=== PATIENT | female | born 1945 | race Caucasian/White ===

== ENCOUNTER 2019-02-27 11:21 | Outpatient (RCR) | payer MEDICARE, SELFPAY | END 2019-05-28 23:59 | disposition home or self-care (01) | LOC: ANHLAB 11:21 | PROVIDERS: Visit Provider Internal Medicine Critical Care Medicine | DX: J45.909 Unspecified asthma, uncomplicated (principal); B99.9 Unspecified infectious disease | CPT/HCPCS: 87015; 87070; 87102; 87106; 87116; 87205; 87206 ==

== ENCOUNTER → 2019-06-30 10:26 | Outpatient (CLI) | payer MEDICARE, SELFPAY ==
--- NOTE | ~2019-06-30 | XR_ITS ---
XR chest 2V 06/30/2019 10:53 Indication: Shortness of breath Procedure: 2 view chest Comparison: 08/25/2018 Findings: Cardiomegaly. No focal air space disease, pulmonary edema, pleural effusion or suspected pn eumothorax. There is an implanted device overlying the left anterior chest wall. Impression: 1: No acute cardiopulmonary disease. Reviewed, dictated and finalized at location B. HEALTH PROMOTER Impression: 1: No acute cardiopulmonary disease.
== END ==
PROVIDERS: PCP Family Medicine; Visit Provider Family Medicine
DX: J45.909 Unspecified asthma, uncomplicated (principal); R06.89 Other abnormalities of breathing
CPT/HCPCS: 71046

== ENCOUNTER 2019-10-22 10:38 | Outpatient (CLI) | payer MEDICARE, SELFPAY ==
--- NOTE | ~2019-10-22 | XR_ITS ---
XR chest 2V DATE: 10/22/2019 11:05 INDICATION: Atrial fibrillation. COPD, asthma. Cerebral infarction. TECHNIQUE: PA and lateral views COMPARISON: 07/26/2021 view chest FINDINGS: Left human resources temp device overlies the medial left chest. Cardiomegaly. Aortic calcification. No hilar or mediastinal enlargement is evident. The lungs are kathya ar of infiltrate or consolidation. No pulmonary vascular congestion or pneumothorax. No significant p leural fluid. Diffuse osteopenia. Degenerative spurring of the thoracic spine. 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 IMPRESSION: Mild cardiomegaly Aortic atherosclerosis commercial account officer device No active pulmonary disease or significant change since 06/30/2019 Reviewed, dictated and finalized at location A.
== END 2019-10-22 10:39 | disposition home or self-care (01) ==
PROVIDERS: PCP Family Medicine; Visit Provider Family Medicine
DX: I63.9 Cerebral infarction, unspecified (principal); J45.909 Unspecified asthma, uncomplicated; I51.7 Cardiomegaly; I70.0 Atherosclerosis of aorta
CPT/HCPCS: 71046

== ENCOUNTER 2019-10-29 11:27 | Emergency (ER) | payer MEDICARE, SELFPAY ==
[2019-10-29] VITALS (8 sets, daily range): BP systolic 124–217; BP diastolic 59–90; PULSE 63–78; RESP 14–18; TEMP 36.8; O2SAT 98–99
--- NOTE | ~2019-10-29 | XR_ITS ---
XR chest 2V 10/29/2019 12:12 Indication: Chest pain Procedure: 2 view chest Comparison: 10/22/2019 Findings: Bibasilar atelectasis. Borderline heart size. No focal pneumonia, edema, pleural effusion o r pneumothorax. Impression: 1: Bibasilar atelectasis. Reviewed, dictated and finalized at location A. Impression: 1: Bibasilar atelectasis.
--- NOTE | 2019-10-29 11:40 | ECG_ITS ---
Measurements Intervals [place] Rate: 74 P: 113 TN: 163 QRS: 6 QRSD: 85 T: 74 QT: 379 QTc: 422 Interpretive Statements SINUS RHYTHM LOW QRS VOLTAGE IN PRECORDIAL LEADS NONSPECIFIC ST & T-WAVE ABNORMALITY- HIGH LATERAL LEADS BASELINE ARTIFACT- I, AVR, V1, V6 BORDERLINE ECG Electronically Signed On 10-29-2019 13:57:15 CDT by Darien Marte D.O.
[2019-10-29 11:54] LABS: Basophils Absolute Auto 0.1 K/mm3 (0.0-0.1); Basophils Percent Auto 0.5 % (0.2-1.2); Eosinophils Absolute Auto 0.2 K/mm3 (0-0.3); Eosinophils Percent Auto 1.9 % (0-4.4); Hematocrit 39.9 % (37.0-47.0); Hemoglobin 12.7 g/dL (12.0-15.0); Immature Granulocyte Absolute 0.06 K/mm3 (0.00-0.031); Immature Granulocyte Percent A 0.6 % (0-0.5); Lymphocytes Absolute Auto 2.15 K/mm3 (0.9-3.2); Lymphocytes Percent Auto 20.7 % (18.3-44.2); Mean Corpuscular HGB Conc 31.8 g/dl (32-36); Mean Corpuscular Hemoglobin 27.3 pg (26-34); Mean Corpuscular Volume 85.8 fl (80-100); Mean Platelet Volume 9.3 fl (7.4-10.4); Monocytes Absolute Auto 0.9 K/mm3 (0.1-0.6); Monocytes Percent Auto 8.7 % (2.6-8.5); Neutrophils Percent Auto 67.6 % (45.5-73.1); Platelet Count Result 349 k/mm3 (150-375); Red Blood Count 4.65 M/mm3 (4.2-5.4); Red Cell Distribution Width 15.1 % (11.5-14.5); White Blood Count 10.4 K/mm3 (4.5-10.0)
[2019-10-29 12:06] LABS: INR 2.3; Prothrombin Time 24.8 Seconds (11.1-14.7)
[2019-10-29 12:07] LABS: Partial Thromboplastin Time 52.8 SECONDS (22.3-36.8)
[2019-10-29 12:34] LABS: Blood Urea Nitrogen 12 mg/dL (7-17); Calcium 9.4 mg/dL (8.4-10.2); Carbon Dioxide 27 mmol/L (22-30); Chloride 103 mmol/L (98-107); Estimated CRCL calculation 50 ml/min; Estimated Glomerular Filt Rate > 60; Glucose 86 mg/dL (65-105); Potassium 4.8 mmol/L (3.4-5.0); Sodium 136 mmol/L (137-145)
[2019-10-29 12:35] LABS: Alanine Aminotransferase 18 U/L (4-35); Alkaline Phosphatase 163 U/L (38-126); Aspartate Amino Transferase 42 U/L (14-36); Bilirubin,Total 0.3 mg/dL (0.2-1.3); Lipase 132 U/L (23-300)
[2019-10-29 12:46] LABS: Troponin I 0.013 ng/mL (0.000-0.034)
[2019-10-29] MEDS: FAMOTIDINE 20 MG/2 ML VIAL IV PUSH (14:25)
[2019-10-29] MEDS: BELLADONNA ALK/PHENOB ELIX 10 ML, MAG HYDROX/ALUMINUM HYD/SIMETH 30 ML, LIDOCAINE HCL 2... PO (14:25)
[2019-10-29 15:08] LABS: Troponin I < 0.012 ng/mL (0.000-0.034)
[2019-10-29] MEDS: FUROSEMIDE INJ 40 MG/4 ML VIAL 20 MG IV PUSH (15:22)
--- NOTE | 2019-10-29 15:28 | ED.GENADULT ---
HPI - General Adult General Chief complaint: Chest Pain <MABEL Pablo Last Filed: 10/29/19 15:34> Stated complaint: heart problems <MABEL Pablo Last Filed: 10/29/19 15:34> Time Seen by Provider: 10/29/19 11:57 <MABEL Pablo Last Filed: 10/29/19 15:34> Source: patient <MABEL Pablo Last Filed: 10/29/19 15:34> Mode of arrival: ambulatory <MABEL Pablo Last Filed: 10/29/19 15:34> Limitations: no limitations <MABEL Pablo Last Filed: 10/29/19 15:34> History of Present Illness HPI narrative: Patient is a 74-year-old female who presents with weeks duration of epigastric abdominal discomfort radiating up into the chest and neck patient notes history of reflux and has been taking [id number] and prescribed medications with minimal improvement patient on arrival notes mild discomfort has seen her primary care for this with no improvement patient on arrival is noted in no distress resting comfortably. <MABEL Pablo Last Filed: 10/29/19 15:34> Related Data Home medications: Home Medications Medication Instructions Recorded Confirmed brimonidine 0.2 %-timolol 0.5 % 2 drop EACH EYE Q12H 03/12/19 10/20/19 eye drops bupropion HCl 150 mg 24 hr tablet, 150 mg PO QAM 03/12/19 10/20/19 extended release cetirizine 10 mg tablet 10 mg PO DAILY 03/12/19 10/20/19 clonazepam 0.5 mg tablet 0.5 mg PO DAILY 03/12/19 10/20/19 clopidogrel 75 mg tablet 75 mg PO DAILY 03/12/19 10/20/19 dicyclomine 20 mg tablet 20 mg PO QID 03/12/19 10/20/19 levomilnacipran 80 mg capsule,24 80 mg PO DAILY 03/12/19 10/20/19 hr,extended release metoprolol succinate 25 mg 25 mg PO DAILY 03/12/19 10/20/19 tablet,extended release 24 hr nitroglycerin 0.4 mg sublingual 0.4 mg SUBLINGUAL Q5M PRN 03/12/19 10/20/19 tablet potassium chloride 20 mEq 20 meq PO DAILY 03/12/19 10/20/19 tablet,extended release vitamin E succinate 400 unit tablet 400 unit PO DAILY 03/12/19 10/20/19 trazodone 50 mg tablet 100 mg PO .HS tablet 03/13/19 10/20/19 buspirone 15 mg tablet 15 mg PO TID tablet 08/26/19 10/20/19 sitagliptin 100 mg tablet 100 mg PO QAM tablet 08/26/19 10/20/19 Vitamin D3 1 tab-cap PO DAILY 10/29/19 acetaminophen [Tylenol Arthritis 1,300 mg PO Q12H 10/29/19 Pain] atorvastatin 40 mg PO DAILY 10/29/19 budesonide-formoterol 2 puff INHALATION Q12H 10/29/19 geriatric yscfbzbe-jkmk-tfkt 1 tablet PO DAILY 10/29/19 insulin asp prt-insulin aspart 55 unit SUB-Q BID 10/29/19 [Novolog Mix 70-30FlexPen U-100] potassium chloride 20 meq PO DAILY 10/29/19 vilazodone 10 mg PO DAILY 10/29/19 vitamin B complex 1 tablet PO DAILY 10/29/19 <Eric Lawton PA-C - Last Filed: 10/29/19 15:34> Allergies/adverse reactions: Allergies Allergy/AdvReac Type Severity Reaction Status Date / Time amoxicillin Allergy Unknown Unknown Verified 10/29/19 11:38 ticagrelor Allergy Unknown Unknown Verified 10/29/19 11:38 clavulanic acid AdvReac Nausea and Verified 10/29/19 11:44 [From Augmentin] Vomiting <Eric Lawton PA-C - Last Filed: 10/29/19 15:34> Review of Systems Review of Systems: All systems reviewed & are unremarkable except as noted in HPI and below <Eric Lawton PA-C - Last Filed: 10/29/19 15:34> [facility] Past Medical History Medical History: Medical History Anxiety Asthma Back pain Cholecystectomy planned Depression Heart attack History of cardiac monitoring Hypertension Obesity Psychiatric problem <Eric Lawton PA-C - Last Filed: 10/29/19 15:34> Surgical History Surgical History: Surgical History H/O heart artery stent Hx of tonsillectomy <Eric Lawton PA-C - Last Filed: 10/29/19 15:34> Social History Social History: Social History (Reviewed 10/29/19 @ 15
[2019-10-29 16:00] LABS: Add Urine Microscopic? YES; Appearance Urine Clear (Clear); Bacteria Urine Trace /hpf; Bilirubin Urine Negative (Negative); Blood Urine Negative (Negative); Color Urine Yellow (Yellow); Glucose Urine UA Negative (Negative); Ketones Urine Negative (Negative); Leukocyte Esterase Ur Trace LEU/UL (Negative); Mucus Urine Rare /lpf; Nitrate Urine Positive (Negative); Protein Urine Negative (Negative); RBC Urine 0-2 /hpf (0-2); Specific Grav Ur 1.015 (1.001-1.035); Squamous Epithelial Cell Urine Rare /hpf (Few); Urobilinogen Urine Negative mg/dL (<2.0); WBC Urine 16-20 /hpf
== END 2019-10-29 15:45 | disposition home or self-care (01) ==
PROVIDERS: Emergency Medicine Emergency Medical Services; Emergency Provider General Practice; PCP Family Medicine
DX: R10.13 Epigastric pain (principal); J45.909 Unspecified asthma, uncomplicated; F41.9 Anxiety disorder, unspecified; F32.9 Major depressive disorder, single episode, unspecified; I25.2 Old myocardial infarction; I10 Essential (primary) hypertension; E66.9 Obesity, unspecified; Z68.41 Body mass index [BMI] 40.0-44.9, adult; Z95.5 Presence of coronary angioplasty implant and graft; Z87.891 Personal history of nicotine dependence; R94.31 Abnormal electrocardiogram [ECG] [EKG]
CPT/HCPCS: 36415; 71046; 80048; 80076; 81001; 83690; 84484; 85025; 85610; 85730; 87077; 87086; 87088; 87186; 93005; 96374; 96375; 99284; A9270; J1940

== ENCOUNTER 2019-11-18 10:25 | Outpatient (CLI) | payer MEDICARE, SELFPAY ==
--- NOTE | ~2019-11-18 | US_ITS ---
EXAMINATION: US carotid duplex BI DATE: 11/18/2019 11:27 INDICATION: Cerebral infarction, unspecified. TECHNIQUE: Grayscale, color Doppler, and pulsed Doppler images of the cervical carotid arteries were obtained. The degree of vessel stenosis is placed in one of the following categories: normal, <50%, 5 0-69%, >=70% but less than near-occlusion, near-occlusion, or total occlusion. Note that percent sten osis relative to normal distal artery lumen diameter is indirectly measured from velocity measurement s as described by Ck, et al. Radiology 2003; 229:340-346. COMPARISON: None. FINDINGS: RIGHT: The right common carotid artery (CCA) peak systolic velocity (PSV) is 73 cm/s. The right internal car otid artery (ICA) PSV is 67 cm/s. The right ICA end-diastolic velocity (EDV) is 11 cm/s. The right IC A/CCA PSV ratio is 0.9. Grayscale and color Doppler images yield an estimate of <50% diameter reducti on from plaque in the ICA. There is antegrade flow in the right vertebral artery. LEFT: The left CCA PSV is 61 cm/s. The left ICA PSV is 58 cm/s. The left ICA EDV is 10 cm/s. The left ICA/C CA PSV ratio is 1.0. Grayscale and color Doppler images yield an estimate of <50% diameter reduction from plaque in the ICA. There is antegrade flow in the left vertebral artery. IMPRESSION: 1. <50% stenosis in the right internal carotid artery. 2. <50% stenosis in the left internal carotid artery. Reviewed, dictated and finalized at location A.
== END 2019-11-18 10:26 | disposition home or self-care (01) ==
PROVIDERS: PCP Family Medicine; Visit Provider Nurse Practitioner Adult Health
DX: I65.23 Occlusion and stenosis of bilateral carotid arteries (principal)
CPT/HCPCS: 93880

== ENCOUNTER → 2020-10-28 10:22 | Outpatient (CLI) | payer MEDICARE, SELFPAY ==
--- NOTE | ~2020-10-28 | DEXA_ITS ---
Bone Density Report Name: Mihaela Finch Age: 75 Sex: Female Ethnicity: White Date of : 1945 Indication: postmenopausal; screening for osteoporosis; height loss; prior fracture; asthma or emphysema; Referring Provider: Shefali Vann Study: Bone densitometry was performed. Exam Date: October 28, 2020 Accession number: [id number] Bone Density: Region BMD T-score Z-score Classification AP Spine (L1-L4) 1.070 0.2 2.7 Normal Femoral Neck (Left) 0.672 -1.6 0.6 Osteopenia Total Hip (Left) 0.818 -1.0 0.9 Normal Femoral Neck (Right) 0.725 -1.1 1.0 Osteopenia Total Hip (Right) 0.862 -0.7 1.2 Normal Total Hip Mean 0.840 -0.9 1.1 Normal World Health Organization criteria for BMD impression classify patients as: Normal (T-score at or above -1.0), Osteopenia (T-score between -1.0 and -2.5), or Osteoporosis (T-score at or below -2.5). 10-year Fracture Risk(1): Major Osteoporotic Fracture 16% Hip Fracture 3.1% Reported Risk Factors: [place] (), Neck BMD=0.672, BMI=37.2, previous fracture (1) FRAX(R) Version 3.08. Fracture probability calculated for an untreated patient. Fracture probability may be lower if the patient has received treatment. Previous Exams: Region Exam Age BMD T-score BMD Change BMD Change Date g/cm2 vs Baseline vs Previous AP Spine(L1-L4) 10/28/2020 75 1.070 0.2 0.041 0.041 02/28/2017 72 1.029 -0.2 Total Hip(Left) 10/28/2020 75 0.818 -1.0 -0.078 -0.078 02/28/2017 72 0.896 -0.4 Total Hip(Right) 10/28/2020 75 0.862 -0.7 -0.032 -0.032 02/28/2017 72 0.893 -0.4 *Denotes significance at 95% confidence level, LSC for AP Spine = 0.022 g/cm2, LSC for Total Hip = 0.027 g/cm2 Clinical Information Provided by Patient: Has had a low trauma fracture Has used the following medications: Calcium Has the following medical conditions: Asthma or Emphysema Patient maximum height was 62 Menopause Age: 42 No regular weight bearing exercise Drinks caffeinated beverages Onset of menses at age 10 Number of children 2 Impression: The patient has low bone mass, based on the Left Femoral Neck T-score. The patient has an estimated ten-year risk of hip fracture of 3.1% and an estimated ten-year risk of major fracture of 16%, based on the WHO FRAX algorithm. The patient has risk factors, including: previous fracture. No significant bone loss was observed.
== END ==
PROVIDERS: PCP Family Medicine; Visit Provider Physician Assistant
DX: Z78.0 Asymptomatic menopausal state (principal); M85.851 Other specified disorders of bone density and structure, right thigh; M85.852 Other specified disorders of bone density and structure, left thigh
CPT/HCPCS: 77080

== ENCOUNTER → 2021-07-26 07:54 | Outpatient (CLI) | payer MEDICARE, SELFPAY ==
--- NOTE | ~2021-07-26 | US_ITS ---
US abdomen limited DATE: 07/26/2021 08:30 INDICATION: Abnormal serum enzyme elevation TECHNIQUE: Real-time imaging and Doppler analysis of liver, pancreas, gallbladder fossa COMPARISON: None FINDINGS: No hepatic or pancreatic space-occupying mass lesion. Normal hepatopedal portal venous flow direction. Surgical absence of gallbladder. Common bile duct measures 5 mm, within normal range. IMPRESSION: Status post cholecystectomy Reviewed, dictated and finalized at Location A. Reviewed, dictated and finalized at location A. IMPRESSION: Status post cholecystectomy
== END ==
PROVIDERS: Visit Provider Physician Assistant
DX: R74.8 Abnormal levels of other serum enzymes (principal); Z90.49 Acquired absence of other specified parts of digestive tract
CPT/HCPCS: 76705

== ENCOUNTER 2021-10-24 19:52 | Emergency (ER) | payer MEDICARE, SELFPAY ==
[2021-10-24 20:37] VITALS: BP 171/66; PULSE 77; RESP 18; TEMP 36.4; O2SAT 100
[2021-10-24 20:49] LABS: Glucose Point of Care 76 mg/dl (65-105)
[2021-10-24 23:44] LABS: Appearance Urine Slightly Cloudy (Clear); Bilirubin Urine Negative (Negative); Blood Urine 2+ (Negative); Color Urine Yellow (Yellow); Glucose Urine UA Negative (Negative); Ketones Urine Negative (Negative); Leukocyte Esterase Ur 3+ LEU/UL (Negative); Nitrate Urine Negative (Negative); Protein Urine 1+ mg/dL (Negative); Specific Grav Ur 1.015 (1.001-1.035); Urobilinogen Urine 0.2 mg/dL (<2.0)
[2021-10-24 23:51] LABS: Bacteria Urine Trace /hpf; Mucus Urine Rare /lpf; RBC Urine 21-50 /hpf (0-2); Squamous Epithelial Cell Urine Rare /hpf (Few); WBC Clumps Urine Present /HPF; WBC Urine >75 /hpf
[2021-10-24 23:52] LABS: Add Urine Microscopic? YES
[2021-10-24 23:58] LABS: Basophils Absolute Auto 0.1 K/mm3 (0.0-0.1); Basophils Percent Auto 0.5 % (0.2-1.2); Eosinophils Absolute Auto 0.2 K/mm3 (0-0.3); Eosinophils Percent Auto 1.7 % (0-4.4); Hemoglobin 12.1 g/dL (12.0-15.0); Immature Granulocyte Absolute 0.06 K/mm3 (0.00-0.031); Immature Granulocyte Percent A 0.5 % (0-0.5); Lymphocytes Absolute Auto 2.22 K/mm3 (0.9-3.2); Lymphocytes Percent Auto 18.3 % (18.3-44.2); Mean Corpuscular HGB Conc 30.3 g/dl (32-36); Mean Corpuscular Hemoglobin 25.7 pg (26-34); Mean Corpuscular Volume 85.1 fl (80-100); Mean Platelet Volume 9.5 fl (7.4-10.4); Monocytes Percent Auto 8.2 % (2.6-8.5); Neutrophils Absolute Auto 8.6 K/mm3 (1.3-6.7); Neutrophils Percent Auto 70.8 % (45.5-73.1); Platelet Count Result 321 k/mm3 (150-375); Red Cell Distribution Width 15.7 % (11.5-14.5); White Blood Count 12.1 K/mm3 (4.5-10.0)
--- NOTE | 2021-10-25 00:18 | ED.GENADULT ---
HPI - General Adult General Chief complaint: Recheck/Abnormal Lab/Rx Stated complaint: low blood sugar Time Seen by Provider: 10/24/21 22:58 History of Present Illness HPI narrative: 76-year-old female with history of diabetes presenting to the emergency department for evaluation of issues with hypoglycemia. Patient has had more frequent issues with hypoglycemia due to her having 71 pounds of intentional weight loss over the last year. Patient states they have been decreasing both her p.o. and her injectable insulin. Patient states over the course of the day today that she was having blood sugars running in the 50s for which she was symptomatic. Upon arrival to the ED patient's blood sugar is between the 70s and she does feel improved. Patient has also been having more frequent urinary tract infections and does have follow-up with urology scheduled for . Patient reports she has been on multiple antibiotics but is unsure what they are. Related Data Home Medications Medication Instructions Recorded Confirmed brimonidine 0.2 %-timolol 0.5 % 2 drop ophthalmic (eye) Q12H 03/12/19 10/13/21 eye drops (Combigan) bupropion HCl 150 mg 24 hr tablet, 150 mg PO QAM 03/12/19 10/13/21 extended release cetirizine 10 mg tablet (Zyrtec) 10 mg PO DAILY 03/12/19 10/13/21 clopidogrel 75 mg tablet 75 mg PO DAILY 03/12/19 10/13/21 levomilnacipran 80 mg capsule,24 80 mg PO DAILY 03/12/19 10/13/21 hr,extended release (Fetzima) metoprolol succinate 25 mg 25 mg PO DAILY 03/12/19 10/13/21 tablet,extended release 24 hr nitroglycerin 0.4 mg sublingual 0.4 mg sublingual Q5M PRN Chest 03/12/19 10/13/21 tablet Pain vitamin E succinate 268 mg (400 400 unit PO DAILY 03/12/19 10/13/21 unit) tablet trazodone 50 mg tablet 100 mg PO .HS 03/13/19 10/13/21 buspirone 15 mg tablet 15 mg PO TID 08/26/19 10/13/21 acetaminophen 650 mg 1,300 mg PO Q12H 10/29/19 10/13/21 tablet,extended release (Tylenol Arthritis Pain) budesonide-formoterol HFA 160 2 puff inhalation Q12H 10/29/19 10/13/21 mcg-4.5 mcg/actuation aerosol inhaler geriatric dhamamel-ssbq-owmr 1 tablet PO DAILY 10/29/19 10/13/21 vilazodone 10 mg tablet 10 mg PO DAILY 10/29/19 10/13/21 vitamin B complex 1 tablet PO DAILY 10/29/19 10/13/21 rivaroxaban 20 mg tablet (Xarelto) 20 mg PO DAILY 12/01/19 10/13/21 atorvastatin 40 mg tablet 40 mg PO QPM 12/06/19 10/13/21 cholecalciferol (vitamin D3) 25 25 mcg PO DAILY 05/26/20 10/13/21 mcg (1,000 unit) tablet clonazepam 0.5 mg tablet 0.5 mg PO DAILY PRN 05/26/20 10/13/21 furosemide 20 mg tablet 20 mg PO QAM 05/26/20 10/13/21 multivitamin 1 tablet PO DAILY 05/26/20 10/13/21 POTASSIUM GUMMIES BYMOUTH 10/12/21 10/13/21 insulin regular hum U-500 conc 500 See Rx Instructions .Route .COMPLEX 10/12/21 10/13/21 unit/mL(3 mL) subcut pen (Humulin R U-500 (Conc) Insulin Kwikpen) Allergies Allergy/AdvReac Type Severity Reaction Status Date / Time amoxicillin Allergy Unknown Unknown Verified 10/13/21 10:40 ticagrelor Allergy Unknown Unknown Verified 10/13/21 10:40 clavulanic acid AdvReac Nausea and Verified 10/13/21 10:40 [From Augmentin] Vomiting Review of Systems Review of Systems: CONSTITUTIONAL: Denies fever, chills, or sweats. EYES: Denies visual changes, redness, or discharge. ENT: Denies rhinorrhea, congestion, sore throat, or otalgia. CARDIOVASCULAR: Denies chest pain, palpitations, or edema. RESPIRATORY: Denies cough or dyspnea. GASTROINTESTINAL: See HPI GENITOURINARY: See HPI SKIN: Denies rash or itching. MUSCULOSKELETAL: Denies back pain, joint pain, or myalgia. NEUROLOGIC: Denies headache, numbness, or weakness. FOR[facility]LY [facility] Past Medical History Medical History Anxiety Asthma Back pain Cholecystectomy planned Depression Heart attack History of cardiac monitoring Hypertension Obesity Psychiatric problem Surgical History Surgical History (Reviewed 10/12/21 @ 11:2
[2021-10-25 00:28] LABS: Glucose Point of Care 62 mg/dl (65-105)
[2021-10-25] MEDS: NITROFURANTOIN MONOHYD MACROCR 100 MG CAP PO (00:56)
[2021-10-25 01:08] LABS: Alanine Aminotransferase 28 U/L (6-35); Albumin Level 4.3 g/dL (3.5-5.1); Alkaline Phosphatase 147 U/L (38-126); Anion Gap 7 mmol/L (8-16); Aspartate Amino Transferase 40 U/L (14-36); Bilirubin,Total 0.2 mg/dL (0.2-1.3); Blood Urea Nitrogen 13 mg/dL (7-17); Calcium 9.5 mg/dL (8.4-10.2); Carbon Dioxide 29 mmol/L (22-30); Chloride 103 mmol/L (98-107); Estimated CRCL calculation 47 ml/min; Estimated Glomerular Filt Rate > 60; Glucose 81 mg/dL (65-110); Potassium 3.8 mmol/L (3.4-5.0); Sodium 139 mmol/L (137-145)
[2021-10-25 02:19] LABS: Glucose Point of Care 93 mg/dl (65-105)
[2021-10-25 02:29] VITALS: BP 172/92; PULSE 83; RESP 18; O2SAT 94
== END 2021-10-25 02:29 | disposition home or self-care (01) ==
PROVIDERS: Emergency Provider Emergency Medicine; PCP Family Medicine
DX: E11.649 Type 2 diabetes mellitus with hypoglycemia without coma (principal); N39.0 Urinary tract infection, site not specified; J45.909 Unspecified asthma, uncomplicated; I25.2 Old myocardial infarction; I10 Essential (primary) hypertension; E66.9 Obesity, unspecified; Z68.34 Body mass index [BMI] 34.0-34.9, adult; F41.9 Anxiety disorder, unspecified; Z79.01 Long term (current) use of anticoagulants; Z79.4 Long term (current) use of insulin; Z95.5 Presence of coronary angioplasty implant and graft; Z87.891 Personal history of nicotine dependence
CPT/HCPCS: 36415; 80053; 81001; 82948; 85025; 87077; 87086; 87186; 99283; A9270

== ENCOUNTER → 2022-05-01 11:41 | Outpatient (CLI) | payer MEDICARE, SELFPAY ==
--- NOTE | ~2022-05-01 | XR_ITS ---
Clinical Indication: Cough PA and lateral views of the chest: Comparison: 10/29/2019 Findings: Small bilateral pleural effusions are present with probable mild bibasilar pulmonary edema. . Cardiomediastinal silhouette is stable, with wireless monitoring device. Bones and soft tissues ar e unremarkable. Impression: Small bilateral pleural effusions with mild bibasilar pulmonary edema. Stable cardiac monitoring device. Reviewed, dictated and finalized at location . CULTURE EXTENSION SPECIALIST Impression: Small bilateral pleural effusions with mild bibasilar pulmonary edema. Stable cardiac monitoring device.
== END ==
PROVIDERS: PCP Nurse Practitioner; Visit Provider Nurse Practitioner
DX: R05.9 Cough, unspecified (principal); R06.02 Shortness of breath; R60.9 Edema, unspecified; J90 Pleural effusion, not elsewhere classified; Z95.818 Presence of other cardiac implants and grafts
CPT/HCPCS: 71046

== ENCOUNTER → 2022-05-10 11:21 | Outpatient (CLI) | payer MEDICARE, SELFPAY ==
--- NOTE | ~2022-05-10 | XR_ITS ---
EXAMINATION: XR chest 2V DATE: 05/10/2022 11:35 INDICATION: Shortness of breath TECHNIQUE: PA and lateral views of the chest are obtained. COMPARISON: 05/01/2022 FINDINGS: There are small pleural effusions, right greater than left, without significant change. Car diomegaly is noted. There is no pleural effusion. There are stable airspace opacities of the lung bas es. A mild diffuse interstitial pattern persists but has improved. A cardiac monitoring device projec ts over the left heart. There is moderate thoracic spondylosis. IMPRESSION: 1. Small pleural effusions, stable. 2. Bibasilar airspace opacities, consistent with atelectasis versus pneumonia. 3. Cardiomegaly and mild pulmonary edema with interval improvement. Reviewed, dictated and finalized at location L. INSERTER
== END ==
PROVIDERS: PCP Family Medicine; Visit Provider Nurse Practitioner
DX: J90 Pleural effusion, not elsewhere classified (principal); I51.7 Cardiomegaly; J81.1 Chronic pulmonary edema
CPT/HCPCS: 71046

== ENCOUNTER 2022-05-21 08:16 | Inpatient (IN) | payer MEDICARE, SELFPAY ==
[2022-05-21] VITALS (16 sets, daily range): BP systolic 151–196; BP diastolic 50–99; PULSE 81–98; RESP 16–26; TEMP 36.1–36.6; O2SAT 91–98
--- NOTE | ~2022-05-21 | XR_ITS ---
EXAMINATION: XR chest 2V DATE: 05/21/2022 09:04 INDICATION: Shortness of breath. TECHNIQUE: Frontal and lateral views of the chest were obtained. COMPARISON: Chest 2 views 05/10/2022 FINDINGS: There are small pleural effusions. There are airspace opacities at the lung bases. No pneum othorax. Cardiomegaly is noted. There is an electronic implant in left anterior chest wall. There are surgical clips in the abdomen. IMPRESSION: 1. Stable small pleural effusions. 2. Worsened airspace opacities at the lung bases, consistent with atelectasis versus pneumonia. 3. Cardiomegaly. Reviewed, dictated and finalized at location A. D ACCOUNT MANAGER IMPRESSION: 1. Stable small pleural effusions. 2. Worsened airspace opacities at the lung bases, consistent with atelectasis v ersus pneumonia. 3. Cardiomegaly.
--- NOTE | ~2022-05-21 | XR_ITS ---
XR chest 1V portable 05/26/2022 05:57 Indication: Shortness of breath Procedure: AP portable chest Comparison: Comparison to multiple prior studies sequentially, with oldest reviewed study dated 05/2019. Findings: Cardiomegaly with mild interstitial edema. Small pleural effusions. No pneumothorax. There is atherosclerosis. No acute osseous abnormality. Impression: 1: Cardiomegaly with mild interstitial edema. 2: Small pleural effusions. Reviewed, dictated and finalized at location A. RITY OF ILLNESS COORDINATOR Impression: 1: Cardiomegaly with mild interstitial edema. 2: Small pleural effusions.
--- NOTE | 2022-05-21 08:28 | ECG_ITS ---
Measurements Intervals [place] Rate: 87 P: 83 CT: 167 QRS: 26 QRSD: 83 T: 11 QT: 352 QTc: 426 Interpretive Statements SINUS RHYTHM LOW QRS VOLTAGE IN PRECORDIAL LEADS BORDERLINE ST-T WAVE ABNORMALITY- INF/HIGH LAT LEADS BASELINE ARTIFACT- I, II, III, AVR, AVL, AVF, V3, V6 BORDERLINE ECG COMPARED TO ECG 10/29/2019 11:37:30 NO SIGNIFICANT CHANGES Electronically Signed On 05-21-2022 10:50:50 YARD SPECIALIST by Darien Marte D.O.
[2022-05-21 08:46] LABS: Basophils Percent Auto 0.3 % (0.2-1.2); Eosinophils Absolute Auto 0.2 K/mm3 (0-0.3); Eosinophils Percent Auto 1.8 % (0-4.4); Hemoglobin 9.9 g/dL (12.0-15.0); Immature Granulocyte Absolute 0.06 K/mm3 (0.00-0.031); Immature Granulocyte Percent A 0.5 % (0-0.5); Immature Platelet Fraction Pct 1.7 % (0.9-11.2); Lymphocytes Absolute Auto 1.17 K/mm3 (0.9-3.2); Lymphocytes Percent Auto 10.6 % (18.3-44.2); Mean Corpuscular HGB Conc 29.1 g/dl (32-36); Mean Corpuscular Hemoglobin 22.5 pg (26-34); Mean Corpuscular Volume 77.3 fl (80-100); Monocytes Absolute Auto 0.9 K/mm3 (0.1-0.6); Monocytes Percent Auto 8.5 % (2.6-8.5); Neutrophils Absolute Auto 8.7 K/mm3 (1.3-6.7); Neutrophils Percent Auto 78.3 % (45.5-73.1); Platelet Count Result 352 k/mm3 (150-375); White Blood Count 11.1 K/mm3 (4.5-10.0)
[2022-05-21 08:56] LABS: INR 2.4
[2022-05-21 08:57] LABS: Alanine Aminotransferase 21 U/L (6-35); Albumin Level 3.7 g/dL (3.5-5.1); Alkaline Phosphatase 208 U/L (38-126); Anion Gap 8 mmol/L (8-16); Aspartate Amino Transferase 25 U/L (14-36); Bilirubin,Total 0.5 mg/dL (0.2-1.3); Blood Urea Nitrogen 18 mg/dL (7-17); Carbon Dioxide 27 mmol/L (22-30); Chloride 108 mmol/L (98-107); Estimated CRCL calculation 44 ml/min; Estimated Glomerular Filt Rate 48; Glucose 114 mg/dL (65-110); Potassium 3.9 mmol/L (3.4-5.0); Sodium 143 mmol/L (137-145)
[2022-05-21 08:58] LABS: Partial Thromboplastin Time 50.2 SECONDS (22.3-36.8)
[2022-05-21 09:09] LABS: NT Pro B Type Natriuretic Pept 2640 pg/mL (19.9-100); Troponin I < 0.012 ng/mL (0.000-0.034)
[2022-05-21 09:21] LABS: Platelet Estimate Adequate (Adequate)
[2022-05-21 09:22] LABS: Anisocytosis 1+ (NORMAL); Hypochromasia 1+ (NORMAL); Ovalocytes 1+ (NORMAL); Poikilocytosis 1+ (NORMAL); Schistocytes None Seen (NORMAL)
[2022-05-21] MEDS: FUROSEMIDE INJ 40 MG/4 ML VIAL IV PUSH ×2 (09:35→20:55)
--- NOTE | 2022-05-21 10:01 | ED.SOB ---
HPI - SOB/Dyspnea General Chief Complaint: Shortness of Breath/Dyspnea Stated Complaint: swelling/diff breathing Time Seen by Provider: 05/21/22 08:26 History of Present Illness HPI Narrative: Patient is a 77-year-old female who presents the ER with lower extremity edema and shortness of breath. Edema worsening over the last month. She reports a 40 pound weight gain. Denies history of CHF. Reports she has been seen at an urgent care and has been placed on Lasix and has had her Lasix dose increased. She is currently taking 40 mg daily without improvement of edema. She has been wearing pressure stockings without improvement as well. She was recently started on clindamycin because her skin has turned pink over her shins of the lower legs. No fevers or chills or sweats. She has developed some blisters with weeping. No recent surgery or immobility. Patient is on Xarelto due to history of heart flutters. Related Data Home Medications Medication Instructions Recorded Confirmed brimonidine 0.2 %-timolol 0.5 % 2 drop ophthalmic (eye) Q12H 03/12/19 05/21/22 eye drops (Combigan) bupropion HCl 150 mg 24 hr tablet, 150 mg PO QAM 03/12/19 05/21/22 extended release cetirizine 10 mg tablet (Zyrtec) 10 mg PO DAILY 03/12/19 05/21/22 clopidogrel 75 mg tablet 75 mg PO DAILY 03/12/19 05/21/22 levomilnacipran 80 mg capsule,24 80 mg PO DAILY 03/12/19 05/21/22 hr,extended release (Fetzima) metoprolol succinate 25 mg 25 mg PO DAILY 03/12/19 05/21/22 tablet,extended release 24 hr nitroglycerin 0.4 mg sublingual 0.4 mg sublingual Q5M PRN Chest 03/12/19 05/21/22 tablet Pain buspirone 15 mg tablet 15 mg PO TID 08/26/19 05/21/22 acetaminophen 650 mg 1,300 mg PO Q12H 10/29/19 05/21/22 tablet,extended release (Tylenol Arthritis Pain) budesonide-formoterol HFA 160 2 puff inhalation Q12H 10/29/19 05/21/22 mcg-4.5 mcg/actuation aerosol inhaler geriatric pjrupfal-zkuk-edrh 1 tablet PO DAILY 10/29/19 05/21/22 vilazodone 10 mg tablet 10 mg PO DAILY 10/29/19 05/21/22 rivaroxaban 20 mg tablet (Xarelto) 20 mg PO DAILY 12/01/19 05/21/22 atorvastatin 40 mg tablet 40 mg PO QPM 12/06/19 05/21/22 cholecalciferol (vitamin D3) 25 25 mcg PO DAILY 05/26/20 05/21/22 mcg (1,000 unit) tablet clonazepam 0.5 mg tablet 0.5 mg PO DAILY PRN 05/26/20 05/21/22 multivitamin 1 tablet PO DAILY 05/26/20 05/21/22 POTASSIUM GUMMIES BYMOUTH 10/12/21 05/21/22 trazodone 50 mg tablet 100 mg PO .HS 05/01/22 05/21/22 dicyclomine 20 mg tablet 20 mg PO QID 05/21/22 05/21/22 metformin 500 mg tablet 1,000 mg PO DAILY 05/21/22 05/21/22 montelukast 10 mg tablet 10 mg PO DAILY 05/21/22 05/21/22 Allergies Allergy/AdvReac Type Severity Reaction Status Date / Time amoxicillin Allergy Unknown Unknown Verified 05/21/22 08:45 ticagrelor Allergy Unknown Unknown Verified 05/21/22 08:45 clavulanic acid AdvReac Nausea and Verified 05/21/22 08:45 [From Augmentin] Vomiting PMFSH Past Medical History Medical History Anxiety Asthma Back pain Benign hypertension Body mass index (BMI) 35 or more (06/10/17) Degenerative disc disease, lumbar Depression Elevated alkaline phosphatase level Enlarged thyroid Essential hypertension Heart attack History of cardiac monitoring Hypersomnia Hypertension Hypertensive chronic kidney disease with stage 1 through stage 4 chronic kidney disease, or unspecified chronic kidney disease Irritable bowel syndrome with diarrhea Metabolic syndrome Mixed hyperlipidemia Obesity Osteoarthritis of knees, bilateral Psychiatric problem Ptosis, left TMJ (temporomandibular joint syndrome) Type 2 diabetes mellitus with hyperglycemia Uncontrolled type 2 diabetes mellitus with hyperglycemia, with long-term current use of insulin Vertigo Surgical History Surgical History H/O heart artery stent Hx of tonsillectomy Family History Family Histor
[2022-05-21 12:11] LABS: Influenza A QL RT-PCR Negative (Negative); Influenza B QL RT-PCR Negative (Negative); SARS-CoV-2 RNA PCR Negative
--- NOTE | 2022-05-21 13:30 | PM.IMHP ---
H&P: HPI History of Present Illness Date/Time: 05/21/22 13:30 Chief Complaint: Swelling and shortness of breath. Narrative: This is a very pleasant 77-year-old female with coronary artery disease status post stent to in December 2016, hypertension, dyslipidemia, diabetes, and COPD who presented to the emergency department from home for evaluation of swelling and shortness of breath. Patient provides the following history. It is not unusual for her to have occasional lower extremity edema however over the past 3 weeks it has gotten increasingly worse and the swelling is now up to her upper thighs. In the same timeframe she has become increasingly short of breath on lesser and lesser exertion and she has been sleeping in a recliner due to orthopnea. She spoke with her primary physician regarding these findings and her furosemide dose was doubled though she continues to gain weight and in fact she believe she has gained almost 40 lb in 3 weeks. She is currently taking clindamycin due to redness and open wounds that have developed on her legs. She also reports chills and a cough which is occasionally productive of yellow/green/velásquez phlegm. She denies syncope, near syncope, sinus congestion, sore throat, chest and pleuritic pain, nausea, vomiting, and sweats. She has no known history of congestive heart failure, cirrhosis, or significant kidney disease. No history of DVT. No history of anemia and she has not noticed any blood in her stools. She snores heavily and has daytime somnolence though she has not wanted to do a sleep study as she does not think she would ever wear CPAP. Review of Systems Review of Systems: Twelve systems were reviewed and are negative except for as per HPI. FORMERLY [facility] Past Medical History Medical History (Updated 05/21/22 @ 22:40 by Yelena Alcazar PA-C) Anxiety Asthma Back pain Benign hypertension Chronic kidney disease Coronary artery disease History of stent to in December 2016. Depression Hypertension Irritable bowel syndrome with diarrhea Metabolic syndrome Mixed hyperlipidemia Obesity Type 2 diabetes mellitus Vertigo Surgical History Surgical History (Updated 05/21/22 @ 22:26 by Yelena Alcazar PA-C) History of cardiac catheterization History of coronary artery stent placement History of tonsillectomy Family History Family History Father Family history of mental disorder Depression Family history of arthritis Family history of diabetes mellitus in first degree relative Family history of congestive heart failure Family history of heart disease in male family member before age 55 Family history of hearing loss Diabetes mellitus Family history of cardiovascular disease Acute myocardial infarction Mother Family history of anemia Family history of arthritis Family history of malignant neoplasm of breast in first degree relative Sibling Family history of cardiovascular disease Other Family history of elevated blood lipids Social History Social History (Updated 05/21/22 @ 22:27 by Yelena Alcazar PA-C) Social History: Surrogate medical decision maker: Ben Finch, son. Code status: Full code. Smoking packs per day: 2 Smoking cigarettes per day: 40.0 Years smoked: 35 Smoking pack-years: 70.00 Smoking status: Former smoker Tobacco type: cigarettes Smoking end date: 04/29/89 Alcohol intake: never Substance use: never Other substance usage details: CBD/THC oil and gummies. Lack of Transportation: YES Lack of Food: Never True Current Housing: I Have Housing Concerned About Future Housing: No Difficulty Paying Gas/Electric Bills: No Difficulty Paying for Meds: No Currently Unemployed: No Education: High School Diploma/GED Difficulty w/ Childcare or Family Care: No Additional living arrangements comments: . Lives in [place]. Occupation/Education: retire
[2022-05-21 14:01] LABS: Glucose Point of Care 60 mg/dl (65-105)
--- NOTE | 2022-05-21 17:55 | ADMGEN ---
This patient, Mihaela Finch, was admitted to [facility] Surg Room 307-01. Patient/family oriented to hospital policies and general routines including ID bracelet, bed and alarms, visiting hours, pain management, procedures, bathroom and other care routines, personal items, smoking policy, room service/diet, and visiting hours. Information on how to activate the Rapid Response Team has been discussed. Patient/Family are encouraged to report perceived risks to care and to ask questions if they do not understand what they are told or what they should do.
[2022-05-21 23:15] LABS: Hemoglobin A1C 7.1 % (<5.7)
[2022-05-21 23:35] LABS: Glucose Point of Care 201 mg/dl (65-105)
[2022-05-21 23:55] LABS: Anion Gap 7 mmol/L (8-16); Blood Urea Nitrogen 18 mg/dL (7-17); CRP 2.1 mg/dL (<1.0); Calcium 9.2 mg/dL (8.4-10.2); Carbon Dioxide 28 mmol/L (22-30); Chloride 104 mmol/L (98-107); Estimated CRCL calculation 41 ml/min; Estimated Glomerular Filt Rate 43; Glucose 198 mg/dL (65-110); Magnesium 1.9 mg/dL (1.6-2.3); Sodium 139 mmol/L (137-145)
[2022-05-22 00:23] LABS: Procalcitonin 0.1 ng/mL
[2022-05-22 00:59] LABS: Folic Acid 11.9 ng/mL (2.76->20)
[2022-05-22 03:03] LABS: Iron 35 ug/dL (37-170)
[2022-05-22 03:14] LABS: Percent Iron Saturation 7 % (20-50)
[2022-05-22 06:00] VITALS: BP 129/67; PULSE 92; RESP 16; TEMP 36.7; O2SAT 91
[2022-05-22 06:37] LABS: Hematocrit 31.8 % (37.0-47.0); Hemoglobin 9.2 g/dL (12.0-15.0); Mean Corpuscular HGB Conc 28.9 g/dl (32-36); Mean Corpuscular Hemoglobin 22.2 pg (26-34); Mean Corpuscular Volume 76.8 fl (80-100); Mean Platelet Volume 10.8 fl (7.4-10.4); Platelet Count Result 326 k/mm3 (150-375); Red Blood Count 4.14 M/mm3 (4.2-5.4); Red Cell Distribution Width 17.9 % (11.5-14.5); White Blood Count 9.9 K/mm3 (4.5-10.0)
[2022-05-22 06:43] LABS: Alanine Aminotransferase 17 U/L (6-35); Albumin Level 3.5 g/dL (3.5-5.1); Alkaline Phosphatase 185 U/L (38-126); Anion Gap 7 mmol/L (8-16); Aspartate Amino Transferase 21 U/L (14-36); Bilirubin,Total 0.7 mg/dL (0.2-1.3); Blood Urea Nitrogen 16 mg/dL (7-17); Calcium 8.8 mg/dL (8.4-10.2); Carbon Dioxide 26 mmol/L (22-30); Chloride 103 mmol/L (98-107); Estimated CRCL calculation 44 ml/min; Estimated Glomerular Filt Rate 48; Glucose 217 mg/dL (65-110); Potassium 4.3 mmol/L (3.4-5.0); Sodium 136 mmol/L (137-145)
[2022-05-22 07:21] LABS: INR 1.7; Prothrombin Time 19.1 Seconds (11.1-14.7)
[2022-05-22 07:22] LABS: Partial Thromboplastin Time 39.7 SECONDS (22.3-36.8)
[2022-05-22 08:10] LABS: Glucose Point of Care 236 mg/dl (65-105)
[2022-05-22] MEDS: FUROSEMIDE INJ 40 MG/4 ML VIAL IV PUSH ×2 (09:04→20:03)
[2022-05-22] MEDS: POTASSIUM CHLORIDE 20 MEQ TABLET.ER 40 MEQ PO (09:04)
[2022-05-22] MEDS: MULTIVITAMINS THERAPEUTIC TAB (*BKC) 1 TABLET PO (09:04)
[2022-05-22] MEDS: CLINDAMYCIN HCL 150 MG CAP 300 MG PO ×3 (09:04→17:22)
[2022-05-22 09:05] VITALS: PULSE 92
[2022-05-22] MEDS: PERFLUTREN LIPID MICROSPHERES 1.5 ML VIAL DILUTED TO 10 ML TOTAL VOLUME IV PUSH (09:05)
[2022-05-22] MEDS: CHOLECALCIFEROL 1,000 UNITS TABLET 1000 UNITS PO (09:05)
[2022-05-22] MEDS: LORATADINE 10 MG TABLET PO (09:05)
[2022-05-22] MEDS: METOPROLOL SUCCINATE EXT REL 25 MG TABCR PO (09:05)
[2022-05-22] MEDS: MONTELUKAST SODIUM 10 MG TABLET PO (09:05)
[2022-05-22] MEDS: lisinopriL 20 MG TABLET 40 MG PO (09:05)
[2022-05-22] MEDS: CLOPIDOGREL BISULFATE 75 MG TABLET PO (09:06)
--- NOTE | 2022-05-22 09:06 | IVDEFINITY ---
Prior to administration of IV Definity the patient was educated on the risks and benefits of the imaging enhancing agent including potential adverse side effects. The patient verbalized understanding. Allergies were verified. No exclusion criteria were identified and at least one of the following inclusion criteria were met: 1) physician request, 2) patient technically difficult to image (per the [place] [employer]chocardi[employer] guidelines of two or more segments not discernable within the apical view), or 3) questionable left ventricular function. ?
[2022-05-22] MEDS: TIMOLOL MALEATE 0.5% OP SOLN 5 ML BOTTLE 1 DROP EACH EYE ×2 (09:08→20:03)
[2022-05-22] MEDS: SILVERGEL (ELTA) 45 ML 1 APPLIC TOPICAL (09:08)
[2022-05-22] MEDS: BRIMONIDINE TARTRATE 0.2% OP SOLN 5 ML BTL 1 DROP EACH EYE ×2 (09:08→20:03)
[2022-05-22] MEDS: INSULIN ASPART (*BKC) 100 UNITS/ML SUB-Q ×3 (09:09→17:22)
[2022-05-22] MEDS: busPIRone HCL 5 MG TABLET 15 MG PO ×3 (09:48→17:22)
[2022-05-22] MEDS: buPROPion HCL XL (24 HR) 150 MG TABCR PO (09:48)
[2022-05-22] MEDS: clonazePAM (*CRX) 0.5 MG TABLET PO (09:52)
[2022-05-22 10:19] VITALS: BP 144/61; PULSE 97; RESP 20; TEMP 37.2; O2SAT 91
--- NOTE | 2022-05-22 12:17 | PHAR ---
Home medication identified in Pharmacy and returned to 3medsurg unit. Vilazodone 10mg tablets and Fetzima 80mg capsules
[2022-05-22 12:33] LABS: Glucose Point of Care 272 mg/dl (65-105)
--- NOTE | 2022-05-22 15:34 | PM.IMPN ---
Progress Note: A&P Assessment and Plan (1) Diastolic CHF: Code(s): I50.30 - Unspecified diastolic (congestive) heart failure Status: Acute (2) Coronary artery disease: Code(s): I25.10 - Atherosclerotic heart disease of [place] coronary artery without angina pectoris Status: Acute (3) Chronic kidney disease: Code(s): N18.9 - Chronic kidney disease, unspecified Status: Acute (4) Type 2 diabetes mellitus: Code(s): E11.9 - Type 2 diabetes mellitus without complications Status: Acute (5) Microcytic anemia: Code(s): D50.9 - Iron deficiency anemia, unspecified Status: Acute (6) Hypertension: Code(s): I10 - Essential (primary) hypertension Status: Chronic (7) Suspected sleep apnea: Code(s): R29.818 - Other symptoms and signs involving the nervous system Status: Acute Plan The patient presented to the ED from home for evaluation of shortness of breath and swelling over the past 3 weeks. Patient has been started on IV Lasix with good urine output. She will need close monitoring of volume status, renal function and electrolytes. Echocardiogram showing diastolic dysfunction. Patient's fluid overload related to acute diastolic CHF. She has already been started on Lasix but we will check a urinalysis and a total protein to assess for nephrotic syndrome. Abdominal ultrasound last year was normal. No evidence of cirrhosis. White count mildly elevated and she was started on IV antibiotics. Will repeat chest x-ray in a few days and if clear, will stop antibiotics. Suspect more likely this is all related to fluid overload. It appears that she has iron deficiency anemia. Stool guaiac ordered. She is on Plavix and Xarelto. Will hold these for now. Will use Lovenox for DVT prophylaxis given her high risk and the fact she is unable to do SCDs. Will use IV iron. She does have bilateral lower extremity sores and she is finishing clindamycin which will cover for MRSA. Will continue this medication to complete a course. Her bili showing has 4 more doses. No diarrhea to suggest C diff. blood pressure was elevated but improved now that she is back on home medications. Will continue to monitor and adjust medications appropriately. A1c 7.1. Glucose poorly controlled. Continue to monitor and and adjust her medications accordingly. home medications probably not accurate. RN to verify. Apnea link ordered to screen for sleep apnea given daytime somnolence and heavy snoring. Subjective Date/time seen: 05/22/22 15:34 Interval history: 77yo female with CHF here for symptoms of fluid overload Patient slept poorly last night. She has been sleeping in a recliner at home due to her shortness of breath. No chest pain. She has leg pain related to the extensive edema. She has noticed that her legs feel less tight today. She is voiding well with diuretics. Exam Narrative: Gen - NARD Chest -A few scattered inspiratory and expiratory rhonchi. CV - RRR S1/S2 Abd - Soft. Obese. Positive bowel sounds. Ext - Extensive bilateral lower extremity edema. Bilateral lower extremities with Ifeanyi wraps in place. Psych - Nml mood and affect Skin - Warm and dry Objective Data Vital Signs Vital Signs: Vital Signs - 24 hr 05/21/22 16:10 05/21/22 16:34 05/21/22 17:20 Temperature Pulse Rate 93 94 95 Respiratory Rate 21 H 20 20 Blood Pressure 166/99 H 188/72 H 180/70 H Pulse Oximetry 93 95 97 Oxygen Delivery 05/21/22 18:49 05/21/22 17:55 05/21/22 22:00 Temperature 97.8 F 96.9 F L Pulse Rate 97 98 Respiratory Rate 20 16 Blood Pressure 164/50 H 151/53 H Pulse Oximetry 98 92 Oxygen Delivery Room Air 05/22/22 06:00 05/22/22 09:05 05/22/22 10:19 Temperature 98.1 F 99.0 F Pulse Rate 92 92 97 Respiratory Rate 16 20 Blood Pressure 129/67 144/61 H Pulse Oximetry 91 91 Oxygen Delivery Intake/Output Intake/Output: Intake & Output
[2022-05-22] MEDS: ENOXAPARIN 40 MG/0.4 ML SYRINGE SUB-Q (17:21)
[2022-05-22 17:22] LABS: Glucose Point of Care 273 mg/dl (65-105)
[2022-05-22 17:45] VITALS: BP 140/83; PULSE 84; RESP 18; TEMP 37; O2SAT 93
[2022-05-22] MEDS: IRON SUCROSE COMPLEX 100 MG in SODIUM CHLORIDE 0.9% IV 50 ML 220 MG IVPB (17:51)
[2022-05-22 20:00] VITALS: BP 137/60; PULSE 83; PULSE 84; RESP 18; RESP 20; TEMP 36.6; O2SAT 90; O2SAT 93
[2022-05-22] MEDS: traZODone HCL 50 MG TABLET 100 MG PO (20:03)
[2022-05-22] MEDS: ATORVASTATIN 40 MG TABLET PO (20:03)
[2022-05-22] MEDS: FLUTICASONE PROPIONATE 0.05% NA SPR 16 GM BTL (*BKC) 2 SPRAY NASAL (20:04)
--- NOTE | 2022-05-22 22:41 | ECHO_ITS ---
Patient Info Name: Mihaela Finch Age: 77 years : 1945 Gender: Female Ht: 62 in Wt: 246 lbs BSA: 2.28 m2 HR: 93 bpm BP: 164 / 50 mmHg Heart Rhythm: Sinus Rhythm Exam Date: 05/22/2022 8:37 AM Exam Location: [facility] Pulmonary Patient Status: Outpatient Admit Date: 05/21/2022 Staff Ordering Physician: Yelena Alcazar PA-C [employer] Burner: Geovani Bhardwaj, EVON, RT Attending Provider: Jesus Moore MD Referring Physician: Inge MCKEON; Exam Type: CA echo dop color flow w con Study Info Indications - CAD R60.0 - Localized edema I51.7 - Cardiomegaly Complete two-dimensional, color flow and Doppler transthoracic echocardiogram is performed with contrast to opacify the left ventricle and to improve the deliniation of the left ventricle endocardial borders. Summary 1. Left ventricular chamber dimension is normal. 2. The left ventricular diastolic function is grade I diastolic dysfunction. 3. Right ventricular systolic function is normal. 4. There is mild tricuspid valve regurgitation. Left Ventricle Left ventricular chamber dimension is normal. Left ventricular systolic function is normal, estimated at 65-70%. There is no increased left ventricular wall thickness. The left ventricular diastolic function is grade I diastolic dysfunction. Right Ventricle Right ventricular chamber dimension is normal. Right ventricular systolic function is normal. Left Atria Left atrial chamber dimension is normal. Right Atria Right atrial chamber dimension is normal. Atrial Septum Intact interatrial septum visualized by color flow imaging. Aortic Valve The aortic valve is probable trileaflet. There is no aortic valve stenosis. There is no aortic valve regurgitation. There is mild aortic valve calcification. Pulmonic Valve The pulmonic valve is not well visualized. Mitral Valve There is trace mitral valve regurgitation. The mitral valve annulus is mildly calcified. Tricuspid Valve There is mild tricuspid valve regurgitation. Pericardium/Pleural There is trivial pericardial effusion. Inferior Vena Cava Normal inferior vena cava with <50% collapse upon inspiration consistent with elevated right atrial pressure. Aorta The aortic root size at the sinus of Valsalva is normal. Left Ventricular Outflow Tract Name Value Normal LVOT 2D LVOT Diameter 2.01 cm LVOT Doppler LVOT Peak Gradient 4 mmHg LVOT Mean Gradient 2 mmHg LVOT VTI 21.13 cm LVOT VTI/AV VTI Ratio 0.58 LVOT Stroke Volume 67.07 ml LVOT CO 6.33 l/min LVOT CI 2.78 L/min/m2 Mitral Valve Name Value Normal MV Doppler MV Peak Gradient 10 mmHg
[2022-05-23] VITALS (10 sets, daily range): BP systolic 105–139; BP diastolic 49–84; PULSE 70–82; RESP 16–24; TEMP 35.9–36.4; O2SAT 89–94
--- NOTE | 2022-05-23 00:23 | PCRCNOTE ---
PT U/A TO LIE DOWN IN BED OR SLEEP DUE TO DISCOMFORT & SOB @ THIS TIME
[2022-05-23] MEDS: CLINDAMYCIN HCL 150 MG CAP 300 MG PO (00:42)
[2022-05-23 01:06] LABS: Appearance Urine Clear (Clear); Bilirubin Urine Negative (Negative); Blood Urine Trace-intact (Negative); Color Urine Yellow (Yellow); Glucose Urine UA Negative (Negative); Ketones Urine Negative (Negative); Leukocyte Esterase Ur Negative LEU/UL (Negative); Nitrate Urine Negative (Negative); Protein Urine Negative (Negative); Urobilinogen Urine 0.2 mg/dL (<2.0)
[2022-05-23 01:10] LABS: Mucus Urine Rare /lpf; Squamous Epithelial Cell Urine Rare /hpf (Few); WBC Urine 0-3 /hpf
[2022-05-23 01:11] LABS: Add Urine Microscopic? YES
[2022-05-23 01:56] LABS: Creatinine Urine 38.2 mg/dL; Total Protein Urine Random 10 mg/dL; Ur Ttl Prot Creatinine Ratio 0.26 mg/mg (0-0.20)
[2022-05-23 06:10] LABS: Glucose Point of Care 266 mg/dl (65-105)
[2022-05-23 06:26] LABS: Basophils Percent Auto 0.3 % (0.2-1.2); Eosinophils Absolute Auto 0.2 K/mm3 (0-0.3); Eosinophils Percent Auto 2.1 % (0-4.4); Hematocrit 30.3 % (37.0-47.0); Hemoglobin 8.6 g/dL (12.0-15.0); Immature Granulocyte Absolute 0.05 K/mm3 (0.00-0.031); Immature Granulocyte Percent A 0.5 % (0-0.5); Lymphocytes Absolute Auto 1.36 K/mm3 (0.9-3.2); Lymphocytes Percent Auto 14.9 % (18.3-44.2); Mean Corpuscular HGB Conc 28.4 g/dl (32-36); Mean Corpuscular Hemoglobin 21.4 pg (26-34); Mean Corpuscular Volume 75.6 fl (80-100); Mean Platelet Volume 12.1 fl (7.4-10.4); Monocytes Absolute Auto 1.1 K/mm3 (0.1-0.6); Monocytes Percent Auto 12.4 % (2.6-8.5); Neutrophils Absolute Auto 6.4 K/mm3 (1.3-6.7); Neutrophils Percent Auto 69.8 % (45.5-73.1); Platelet Count Result 287 k/mm3 (150-375); Red Blood Count 4.01 M/mm3 (4.2-5.4); Red Cell Distribution Width 17.7 % (11.5-14.5); White Blood Count 9.1 K/mm3 (4.5-10.0)
[2022-05-23 06:38] LABS: Alanine Aminotransferase 16 U/L (6-35); Albumin Level 3.6 g/dL (3.5-5.1); Alkaline Phosphatase 165 U/L (38-126); Anion Gap 5 mmol/L (8-16); Aspartate Amino Transferase 21 U/L (14-36); Bilirubin,Total 0.5 mg/dL (0.2-1.3); Blood Urea Nitrogen 18 mg/dL (7-17); Calcium 8.8 mg/dL (8.4-10.2); Carbon Dioxide 28 mmol/L (22-30); Chloride 99 mmol/L (98-107); Estimated CRCL calculation 41 ml/min; Estimated Glomerular Filt Rate 43; Glucose 300 mg/dL (65-110); Potassium 4.2 mmol/L (3.4-5.0); Sodium 132 mmol/L (137-145)
[2022-05-23 07:33] LABS: Anisocytosis 1+ (NORMAL); Hypochromasia 2+ (NORMAL); Microcytosis 1+ (NORMAL); Platelet Estimate Adequate (Adequate); Schistocytes None Seen (NORMAL)
[2022-05-23 07:34] LABS: Ovalocytes 1+ (NORMAL)
[2022-05-23 07:41] LABS: Glucose Point of Care 291 mg/dl (65-105)
--- NOTE | 2022-05-23 08:38 | PM.IMPN ---
Progress Note: A&P Assessment and Plan (1) Diastolic CHF: Code(s): I50.30 - Unspecified diastolic (congestive) heart failure Status: Acute Assessment and Plan: Continue IV diuresis, monitor response (2) Coronary artery disease: Code(s): I25.10 - Atherosclerotic heart disease of [place] coronary artery without angina pectoris Status: Acute Assessment and Plan: Continue home meds (3) Chronic kidney disease: Code(s): N18.9 - Chronic kidney disease, unspecified Status: Acute Assessment and Plan: Monitor creatinine (4) Type 2 diabetes mellitus: Code(s): E11.9 - Type 2 diabetes mellitus without complications Status: Acute Assessment and Plan: Accu-Cheks, sliding scale insulin, A1c 7.1 (5) Microcytic anemia: Code(s): D50.9 - Iron deficiency anemia, unspecified Status: Acute Assessment and Plan: Monitor hemoglobin (6) Hypertension: Code(s): I10 - Essential (primary) hypertension Status: Chronic Assessment and Plan: Stable (7) Suspected sleep apnea: Code(s): R29.818 - Other symptoms and signs involving the nervous system Status: Acute Assessment and Plan: ApneaLink ordered and pending Plan DVT prophylaxis with Lovenox, Xarelto being held GI prophylaxis not indicated Code status full code Subjective Date/time seen: 05/23/22 08:38 Interval history: 77yo female with CHF here for symptoms of fluid overload Patient still has difficulty sleeping. No overnight events noted. No chest pain or shortness of breath. No nausea, vomiting or diarrhea. No fevers or chills. Review of Systems Review of Systems: 12 point review of systems was assessed and was negative except as noted in the HPI Exam Narrative: General: No acute distress, alert and oriented per baseline HEENT: Atraumatic, normocephalic, mucous membranes moist CV: Regular rate and rhythm, S1, S2 Lungs: Scattered crackles at bases, diminished throughout Abdomen: Soft, nontender, nondistended, somewhat edematous Extremities: 2+ pitting edema bilaterally Skin: No rashes noted, no lesions or wounds seen Psych: Euthymic, normal affect Objective Data Vital Signs Vital Signs: Vital Signs - 24 hr 05/22/22 09:05 05/22/22 10:19 05/22/22 17:45 Temperature 99.0 F 98.6 F Pulse Rate 92 97 84 Respiratory Rate 20 18 Blood Pressure 144/61 H 140/83 Pulse Oximetry 91 93 Oxygen Delivery 05/22/22 20:00 05/22/22 20:00 05/23/22 08:00 Temperature 97.8 F 97.3 F L Pulse Rate 84 83 76 Respiratory Rate 18 20 16 Blood Pressure 137/60 129/51 L Pulse Oximetry 93 90 90 Oxygen Delivery Room Air Intake/Output Intake/Output: Intake & Output 05/20/22 05/21/22 05/22/22 05/23/22 23:59 23:59 23:59 23:59 Intake Total 50 1910 Output Total 1550 Balance 50 360 Meds/Results Medications: Active Medications Generic Name Dose Route Start Last Admin Trade Name Freq PRN Reason Stop Dose Admin Acetaminophen 650 mg 05/21/22 22:41 Acetaminophen 325 Mg Tablet PO Q6H PRN Mild Pain (1-3) or Fever Hydrocodone Bitart/Acetaminophen 1 tab 05/21/22 10:49 Hydrocodone/Acetaminophen (*Crx) 5-325 Mg Tablet PO Q4H PRN Pain Rated 4-6 Albuterol 1.25 mg 05/22/22 07:15 Albuterol Sulfate Neb 2.5 Mg/3 Ml Inh INHALATION Q4-6H PRN shortness of breath or wheezing Albuterol 2 puff 05/22/22 07:15 Albuterol Sulfate (*Sp) Aerosol 1 Puff INHALATION Q4H PRN shortness of breath or wheezing Atorvastatin Calcium 40 mg 05/22/22 21:00 05/22/22 20:03 Atorvastatin 40 Mg Tablet PO 40 mg HS SINDY Administration Brimonidine Tartrate 1 drop 05/22/22 09:00 05/22/22 20:03 Brimonidine Tartrate 0.2% Op Soln 5 Ml Btl EACH EYE 1 drop Q12HR SINDY Administration Bupropion HCl 150 mg 05/22/22 09:00 05/22/22 09:48 Bupropion Hcl Xl (24 Hr) 150 Mg Tabcr PO 15
[2022-05-23] MEDS: INSULIN ASPART (*BKC) 100 UNITS/ML 20 UNITS SUB-Q ×2 (09:25→12:47)
[2022-05-23] MEDS: INSULIN ASPART (*BKC) 100 UNITS/ML SUB-Q ×2 (09:26→12:47)
[2022-05-23] MEDS: TIMOLOL MALEATE 0.5% OP SOLN 5 ML BOTTLE 1 DROP EACH EYE ×2 (09:26→20:33)
[2022-05-23] MEDS: BRIMONIDINE TARTRATE 0.2% OP SOLN 5 ML BTL 1 DROP EACH EYE ×2 (09:28→20:33)
[2022-05-23] MEDS: busPIRone HCL 5 MG TABLET 15 MG PO ×3 (09:28→17:28)
[2022-05-23] MEDS: FUROSEMIDE INJ 40 MG/4 ML VIAL IV PUSH ×2 (09:28→20:34)
[2022-05-23] MEDS: DICYCLOMINE HCL 10 MG CAPSULE 20 MG PO (09:28)
[2022-05-23] MEDS: CHOLECALCIFEROL 1,000 UNITS TABLET 1000 UNITS PO (09:29)
[2022-05-23] MEDS: MULTIVITAMINS THERAPEUTIC TAB (*BKC) 1 TABLET PO (09:29)
[2022-05-23] MEDS: POTASSIUM CHLORIDE 20 MEQ TABLET.ER 40 MEQ PO (09:29)
[2022-05-23] MEDS: lisinopriL 20 MG TABLET 40 MG PO (09:29)
[2022-05-23] MEDS: METOPROLOL SUCCINATE EXT REL 25 MG TABCR PO (09:29)
[2022-05-23] MEDS: ENOXAPARIN 40 MG/0.4 ML SYRINGE SUB-Q (09:30)
[2022-05-23] MEDS: SILVERGEL (ELTA) 45 ML 1 APPLIC TOPICAL (09:30)
[2022-05-23] MEDS: MONTELUKAST SODIUM 10 MG TABLET PO (09:30)
[2022-05-23] MEDS: LORATADINE 10 MG TABLET PO (09:30)
[2022-05-23] MEDS: buPROPion HCL XL (24 HR) 150 MG TABCR PO (09:30)
--- NOTE | 2022-05-23 09:33 | PCPTNOTE ---
attempted PT eval at 9:30- pt eating breakfast and RN present to give meds;
[2022-05-23] MEDS: IRON SUCROSE COMPLEX 100 MG in SODIUM CHLORIDE 0.9% IV 50 ML 220 MG IVPB (09:40)
[2022-05-23] MEDS: FLUTICASONE/UMECLIDIN/VILANTER 100-62.5-25 MCG ELLIPTA 1 PUFF INHALATION (11:04)
[2022-05-23 11:22] LABS: Glucose Point of Care 244 mg/dl (65-105)
[2022-05-23] MEDS: HYDROcodone/acetaminophen (*CRX) 5-325 MG TABLET 1 TAB PO (12:06)
[2022-05-23 16:15] LABS: Glucose Point of Care 104 mg/dl (65-105)
[2022-05-23 20:32] LABS: Glucose Point of Care 211 mg/dl (65-105)
[2022-05-23] MEDS: ATORVASTATIN 40 MG TABLET PO (20:34)
[2022-05-23] MEDS: traZODone HCL 50 MG TABLET 100 MG PO (20:34)
[2022-05-23] MEDS: FLUTICASONE PROPIONATE 0.05% NA SPR 16 GM BTL (*BKC) 2 SPRAY NASAL (20:34)
--- NOTE | 2022-05-23 22:58 | PCRCNOTE ---
Pt placed on apnea monitor on room air @ 2250.
[2022-05-24] VITALS (10 sets, daily range): BP systolic 120–145; BP diastolic 49–87; PULSE 64–93; RESP 16–28; TEMP 35.9–36.2; O2SAT 73–96
[2022-05-24 02:25] LABS: Glucose Point of Care 211 mg/dl (65-105)
[2022-05-24 07:19] LABS: Glucose Point of Care 213 mg/dl (65-105)
[2022-05-24] MEDS: IRON SUCROSE COMPLEX 100 MG in SODIUM CHLORIDE 0.9% IV 50 ML 220 MG IVPB (08:43)
[2022-05-24] MEDS: TIMOLOL MALEATE 0.5% OP SOLN 5 ML BOTTLE 1 DROP EACH EYE ×2 (08:44→20:48)
[2022-05-24] MEDS: POTASSIUM CHLORIDE 20 MEQ TABLET.ER 40 MEQ PO (08:45)
[2022-05-24] MEDS: SILVERGEL (ELTA) 45 ML 1 APPLIC TOPICAL (08:45)
[2022-05-24] MEDS: BRIMONIDINE TARTRATE 0.2% OP SOLN 5 ML BTL 1 DROP EACH EYE ×2 (08:45→20:49)
[2022-05-24] MEDS: ENOXAPARIN 40 MG/0.4 ML SYRINGE SUB-Q (08:45)
[2022-05-24] MEDS: lisinopriL 20 MG TABLET 40 MG PO (08:46)
[2022-05-24] MEDS: MULTIVITAMINS THERAPEUTIC TAB (*BKC) 1 TABLET PO (08:46)
[2022-05-24] MEDS: DICYCLOMINE HCL 10 MG CAPSULE 20 MG PO (08:46)
[2022-05-24] MEDS: METOPROLOL SUCCINATE EXT REL 25 MG TABCR PO (08:46)
[2022-05-24] MEDS: buPROPion HCL XL (24 HR) 150 MG TABCR PO (08:46)
[2022-05-24] MEDS: MONTELUKAST SODIUM 10 MG TABLET PO (08:46)
[2022-05-24] MEDS: LORATADINE 10 MG TABLET PO (08:46)
[2022-05-24] MEDS: busPIRone HCL 5 MG TABLET 15 MG PO ×3 (08:46→17:53)
[2022-05-24] MEDS: FUROSEMIDE INJ 40 MG/4 ML VIAL IV PUSH (08:47)
[2022-05-24] MEDS: CHOLECALCIFEROL 1,000 UNITS TABLET 1000 UNITS PO (08:47)
[2022-05-24] MEDS: INSULIN ASPART (*BKC) 100 UNITS/ML 20 UNITS SUB-Q ×3 (08:48→17:54)
[2022-05-24] MEDS: INSULIN ASPART (*BKC) 100 UNITS/ML SUB-Q ×2 (08:49→12:28)
[2022-05-24] MEDS: FLUTICASONE/UMECLIDIN/VILANTER 100-62.5-25 MCG ELLIPTA 1 PUFF INHALATION (10:03)
--- NOTE | 2022-05-24 10:16 | PM.IMPN ---
Progress Note: A&P Assessment and Plan (1) Diastolic CHF: Code(s): I50.30 - Unspecified diastolic (congestive) heart failure Status: Acute Assessment and Plan: Improving with IV diuresis, transition to oral diuretics today Consult cardiology, still quite volume overloaded despite kidney function worsening (2) Coronary artery disease: Code(s): I25.10 - Atherosclerotic heart disease of [place] coronary artery without angina pectoris Status: Acute Assessment and Plan: Continue home meds (3) Chronic kidney disease: Code(s): N18.9 - Chronic kidney disease, unspecified Status: Acute Assessment and Plan: Monitor creatinine, worsening with diuresis (4) Type 2 diabetes mellitus: Code(s): E11.9 - Type 2 diabetes mellitus without complications Status: Acute Assessment and Plan: Accu-Cheks, sliding scale insulin, A1c 7.1 (5) Microcytic anemia: Code(s): D50.9 - Iron deficiency anemia, unspecified Status: Acute Assessment and Plan: Monitor hemoglobin (6) Hypertension: Code(s): I10 - Essential (primary) hypertension Status: Chronic Assessment and Plan: Stable (7) Suspected sleep apnea: Code(s): R29.818 - Other symptoms and signs involving the nervous system Status: Acute Assessment and Plan: ApneaLink showed patient significantly hypoxic while sleeping, will place on continuous pulse ox and add oxygen tonight as needed (8) CAP (community acquired pneumonia): Code(s): J18.9 - Pneumonia, unspecified organism Status: Acute Assessment and Plan: Started on rocephin and azithromycin for a community-acquired pneumonia on May 21, last day of azithromycin tomorrow, and last day of rocephin will be May 27 Plan DVT prophylaxis with Lovenox, Xarelto being held GI prophylaxis not indicated Code status full code Subjective Date/time seen: 05/24/22 10:16 Interval history: 77yo female with CHF here for symptoms of fluid overload No overnight events noted. No chest pain, improved SOB. No nausea, vomiting or diarrhea. No fevers or chills. Still with LE edema, significant UOP. Review of Systems Review of Systems: 12 point review of systems was assessed and was negative except as noted in the HPI Exam Narrative: General: No acute distress, alert and oriented per baseline HEENT: Atraumatic, normocephalic, mucous membranes moist CV: Regular rate and rhythm, S1, S2 Lungs: Good air entry, somewhat diminished at bases Abdomen: Soft, nontender, nondistended, somewhat edematous Extremities: 1+ pitting edema bilaterally Skin: No rashes noted, no lesions or wounds seen Psych: Euthymic, normal affect Objective Data Vital Signs Vital Signs: Vital Signs - 24 hr 05/23/22 11:06 05/23/22 11:42 05/23/22 12:00 Temperature 97.3 F L Pulse Rate 71 Respiratory Rate 24 H Blood Pressure 105/49 L Pulse Oximetry 92 90 Oxygen Delivery Room Air Room Air 05/23/22 14:00 05/23/22 16:00 05/23/22 20:00 Temperature 97.3 F L 96.6 F L 97.4 F L Pulse Rate 71 75 76 Respiratory Rate 24 H 20 16 Blood Pressure 105/49 L 115/64 137/61 Pulse Oximetry 90 89 L 94 Oxygen Delivery 05/24/22 00:00 05/23/22 23:00 05/24/22 04:00 Temperature 97.1 F L 96.6 F L Pulse Rate 93 70 Respiratory Rate 16 16 Blood Pressure 145/77 H 137/87 Pulse Oximetry 73 L 92 94 Oxygen Delivery Room Air 05/24/22 08:00 05/24/22 08:46 05/24/22 10:05 Temperature 97.0 F L Pulse Rate 66 66 68 Respiratory Rate 24 H 18 Blood Pressure 145/56 H Pulse Oximetry 96 Oxygen Delivery Intake/Output Intake/Output: Intake & Output 05/21/22 05/22/22 05/23/22 05/24/22 23:59 23:59 23:59 23:59 Intake Total 50 1960 2449 540 Output Total 0003 139 9354 Balance 50 410 3489 460 Meds/Results Medications: Active Medications Generic Name Dose Route Start Last Admin Trade Name F
[2022-05-24 11:05] LABS: Glucose Point of Care 327 mg/dl (65-105)
[2022-05-24 15:38] LABS: Anion Gap 6 mmol/L (8-16); Blood Urea Nitrogen 22 mg/dL (7-17); Calcium 8.9 mg/dL (8.4-10.2); Carbon Dioxide 28 mmol/L (22-30); Chloride 104 mmol/L (98-107); Estimated CRCL calculation 35 ml/min; Estimated Glomerular Filt Rate 36; Glucose 129 mg/dL (65-110); Potassium 4.5 mmol/L (3.4-5.0); Sodium 138 mmol/L (137-145)
[2022-05-24 16:26] LABS: Glucose Point of Care 165 mg/dl (65-105)
[2022-05-24] MEDS: ATORVASTATIN 40 MG TABLET PO (20:48)
[2022-05-24] MEDS: traZODone HCL 50 MG TABLET 100 MG PO (20:48)
[2022-05-24] MEDS: FLUTICASONE PROPIONATE 0.05% NA SPR 16 GM BTL (*BKC) 2 SPRAY NASAL (20:49)
[2022-05-24 20:58] LABS: Glucose Point of Care 87 mg/dl (65-105)
[2022-05-24] MEDS: ACETAMINOPHEN 325 MG TABLET 650 MG PO (22:45)
[2022-05-25] VITALS (10 sets, daily range): BP systolic 103–160; BP diastolic 35–92; PULSE 65–70; RESP 16–20; TEMP 36.1–36.6; O2SAT 94–100
[2022-05-25 06:43] LABS: Basophils Absolute Auto 0.1 K/mm3 (0.0-0.1); Basophils Percent Auto 0.5 % (0.2-1.2); Eosinophils Absolute Auto 0.3 K/mm3 (0-0.3); Eosinophils Percent Auto 2.8 % (0-4.4); Hematocrit 30.7 % (37.0-47.0); Hemoglobin 8.7 g/dL (12.0-15.0); Immature Platelet Fraction Pct 2.6 % (0.9-11.2); Lymphocytes Absolute Auto 1.51 K/mm3 (0.9-3.2); Lymphocytes Percent Auto 14.8 % (18.3-44.2); Mean Corpuscular HGB Conc 28.3 g/dl (32-36); Mean Corpuscular Hemoglobin 21.8 pg (26-34); Mean Corpuscular Volume 76.8 fl (80-100); Monocytes Percent Auto 9.9 % (2.6-8.5); Neutrophils Absolute Auto 7.2 K/mm3 (1.3-6.7); Platelet Count Result 288 k/mm3 (150-375); Red Cell Distribution Width 18.1 % (11.5-14.5); White Blood Count 10.2 K/mm3 (4.5-10.0)
[2022-05-25 06:57] LABS: Alanine Aminotransferase 16 U/L (6-35); Albumin Level 3.4 g/dL (3.5-5.1); Alkaline Phosphatase 165 U/L (38-126); Anion Gap 4 mmol/L (8-16); Aspartate Amino Transferase 23 U/L (14-36); Bilirubin,Total 0.4 mg/dL (0.2-1.3); Blood Urea Nitrogen 24 mg/dL (7-17); Calcium 8.8 mg/dL (8.4-10.2); Carbon Dioxide 27 mmol/L (22-30); Chloride 102 mmol/L (98-107); Estimated CRCL calculation 38 ml/min; Estimated Glomerular Filt Rate 40; Glucose 193 mg/dL (65-110); Potassium 4.7 mmol/L (3.4-5.0); Sodium 133 mmol/L (137-145)
[2022-05-25 07:12] LABS: Anisocytosis 1+ (NORMAL); Hypochromasia 2+ (NORMAL); Platelet Estimate Adequate (Adequate); Schistocytes None Seen (NORMAL)
[2022-05-25] MEDS: FLUTICASONE/UMECLIDIN/VILANTER 100-62.5-25 MCG ELLIPTA 1 PUFF INHALATION (07:35)
[2022-05-25 08:01] LABS: Glucose Point of Care 187 mg/dl (65-105)
[2022-05-25] MEDS: busPIRone HCL 5 MG TABLET 15 MG PO ×3 (09:02→17:17)
[2022-05-25] MEDS: INSULIN ASPART (*BKC) 100 UNITS/ML 20 UNITS SUB-Q ×3 (09:02→17:17)
[2022-05-25] MEDS: LORATADINE 10 MG TABLET PO (09:03)
[2022-05-25] MEDS: METOPROLOL SUCCINATE EXT REL 25 MG TABCR PO (09:03)
[2022-05-25] MEDS: MONTELUKAST SODIUM 10 MG TABLET PO (09:03)
[2022-05-25] MEDS: POTASSIUM CHLORIDE 20 MEQ TABLET.ER 40 MEQ PO (09:03)
[2022-05-25] MEDS: lisinopriL 20 MG TABLET 40 MG PO (09:03)
[2022-05-25] MEDS: ENOXAPARIN 40 MG/0.4 ML SYRINGE SUB-Q (09:05)
[2022-05-25] MEDS: TIMOLOL MALEATE 0.5% OP SOLN 5 ML BOTTLE 1 DROP EACH EYE ×2 (09:05→21:15)
[2022-05-25] MEDS: BRIMONIDINE TARTRATE 0.2% OP SOLN 5 ML BTL 1 DROP EACH EYE ×2 (09:05→21:15)
[2022-05-25] MEDS: buPROPion HCL XL (24 HR) 150 MG TABCR PO (09:05)
[2022-05-25] MEDS: MULTIVITAMINS THERAPEUTIC TAB (*BKC) 1 TABLET PO (09:05)
[2022-05-25] MEDS: FUROSEMIDE 20 MG TABLET 60 MG PO (09:05)
[2022-05-25] MEDS: CHOLECALCIFEROL 1,000 UNITS TABLET 1000 UNITS PO (09:05)
[2022-05-25] MEDS: SILVERGEL (ELTA) 45 ML 1 APPLIC TOPICAL (09:06)
[2022-05-25 11:53] LABS: Glucose Point of Care 240 mg/dl (65-105)
[2022-05-25] MEDS: INSULIN ASPART (*BKC) 100 UNITS/ML SUB-Q (12:25)
--- NOTE | 2022-05-25 14:27 | PM.CNCAR ---
Assessment and Plan Assessment and plan (1) Diastolic CHF: Code(s): I50.30 - Unspecified diastolic (congestive) heart failure Status: Acute Plan this is a 77-year-old lady with stable chronic coronary artery disease following revascularization several years ago she also has asymptomatic paroxysmal atrial fib is currently in sinus rhythm. She was admitted to the hospital Saturday of this week with symptomatic volume overload and shortness of breath and edema. She has improved with IV furosemide. Echocardiogram does not show any other cardiac reasons for this and we would treat this as heart failure with preserved ejection fraction which you are already doing. It looks on my physical exam that she still has some pulmonary rales and I would probably keep her in the hospital and continue loop diuretics until these are no longer audible. I doubt we will be able to diurese away all of her edema as this is chronic and in part related to her morbid obesity as well. I do not think there are any other cardiac suggestions I will follow her with you while she remains in the hospital. Zeke Garcia MD [facility] History of Present Illness History of Present Illness Consult date/time: 05/25/22 14:27 Reason For Visit: Volume Overload Narrative: This is a 77-year-old woman who I know with a history of coronary artery disease, paroxysmal atrial fibrillation and diastolic dysfunction. I am seeing her at the request of the hospitalist because of decompensated CHF. Her chart has been reviewed and she has been seen room 307 bed 1. She says that she is feeling significantly better than when I she was admitted in terms of her swelling shortness of breath. She was seen by her primary care physician early this week on the was complaining of an increasing fluid with lower extremity edema to the point where her legs were blistering and she was also reporting some increasing dyspnea. She was sent to the emergency room and admitted and since admission has been treated with loop diuretics has been having a fairly good diuresis and has been feeling improved. The patient had an echocardiogram done earlier this week during the hospitalization which demonstrates vigorous left ventricular systolic function and grade 1 diastolic noncompliance with no significant valvular dysfunction. I follow this lady in my office as she has a history of coronary artery disease as well. 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 She has not had any symptomatic ischemia since then. She was felt to have evidence of atrial fibrillation which we had a hard time documenting so we previously placed a [employer] LINQ device in this patient which did demonstrate self-limited paroxysmal atrial fib is so for that reason she has also been chronically anticoagulated. She has been having problems with exertional shortness of breath which I have attributed to diastolic noncompliance as well as morbid obesity she has a BMI of 45. I last saw the patient in my office in July of last year which time she was doing well with these problems. At this time she is seated in the chair in her room and again says she feels significantly better than Saturday of this week when she was admitted to the hospital. Review of Systems Constitutional: Constitutional: Reports lethargy Eyes: Eyes: Reports no additional eye complaints ENT: Reports system reviewed and no additional complaints, except as documented Cardiovascular: Cardiovascular: Reports as per HPI Respiratory: Respiratory: Reports dyspnea on exertion Gastrointestinal: Gastrointestinal: Reports no additional gastrointestinal complaints Musculoskeletal: Musculoskeletal: Reports no additional musculoskeletal complaints Integumentary/Breasts:
[2022-05-25 16:46] LABS: Glucose Point of Care 137 mg/dl (65-105)
[2022-05-25 17:26] LABS: Pneumococcal Antigen Urine Not Detected (Not Detected)
[2022-05-25 17:55] LABS: Mycoplasma IgM Antibody Titer 101 U/mL (<770)
--- NOTE | 2022-05-25 18:38 | PM.IMPN ---
Progress Note: A&P Assessment and Plan (1) Diastolic CHF: Code(s): I50.30 - Unspecified diastolic (congestive) heart failure Status: Acute Assessment and Plan: Improving with IV diuresis, transition to oral diuretics today Consult cardiology, still quite volume overloaded despite kidney function worsening Add fluid restriction and incentive spirometer to bedside (2) Coronary artery disease: Code(s): I25.10 - Atherosclerotic heart disease of [place] coronary artery without angina pectoris Status: Acute Assessment and Plan: Continue home meds (3) Chronic kidney disease: Code(s): N18.9 - Chronic kidney disease, unspecified Status: Acute Assessment and Plan: Monitor creatinine, worsening with diuresis (4) Type 2 diabetes mellitus: Code(s): E11.9 - Type 2 diabetes mellitus without complications Status: Acute Assessment and Plan: Accu-Cheks, sliding scale insulin, A1c 7.1 (5) Microcytic anemia: Code(s): D50.9 - Iron deficiency anemia, unspecified Status: Acute Assessment and Plan: Monitor hemoglobin (6) Hypertension: Code(s): I10 - Essential (primary) hypertension Status: Chronic Assessment and Plan: Stable (7) Suspected sleep apnea: Code(s): R29.818 - Other symptoms and signs involving the nervous system Status: Acute Assessment and Plan: ApneaLink showed patient significantly hypoxic while sleeping, will place on continuous pulse ox and add oxygen tonight as needed (8) CAP (community acquired pneumonia): Code(s): J18.9 - Pneumonia, unspecified organism Status: Acute Assessment and Plan: Started on rocephin and azithromycin for a community-acquired pneumonia on May 21, last day of azithromycin tomorrow, and last day of rocephin will be May 27 Switch to oral antibiotics with azithromycin and cefdinir on May 25 (9) Dry mouth: Code(s): R68.2 - Dry mouth, unspecified Status: Acute Assessment and Plan: Start Biotene mouth rinses Plan DVT prophylaxis with Lovenox, Xarelto being held GI prophylaxis not indicated Code status full code Subjective Date/time seen: 05/25/22 18:38 Interval history: 77yo female with CHF here for symptoms of fluid overload Patient feels much better than yesterday, she is eager to go home. She states every day she sits here she feels a little weaker. Urine output is still good. She is feeling a little short of breath and having difficulty taking deep breaths while she sitting and is eager to walk around more. No overnight events noted. No chest pain. No nausea, vomiting or diarrhea. No fevers or chills. Review of Systems Review of Systems: 12 point review of systems was assessed and was negative except as noted in the HPI Exam Narrative: General: No acute distress, alert and oriented per baseline HEENT: Atraumatic, normocephalic, mucous membranes moist CV: Regular rate and rhythm, S1, S2 Lungs: Scattered crackles at bases Abdomen: Soft, nontender, nondistended, somewhat edematous Extremities: 1+ pitting edema bilaterally Skin: No rashes noted, no lesions or wounds seen Psych: Euthymic, normal affect Objective Data Vital Signs Vital Signs: Vital Signs - 24 hr 05/24/22 20:00 05/25/22 07:38 05/25/22 04:00 Temperature 97.2 F L 97 F L Pulse Rate 68 67 Respiratory Rate 16 18 Blood Pressure 120/64 140/61 Pulse Oximetry 94 98 100 Oxygen Delivery Nasal Cannula Oxygen Flow Rate 2 05/25/22 06:00 05/25/22 08:00 05/25/22 09:03 Temperature 97 F L 97.5 F L Pulse Rate 67 69 70 Respiratory Rate 18 18 Blood Pressure 140/61 160/92 H Pulse Oximetry 100 98 Oxygen Delivery Oxygen Flow Rate 05/25/22 09:00 05/25/22 12:00 05/25/22 16:00 Temperature 97.5 F L Pulse Rate 65 65 Respiratory Rate 20 20 Blood Pressure 140/35 L 144/53 H Pulse Oximetry 98 98 100 Oxyg
[2022-05-25 21:07] LABS: Legionella pneumophila Ag Ur Not Detected (Not Detected)
[2022-05-25] MEDS: traZODone HCL 50 MG TABLET 100 MG PO (21:14)
[2022-05-25] MEDS: AZITHROMYCIN 250 MG TABLET 500 MG PO (21:14)
[2022-05-25 21:15] LABS: Glucose Point of Care 214 mg/dl (65-105)
[2022-05-25] MEDS: CEFDINIR 300 MG CAPSULE PO (21:15)
[2022-05-25] MEDS: ATORVASTATIN 40 MG TABLET PO (21:15)
[2022-05-25] MEDS: FLUTICASONE PROPIONATE 0.05% NA SPR 16 GM BTL (*BKC) 2 SPRAY NASAL (21:15)
--- NOTE | 2022-05-26 00:37 | PC.NURSE ---
Pt resting in chair. Pt is on 2L O2 and is doing an overnight sleep study. Pt has no complaints of pain and is able to participate and contribute in plan of care for the shift. Pt expresses no needs at this time. Will continue to monitor pt.
[2022-05-26 06:00] VITALS: BP 108/39; PULSE 81; RESP 18; TEMP 36.5; O2SAT 92
[2022-05-26 06:50] LABS: Basophils Absolute Auto 0.1 K/mm3 (0.0-0.1); Basophils Percent Auto 0.5 % (0.2-1.2); Eosinophils Absolute Auto 0.3 K/mm3 (0-0.3); Eosinophils Percent Auto 2.5 % (0-4.4); Hematocrit 30.6 % (37.0-47.0); Hemoglobin 8.5 g/dL (12.0-15.0); Immature Granulocyte Absolute 0.09 K/mm3 (0.00-0.031); Immature Granulocyte Percent A 0.9 % (0-0.5); Lymphocytes Absolute Auto 1.42 K/mm3 (0.9-3.2); Lymphocytes Percent Auto 13.4 % (18.3-44.2); Mean Corpuscular HGB Conc 27.8 g/dl (32-36); Mean Corpuscular Hemoglobin 22.1 pg (26-34); Mean Corpuscular Volume 79.7 fl (80-100); Mean Platelet Volume 11.7 fl (7.4-10.4); Monocytes Absolute Auto 1.3 K/mm3 (0.1-0.6); Monocytes Percent Auto 12.4 % (2.6-8.5); Neutrophils Absolute Auto 7.4 K/mm3 (1.3-6.7); Neutrophils Percent Auto 70.3 % (45.5-73.1); Platelet Count Result 211 k/mm3 (150-375); Red Blood Count 3.84 M/mm3 (4.2-5.4); Red Cell Distribution Width 19.2 % (11.5-14.5); White Blood Count 10.6 K/mm3 (4.5-10.0)
[2022-05-26 06:57] LABS: Alanine Aminotransferase 17 U/L (6-35); Albumin Level 3.3 g/dL (3.5-5.1); Alkaline Phosphatase 162 U/L (38-126); Anion Gap 6 mmol/L (8-16); Aspartate Amino Transferase 23 U/L (14-36); Bilirubin,Total 0.4 mg/dL (0.2-1.3); Blood Urea Nitrogen 24 mg/dL (7-17); Calcium 8.9 mg/dL (8.4-10.2); Carbon Dioxide 26 mmol/L (22-30); Chloride 105 mmol/L (98-107); Estimated CRCL calculation 35 ml/min; Estimated Glomerular Filt Rate 36; Glucose 213 mg/dL (65-110); Sodium 137 mmol/L (137-145)
[2022-05-26 07:33] LABS: Glucose Point of Care 247 mg/dl (65-105)
[2022-05-26 08:25] LABS: Platelet Estimate Adequate (Adequate)
[2022-05-26 08:27] LABS: Acanthocytes 1+ (NORMAL); Ovalocytes 1+ (NORMAL); Poikilocytosis 1+ (NORMAL)
[2022-05-26 08:29] LABS: Schistocytes 1+ (NORMAL)
[2022-05-26] MEDS: INSULIN ASPART (*BKC) 100 UNITS/ML SUB-Q ×2 (08:40→12:59)
[2022-05-26] MEDS: INSULIN ASPART (*BKC) 100 UNITS/ML 20 UNITS SUB-Q ×2 (08:40→12:59)
[2022-05-26 08:41] VITALS: PULSE 76
[2022-05-26] MEDS: busPIRone HCL 5 MG TABLET 15 MG PO ×2 (08:41→13:00)
[2022-05-26] MEDS: POTASSIUM CHLORIDE 20 MEQ TABLET.ER 40 MEQ PO (08:41)
[2022-05-26] MEDS: CEFDINIR 300 MG CAPSULE PO (08:41)
[2022-05-26] MEDS: FUROSEMIDE 20 MG TABLET 60 MG PO (08:41)
[2022-05-26] MEDS: METOPROLOL SUCCINATE EXT REL 25 MG TABCR PO (08:41)
[2022-05-26] MEDS: buPROPion HCL XL (24 HR) 150 MG TABCR PO (08:41)
[2022-05-26] MEDS: MULTIVITAMINS THERAPEUTIC TAB (*BKC) 1 TABLET PO (08:41)
[2022-05-26] MEDS: ENOXAPARIN 40 MG/0.4 ML SYRINGE SUB-Q (08:42)
[2022-05-26] MEDS: CHOLECALCIFEROL 1,000 UNITS TABLET 1000 UNITS PO (08:42)
[2022-05-26] MEDS: lisinopriL 20 MG TABLET 40 MG PO (08:42)
[2022-05-26] MEDS: MONTELUKAST SODIUM 10 MG TABLET PO (08:42)
[2022-05-26] MEDS: BRIMONIDINE TARTRATE 0.2% OP SOLN 5 ML BTL 1 DROP EACH EYE (08:43)
[2022-05-26] MEDS: TIMOLOL MALEATE 0.5% OP SOLN 5 ML BOTTLE 1 DROP EACH EYE (08:43)
[2022-05-26] MEDS: SILVERGEL (ELTA) 45 ML 1 APPLIC TOPICAL (08:43)
[2022-05-26] MEDS: LORATADINE 10 MG TABLET PO (08:49)
[2022-05-26] MEDS: HYDROcodone/acetaminophen (*CRX) 5-325 MG TABLET 1 TAB PO (08:50)
[2022-05-26] MEDS: FLUTICASONE/UMECLIDIN/VILANTER 100-62.5-25 MCG ELLIPTA 1 PUFF INHALATION (09:02)
[2022-05-26 09:15] VITALS: O2SAT 91
[2022-05-26 09:16] VITALS: PULSE 77; O2SAT 91
[2022-05-26 09:19] VITALS: PULSE 79; O2SAT 89
--- NOTE | 2022-05-26 09:32 | PCRCNOTE ---
Home oxygen evaluation compete. Patient does not require oxygen at home.
--- NOTE | 2022-05-26 09:54 | PM.PNCARD ---
Progress Note: A&P Assessment and Plan (1) Diastolic CHF: Code(s): I50.30 - Unspecified diastolic (congestive) heart failure Status: Acute Plan volume overload/ diastolic dysfunction appears to be essentially euvolemic in terms of left-sided findings. This lady's chronic edema will not be able to be completely resolved with diuresis. Lower extremity compression and elevation will be very important she understands this as well. I believe she is doing well enough to be discharged today I will see that my office reaches out to her on Saturday for timely follow-up. Zeke Garcia MD [facility] Subjective Date/time seen: date of service:05/26/22 09:54 Interval history: Follow-up visit in this 77-year-old woman with: Diastolic dysfunction and volume overload. Patient also contributing to this has morbid obesity. She says that she is feeling better day by day is no longer having any difficulty with shortness of breath. She continues to have significant persistent lower extremity edema which I explained to her will likely be a chronic finding. Patient is hopeful to be discharged today. Exam Const: Other: Very pleasant morbidly obese lady seated in the bedside chair her lower extremities are wrapped with Ifeanyi wraps and compression hose HENMT: Mouth: Yes moist mucous membranes Eyes: Sclera: sclerae normal Neck: Neck: supple Other: very hard to assess for JVD given her obesity. Resp: Effort & Inspection: normal respiratory effort Other: Scant pulmonary crackles which mostly clear with coughing today. Very good aeration Cardio: Rate: regular rate Rhythm: regular rhythm Other: PMI is not palpable because of her size no audible murmur or gallop GI: Auscultation: normal bowel sounds Skin: General skin exam: normal color Neuro: Other: alert and oriented x3 Extrem: Other: patient has chronic appearing marked lower extremity edema which is by report better than admission on Saturday. I did not unwrap her legs for more detailed examination Objective Data Vital Signs Vital Signs: Vital Signs - 24 hr 05/25/22 12:00 05/25/22 16:00 05/25/22 21:15 Temperature 36.4 C L Pulse Rate 65 65 Respiratory Rate 20 20 Blood Pressure 140/35 L 144/53 H Pulse Oximetry 98 100 100 Oxygen Delivery Nasal Cannula Oxygen Flow Rate 2 05/25/22 22:00 05/26/22 06:00 05/26/22 08:41 Temperature 36.6 C 36.5 C Pulse Rate 66 81 76 Respiratory Rate 16 18 Blood Pressure 103/44 L 108/39 L Pulse Oximetry 94 92 Oxygen Delivery Oxygen Flow Rate 05/26/22 09:16 05/26/22 09:15 05/26/22 09:19 Temperature Pulse Rate 77 79 Respiratory Rate Blood Pressure Pulse Oximetry 91 91 89 L Oxygen Delivery Room Air Room Air Room Air Oxygen Flow Rate Intake/Output Intake/Output: Intake & Output 05/23/22 05/24/22 05/25/22 05/26/22 23:59 23:59 23:59 23:59 Intake Total 2499 1252 1400 250 Output Total 500 1000 800 500 Balance 1998 252 600 -250 Meds/Results Medications: Active Medications Generic Name Dose Route Start Last Admin Trade Name Freq PRN Reason Stop Dose Admin Acetaminophen 650 mg 05/21/22 22:41 05/24/22 22:45 Acetaminophen 325 Mg Tablet PO 650 mg Q6H PRN Administration Mild Pain (1-3) or Fever Hydrocodone Bitart/Acetaminophen 1 tab 05/21/22 10:49 05/26/22 08:50 Hydrocodone/Acetaminophen (*Crx) 5-325 Mg Tablet PO 1 tab Q4H PRN Administration Pain Rated 4-6 Albuterol 1.25 mg 05/22/22 07:15 Albuterol Sulfate Neb 2.5 Mg/3 Ml Inh INHALATION Q4-6H PRN shortness of breath or wheezing Albuterol 2 puff 05/22/22 07:15 Albuterol Sulfate (*Sp) Aerosol 1 Puff INHALATION Q4H PRN shortness of breath or wheezing Atorvastatin Calcium 40 mg 05/22/22 21:00 05/25/22 21:15 Atorvastatin 40 Mg Tablet PO 40 mg HS SINDY Administration Brimonidine Tartrate 1 drop 05/22/22 09:00 05/26/22 08:43 Brimo
[2022-05-26 11:58] LABS: Glucose Point of Care 342 mg/dl (65-105)
--- NOTE | 2022-05-26 12:04 | PM.DS ---
DS: Admitting Diagnosis Discharge Date 05/24/22 Admitting Diagnosis sob DS: Discharge Diagnosis Discharge Diagnosis (1) Diastolic CHF: Code(s): I50.30 - Unspecified diastolic (congestive) heart failure Status: Acute Assessment and Plan: Continue IV diuresis, monitor response (2) Coronary artery disease: Code(s): I25.10 - Atherosclerotic heart disease of [place] coronary artery without angina pectoris Status: Acute Assessment and Plan: Continue home meds (3) Chronic kidney disease: Code(s): N18.9 - Chronic kidney disease, unspecified Status: Acute Assessment and Plan: Monitor creatinine (4) Type 2 diabetes mellitus: Code(s): E11.9 - Type 2 diabetes mellitus without complications Status: Acute Assessment and Plan: Accu-Cheks, sliding scale insulin, A1c 7.1 (5) Microcytic anemia: Code(s): D50.9 - Iron deficiency anemia, unspecified Status: Acute Assessment and Plan: Monitor hemoglobin (6) Hypertension: Code(s): I10 - Essential (primary) hypertension Status: Chronic Assessment and Plan: Stable (7) Suspected sleep apnea: Code(s): R29.818 - Other symptoms and signs involving the nervous system Status: Acute Assessment and Plan: ApneaLink ordered and pending Plan DVT prophylaxis with Lovenox, Xarelto being held GI prophylaxis not indicated Code status full code DS: Summary Hospital Course Hospital Course: 77-year-old female with coronary artery disease status post stent to in December 2016, hypertension, dyslipidemia, diabetes, and COPD who presented to the emergency department from home for evaluation of swelling and shortness of breath. Patient provides the following history. It is not unusual for her to have occasional lower extremity edema however over the past 3 weeks it has gotten increasingly worse and the swelling is now up to her upper thighs. In the same timeframe she has become increasingly short of breath on lesser and lesser exertion and she has been sleeping in a recliner due to orthopnea. She spoke with her primary physician regarding these findings and her furosemide dose was doubled though she continues to gain weight and in fact she believe she has gained almost 40 lb in 3 weeks. She is currently taking clindamycin due to redness and open wounds that have developed on her legs. She also reports chills and a cough which is occasionally productive of yellow/green/velásquez phlegm. She denies syncope, near syncope, sinus congestion, sore throat, chest and pleuritic pain, nausea, vomiting, and sweats. She has no known history of congestive heart failure, cirrhosis, or significant kidney disease. No history of DVT. No history of anemia and she has not noticed any blood in her stools. She snores heavily and has daytime somnolence though she has not wanted to do a sleep study as she does not think she would ever wear CPAP. She has improved with IV furosemide.? Echocardiogram does not show any other cardiac reasons for this and we would treat this as heart failure with preserved ejection fraction which you are already doing.? It looks on my physical exam that she still has some pulmonary rales and I would probably keep her in the hospital and continue loop diuretics until these are no longer audible.? I doubt we will be able to diurese away all of her edema as this is chronic and in part related to her morbid obesity as well. ? This lady's chronic edema will not be able to be completely resolved with diuresis.? Lower extremity compression and elevation will be very important she understands this as well.? Cardiology was ok with d/c and will f/u outpatient. Time Spent with Patient Time attestation: Total time spent providing and/or coordinating discharge services: Exam Narrative: General: No acute distress, alert and oriented per baseline HEENT: Atraumatic, normocephalic, mucous membranes mois
== END 2022-05-26 14:00 | disposition home health service (06) | DRG 291 ==
LOC: ANHED 09:23 → ANH3MEDSUR 13:33
PROVIDERS: Physician Assistant; Admitting Provider Internal Medicine; Emergency Provider Emergency Medicine; PCP Family Medicine; Visit Provider Student in an Organized Health Care Education/Training Program
DX: I13.0 Hypertensive heart and chronic kidney disease with heart failure and stage 1 through stage 4 chronic kidney disease, or unspecified chronic kidney disease (principal); I50.31 Acute diastolic (congestive) heart failure; J18.9 Pneumonia, unspecified organism; E11.22 Type 2 diabetes mellitus with diabetic chronic kidney disease; N18.9 Chronic kidney disease, unspecified; I48.0 Paroxysmal atrial fibrillation; Z20.822 Contact with and (suspected) exposure to COVID-19; I25.10 Atherosclerotic heart disease of native coronary artery without angina pectoris; D50.9 Iron deficiency anemia, unspecified; G47.30 Sleep apnea, unspecified; J44.9 Chronic obstructive pulmonary disease, unspecified; K58.0 Irritable bowel syndrome with diarrhea; E88.81 Metabolic syndrome and other insulin resistance; R68.2 Dry mouth, unspecified; E78.2 Mixed hyperlipidemia; E66.01 Morbid (severe) obesity due to excess calories; Z68.39 Body mass index [BMI] 39.0-39.9, adult; Z95.5 Presence of coronary angioplasty implant and graft; Z87.891 Personal history of nicotine dependence
CPT/HCPCS: 36415; 71045; 71046; 80048; 80053; 81001; 82570; 82607; 82728; 82746; 82948; 83036; 83540; 83550; 83735; 83880; 84145; 84156; 84443; 84484; 85025; 85027; 85055; 85610; 85730; 86140; 86738; 87449; 87636; 87899; 93005; 94618; 94640; 94762; 96374; 96375; 96376; 97110; 97161; 97165; 97530; 97535; 99285; A9270; C8929; G0378; J0456; J0696; J1650; J1756; J1815; J1940; Q9957

== ENCOUNTER 2022-06-27 08:27 | Outpatient (RCR) | payer MEDICARE, SELFPAY ==
[2022-06-27 11:55] VITALS: BMI 38.7
== END 2022-08-13 13:31 | disposition home or self-care (01) ==
LOC: ANHWOC 08:27
PROVIDERS: PCP Family Medicine; Visit Provider Family Medicine
DX: S81.809A Unspecified open wound, unspecified lower leg, initial encounter (principal)
CPT/HCPCS: 99214; A9270; G0463

== ENCOUNTER → 2022-07-30 13:36 | Outpatient (CLI) | payer MEDICARE, SELFPAY ==
--- NOTE | ~2022-07-30 | XR_ITS ---
EXAMINATION: XR chest 2V Exam Date/Time: 07/30/2022 13:42 CDT HISTORY: cough, sob x 1 month Comparison: 05/18/2022. RESULT: Lines, tubes, and devices: Loop recorder. Lungs and pleura: Mid and lower lung peripheral reticular opacities. Chronic mild right pleural blun ting. Minimal left posterior costophrenic angle blunting. Cardiomediastinal silhouette: Stable. Other: No acute osseous or upper abdominal finding. IMPRESSION: Interstitial edema. Small bilateral pleural effusions versus chronic pleural scarring. Reviewed, dictated and finalized at location K. IMPRESSION: Interstitial edema. Small bilateral pleural effusions versus chronic pleural sc arring.
== END ==
PROVIDERS: PCP Family Medicine; Visit Provider Family Medicine
DX: R05.9 Cough, unspecified (principal); J81.1 Chronic pulmonary edema
CPT/HCPCS: 71046

== ENCOUNTER 2022-09-11 12:52 | Observation (INO) | payer MEDICARE, SELFPAY ==
[2022-09-11] VITALS (10 sets, daily range): BP systolic 103–183; BP diastolic 43–77; PULSE 61–74; RESP 16–24; TEMP 36.4–36.9; O2SAT 91–99; BMI 36.7
--- NOTE | ~2022-09-11 | XR_ITS ---
XR chest 1V portable 09/11/2022 13:24 Indication: Cough Procedure: AP portable chest Comparison: Comparison to multiple prior studies sequentially, with oldest reviewed study dated 05/10. Findings: Cardiomegaly with interstitial edema. No pleural effusion or pneumothorax. No acute osseous abnormality. Impression: 1: Cardiomegaly with interstitial edema. Reviewed, dictated and finalized at location L. Impression: 1: Cardiomegaly with interstitial edema.
--- NOTE | ~2022-09-11 | US_ITS ---
EXAMINATION: US carotid duplex BI DATE: 09/11/2022 19:46 INDICATION: Stroke. Carotid atherosclerosis and stenosis. TECHNIQUE: Grayscale, color Doppler, and pulsed Doppler images of the cervical carotid arteries were obtained. The degree of vessel stenosis is placed in one of the following categories: normal, <50%, 5 0-69%, >=70% but less than near-occlusion, near-occlusion, or total occlusion. Note that percent sten osis relative to normal distal artery lumen diameter is indirectly measured from velocity measurement s as described by Ck, et al. Radiology 2003; 229:340-346. COMPARISON: None. FINDINGS: RIGHT: The right common carotid artery (CCA) peak systolic velocity (PSV) is 119 cm/s. The right internal ca rotid artery (ICA) PSV is 140 cm/s. The right ICA end-diastolic velocity (EDV) is 31 cm/s. The right ICA/CCA PSV ratio is 1.2. Grayscale and color Doppler images yield an estimate of 50-69% diameter red uction from plaque in the ICA. The external carotid artery (ECA) PSV is 88 cm/s. There is antegrade f low in the right vertebral artery. LEFT: The left CCA PSV is 91 cm/s. The left ICA PSV is 76 cm/s. The left ICA EDV is 17 cm/s. The left ICA/C CA PSV ratio is 0.8. Grayscale and color Doppler images yield an estimate of <50% diameter reduction from plaque in the ICA. The ECA PSV is 134 cm/s. There is antegrade flow in the left vertebral artery . IMPRESSION: 1. 50-69% stenosis in the right internal carotid artery. 2. <50% stenosis in the left internal carotid artery. Reviewed, dictated and finalized at location A.
--- NOTE | ~2022-09-11 | CT_ITS ---
EXAMINATION: CTA brain carotid DATE: 09/13/2022 14:18 INDICATION: Cerebrovascular accident. TECHNIQUE: Computed tomographic angiography (CTA) of the head was performed without and with 100 mL O mnipaque-350 intravenous contrast. CTA of the neck was performed with intravenous contrast. Automated exposure control and iterative reconstruction technique were employed. The dose-length product was 1 733.21 mGy-cm. Maximum intensity projection and volume rendered 3D-reconstructions were created by tarun merida technologist on a separate workstation. COMPARISON: Head CT 09/11/2022, brain MRI 09/12/2022 FINDINGS: HEAD CTA: There are scattered areas of low attenuation in the cerebral white matter. There is no intr acranial hemorrhage, acute infarction, or abnormal intracranial mass lesion. The ventricles are srinivasa l in size. There is mild mucosal thickening in the maxillary sinuses. The mastoid air cells are srinivasa l. There are likely changes of ocular lens replacement surgeries. Left vertebral artery is dominant. There is no significant stenosis of basilar artery or the posterior cerebral arteries. The posterior communicating arteries are normal. There is no significant stenosis of the intracranial internal zaidi tid arteries or anterior or middle cerebral arteries. Anterior communicating artery is normal. There is no aneurysm. NECK CTA: There are no pathologically enlarged lymph nodes. There is no significant stenosis of the v ertebral arteries. There is plaque in the proximal internal carotid arteries. There is 0% stenosis of the proximal right internal carotid artery relative to normal distal artery lumen diameter (NASCET c riteria). There is 0% stenosis of the proximal left internal carotid artery relative to normal distal artery lumen diameter. There is severe cervical spondylosis. IMPRESSION: 1. Stable moderate nonspecific cerebral white matter disease, which likely represents chronic small v essel ischemic disease. 2. No aneurysm or significant intracranial arterial stenosis. 3. 0% stenosis of the proximal internal carotid arteries relative to normal distal artery lumen diame ters (NASCET criteria). Reviewed, dictated and finalized at location A. IMPRESSION: 1. Stable moderate nonspecific cerebral white matter disease, which likely repr esents chronic small vessel ischemic disease. 2. No aneurysm or significant intracranial arterial stenosis. 3. 0% stenosis of the proximal internal carotid arteries relative to normal dis atilio artery lumen diameters (NASCET criteria).
--- NOTE | ~2022-09-11 | CT_ITS ---
EXAMINATION: CT BRAIN W/O DATE: 09/11/2022 13:33 INDICATION: Right facial droop TECHNIQUE: Computed tomography (CT) of the head was performed without intravenous contrast. The dose- length product was 681.00 mGy-cm. Automated exposure control and iterative reconstruction technique w ere employed. COMPARISON: No prior studies for comparison. FINDINGS: Mild generalized atrophy. Normal velásquez-white differentiation. No acute intracranial hemorrha ge, infarction, mass or mass effect. There are scattered mild periventricular and subcortical white m atter changes, most likely related to small vessel ischemic disease (microangiopathy). There is intra cranial atherosclerosis. Stable frontal school hyperostosis. No ventriculomegaly or midline shift. Midline sagittal images demonstrate a normal corpus callosum, c raniovertebral junction and sella turcica. Basilar cisterns are patent. There is mucosal thickening of the maxillary sinuses. Mastoids are pneumatized. No depressed skull fr actures. IMPRESSION: 1. No acute intracranial abnormality. 2: Sinusitis, likely chronic. 3: Chronic age-related findings. Reviewed, dictated and finalized at location L.
--- NOTE | ~2022-09-11 | MR_ITS ---
EXAMINATION: MR brain/brain stem wo con DATE: 09/12/2022 13:50 INDICATION: Cerebral vascular accident. TECHNIQUE: Magnetic resonance imaging (MRI) of the brain and brainstem was performed without intraven ous contrast. COMPARISON: Head CT 09/11/2022 FINDINGS: There are scattered areas of nonspecific increased T2-weighted signal intensity in the cere bral white matter and abraham. There is no intracranial hemorrhage, acute infarction, or abnormal intrac ranial mass lesion. The ventricles are normal in size. There is mucosal thickening in the paranasal s inuses. There are likely changes of ocular lens replacement surgeries. The mastoid air cells are norm al. IMPRESSION: 1. Moderate nonspecific cerebral white matter disease and pontine disease, which likely represents ch ronic small vessel ischemic disease. Reviewed, dictated and finalized at location A. IMPRESSION: 1. Moderate nonspecific cerebral white matter disease and pontine disease, whic h likely represents chronic small vessel ischemic disease.
--- NOTE | 2022-09-11 13:03 | ECG_ITS ---
Measurements Intervals [place] Rate: 62 P: 75 NM: 199 QRS: 8 QRSD: 87 T: 66 QT: 403 QTc: 411 Interpretive Statements SINUS RHYTHM LOW QRS VOLTAGE IN PRECORDIAL LEADS DELAYED PRECORDIAL R/S TRANSITION BORDERLINE ST-T WAVE ABNORMALITY- HIGH LATERAL LEADS BASELINE ARTIFACT- I, II, AVR BORDERLINE ECG COMPARED TO ECG 05/21/2022 08:31:55 NO SIGNIFICANT CHANGES Electronically Signed On 09-11-2022 13:17:00 CDT by Darien Marte D.O.
--- NOTE | 2022-09-11 13:04 | ED.NEUROSD ---
HPI - Neuro Symptoms/Deficit General Chief Complaint: Neuro Symptoms/Deficit Stated Complaint: neuro symptoms Time Seen by Provider: 09/11/22 12:56 History of Present Illness HPI Narrative: Pt developed CORNELL in right occipital area last night and then this morning around 0830 noticed that when she drank water she drooled out the right side of her mouth. Pt denies weakness in her extremities or loss of balance or vision or slurred speech. Pt has no prior history of strokes. Pt has hx of CHF in May. Related Data Home Medications Medication Instructions Recorded Confirmed acetaminophen 650 mg 1,300 mg PO Q12H PRN Pain 10/29/19 09/11/22 tablet,extended release (Tylenol Arthritis Pain) budesonide-formoterol HFA 160 2 puff inhalation Q12H 10/29/19 09/11/22 mcg-4.5 mcg/actuation aerosol inhaler clonazepam 0.5 mg tablet 0.5 mg PO DAILY PRN Anxiety 05/26/20 09/11/22 dicyclomine 20 mg tablet 20 mg PO QID PRN Cramps 05/21/22 09/11/22 insulin regular hum U-500 conc 500 See Rx Instructions .Route .COMPLEX 05/22/22 09/11/22 unit/mL subcutaneous soln furosemide 20 mg tablet 20 mg PO TID 09/11/22 09/11/22 montelukast 10 mg tablet 10 mg PO HS 09/11/22 09/11/22 Allergies Allergy/AdvReac Type Severity Reaction Status Date / Time amoxicillin AdvReac Mild Nausea and Verified 09/11/22 16:28 Vomiting clavulanic acid AdvReac Mild Nausea and Verified 09/11/22 16:28 [From Augmentin] Vomiting Review of Systems Review of Systems: All systems reviewed & are unremarkable except as noted in HPI and below PMFSH Past Medical History Medical History Anxiety Asthma Back pain Benign hypertension Chronic kidney disease Coronary artery disease History of stent to in December 2016. Depression Hypertension Hypokalemia Irritable bowel syndrome with diarrhea Metabolic syndrome Mixed hyperlipidemia Obesity Type 2 diabetes mellitus Vertigo Surgical History Surgical History History of cardiac catheterization History of coronary artery stent placement History of tonsillectomy Family History Family History Father Family history of mental disorder Depression Family history of arthritis Family history of diabetes mellitus in first degree relative Family history of congestive heart failure Family history of heart disease in male family member before age 55 Family history of hearing loss Diabetes mellitus Family history of cardiovascular disease Acute myocardial infarction Mother Family history of anemia Family history of arthritis Family history of malignant neoplasm of breast in first degree relative Sibling Family history of cardiovascular disease Other Family history of elevated blood lipids Social History Social History Social History: Surrogate medical decision maker: Ben Finch, son. Code status: Full code. Smoking packs per day: 2 Smoking cigarettes per day: 40.0 Years smoked: 35 Smoking pack-years: 70.00 Smoking status: Former smoker Alcohol intake: never Substance use: never Other substance usage details: CBD/THC oil and gummies. Lack of Transportation: YES Lack of Food: Never True Current Housing: I Have Housing Concerned About Future Housing: No Difficulty Paying Gas/Electric Bills: No Difficulty Paying for Meds: No Currently Unemployed: No Education: High School Diploma/GED Difficulty w/ Childcare or Family Care: No Additional living arrangements comments: . Lives in [place]. Occupation/Education: retired Spiritual care concerns: No Exam Const: General: healthy appearing Nutritional Appearance: well nourished Orientation/consciousness: patient oriented x3 Limitations: no limitations HENMT: H
[2022-09-11 13:11] LABS: Basophils Absolute Auto 0.1 K/mm3 (0.0-0.1); Basophils Percent Auto 0.5 % (0.2-1.2); Eosinophils Absolute Auto 0.2 K/mm3 (0-0.3); Eosinophils Percent Auto 1.6 % (0-4.4); Hematocrit 39.1 % (37.0-47.0); Immature Granulocyte Absolute 0.07 K/mm3 (0.00-0.031); Immature Granulocyte Percent A 0.6 % (0-0.5); Lymphocytes Absolute Auto 2.01 K/mm3 (0.9-3.2); Lymphocytes Percent Auto 17.4 % (18.3-44.2); Mean Corpuscular HGB Conc 30.7 g/dl (32-36); Mean Corpuscular Volume 88.1 fl (80-100); Mean Platelet Volume 9.3 fl (7.4-10.4); Monocytes Absolute Auto 1.1 K/mm3 (0.1-0.6); Monocytes Percent Auto 9.5 % (2.6-8.5); Neutrophils Absolute Auto 8.2 K/mm3 (1.3-6.7); Neutrophils Percent Auto 70.4 % (45.5-73.1); Platelet Count Result 254 k/mm3 (150-375); Red Blood Count 4.44 M/mm3 (4.2-5.4); Red Cell Distribution Width 21.4 % (11.5-14.5); White Blood Count 11.6 K/mm3 (4.5-10.0)
[2022-09-11 13:21] LABS: Alanine Aminotransferase 22 U/L (6-35); Albumin Level 4.5 g/dL (3.5-5.1); Alkaline Phosphatase 142 U/L (38-126); Anion Gap 11 mmol/L (8-16); Aspartate Amino Transferase 31 U/L (14-36); Bilirubin,Total 0.6 mg/dL (0.2-1.3); Blood Urea Nitrogen 22 mg/dL (7-17); Calcium 9.6 mg/dL (8.4-10.2); Carbon Dioxide 27 mmol/L (22-30); Chloride 100 mmol/L (98-107); Estimated CRCL calculation 39 ml/min; Estimated Glomerular Filt Rate 48; Glucose 87 mg/dL (65-110); INR 2.1; Potassium 3.9 mmol/L (3.4-5.0); Prothrombin Time 25.6 Seconds (11.1-14.7); Sodium 138 mmol/L (137-145)
[2022-09-11 13:29] LABS: Partial Thromboplastin Time 50.8 SECONDS (22.3-36.8)
[2022-09-11 13:32] LABS: Troponin I < 0.012 ng/mL (0.000-0.034)
[2022-09-11] MEDS: ONDANSETRON INJ 4 MG/2 ML VIAL IV PUSH (14:50)
[2022-09-11] MEDS: MORPHINE SULFATE (*CRX) 2 MG/ML INJ IV PUSH (15:18)
--- NOTE | 2022-09-11 16:07 | ADMGEN ---
This patient, Mihaela Finch, was admitted to Medical Room 348-01. Patient/family oriented to hospital policies and general routines including ID bracelet, bed and alarms, visiting hours, pain management, procedures, bathroom and other care routines, personal items, smoking policy, room service/diet, and visiting hours. Information on how to activate the Rapid Response Team has been discussed. Patient/Family are encouraged to report perceived risks to care and to ask questions if they do not understand what they are told or what they should do.
[2022-09-11 16:53] LABS: Glucose Point of Care 63 mg/dl (65-105)
[2022-09-11 17:41] LABS: Hemoglobin A1C 8.8 % (<5.7)
[2022-09-11] MEDS: DEXTROSE 50% 25 GM/50 ML SYRINGE IV PUSH (17:43)
--- NOTE | 2022-09-11 17:54 | PM.IMHP ---
H&P: HPI History of Present Illness Date/Time: 09/11/22 17:54 Chief Complaint: possible CVA Narrative: Pt developed a severe headache on the right side of her head and pain all down her right side. Pt L eyelid went weak and L side of her face was weak. Pt admitted for CVA rule out. CT head was negative. Pt awaiting MRI head echo and us carotids. Pt has a history of [place] palsy in the past Pt is on alot of medications almost 4 pages unsure if there is some polypharmacy going on, pt states she goes to different doctors. Today pt is able to eat, able to talk and walk. main concerns is her L side of her face and her eyelid which could be stroke or her [place] palsy flaring up again. Pt also has history of HTN, dm, CAD and CKD Review of Systems Review of Systems: L face weakness and eyelid droop PMFSH Past Medical History Medical History Anxiety Asthma Back pain Benign hypertension Chronic kidney disease Coronary artery disease History of stent to in December 2016. Depression Hypertension Hypokalemia Irritable bowel syndrome with diarrhea Metabolic syndrome Mixed hyperlipidemia Obesity Type 2 diabetes mellitus Vertigo Surgical History Surgical History History of cardiac catheterization History of coronary artery stent placement History of tonsillectomy Family History Family History Father Family history of mental disorder Depression Family history of arthritis Family history of diabetes mellitus in first degree relative Family history of congestive heart failure Family history of heart disease in male family member before age 55 Family history of hearing loss Diabetes mellitus Family history of cardiovascular disease Acute myocardial infarction Mother Family history of anemia Family history of arthritis Family history of malignant neoplasm of breast in first degree relative Sibling Family history of cardiovascular disease Other Family history of elevated blood lipids Social History Social History Social History: Surrogate medical decision maker: Ben Finch, son. Code status: Full code. Smoking packs per day: 2 Smoking cigarettes per day: 40.0 Years smoked: 35 Smoking pack-years: 70.00 Smoking status: Former smoker Alcohol intake: never Substance use: never Other substance usage details: CBD/THC oil and gummies. Lack of Transportation: YES Lack of Food: Never True Current Housing: I Have Housing Concerned About Future Housing: No Difficulty Paying Gas/Electric Bills: No Difficulty Paying for Meds: No Currently Unemployed: No Education: High School Diploma/GED Difficulty w/ Childcare or Family Care: No Additional living arrangements comments: . Lives in [place]. Occupation/Education: retired Spiritual care concerns: No Meds Home Medications and Allergies Home Medications Medication Instructions Recorded Confirmed Type fluticasone propionate 50 See Rx Instructions .Route 09/07/19 09/11/22 Rx mcg/actuation nasal .COMPLEX #48 grams spray,suspension acetaminophen 650 mg 1,300 mg PO Q12H PRN Pain 10/29/19 09/11/22 History tablet,extended release (Tylenol Arthritis Pain) budesonide-formoterol HFA 160 2 puff inhalation Q12H 10/29/19 09/11/22 History mcg-4.5 mcg/actuation aerosol inhaler clonazepam 0.5 mg tablet 0.5 mg PO DAILY PRN Anxiety 05/26/20 09/11/22 History glucagon 1 mg/0.2 mL subcutaneous 1 mg (0.2 mL) subcut ONCE #0.4 mL 07/20/21 09/11/22 Rx auto-injector (Gvoke HypoPen 2-Pack) blood-glucose meter,continuous #1 ea 12/11/21 09/11/22 Rx (Dexcom G6 Paramedic Supervisor) blood-glucose sensor (Dexcom G6 #9 ea 12/11/21 09/11/22 Rx Sensor device) blood-gluco
[2022-09-11 18:16] LABS: Glucose Point of Care 113 mg/dl (65-105)
[2022-09-11 20:09] LABS: Glucose Point of Care 78 mg/dl (65-105)
[2022-09-11] MEDS: ATORVASTATIN 40 MG TABLET PO (20:29)
[2022-09-11] MEDS: traZODone HCL 50 MG TABLET 100 MG PO (20:29)
[2022-09-12] VITALS (11 sets, daily range): BP systolic 121–144; BP diastolic 52–67; PULSE 73–95; RESP 18; TEMP 36.5–36.6; O2SAT 90–95
--- NOTE | 2022-09-12 | ECHO_ITS ---
Patient Info Name: Mihaela Finch Age: 77 years : 1945 Gender: Female Ht: 62 in Wt: 200 lbs BSA: 2.04 m2 HR: 79 bpm BP: 121 / 67 mmHg Heart Rhythm: Sinus Rhythm Technical Quality: Fair Exam Date: 09/12/2022 9:36 AM Exam Location: [facility] Pulmonary Exam Room: [facility] Patient Status: Inpatient Admit Date: 09/11/2022 Staff Ordering Physician: Samantha Donwey MD Vmware Architect: Claudia Snyder RDCS Attending Provider: Clementina Santa MD Referring Physician: Shayan DEXTER; Exam Type: CA echo limited w bubble study Study Info Indications - CVA Limited two-dimensional transthoracic echocardiogram is performed with agitated saline. Contrast/Agitated Saline Contrast/Ag. Saline: Agitated Saline Amount: 20.00 ml Administered By: Alana Canales RDCS Existing IV Access: Yes IV Access Condition: patent with no signs of infiltration Summary 1. Left ventricular systolic function is normal, estimated at 65-70%. 2. Left ventricular chamber dimension is normal. 3. There is mildly increased left ventricular wall thickness. 4. The left ventricular diastolic function is grade I diastolic dysfunction. 5. Right ventricular chamber dimension is moderately enlarged. 6. Right ventricular systolic function is reduced. 7. Left atrial chamber dimension is moderately enlarged. 8. Right atrial chamber dimension is mildly enlarged. 9. Intact interatrial septum visualized by color flow and agitated saline imaging. 10. The mitral valve has calcified annulus. 11. Severe pulmonary hypertension, estimated pulmonary arterial systolic pressure is 71 mmHg. 12. There is mild tricuspid valve regurgitation. Left Ventricle Left ventricular chamber dimension is normal. Left ventricular systolic function is normal, estimated at 65-70%. There is mildly increased left ventricular wall thickness. The left ventricular diastolic function is grade I diastolic dysfunction. Right Ventricle Right ventricular chamber dimension is moderately enlarged. Right ventricular systolic function is reduced. Left Atria Left atrial chamber dimension is moderately enlarged. Right Atria Right atrial chamber dimension is mildly enlarged. Atrial Septum Intact interatrial septum visualized by color flow and agitated saline imaging. Aortic Valve The aortic valve is not well visualized. Pulmonic Valve The pulmonic valve is not well visualized. Mitral Valve The mitral valve has calcified annulus. Tricuspid Valve Severe pulmonary hypertension, estimated pulmonary arterial systolic pressure is 71 mmHg. The tricuspid valve leaflets are normal. There is mild tricuspid valve regurgitation. Pericardium/Pleural The pericardium appears normal. There is no pericardial effusion. Tricuspid Valve Name Value Normal Estimated PAP/RSVP RA Pressure 10 mmHg <=5 PA Systolic Pressure 71 mmHg <36 Report Signatures
[2022-09-12] MEDS: FLUTICASONE/UMECLIDIN/VILANTER 100-62.5-25 MCG ELLIPTA 1 PUFF INHALATION (08:01)
[2022-09-12 08:52] LABS: Glucose Point of Care 229 mg/dl (65-105)
[2022-09-12] MEDS: buPROPion HCL XL (24 HR) 150 MG TABCR PO (09:04)
[2022-09-12] MEDS: busPIRone HCL 5 MG TABLET 15 MG PO ×3 (09:04→17:50)
[2022-09-12] MEDS: CLOPIDOGREL BISULFATE 75 MG TABLET PO (09:05)
[2022-09-12] MEDS: METOPROLOL SUCCINATE EXT REL 25 MG TABCR PO (09:05)
[2022-09-12] MEDS: FUROSEMIDE 20 MG TABLET PO ×3 (09:05→17:51)
[2022-09-12] MEDS: lisinopriL 20 MG TABLET 40 MG PO (09:05)
[2022-09-12] MEDS: ACETAMINOPHEN 325 MG TABLET 650 MG PO (09:14)
--- NOTE | 2022-09-12 09:56 | PCSTNOTE ---
Please refer to the Bedside Swallow Evaluation in the EMR. Please note, silent aspiration cannot be ruled out at bedside.
[2022-09-12 12:44] LABS: Glucose Point of Care 301 mg/dl (65-105)
--- NOTE | 2022-09-12 13:21 | PM.IMPN ---
Progress Note: A&P Assessment and Plan (1) CVA (cerebral vascular accident): Code(s): I63.9 - Cerebral infarction, unspecified Status: Acute Assessment and Plan: Possible cva rule out CVA. 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 will iniiate prednisone and valacyclovir. neurology consult. pt had ct head. pt to have mri head which is pending pt to have echo and us carotids . us carotid without any significant stenosis continue plavix and xarelto also has some dysphagia (2) Weakness: Code(s): R53.1 - Weakness Status: Acute Assessment and Plan: L eye lid and L face weakness pt has history of [place] palsy CVA v bells palsy (3) Type 2 diabetes mellitus: Code(s): E11.9 - Type 2 diabetes mellitus without complications Status: Acute Assessment and Plan: Accuchecks SSI watch blood sugars a1c 8.8. need to watchblood sugar due to initiation of prednisone. (4) Chronic kidney disease: Code(s): N18.9 - Chronic kidney disease, unspecified Status: Acute Assessment and Plan: watch kidney function (5) Coronary artery disease: Code(s): I25.10 - Atherosclerotic heart disease of [place] coronary artery without angina pectoris Status: Acute Assessment and Plan: continue home medications Subjective Date/time seen: 09/12/22 13:21 Interval history: right sided facial drooping about the same. no change. no fever, chills. sob,chest pain. family at bedside Review of Systems Review of Systems: All systems reviewed & are unremarkable except as noted in HPI and below Objective Data Vital Signs Vital Signs: Vital Signs - 24 hr 09/11/22 14:01 09/11/22 14:18 09/11/22 15:02 Temperature Pulse Rate 69 70 72 Respiratory Rate 24 H 19 16 Blood Pressure 180/71 H 153/68 H Pulse Oximetry Oxygen Delivery 09/11/22 15:18 09/11/22 16:22 09/11/22 16:00 Temperature 97.6 F Pulse Rate 73 74 69 Respiratory Rate 21 H 16 Blood Pressure 140/56 L 118/43 L Pulse Oximetry 91 Oxygen Delivery 09/11/22 18:29 09/11/22 20:49 09/11/22 20:00 Temperature 98.4 F Pulse Rate 68 Respiratory Rate 18 Blood Pressure 103/60 Pulse Oximetry 92 Oxygen Delivery Room Air Room Air 09/11/22 20:00 09/12/22 00:00 09/12/22 04:00 Temperature Pulse Rate 72 88 89 Respiratory Rate Blood Pressure Pulse Oximetry Oxygen Delivery 09/12/22 06:00 09/12/22 08:04 09/12/22 09:05 Temperature 97.9 F Pulse Rate 90 84 Respiratory Rate 18 Blood Pressure 121/67 Pulse Oximetry 92 Oxygen Delivery Room Air 09/12/22 08:00 09/12/22 08:00 Temperature Pulse Rate 82 Respiratory Rate Blood Pressure Pulse Oximetry Oxygen Delivery Room Air Intake/Output Intake/Output: Intake & Output 09/09/22 09/10/22 09/11/22 09/12/22 23:59 23:59 23:59 23:59 Intake Total 540 Balance 540 Meds/Results Medications: Active Medications Generic Name Dose Route Start Last Admin Trade Name Freq PRN Reason Stop Dose Admin Acetaminophen 650 mg 09/11/22 18:11 09/12/22 09:14 Acetaminophen 325 Mg Tablet PO 650 mg Q6H PRN Administration Pain Albuterol 2 puff 09/11/22 18:11 Albuterol Sulfate (*Sp) Aerosol 1 Puff INHALATION Q4H PRN shortness of breath or wheezing Atorvastatin Calcium 40 mg 09/11/22 21:00 09/11/22 20:29 Atorvastatin 40 Mg Tablet PO 40 mg HS SINDY Administration Bupropion HCl 150 mg 09/12/22 09:00 09/12/22 09:04 Bupropion Hcl Xl (24 Hr) 150 Mg Tabcr PO 150 mg QAM SINDY Administration Buspirone HCl 15 mg 09/12/22 09:00 09/12/22 12:54 Buspirone Hcl 5 Mg Tablet PO 15 mg TID SINDY Administration Clonazepam 0.5 mg 09/11/22 18:11 Clonazepam (*Crx) 0.5 Mg Tablet PO DAILY PRN Anxiety Clopidogrel Bisulfate 75 mg 09/12/22 09:00 09/12/22 09:05 Clopidogrel Bisulfate 75 Mg Tablet PO 75 mg DAILY SINDY Administra
--- NOTE | 2022-09-12 13:42 | PCOTNOTE ---
Attempted to see pt. for occupational therapy evaluation. Pt. currently away from room for MRI. Nursing aware.
[2022-09-12] MEDS: INSULIN ASPART (*BKC) 100 UNITS/ML SUB-Q ×2 (14:15→17:51)
[2022-09-12 17:09] LABS: Glucose Point of Care 317 mg/dl (65-105)
[2022-09-12] MEDS: predniSONE 20 MG TABLET 60 MG PO (17:50)
[2022-09-12] MEDS: RIVAROXABAN 20 MG TABLET PO (17:51)
[2022-09-12] MEDS: traZODone HCL 50 MG TABLET 100 MG PO (20:22)
[2022-09-12] MEDS: valACYclovir HCL 500 MG TABLET 1000 MG PO (20:23)
[2022-09-12] MEDS: ATORVASTATIN 40 MG TABLET PO (20:23)
[2022-09-12 20:53] LABS: Glucose Point of Care 286 mg/dl (65-105)
[2022-09-13] VITALS (12 sets, daily range): BP systolic 114–146; BP diastolic 50–70; PULSE 89–94; RESP 16–18; TEMP 36.6–37.1; O2SAT 92–95
[2022-09-13 05:43] LABS: Basophils Percent Auto 0.2 % (0.2-1.2); Hematocrit 35.8 % (37.0-47.0); Hemoglobin 11.2 g/dL (12.0-15.0); Immature Granulocyte Absolute 0.08 K/mm3 (0.00-0.031); Immature Granulocyte Percent A 0.9 % (0-0.5); Immature Platelet Fraction Pct 1.7 % (0.9-11.2); Lymphocytes Absolute Auto 0.68 K/mm3 (0.9-3.2); Lymphocytes Percent Auto 7.4 % (18.3-44.2); Mean Corpuscular HGB Conc 31.3 g/dl (32-36); Mean Corpuscular Hemoglobin 27.3 pg (26-34); Mean Corpuscular Volume 87.3 fl (80-100); Mean Platelet Volume 11.7 fl (7.4-10.4); Monocytes Absolute Auto 0.1 K/mm3 (0.1-0.6); Monocytes Percent Auto 1.3 % (2.6-8.5); Neutrophils Absolute Auto 8.2 K/mm3 (1.3-6.7); Neutrophils Percent Auto 90.2 % (45.5-73.1); Platelet Count Result 291 k/mm3 (150-375); Red Cell Distribution Width 20.5 % (11.5-14.5); White Blood Count 9.1 K/mm3 (4.5-10.0)
[2022-09-13 05:54] LABS: Alanine Aminotransferase 42 U/L (6-35); Albumin Level 4.1 g/dL (3.5-5.1); Alkaline Phosphatase 209 U/L (38-126); Anion Gap 9 mmol/L (8-16); Aspartate Amino Transferase 45 U/L (14-36); Bilirubin,Total 0.6 mg/dL (0.2-1.3); Blood Urea Nitrogen 28 mg/dL (7-17); Calcium 8.8 mg/dL (8.4-10.2); Carbon Dioxide 25 mmol/L (22-30); Chloride 98 mmol/L (98-107); Estimated CRCL calculation 34 ml/min; Estimated Glomerular Filt Rate 40; Glucose 448 mg/dL (65-110); Magnesium 1.9 mg/dL (1.6-2.3); Potassium 5.2 mmol/L (3.4-5.0); Sodium 132 mmol/L (137-145)
[2022-09-13] MEDS: valACYclovir HCL 500 MG TABLET 1000 MG PO ×3 (05:56→20:24)
[2022-09-13] MEDS: FLUTICASONE/UMECLIDIN/VILANTER 100-62.5-25 MCG ELLIPTA 1 PUFF INHALATION (08:20)
[2022-09-13 08:30] LABS: Glucose Point of Care 457 mg/dl (65-105)
[2022-09-13 08:30] LABS: Glucose Point of Care 463 mg/dl (65-105)
[2022-09-13] MEDS: busPIRone HCL 5 MG TABLET 15 MG PO ×3 (08:51→17:11)
[2022-09-13] MEDS: FUROSEMIDE 20 MG TABLET PO ×3 (08:52→17:11)
[2022-09-13] MEDS: CLOPIDOGREL BISULFATE 75 MG TABLET PO (08:52)
[2022-09-13] MEDS: lisinopriL 20 MG TABLET 40 MG PO (08:52)
[2022-09-13] MEDS: predniSONE 20 MG TABLET 60 MG PO (08:52)
[2022-09-13] MEDS: METOPROLOL SUCCINATE EXT REL 25 MG TABCR PO (08:52)
[2022-09-13] MEDS: buPROPion HCL XL (24 HR) 150 MG TABCR PO (08:52)
[2022-09-13] MEDS: INSULIN ASPART (*BKC) 100 UNITS/ML SUB-Q ×2 (09:42→13:52)
[2022-09-13] MEDS: INSULIN ASPART (*BKC) 100 UNITS/ML 10 UNITS SUB-Q (09:42)
--- NOTE | 2022-09-13 11:24 | WPDNEURCNPN ---
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 Negative MRI except the small vessel disease 3. 50 to 69% stenosis in the right internal carotid artery with less than 50% stenosis in the left internal carotid artery. Patient is already receiving atorvastatin 40 mg at night with clopidogrel 75 mg daily, lisinopril 40 mg daily, and rivaroxaban 20 mg every evening. Will obtain the CTA of the head and neck to further delineate the carotid stenosis and for the further recommendation in the meantime her treatment will continue as such Consult date: 09/13/22 HPI: Mihaela Finch is a 77 year old female Admitted to the hospital through the emergency room for the complaints of right occipital headaches at night and when she woke up in the morning around 8:30 a.m. she noted that she was drooling out of the right side of her mouth particularly when drinking water. She did not complain of weakness of the upper or lower extremities and also gave no history of stroke in the past. Patient had been taking multiple medications which included clonazepam 0.5 mg daily on p.r.n. basis furosemide 20 mg 3 times a day and insulin as ordered. Reportedly she is allergic to amoxicillin and Augmentin. It was documented that she has ongoing history of hypertension, chronic renal disease, coronary artery disease, with history of stent in December of 2016, history of hypertension who basically an intermittent vertigo. She has history of his smoking packs per day 2 at least 40 cigarettes per day and years smoked 35 with smoking pack years of 70 though at present she is a former smoker and is not alcohol intake. On initial evaluation in the emergency room her vital signs were normal except blood pressure being 183/77 with subsequently came down to 118/43. Her CBC was fairly normal except WBC 11.6 and hand BMP showed that BUN was 22 a complete lab in the emergency room documented GFR of only 48 BUN of 22 creatinine of 1.10 normal hepatic enzymest. and she was admitted to the hospital with a diagnosis of cerebrovascular accident. This morning her MRI was normal with moderate nonspecific white matter disease and pontine disease on the basis of chronic small vessel ischemic disease. And the Doppler study documented 50 to 69% stenosis of right internal carotid artery with less than 50% stenosis in left internal carotid artery. Her surface echocardiogram has already been done which has revealed moderate enlargement of the right ventricle with reduced systolic function and moderately enlarged left atrial chamber and mildly enlarged right atrial chamber but interatrial septum is intact with color-flow and agitated saline imaging. [facility] Past Medical History Medical History Anxiety Asthma Back pain Benign hypertension Chronic kidney disease Coronary artery disease History of stent to in December 2016. Depression Hypertension Hypokalemia Irritable bowel syndrome with diarrhea Metabolic syndrome Mixed hyperlipidemia Obesity Type 2 diabetes mellitus Vertigo Surgical History Surgical History History of cardiac catheterization History of coronary artery stent placement Histor
[2022-09-13 12:17] LABS: Glucose Point of Care 469 mg/dl (65-105)
[2022-09-13] MEDS: INSULIN GLARGINE (*BKC) 100 UNITS/ML 20 UNITS SUB-Q ×2 (13:51→20:29)
[2022-09-13] MEDS: INSULIN ASPART (*BKC) 100 UNITS/ML 9 UNITS SUB-Q (13:51)
--- NOTE | 2022-09-13 17:06 | PM.IMPN ---
Progress Note: A&P Assessment and Plan (1) CVA (cerebral vascular accident): Code(s): I63.9 - Cerebral infarction, unspecified Status: Acute Assessment and Plan: Possible cva rule out CVA. 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 will iniiate prednisone and valacyclovir. neurology consult. pt had ct head. pt to have mri head which is pending pt to have echo and us carotids . us carotid without any significant stenosis . Echo with EF 65-70% grade 1 diastolic dysfunction. Severe pulmonary hypertension. continue plavix and xarelto also has some dysphagia (2) Weakness: Code(s): R53.1 - Weakness Status: Acute Assessment and Plan: L eye lid and L face weakness pt has history of [place] palsy CVA v bells palsy MRI negative for stroke (3) Type 2 diabetes mellitus: Qualifiers: Diabetes mellitus salvage determiner insulin use: with salvage determiner use Diabetes mellitus complication status: with neurologic complications Code(s): E11.9 - Type 2 diabetes mellitus without complications Status: Acute Assessment and Plan: Accuchecks SSI watch blood sugars a1c 8.8. need to watchblood sugar due to initiation of prednisone. Adjust insulin add Lantus (4) Chronic kidney disease: Code(s): N18.9 - Chronic kidney disease, unspecified Status: Acute Assessment and Plan: watch kidney function (5) Coronary artery disease: Code(s): I25.10 - Atherosclerotic heart disease of [place] coronary artery without angina pectoris Status: Acute Assessment and Plan: continue home medications Plan severe pulmonary hypertension noted in the echocardiogram will place apnea. Likely needs sleep apnea testing as outpatient basis Subjective Date/time seen: 09/13/22 17:06 Interval history: right sided facial drooping about the same. feeling overall better. No new complaints. Review of Systems Review of Systems: All systems reviewed & are unremarkable except as noted in HPI and below Objective Data Vital Signs Vital Signs: Vital Signs - 24 hr 09/12/22 20:00 09/12/22 20:34 09/12/22 20:00 Temperature 97.7 F Pulse Rate 77 95 95 Respiratory Rate 18 18 Blood Pressure 144/52 H Pulse Oximetry 95 95 Oxygen Delivery Room Air Fraction of Inspired Oxygen 09/13/22 00:00 09/13/22 04:00 09/13/22 04:47 Temperature 97.8 F Pulse Rate 90 94 94 Respiratory Rate 16 Blood Pressure 146/70 H Pulse Oximetry 94 Oxygen Delivery Fraction of Inspired Oxygen 09/13/22 08:00 09/13/22 08:22 09/13/22 08:22 Temperature Pulse Rate 93 92 92 Respiratory Rate 18 18 Blood Pressure Pulse Oximetry 92 Oxygen Delivery Room Air Fraction of Inspired Oxygen 09/13/22 08:52 09/13/22 09:00 09/13/22 12:00 Temperature Pulse Rate 94 94 93 Respiratory Rate 18 Blood Pressure Pulse Oximetry 92 Oxygen Delivery Room Air Fraction of Inspired Oxygen 09/13/22 14:00 09/13/22 16:00 Temperature 98.5 F Pulse Rate 94 94 Respiratory Rate 18 Blood Pressure 114/50 L Pulse Oximetry 94 Oxygen Delivery Fraction of Inspired Oxygen Intake/Output Intake/Output: Intake & Output 09/10/22 09/11/22 09/12/22 09/13/22 23:59 23:59 23:59 23:59 Intake Total 1600 1310 Output Total 950 2000 Balance 650 -690 Meds/Results Medications: Active Medications Generic Name Dose Route Start Last Admin Trade Name Freq PRN Reason Stop Dose Admin Acetaminophen 650 mg 09/11/22 18:11 09/12/22 09:14 Acetaminophen 325 Mg Tablet PO 650 mg Q6H PRN Administration Pain Albuterol 2 puff 09/11/22 18:11 Albuterol Sulfate (*Sp) Aerosol 1 Puff INHALATION Q4H PRN shortness of breath or wheezing Atorvastatin Calcium 40 mg 09/11/22 21:00 09/12/22 20:23 Atorvastatin 40 Mg Tablet PO 40 mg HS SINDY Administration Bupropion HCl 150 mg 09/12/22 09:00 09/13/22 08:52 Bupropion Hcl Xl
[2022-09-13 17:08] LABS: Glucose Point of Care 473 mg/dl (65-105)
[2022-09-13] MEDS: RIVAROXABAN 20 MG TABLET PO (17:11)
[2022-09-13] MEDS: INSULIN ASPART (*BKC) 100 UNITS/ML 18 UNITS SUB-Q (17:44)
[2022-09-13 18:36] LABS: Glucose Point of Care 495 mg/dl (65-105)
[2022-09-13] MEDS: ATORVASTATIN 40 MG TABLET PO (20:24)
[2022-09-13] MEDS: traZODone HCL 50 MG TABLET 100 MG PO (20:24)
[2022-09-13 21:37] LABS: Glucose Point of Care 453 mg/dl (65-105)
[2022-09-14] VITALS (9 sets, daily range): BP systolic 156–157; BP diastolic 56–67; PULSE 71–94; RESP 18; TEMP 36.3–36.6; O2SAT 96–97
[2022-09-14] MEDS: valACYclovir HCL 500 MG TABLET 1000 MG PO ×2 (05:36→13:31)
[2022-09-14 06:24] LABS: Basophils Percent Auto 0.2 % (0.2-1.2); Eosinophils Percent Auto 0.1 % (0-4.4); Hematocrit 36.8 % (37.0-47.0); Hemoglobin 11.4 g/dL (12.0-15.0); Immature Granulocyte Absolute 0.05 K/mm3 (0.00-0.031); Immature Granulocyte Percent A 0.4 % (0-0.5); Immature Platelet Fraction Pct 1.9 % (0.9-11.2); Lymphocytes Absolute Auto 2.03 K/mm3 (0.9-3.2); Lymphocytes Percent Auto 14.8 % (18.3-44.2); Mean Corpuscular Hemoglobin 26.7 pg (26-34); Mean Corpuscular Volume 86.2 fl (80-100); Monocytes Absolute Auto 1.3 K/mm3 (0.1-0.6); Monocytes Percent Auto 9.6 % (2.6-8.5); Neutrophils Absolute Auto 10.3 K/mm3 (1.3-6.7); Neutrophils Percent Auto 74.9 % (45.5-73.1); Platelet Count Result 301 k/mm3 (150-375); Red Blood Count 4.27 M/mm3 (4.2-5.4); Red Cell Distribution Width 20.9 % (11.5-14.5); White Blood Count 13.7 K/mm3 (4.5-10.0)
[2022-09-14 06:54] LABS: Alanine Aminotransferase 43 U/L (6-35); Albumin Level 4.1 g/dL (3.5-5.1); Alkaline Phosphatase 159 U/L (38-126); Anion Gap 10 mmol/L (8-16); Aspartate Amino Transferase 35 U/L (14-36); Bilirubin,Total 0.5 mg/dL (0.2-1.3); Blood Urea Nitrogen 33 mg/dL (7-17); Calcium 9.4 mg/dL (8.4-10.2); Carbon Dioxide 26 mmol/L (22-30); Chloride 99 mmol/L (98-107); Estimated CRCL calculation 31 ml/min; Estimated Glomerular Filt Rate 36; Glucose 314 mg/dL (65-110); Magnesium 2.1 mg/dL (1.6-2.3); Potassium 4.4 mmol/L (3.4-5.0); Sodium 135 mmol/L (137-145)
[2022-09-14] MEDS: FLUTICASONE/UMECLIDIN/VILANTER 100-62.5-25 MCG ELLIPTA 1 PUFF INHALATION (08:15)
[2022-09-14] MEDS: lisinopriL 20 MG TABLET 40 MG PO (08:45)
[2022-09-14] MEDS: FUROSEMIDE 20 MG TABLET PO ×2 (08:45→13:31)
[2022-09-14] MEDS: buPROPion HCL XL (24 HR) 150 MG TABCR PO (08:46)
[2022-09-14] MEDS: CLOPIDOGREL BISULFATE 75 MG TABLET PO (08:46)
[2022-09-14] MEDS: predniSONE 20 MG TABLET 40 MG PO (08:46)
[2022-09-14] MEDS: busPIRone HCL 5 MG TABLET 15 MG PO ×2 (08:46→12:58)
[2022-09-14] MEDS: METOPROLOL SUCCINATE EXT REL 25 MG TABCR PO (08:47)
[2022-09-14 08:56] LABS: Glucose Point of Care 288 mg/dl (65-105)
[2022-09-14] MEDS: INSULIN ASPART (*BKC) 100 UNITS/ML 8 UNITS SUB-Q ×2 (09:04→12:59)
[2022-09-14] MEDS: INSULIN GLARGINE (*BKC) 100 UNITS/ML 20 UNITS SUB-Q (09:04)
[2022-09-14] MEDS: INSULIN ASPART (*BKC) 100 UNITS/ML SUB-Q ×2 (09:05→12:59)
--- NOTE | 2022-09-14 09:52 | WPDNEUROPN ---
Subjective Date/time seen: 09/14/22 09:52 Interval history: Follow-up note subsequent initial consult yesterday for the right-sided 7th nerve palsy in addition to underlying insulin-dependent diabetes mellitus and peripheral neuropathy. Her echocardiogram was abnormal as documented but in addition she was found to have 50 to 69% stenosis in the right internal carotid artery with less than 50% on the left on Doppler study CTA of the head and neck was obtained to clarify further which revealed stable moderate nonspecific white matter disease representing chronic small vessel ischemic disease but no aneurysm or significant intracranial arterial stenosis also 0% stenosis of proximal internal carotid arteries relatives are normal distal artery lumen. Patient already receiving atorvastatin 40 mg at night in addition to clopidogrel 75 mg daily and antihypertensive medications along with rivaroxaban we will discontinue the Plavix and continue the rest of the treatment as such. 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 Objective Data Vital Signs Vital Signs: Vital Signs - 24 hr 09/13/22 12:00 09/13/22 14:00 09/13/22 16:00 Temperature 36.9 C Pulse Rate 93 94 94 Respiratory Rate 18 Blood Pressure 114/50 L Pulse Oximetry 94 Oxygen Delivery Fraction of Inspired Oxygen 09/13/22 20:07 09/13/22 20:00 09/13/22 20:00 Temperature 37.1 C Pulse Rate 92 89 92 Respiratory Rate 16 16 Blood Pressure 138/53 L Pulse Oximetry 95 95 Oxygen Delivery Room Air Fraction of Inspired Oxygen 21 09/14/22 00:00 09/14/22 04:05 09/14/22 04:00 Temperature 36.3 C L Pulse Rate 86 88 79 Respiratory Rate 18 Blood Pressure 156/56 H Pulse Oximetry 96 Oxygen Delivery Fraction of Inspired Oxygen 09/14/22 05:37 09/14/22 08:47 Temperature Pulse Rate 71 Respiratory Rate Blood Pressure Pulse Oximetry 97 Oxygen Delivery Fraction of Inspired Oxygen Intake/Output Intake/Output: Intake & Output 09/11/22 09/12/22 09/13/22 09/14/22 23:59 23:59 23:59 23:59 Intake Total 1600 3370 250 Output Total 950 2000 Balance 650 1370 250 Meds/Results Medications: Active Medications Generic Name Dose Route Start Last Admin Trade Name Freq PRN Reason Stop Dose Admin Acetaminophen 650 mg 09/11/22 18:11 09/12/22 09:14 Acetaminophen 325 Mg Tablet PO 650 mg Q6H PRN Administration Pain Albuterol 2 puff 09/11/22 18:11 Albuterol Sulfate (*Sp) Aerosol 1 Puff INHALATION Q4H PRN shortness of breath or wheezing Atorvastatin Calcium 40 mg 09/11/22 21:00 09/13/22 20:24 Atorvastatin 40 Mg Tablet PO 40 mg HS SINDY Administration Bupropion HCl 150 mg 09/12/22 09:00 09/14/22 08:46 Bupropion Hcl Xl (24 Hr) 150 Mg Tabcr PO 150 mg QAM SINDY Administration Buspirone HCl 15 mg 09/12/22 09:00 09/14/22 08:46 Buspirone Hcl 5 Mg Tablet PO 15 mg TID SINDY Administration Clonazepam 0.5 mg 09/11/22 18:11 Clonazepam (*Crx) 0.5 Mg Tablet PO DAILY PRN Anxiety Clopidogrel Bisulfate 75 mg 09/12/22 09:00 09/14/22 08:46 Clopidogrel Bisulfate 75 Mg Tablet PO 75 mg DAILY SINDY Administration Dextrose 12.5 gm 09/12/22 13:07 Dextrose 50% 25 Gm/50 Ml Syringe IV PUSH PRN PRN Hypoglycemia Protocol Dextrose 12.5 gm 09/13/22 17:17 Dextrose 50% 25 Gm/50 Ml Syringe IV PUSH PRN PRN Hypoglycemia Protocol Fluticasone/Umeclidinium/Vilanterol 1 puff 09/12/22 09:00 09/14/22 08:15 Fluticasone/Umeclidin/Vilanter 100-62.5-25 Mcg Ellipta INHALATION 1 puff DAILY SINDY Administration Furosemide 20 mg 09/12/22 09:00 09/14/22 08:45 Furosemide 20 Mg Tablet PO 20 mg TID SINDY Administrati
--- NOTE | 2022-09-14 11:46 | PM.DS ---
DS: Admitting Diagnosis Discharge Date September 14, 2022 Admitting Diagnosis Gonzales's palsy DS: Discharge Diagnosis Discharge Diagnosis (1) CVA (cerebral vascular accident): Code(s): I63.9 - Cerebral infarction, unspecified Status: Acute Assessment and Plan: Possible cva rule out CVA. her symptoms likley due to gonzales's palsy. will iniiate prednisone and valacyclovir. neurology consult. pt had ct head. pt to have mri head which is pending pt to have echo and us carotids . us carotid without any significant stenosis . Echo with EF 65-70% grade 1 diastolic dysfunction. Severe pulmonary hypertension. 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 need to watchblood sugar due to initiation of prednisone. Adjust insulin add Lantus (4) Chronic kidney disease: Code(s): N18.9 - Chronic kidney disease, unspecified Status: Acute Assessment and Plan: watch kidney function (5) Coronary artery disease: Code(s): I25.10 - Atherosclerotic heart disease of [place] coronary artery without angina pectoris Status: Acute Assessment and Plan: continue home medications Plan severe pulmonary hypertension noted in the echocardiogram will place apnea. Likely needs sleep apnea testing as outpatient basis DS: Summary Hospital Course Hospital Course: admitted for possible CVA, diagnosed with Gonzales's palsy. Vital stable. She can be discharged follow-up Neurology. Time Spent with Patient Time attestation: Total time spent providing and/or coordinating discharge services: Exam Const: General: cooperative, healthy appearing and overweight; No in distress Nutritional Appearance: overweight Orientation/consciousness: oriented to person HENMT: Head: normal to inspection Resp: Effort & Inspection: no respiratory distress Auscultation: no rhonchi and no wheezes Cardio: Rate: regular rate Rhythm: regular rhythm GI: Inspection: normal to inspection Auscultation: normal bowel sounds Neuro: General: oriented to person Other: L eye lid droop and L facial droop DS: Data Data Completed and Pending Labs on day of discharge: Labs from last 24 hours 09/14/22 09/14/22 09/13/22 08:51 06:08 20:08 WBC 13.7 H RBC 4.27 Hgb 11.4 L Hct 36.8 L MCV 86.2 MCH 26.7 MCHC 31.0 L RDW 20.9 H Plt Count 301 MPV TNP Immature Gran % (Auto) 0.4 Neut % (Auto) 74.9 H Lymph % (Auto) 14.8 L [place] % (Auto) 9.6 H Eos % (Auto) 0.1 Baso % (Auto) 0.2 Lymph # (Auto) 2.03 [place] # (Auto) 1.3 H Eos # (Auto) 0.0 Baso # (Auto) 0.0 Abs Immat Gran (auto) 0.05 H Absolute Neuts (auto) 10.3 H Absolute Nucleated RBC 0.0 Nucleated RBC % 0.0 % Immature Plt Fraction 1.9 Sodium 135 L Potassium 4.4 Chloride 99 Carbon Dioxide 26 Anion Gap 10 BUN 33 H Creatinine 1.40 H Estim Creat Clear Calc 31 Estimated GFR 36 L Glucose 314 H POC Capillary Glucose 288 H 453 H Calcium 9.4 Magnesium 2.1 Total Bilirubin 0.5 AST 35 ALT 43 H Alkaline Phosphatase 159 H Total Protein 8.0 Albumin 4.1 09/13/22 09/13/22 09/13/22 18:32 17:04 12:15 WBC RBC Hgb Hct MCV MCH MCHC RDW Plt Count MPV Immature Gran % (Auto) Neut % (Auto) Lymph % (Auto) [place] % (Auto) Eos % (Auto) Baso % (Auto)
[2022-09-14 12:42] LABS: Glucose Point of Care 294 mg/dl (65-105)
[2022-09-14 17:05] LABS: EDCOVIDSCREEN Negative (Negative)
== END 2022-09-14 17:30 | disposition home or self-care (01) ==
LOC: ANHED 15:03 → ANH3MED 16:41
PROVIDERS: Internal Medicine; Admitting Provider Family Medicine; Emergency Provider Emergency Medicine; PCP Family Medicine; Visit Provider Chiropractor
DX: I63.9 Cerebral infarction, unspecified (principal); R53.1 Weakness; R51.9 Headache, unspecified; F41.9 Anxiety disorder, unspecified; J45.909 Unspecified asthma, uncomplicated; Z20.822 Contact with and (suspected) exposure to COVID-19; I65.21 Occlusion and stenosis of right carotid artery; I13.0 Hypertensive heart and chronic kidney disease with heart failure and stage 1 through stage 4 chronic kidney disease, or unspecified chronic kidney disease; E11.22 Type 2 diabetes mellitus with diabetic chronic kidney disease; N18.9 Chronic kidney disease, unspecified; I25.10 Atherosclerotic heart disease of native coronary artery without angina pectoris; E87.6 Hypokalemia; K58.0 Irritable bowel syndrome with diarrhea; Z95.5 Presence of coronary angioplasty implant and graft; E78.2 Mixed hyperlipidemia; E66.9 Obesity, unspecified; Z68.36 Body mass index [BMI] 36.0-36.9, adult; R05.1 Acute cough; G51.0 Bell's palsy; E11.40 Type 2 diabetes mellitus with diabetic neuropathy, unspecified; I34.81 Nonrheumatic mitral (valve) annulus calcification; I27.20 Pulmonary hypertension, unspecified; I07.1 Rheumatic tricuspid insufficiency; R90.82 White matter disease, unspecified; J84.9 Interstitial pulmonary disease, unspecified; J32.9 Chronic sinusitis, unspecified; F32.A Depression, unspecified; E88.81 Metabolic syndrome and other insulin resistance; Z87.891 Personal history of nicotine dependence; Z79.1 Long term (current) use of non-steroidal anti-inflammatories (NSAID); Z79.4 Long term (current) use of insulin; Z79.899 Other long term (current) drug therapy; Z83.3 Family history of diabetes mellitus; Z82.49 Family history of ischemic heart disease and other diseases of the circulatory system
CPT/HCPCS: 36415; 70450; 70496; 70498; 70551; 71045; 80053; 82948; 83036; 83735; 84484; 85025; 85055; 85610; 85730; 87426; 92507; 92526; 92610; 93005; 93308; 93880; 94640; 94762; 96374; 96375; 97161; 97165; 99285; A9270; C9803; G0378; J1815; J2270; J2405; J7512; Q9967

== ENCOUNTER → 2022-11-08 11:35 | Outpatient (CLI) | payer MEDICARE, SELFPAY ==
--- NOTE | ~2022-11-08 | XR_ITS ---
EXAMINATION: XR hand RT min 3V INDICATION: Right hand pain TECHNIQUE: Three views of the right hand are obtained. COMPARISON: 10/02/2018 FINDINGS: Bone alignment is normal. There is no fracture. 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 There is calcified atherosclerosis. IMPRESSION: 1. No acute osseous abnormality. Reviewed, dictated and finalized at location L.
--- NOTE | ~2022-11-08 | XR_ITS ---
EXAMINATION: XR wrist RT min 3V INDICATION: Right wrist pain TECHNIQUE: Four views of the right hand are obtained. COMPARISON: None available FINDINGS: Bone alignment is normal. There is no fracture. There is mild polyarticular osteoarthritis. Calcified atherosclerosis is noted. IMPRESSION: 1. No acute osseous abnormality. Reviewed, dictated and finalized at location L.
--- NOTE | ~2022-11-08 | XR_ITS ---
Left Hand Technique: PA, oblique, and lateral views were obtained. Clinical History: Pain Findings: No acute fracture or dislocation is seen. There is mild degenerative change of the DIP join ts.. Soft tissues are unremarkable. Impression: Mild degenerative change of the DIP joints. Reviewed, dictated and finalized at location . Impression: Mild degenerative change of the DIP joints.
== END ==
PROVIDERS: PCP Family Medicine; Visit Provider Family Medicine
DX: M25.531 Pain in right wrist (principal); M79.641 Pain in right hand; M79.642 Pain in left hand
CPT/HCPCS: 73110; 73130

== ENCOUNTER → 2023-01-08 09:02 | Outpatient (CLI) | payer MEDICARE, SELFPAY ==
--- NOTE | ~2023-01-08 | XR_ITS ---
XR chest 2V 01/08/2023 09:16 Indication: Cough and shortness of breath. History of asthma. Procedure: 2 view chest Comparison: Comparison to multiple prior studies sequentially, with oldest reviewed study dated 05/21. Findings: Cardiomegaly. Mild pulmonary vascular congestion. No focal pneumonia, pleural effusion or p neumothorax. No acute osseous abnormality. Impression: 1: Cardiomegaly with pulmonary vascular congestion. Reviewed, dictated and finalized at location L. Impression: 1: Cardiomegaly with pulmonary vascular congestion.
== END ==
PROVIDERS: PCP Family Medicine; Visit Provider Nurse Practitioner
DX: J45.909 Unspecified asthma, uncomplicated (principal); I51.7 Cardiomegaly; R09.89 Other specified symptoms and signs involving the circulatory and respiratory systems
CPT/HCPCS: 71046

== ENCOUNTER 2023-02-01 16:59 | Inpatient (IN) | payer MEDICARE, SELFPAY ==
[2023-02-01] VITALS (8 sets, daily range): BP systolic 136–218; BP diastolic 66–129; PULSE 66–82; RESP 16–26; TEMP 36.6–36.7; O2SAT 90–97; BMI 42.5
--- NOTE | ~2023-02-01 | XR_ITS ---
EXAMINATION: XR chest 1V portable DATE: 02/01/2023 18:36 INDICATION: Dyspnea. Congestive heart failure. TECHNIQUE: A single frontal view of the chest was obtained. COMPARISON: Chest 2 views 01/08/2023 FINDINGS: Sensitivity is decreased by obesity. There is mild atelectasis in lingula. No pleural effus ion or pneumothorax. Cardiomegaly is noted. There is an electronic implant in left anterior chest wal l. IMPRESSION: 1. Mild atelectasis in lingula. 2. Cardiomegaly. Reviewed, dictated and finalized at location E.
--- NOTE | 2023-02-01 17:49 | ECG_ITS ---
Measurements Intervals [place] Rate: 68 P: MN: 0 QRS: 12 QRSD: 86 T: 73 QT: 408 QTc: 435 Interpretive Statements SINUS RHYTHM WITH PREMATURE ATRIAL CONTRACTION LOW QRS VOLTAGE IN PRECORDIAL LEADS [QRS DEFLECTION < 1.0 mV IN CHEST LEADS] POSSIBLE ANTERIOR MYOCARDIAL INFARCTION , PROBABLY OLD [30 ms Q WAVE IN V3/V4, OR R < 0.2 mV IN V4] ABNORMAL ECG COMPARED TO ECG 09/11/2022 13:11:59 NO SIGNIFICANT CHANGES Electronically Signed On 02-02-2023 8:29:20 CDT by Festus Caballero M.D.
--- NOTE | 2023-02-01 17:51 | ED.SOB ---
HPI - SOB/Dyspnea General Chief Complaint: Shortness of Breath/Dyspnea Stated Complaint: leg swelling, weeping Time Seen by Provider: 02/01/23 17:13 History of Present Illness HPI Narrative: 77-year-old female with a history of CHF, s/p stent placement 5 to 7 years ago, CAD, chronically anticoagulated with Xarelto for atrial fibrillation, insulin-dependent type 2 diabetes, CKD stage III, COPD reports for evaluation for bilateral lower extremity edema and dyspnea worsening yesterday. Patient states in May 2022, she was hospitalized for CHF exacerbation. She received IV diuresis and was discharged home a few days later. Since then, she has had slow progression of lower extremity edema which is significantly worsened since yesterday. She presents with her son and [id number] at bedside who assists with history. Patient reports her legs have gotten extremely large compared to her baseline since yesterday she has developed worsening shortness of breath with associated orthopnea. She also reports a productive cough yesterday that persists today. Patient is also concerned that she has cellulitis due to increased erythema to her bilateral lower extremities since yesterday. She denies fever, body aches or chills, nausea or vomiting, chest pain, dysuria or hematuria, decreased urine output. Family states that the patient was taking 60 mg of Lasix daily in a couple weeks ago had her Lasix increased to 80. He states her renal function began to decline so they decreased her Lasix back to 60 mg a few days ago. She does not use oxygen. Patient says she has been taking all of her medications as prescribed and has not missed any doses. Patient currently resides at [facility]. Related Data Home Medications Medication Instructions Recorded Confirmed budesonide-formoterol HFA 160 2 puff inhalation Q12H 10/29/19 01/08/23 mcg-4.5 mcg/actuation aerosol inhaler benzonatate 100 mg capsule 100 mg PO TID PRN 10/01/22 01/08/23 Allergies Allergy/AdvReac Type Severity Reaction Status Date / Time amoxicillin AdvReac Mild Nausea and Verified 01/08/23 09:35 Vomiting clavulanic acid AdvReac Mild Nausea and Verified 01/08/23 09:35 [From Augmentin] Vomiting Review of Systems Review of Systems: CONSTITUTIONAL: Denies fever, chills EYES: Denies visual changes, redness, or discharge. ENT: Denies rhinorrhea, congestion, sore throat, or otalgia. CARDIOVASCULAR: See HPI RESPIRATORY: See HPI GASTROINTESTINAL: Denies abdominal pain, nausea, vomiting, or diarrhea. GENITOURINARY: Denies dysuria or hematuria. SKIN: See HPI MUSCULOSKELETAL: Denies back pain, joint pain, or myalgia. NEUROLOGIC: Denies headache, numbness, dizziness, or weakness. PSYCHIATRIC: Denies anxiety or depression. [facility] Past Medical History Medical History Anxiety Asthma Back pain Benign hypertension Chronic kidney disease Coronary artery disease History of stent to OM in December 2016. Depression Hypertension Hypokalemia Irritable bowel syndrome with diarrhea Metabolic syndrome Mixed hyperlipidemia Obesity Sinusitis, acute Type 2 diabetes mellitus Vertigo Surgical History Surgical History History of cardiac catheterization History of coronary artery stent placement History of tonsillectomy Family History Family History Father Family history of mental disorder Depression Family history of arthritis Family history of diabetes mellitus in first degree relative Family history of congestive heart failure Family history of heart disease in male family member before age 55 Family history of hearing loss Diabetes mellitus Family history of cardiovascular disease Acute myocardial infarction Mother Family history of anemia Family history of arthritis Family history of malign
[2023-02-01 18:27] LABS: Basophils Percent Auto 0.4 % (0.2-1.2); Eosinophils Absolute Auto 0.2 K/mm3 (0-0.3); Eosinophils Percent Auto 1.6 % (0-4.4); Hematocrit 39.8 % (37.0-47.0); Hemoglobin 12.4 g/dL (12.0-15.0); Immature Granulocyte Absolute 0.07 K/mm3 (0.00-0.031); Immature Granulocyte Percent A 0.7 % (0-0.5); Immature Platelet Fraction Pct 2.3 % (0.9-11.2); Lymphocytes Absolute Auto 1.67 K/mm3 (0.9-3.2); Lymphocytes Percent Auto 17.7 % (18.3-44.2); Mean Corpuscular HGB Conc 31.2 g/dl (32-36); Mean Corpuscular Hemoglobin 31.2 pg (26-34); Mean Platelet Volume 13.8 fl (7.4-10.4); Monocytes Absolute Auto 0.8 K/mm3 (0.1-0.6); Monocytes Percent Auto 8.9 % (2.6-8.5); Neutrophils Absolute Auto 6.6 K/mm3 (1.3-6.7); Neutrophils Percent Auto 70.7 % (45.5-73.1); Platelet Count Result 238 k/mm3 (150-375); Red Blood Count 3.98 M/mm3 (4.2-5.4); Red Cell Distribution Width 14.6 % (11.5-14.5); White Blood Count 9.4 K/mm3 (4.5-10.0)
[2023-02-01 18:36] LABS: INR 2.4; Prothrombin Time 28.4 Seconds (11.1-14.7)
[2023-02-01 18:37] LABS: Partial Thromboplastin Time 51.8 SECONDS (22.3-36.8)
[2023-02-01 18:39] LABS: Alanine Aminotransferase 46 U/L (6-35); Alkaline Phosphatase 204 U/L (38-126); Anion Gap 9 mmol/L (8-16); Aspartate Amino Transferase 43 U/L (14-36); Bilirubin,Total 0.5 mg/dL (0.2-1.3); Blood Urea Nitrogen 24 mg/dL (7-17); CRP 1.3 mg/dL (<1.0); Calcium 9.3 mg/dL (8.4-10.2); Carbon Dioxide 26 mmol/L (22-30); Chloride 99 mmol/L (98-107); Estimated CRCL calculation 34 ml/min; Estimated Glomerular Filt Rate 36; Glucose 479 mg/dL (65-110); Potassium 4.9 mmol/L (3.4-5.0); Sodium 134 mmol/L (137-145)
[2023-02-01 18:45] LABS: Appearance Urine Clear (Clear); Bacteria Urine None Seen /hpf; Bilirubin Urine Negative (Negative); Blood Urine Negative (Negative); Color Urine Yellow (Yellow); Glucose Urine UA 3+ mg/dL (Negative); Ketones Urine Negative (Negative); Leukocyte Esterase Ur Trace LEU/UL (Negative); Nitrate Urine Negative (Negative); Non Pathogenic Casts 0-2; Protein Urine Negative (Negative); RBC Urine 0-2 /hpf (0-2); Specific Grav Ur 1.017 (1.001-1.035); Squamous Epithelial Cell Urine None seen /hpf (Few); Urobilinogen Urine 0.2 mg/dL (<2.0)
[2023-02-01 18:48] LABS: NT Pro B Type Natriuretic Pept 694 pg/mL (19.9-100); Troponin I < 0.012 ng/mL (0.000-0.034)
[2023-02-01 18:51] LABS: Add Urine Microscopic? YES
[2023-02-01 19:04] LABS: Influenza A QL RT-PCR Negative (Negative); Influenza B QL RT-PCR Negative (Negative); SARS-CoV-2 RNA PCR Negative (Negative)
[2023-02-01 19:24] LABS: Erythrocyte Sedimentation Rate 48 mm/hr (0-20)
[2023-02-01] MEDS: FUROSEMIDE INJ 40 MG/4 ML VIAL IV PUSH (20:06)
[2023-02-01] MEDS: VANCOMYCIN 1,250 MG/NS 250 ML 1,250 MG/250 ML BAG 166.67 MG IVPB ×2 (20:18→22:07)
[2023-02-01 20:20] LABS: Lactic Acid Reflex 2.9 mmol/L (0.7-2.0)
--- NOTE | 2023-02-01 21:11 | PC.NURSE ---
Report to MAHAD Garcia
--- NOTE | 2023-02-01 22:04 | ADMGEN ---
This patient, Mihaela Finch, was admitted to Medical Room 347-01. Patient/family oriented to hospital policies and general routines including ID bracelet, bed and alarms, visiting hours, pain management, procedures, bathroom and other care routines, personal items, smoking policy, room service/diet, and visiting hours. Information on how to activate the Rapid Response Team has been discussed. Patient/Family are encouraged to report perceived risks to care and to ask questions if they do not understand what they are told or what they should do.
[2023-02-01 22:25] LABS: Glucose Point of Care 422 mg/dl (65-105)
[2023-02-01 23:10] LABS: Reflex Lactic Acid Yes or No Add Lactic
--- NOTE | 2023-02-01 23:29 | PM.IMHP ---
H&P: HPI History of Present Illness Date/Time: 02/01/23 23:29 Chief Complaint: Patient brought to the ER for evaluation by family with complaints of shortness of breath and leg swelling Narrative: She is a very pleasant morbidly obese female with chronic medical issues who is complaining of worsening shortness of breath and leg swelling for last couple of weeks. She lives in an assisted living facility. She takes Lasix which was increased from 60-80 mg daily, which was scaled back to 60 mg as it affected her renal functions. She has been complaining of shortness of breath since yesterday which is getting worse. Patient brought to the ER for evaluation by family, workup was done which showed CHF exacerbation and cellulitis of both legs. She was given IV Lasix and IV antibiotic therapy and is being admitted for medical management, close monitoring and follow-up. Review of Systems Review of Systems: she denied any chest pain fever rigor chills, nausea vomiting, loss of consciousness or any abdominal pain All systems reviewed & are unremarkable except as noted in HPI and below PMFSH Past Medical History Medical History Anxiety Asthma Back pain Benign hypertension Chronic kidney disease Coronary artery disease History of stent to OM in December 2016. Depression Hypertension Hypokalemia Irritable bowel syndrome with diarrhea Metabolic syndrome Mixed hyperlipidemia Obesity Sinusitis, acute Type 2 diabetes mellitus Vertigo Surgical History Surgical History History of cardiac catheterization History of coronary artery stent placement History of tonsillectomy Family History Family History Father Family history of mental disorder Depression Family history of arthritis Family history of diabetes mellitus in first degree relative Family history of congestive heart failure Family history of heart disease in male family member before age 55 Family history of hearing loss Diabetes mellitus Family history of cardiovascular disease Acute myocardial infarction Mother Family history of anemia Family history of arthritis Family history of malignant neoplasm of breast in first degree relative Sibling Family history of cardiovascular disease Other Family history of elevated blood lipids Social History Social History Social History: Surrogate medical decision maker: Ben Finch, son. Code status: Full code. Smoking packs per day: 2 Smoking cigarettes per day: 40.0 Years smoked: 35 Smoking pack-years: 70.00 Smoking status: Former smoker Alcohol intake: never Substance use: never Other substance usage details: CBD/THC oil and gummies. Lack of Transportation: No Lack of Food: Never True Current Housing: I Have Housing Concerned About Future Housing: No Difficulty Paying Gas/Electric Bills: No Difficulty Paying for Meds: No Currently Unemployed: No Education: High School Diploma/GED Difficulty w/ Childcare or Family Care: No Additional living arrangements comments: . Lives in [place]. Occupation/Education: retired Spiritual care concerns: No Meds Home Medications and Allergies Home Medications Medication Instructions Recorded Confirmed Type fluticasone propionate 50 See Rx Instructions .Route 09/07/19 01/08/23 Rx mcg/actuation nasal .COMPLEX #48 grams spray,suspension budesonide-formoterol HFA 160 2 puff inhalation Q12H 10/29/19 01/08/23 History mcg-4.5 mcg/actuation aerosol inhaler glucagon 1 mg/0.2 mL subcutaneous 1 mg (0.2 mL) subcut ONCE #0.4 mL 07/20/21 01/08/23 Rx auto-injector (Gvoke HypoPen 2-Pack) albuterol sulfate 90 mcg/actuation 2 inh inhalation Q4H PRN shortness 04/12/22 01/08/23 Rx aerosol inhaler of breath or
[2023-02-01 23:50] LABS: Glucose Point of Care 413 mg/dl (65-105)
[2023-02-01 23:56] LABS: Lactic Acid 2.4 mmol/L (0.7-2.0)
[2023-02-02] VITALS (10 sets, daily range): BP systolic 148–155; BP diastolic 55–82; PULSE 70–94; RESP 12–20; TEMP 36.3–36.7; O2SAT 91–100
[2023-02-02] MEDS: INSULIN ASPART (*BKC) 100 UNITS/ML 6 UNITS SUB-Q (00:09)
--- NOTE | 2023-02-02 03:09 | PC.NURSE ---
Spoke with nurse at [facility] in [place] to get home medication list. Nurse states that she has faxed over med list several times but we have not received it. She states that it is going through on her end. Two different fax numbers given to [facility] to fax med list with no results. Will call again in AM to attempt to get home med list.
[2023-02-02 06:41] LABS: Basophils Absolute Auto 0.1 K/mm3 (0.0-0.1); Basophils Percent Auto 0.5 % (0.2-1.2); Eosinophils Absolute Auto 0.2 K/mm3 (0-0.3); Eosinophils Percent Auto 1.9 % (0-4.4); Hematocrit 38.2 % (37.0-47.0); Hemoglobin 12.5 g/dL (12.0-15.0); Immature Granulocyte Absolute 0.05 K/mm3 (0.00-0.031); Immature Granulocyte Percent A 0.5 % (0-0.5); Lymphocytes Absolute Auto 1.51 K/mm3 (0.9-3.2); Lymphocytes Percent Auto 14.6 % (18.3-44.2); Mean Corpuscular HGB Conc 32.7 g/dl (32-36); Mean Corpuscular Hemoglobin 31.7 pg (26-34); Mean Platelet Volume 11.4 fl (7.4-10.4); Monocytes Absolute Auto 0.8 K/mm3 (0.1-0.6); Monocytes Percent Auto 7.8 % (2.6-8.5); Neutrophils Absolute Auto 7.7 K/mm3 (1.3-6.7); Neutrophils Percent Auto 74.7 % (45.5-73.1); Platelet Count Result 155 k/mm3 (150-375); Red Blood Count 3.94 M/mm3 (4.2-5.4); Red Cell Distribution Width 14.5 % (11.5-14.5); White Blood Count 10.3 K/mm3 (4.5-10.0)
[2023-02-02 06:50] LABS: Anion Gap 8 mmol/L (8-16); Blood Urea Nitrogen 22 mg/dL (7-17); Calcium 9.3 mg/dL (8.4-10.2); Carbon Dioxide 28 mmol/L (22-30); Chloride 98 mmol/L (98-107); Estimated CRCL calculation 36 ml/min; Estimated Glomerular Filt Rate 40; Glucose 343 mg/dL (65-110); Potassium 4.3 mmol/L (3.4-5.0); Sodium 134 mmol/L (137-145)
[2023-02-02 06:51] LABS: Estimated CRCL calculation 39 ml/min; Estimated Glomerular Filt Rate 43
[2023-02-02 08:40] LABS: Glucose Point of Care 382 mg/dl (65-105)
[2023-02-02] MEDS: INSULIN ASPART (*BKC) 100 UNITS/ML SUB-Q ×4 (09:00→20:32)
[2023-02-02] MEDS: FUROSEMIDE INJ 40 MG/4 ML VIAL IV PUSH ×2 (09:10→17:15)
[2023-02-02 12:20] LABS: Glucose Point of Care 401 mg/dl (65-105)
--- NOTE | 2023-02-02 12:21 | PM.IMPN ---
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: Code(s): Z79.899 - Other ad terminal makeup operator (current) drug therapy Status: Acute (4) Right wrist pain: Code(s): M25.531 - Pain in right wrist Status: Acute (5) Bilateral hand pain: Code(s): M79.641 - Pain in right hand; M79.642 - Pain in left hand Status: Acute (6) Anxiety: Code(s): F41.9 - Anxiety disorder, unspecified Status: Acute (7) Sinusitis, acute: Qualifiers: Sinusitis location: other Recurrence: non-recurrent Qualified Code(s): J01.80 - Other acute sinusitis Code(s): J01.90 - Acute sinusitis, unspecified Status: Acute (8) Diabetic neuropathy: Code(s): E11.40 - Type 2 diabetes mellitus with diabetic neuropathy, unspecified Status: Acute (9) Stenosis of right carotid artery: Code(s): I65.21 - Occlusion and stenosis of right carotid artery Status: Acute (10) 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 Status: Acute (11) CVA (cerebral vascular accident): Code(s): I63.9 - Cerebral infarction, unspecified Status: Acute (12) Unsteady gait: Code(s): R26.81 - Unsteadiness on feet Status: Acute (13) Weakness: Code(s): R53.1 - Weakness Status: Acute (14) Open leg wound: Code(s): S81.809A - Unspecified open wound, unspecified lower leg, initial encounter Status: Acute (15) Hypokalemia: Code(s): E87.6 - Hypokalemia Status: Acute (16) Dry mouth: Code(s): R68.2 - Dry mouth, unspecified Status: Acute (17) CAP (community acquired pneumonia): Code(s): J18.9 - Pneumonia, unspecified organism Status: Acute (18) Diastolic CHF: Code(s): I50.30 - Unspecified diastolic (congestive) heart failure Status: Acute (19) Suspected sleep apnea: Code(s): R29.818 - Other symptoms and signs involving the nervous system Status: Acute (20) Opacities of both lungs present on chest x-ray: Code(s): R91.8 - Other nonspecific abnormal finding of lung field Status: Acute (21) Microcytic anemia: Code(s): D50.9 - Iron deficiency anemia, unspecified Status: Acute (22) Heart failure of unknown type: Code(s): I50.9 - Heart failure, unspecified Status: Acute (23) Type 2 diabetes mellitus: Qualifiers: Diabetes mellitus ad terminal makeup operator insulin use: with ad terminal makeup operator use Diabetes mellitus complication status: with neurologic complications Code(s): E11.9 - Type 2 diabetes mellitus without complications Status: Acute (24) Chronic kidney disease: Code(s): N18.9 - Chronic kidney disease, unspecified Status: Acute (25) Coronary artery disease: Code(s): I25.10 - Atherosclerotic heart disease of [place] coronary artery without angina pectoris Status: Acute (26) Volume overload: Code(s): E87.70 - Fluid overload, unspecified Status: Acute (27) Bilateral edema of lower extremity: Code(s): R60.0 - Localized edema Status: Acute (28) Physical deconditioning: Code(s): R53.81 - Other malaise Status: Acute (29) Shortness of breath: Code(s): R06.02 - Shortness of breath Status: Acute (30) Pleural effusion: Code(s): J90 - Pleural effusion, not elsewhere classified Status: Acute (31) Cough: Code(s): R05.9 - Cough, unspec
[2023-02-02] MEDS: busPIRone HCL 5 MG TABLET 15 MG PO ×2 (12:54→17:15)
[2023-02-02] MEDS: traMADol HCL (*CRX) 50 MG TABLET PO (12:54)
[2023-02-02] MEDS: BENZONATATE 100 MG CAPSULE PO ×2 (12:55→17:14)
[2023-02-02 17:13] LABS: Glucose Point of Care 297 mg/dl (65-105)
[2023-02-02] MEDS: RIVAROXABAN 20 MG TABLET PO (17:19)
[2023-02-02] MEDS: INSULIN HUMAN REGULAR (*BKC) 100 UNITS/ML 35 UNITS SUB-Q (17:22)
[2023-02-02] MEDS: FLUTICASONE/SALMETEROL 115-21 MCG INHALER 1 PUFF 2 PUFF INHALATION (19:09)
[2023-02-02] MEDS: BRIMONIDINE TARTRATE 0.2% OP SOLN 5 ML BTL 2 DROP EACH EYE (20:24)
[2023-02-02] MEDS: TIMOLOL MALEATE 0.5% OP SOLN 5 ML BOTTLE 2 DROP EACH EYE (20:25)
[2023-02-02] MEDS: clonazePAM (*CRX) 0.5 MG TABLET PO (20:27)
[2023-02-02] MEDS: traZODone HCL 50 MG TABLET 100 MG PO (20:27)
[2023-02-02] MEDS: ATORVASTATIN 40 MG TABLET PO (20:28)
[2023-02-02] MEDS: CYCLOBENZAPRINE HCL 10 MG TABLET PO (20:28)
[2023-02-02] MEDS: ACETAMINOPHEN 325 MG TABLET 650 MG PO (20:30)
[2023-02-03] VITALS (10 sets, daily range): BP systolic 113–150; BP diastolic 49–66; PULSE 76–95; RESP 16–20; TEMP 35.7–36.5; O2SAT 91–93
[2023-02-03 03:35] LABS: Glucose Point of Care 304 mg/dl (65-105)
[2023-02-03 06:16] LABS: Basophils Absolute Auto 0.1 K/mm3 (0.0-0.1); Basophils Percent Auto 0.5 % (0.2-1.2); Eosinophils Absolute Auto 0.2 K/mm3 (0-0.3); Eosinophils Percent Auto 2.3 % (0-4.4); Hematocrit 38.1 % (37.0-47.0); Hemoglobin 12.5 g/dL (12.0-15.0); Immature Granulocyte Absolute 0.05 K/mm3 (0.00-0.031); Immature Granulocyte Percent A 0.5 % (0-0.5); Lymphocytes Absolute Auto 1.72 K/mm3 (0.9-3.2); Lymphocytes Percent Auto 17.7 % (18.3-44.2); Mean Corpuscular HGB Conc 32.8 g/dl (32-36); Mean Corpuscular Hemoglobin 31.6 pg (26-34); Mean Corpuscular Volume 96.5 fl (80-100); Mean Platelet Volume 12.1 fl (7.4-10.4); Monocytes Absolute Auto 0.8 K/mm3 (0.1-0.6); Monocytes Percent Auto 7.7 % (2.6-8.5); Neutrophils Absolute Auto 6.9 K/mm3 (1.3-6.7); Neutrophils Percent Auto 71.3 % (45.5-73.1); Platelet Count Result 146 k/mm3 (150-375); Red Blood Count 3.95 M/mm3 (4.2-5.4); Red Cell Distribution Width 14.5 % (11.5-14.5); White Blood Count 9.7 K/mm3 (4.5-10.0)
[2023-02-03 06:31] LABS: Lactic Acid Reflex 1.6 mmol/L (0.7-2.0)
[2023-02-03 06:33] LABS: Anion Gap 7 mmol/L (8-16); Blood Urea Nitrogen 25 mg/dL (7-17); Calcium 9.3 mg/dL (8.4-10.2); Carbon Dioxide 26 mmol/L (22-30); Chloride 100 mmol/L (98-107); Estimated CRCL calculation 34 ml/min; Estimated Glomerular Filt Rate 36; Glucose 304 mg/dL (65-110); Magnesium 1.7 mg/dL (1.6-2.3); Phosphorus 4.3 mg/dL (2.5-4.5); Potassium 4.4 mmol/L (3.4-5.0); Sodium 133 mmol/L (137-145)
[2023-02-03] MEDS: MONTELUKAST SODIUM 10 MG TABLET PO (07:54)
[2023-02-03] MEDS: CLOPIDOGREL BISULFATE 75 MG TABLET PO (07:54)
[2023-02-03] MEDS: BENZONATATE 100 MG CAPSULE PO ×2 (07:54→17:41)
[2023-02-03] MEDS: buPROPion HCL XL (24 HR) 150 MG TABCR PO (07:54)
[2023-02-03] MEDS: DICYCLOMINE HCL 10 MG CAPSULE 20 MG PO ×4 (07:54→17:41)
[2023-02-03] MEDS: METOPROLOL SUCCINATE EXT REL 25 MG TABCR PO (07:54)
[2023-02-03] MEDS: busPIRone HCL 5 MG TABLET 15 MG PO ×3 (07:55→17:41)
[2023-02-03] MEDS: LORATADINE 10 MG TABLET PO (07:55)
[2023-02-03] MEDS: CHOLECALCIFEROL 1,000 UNITS TABLET 1000 UNITS PO (07:55)
[2023-02-03] MEDS: traMADol HCL (*CRX) 50 MG TABLET PO ×3 (07:55→20:18)
[2023-02-03] MEDS: CYCLOBENZAPRINE HCL 10 MG TABLET PO ×4 (07:55→20:18)
[2023-02-03] MEDS: lisinopriL 20 MG TABLET 40 MG PO (07:55)
[2023-02-03] MEDS: FUROSEMIDE INJ 40 MG/4 ML VIAL IV PUSH ×2 (07:55→17:41)
[2023-02-03] MEDS: FLUTICASONE/SALMETEROL 115-21 MCG INHALER 1 PUFF 2 PUFF INHALATION ×2 (08:24→20:45)
[2023-02-03 08:40] LABS: Glucose Point of Care 344 mg/dl (65-105)
[2023-02-03] MEDS: INSULIN HUMAN REGULAR (*BKC) 100 UNITS/ML 55 UNITS SUB-Q (08:40)
[2023-02-03] MEDS: INSULIN ASPART (*BKC) 100 UNITS/ML SUB-Q ×2 (08:41→12:38)
[2023-02-03] MEDS: FLUTICASONE/UMECLIDIN/VILANTER 100-62.5-25 MCG ELLIPTA 1 PUFF INHALATION (09:40)
--- NOTE | 2023-02-03 11:07 | PM.IMPN ---
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: Code(s): Z79.899 - Other director long term care (current) drug therapy Status: Acute (4) Right wrist pain: Code(s): M25.531 - Pain in right wrist Status: Acute (5) Bilateral hand pain: Code(s): M79.641 - Pain in right hand; M79.642 - Pain in left hand Status: Acute (6) Anxiety: Code(s): F41.9 - Anxiety disorder, unspecified Status: Acute (7) Sinusitis, acute: Qualifiers: Sinusitis location: other Recurrence: non-recurrent Qualified Code(s): J01.80 - Other acute sinusitis Code(s): J01.90 - Acute sinusitis, unspecified Status: Acute (8) Diabetic neuropathy: Code(s): E11.40 - Type 2 diabetes mellitus with diabetic neuropathy, unspecified Status: Acute (9) Stenosis of right carotid artery: Code(s): I65.21 - Occlusion and stenosis of right carotid artery Status: Acute (10) 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 Status: Acute (11) CVA (cerebral vascular accident): Code(s): I63.9 - Cerebral infarction, unspecified Status: Acute (12) Unsteady gait: Code(s): R26.81 - Unsteadiness on feet Status: Acute (13) Weakness: Code(s): R53.1 - Weakness Status: Acute (14) Open leg wound: Code(s): S81.809A - Unspecified open wound, unspecified lower leg, initial encounter Status: Acute (15) Hypokalemia: Code(s): E87.6 - Hypokalemia Status: Acute (16) Dry mouth: Code(s): R68.2 - Dry mouth, unspecified Status: Acute (17) CAP (community acquired pneumonia): Code(s): J18.9 - Pneumonia, unspecified organism Status: Acute (18) Diastolic CHF: Code(s): I50.30 - Unspecified diastolic (congestive) heart failure Status: Acute (19) Suspected sleep apnea: Code(s): R29.818 - Other symptoms and signs involving the nervous system Status: Acute (20) Opacities of both lungs present on chest x-ray: Code(s): R91.8 - Other nonspecific abnormal finding of lung field Status: Acute (21) Microcytic anemia: Code(s): D50.9 - Iron deficiency anemia, unspecified Status: Acute (22) Heart failure of unknown type: Code(s): I50.9 - Heart failure, unspecified Status: Acute (23) Type 2 diabetes mellitus: Qualifiers: Diabetes mellitus director long term care insulin use: with director long term care use Diabetes mellitus complication status: with neurologic complications Code(s): E11.9 - Type 2 diabetes mellitus without complications Status: Acute (24) Chronic kidney disease: Code(s): N18.9 - Chronic kidney disease, unspecified Status: Acute (25) Coronary artery disease: Code(s): I25.10 - Atherosclerotic heart disease of [place] coronary artery without angina pectoris Status: Acute (26) Volume overload: Code(s): E87.70 - Fluid overload, unspecified Status: Acute (27) Bilateral edema of lower extremity: Code(s): R60.0 - Localized edema Status: Acute (28) Physical deconditioning: Code(s): R53.81 - Other malaise Status: Acute (29) Shortness of breath: Code(s): R06.02 - Shortness of breath Status: Acute (30) Pleural effusion: Code(s): J90 - Pleural effusion, not elsewhere classified Status: Acute (31) Cough: Code(s): R05.9 - Cough, unspec
[2023-02-03 12:32] LABS: Glucose Point of Care 317 mg/dl (65-105)
[2023-02-03] MEDS: BRIMONIDINE TARTRATE 0.2% OP SOLN 5 ML BTL 2 DROP EACH EYE ×2 (12:36→20:18)
[2023-02-03] MEDS: TIMOLOL MALEATE 0.5% OP SOLN 5 ML BOTTLE 2 DROP EACH EYE ×2 (12:36→20:18)
[2023-02-03] MEDS: INSULIN HUMAN REGULAR (*BKC) 100 UNITS/ML 40 UNITS SUB-Q (12:38)
[2023-02-03 17:26] LABS: Glucose Point of Care 172 mg/dl (65-105)
[2023-02-03] MEDS: RIVAROXABAN 20 MG TABLET PO (17:41)
[2023-02-03] MEDS: INSULIN HUMAN REGULAR (*BKC) 100 UNITS/ML 35 UNITS SUB-Q (17:47)
--- NOTE | 2023-02-03 19:25 | PHAR ---
PT'S HOME MED VILAZODONE 10 MG TABLET VERIFIED BY PHARMACY. TABLET DESCRIPTION: PINK OVAL FR1
[2023-02-03] MEDS: traZODone HCL 50 MG TABLET 100 MG PO (20:18)
[2023-02-03] MEDS: ATORVASTATIN 40 MG TABLET PO (20:18)
[2023-02-03] MEDS: clonazePAM (*CRX) 0.5 MG TABLET PO (20:18)
[2023-02-03] MEDS: ALBUTEROL SULFATE (*SP) AEROSOL 1 PUFF 2 PUFF INHALATION (20:45)
[2023-02-03 22:02] LABS: Glucose Point of Care 129 mg/dl (65-105)
[2023-02-04] VITALS (12 sets, daily range): BP systolic 127–152; BP diastolic 52–68; PULSE 65–84; RESP 18–20; TEMP 36.4–36.9; O2SAT 93–99
[2023-02-04 06:24] LABS: Basophils Absolute Auto 0.1 K/mm3 (0.0-0.1); Basophils Percent Auto 0.4 % (0.2-1.2); Eosinophils Absolute Auto 0.2 K/mm3 (0-0.3); Eosinophils Percent Auto 1.3 % (0-4.4); Hematocrit 38.3 % (37.0-47.0); Hemoglobin 12.3 g/dL (12.0-15.0); Immature Granulocyte Percent A 0.9 % (0-0.5); Lymphocytes Percent Auto 18.2 % (18.3-44.2); Mean Corpuscular HGB Conc 32.1 g/dl (32-36); Mean Corpuscular Hemoglobin 31.5 pg (26-34); Mean Corpuscular Volume 98.2 fl (80-100); Monocytes Absolute Auto 1.2 K/mm3 (0.1-0.6); Monocytes Percent Auto 10.3 % (2.6-8.5); Neutrophils Percent Auto 68.9 % (45.5-73.1); Platelet Count Result 143 k/mm3 (150-375); Red Cell Distribution Width 14.9 % (11.5-14.5); White Blood Count 11.6 K/mm3 (4.5-10.0)
[2023-02-04 06:35] LABS: Anion Gap 8 mmol/L (8-16); Blood Urea Nitrogen 27 mg/dL (7-17); Calcium 9.1 mg/dL (8.4-10.2); Carbon Dioxide 25 mmol/L (22-30); Chloride 99 mmol/L (98-107); Estimated CRCL calculation 30 ml/min; Estimated Glomerular Filt Rate 31; Glucose 273 mg/dL (65-110); Potassium 4.4 mmol/L (3.4-5.0); Sodium 132 mmol/L (137-145)
[2023-02-04] MEDS: FLUTICASONE/SALMETEROL 115-21 MCG INHALER 1 PUFF 2 PUFF INHALATION ×2 (07:33→20:16)
[2023-02-04] MEDS: FLUTICASONE/UMECLIDIN/VILANTER 100-62.5-25 MCG ELLIPTA 1 PUFF INHALATION (07:33)
[2023-02-04] MEDS: BENZONATATE 100 MG CAPSULE PO ×3 (08:29→17:35)
[2023-02-04] MEDS: lisinopriL 20 MG TABLET 40 MG PO (08:29)
[2023-02-04] MEDS: METOPROLOL SUCCINATE EXT REL 25 MG TABCR PO (08:29)
[2023-02-04] MEDS: DICYCLOMINE HCL 10 MG CAPSULE 20 MG PO ×3 (08:29→17:35)
[2023-02-04] MEDS: buPROPion HCL XL (24 HR) 150 MG TABCR PO (08:29)
[2023-02-04] MEDS: CYCLOBENZAPRINE HCL 10 MG TABLET PO ×4 (08:29→20:49)
[2023-02-04] MEDS: CHOLECALCIFEROL 1,000 UNITS TABLET 1000 UNITS PO (08:29)
[2023-02-04] MEDS: CLOPIDOGREL BISULFATE 75 MG TABLET PO (08:29)
[2023-02-04] MEDS: busPIRone HCL 5 MG TABLET 15 MG PO ×3 (08:29→17:35)
[2023-02-04] MEDS: FUROSEMIDE INJ 40 MG/4 ML VIAL IV PUSH ×2 (08:29→17:35)
[2023-02-04] MEDS: MONTELUKAST SODIUM 10 MG TABLET PO (08:29)
[2023-02-04] MEDS: INSULIN HUMAN REGULAR (*BKC) 100 UNITS/ML 55 UNITS SUB-Q (08:30)
[2023-02-04] MEDS: TIMOLOL MALEATE 0.5% OP SOLN 5 ML BOTTLE 2 DROP EACH EYE ×2 (08:31→20:51)
[2023-02-04] MEDS: BRIMONIDINE TARTRATE 0.2% OP SOLN 5 ML BTL 2 DROP EACH EYE ×2 (08:31→20:51)
[2023-02-04 08:32] LABS: Glucose Point of Care 261 mg/dl (65-105)
[2023-02-04] MEDS: LORATADINE 10 MG TABLET PO (08:35)
--- NOTE | 2023-02-04 11:00 | PM.IMPN ---
Progress Note: A&P Assessment and Plan (1) CHF exacerbation: Qualifiers: Heart failure type: diastolic Qualified Code(s): I50.33 - Acute on chronic diastolic (congestive) heart failure Code(s): I50.9 - Heart failure, unspecified Status: Acute Assessment and Plan: Continue diuresis. Respiratory status is stable. Edema of the lower extremities is improving. (2) Cellulitis: Qualifiers: Laterality: right Site of cellulitis: extremity Site of cellulitis of extremity: lower extremity Qualified Code(s): L03.115 - Cellulitis of right lower limb Code(s): L03.90 - Cellulitis, unspecified Status: Acute Assessment and Plan: Continue antibiotics. 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 Status: Acute (4) Right wrist pain: Code(s): M25.531 - Pain in right wrist Status: Acute (5) Bilateral hand pain: Code(s): M79.641 - Pain in right hand; M79.642 - Pain in left hand Status: Acute (6) Anxiety: Code(s): F41.9 - Anxiety disorder, unspecified Status: Acute (7) Sinusitis, acute: Qualifiers: Sinusitis location: other Recurrence: non-recurrent Qualified Code(s): J01.80 - Other acute sinusitis Code(s): J01.90 - Acute sinusitis, unspecified Status: Acute (8) Diabetic neuropathy: Code(s): E11.40 - Type 2 diabetes mellitus with diabetic neuropathy, unspecified Status: Acute (9) Stenosis of right carotid artery: Code(s): I65.21 - Occlusion and stenosis of right carotid artery Status: Acute (10) 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 Status: Acute (11) CVA (cerebral vascular accident): Code(s): I63.9 - Cerebral infarction, unspecified Status: Acute (12) Unsteady gait: Code(s): R26.81 - Unsteadiness on feet Status: Acute (13) Weakness: Code(s): R53.1 - Weakness Status: Acute (14) Open leg wound: Code(s): S81.809A - Unspecified open wound, unspecified lower leg, initial encounter Status: Acute (15) Hypokalemia: Code(s): E87.6 - Hypokalemia Status: Acute (16) Dry mouth: Code(s): R68.2 - Dry mouth, unspecified Status: Acute (17) CAP (community acquired pneumonia): Code(s): J18.9 - Pneumonia, unspecified organism Status: Acute (18) Diastolic CHF: Code(s): I50.30 - Unspecified diastolic (congestive) heart failure Status: Acute (19) Suspected sleep apnea: Code(s): R29.818 - Other symptoms and signs involving the nervous system Status: Acute (20) Opacities of both lungs present on chest x-ray: Code(s): R91.8 - Other nonspecific abnormal finding of lung field Status: Acute (21) Microcytic anemia: Code(s): D50.9 - Iron deficiency anemia, unspecified Status: Acute (22) Heart failure of unknown type: Code(s): I50.9 - Heart failure, unspecified Status: Acute (23) Type 2 diabetes mellitus: Qualifiers: Diabetes mellitus long-term insulin use: with long-term use Diabetes mellitus complication status: with neurologic complications Code(s): E11.9 - Type 2 diabetes mellitus without complications Status: Acute (24) Chronic kidney disease: Code(s): N18.9 - Chronic kidney disease, unspecified Status: Acute (25) Coronary artery disease: Code(s): I25.10 - Atherosclerotic heart disease of [place] coronary artery without angina pectoris Status: Acute (26) Volume overload: Code(s): E87.70 - Fluid overload, unspecified Status: Acute (27) Bilateral edema of lower extremity: Code(s): R60.0 - Localized edema Status: Acute (28) Physical deconditioning: Code(s): R53.81 - Other malaise Status: Acute (29) Shortness of breath: Code(s): R06.02 - Shortness of breath
[2023-02-04] MEDS: INSULIN ASPART (*BKC) 100 UNITS/ML SUB-Q ×2 (11:18→12:31)
[2023-02-04 12:17] LABS: Glucose Point of Care 345 mg/dl (65-105)
[2023-02-04] MEDS: INSULIN HUMAN REGULAR (*BKC) 100 UNITS/ML 40 UNITS SUB-Q (12:33)
[2023-02-04] MEDS: traMADol HCL (*CRX) 50 MG TABLET PO ×2 (12:34→20:49)
[2023-02-04 17:34] LABS: Glucose Point of Care 185 mg/dl (65-105)
[2023-02-04] MEDS: RIVAROXABAN 20 MG TABLET PO (17:35)
[2023-02-04] MEDS: INSULIN HUMAN REGULAR (*BKC) 100 UNITS/ML 35 UNITS SUB-Q (17:37)
[2023-02-04] MEDS: SILVERGEL (ELTA) 45 ML 1 APPLIC TOPICAL (18:57)
[2023-02-04] MEDS: ATORVASTATIN 40 MG TABLET PO (20:49)
[2023-02-04] MEDS: clonazePAM (*CRX) 0.5 MG TABLET PO (20:49)
[2023-02-04] MEDS: FLUTICASONE PROPIONATE 0.05% NA SPR 16 GM BTL (*BKC) 2 SPRAY NASAL (20:50)
[2023-02-04] MEDS: traZODone HCL 50 MG TABLET 100 MG PO (20:50)
[2023-02-04 20:56] LABS: Vancomycin Trough 12.3 ug/mL (10.0-20.0)
[2023-02-04] MEDS: ACETAMINOPHEN 325 MG TABLET 650 MG PO (20:57)
[2023-02-04 22:06] LABS: Glucose Point of Care 134 mg/dl (65-105)
[2023-02-05] VITALS (9 sets, daily range): BP systolic 120–144; BP diastolic 53–55; PULSE 69–87; RESP 20; TEMP 36.3–36.9; O2SAT 90–94
[2023-02-05] MEDS: FLUTICASONE/SALMETEROL 115-21 MCG INHALER 1 PUFF 2 PUFF INHALATION (07:29)
[2023-02-05] MEDS: FLUTICASONE/UMECLIDIN/VILANTER 100-62.5-25 MCG ELLIPTA 1 PUFF INHALATION (07:29)
[2023-02-05 07:57] LABS: Glucose Point of Care 289 mg/dl (65-105)
[2023-02-05] MEDS: LORATADINE 10 MG TABLET PO (08:59)
[2023-02-05] MEDS: CHOLECALCIFEROL 1,000 UNITS TABLET 1000 UNITS PO (08:59)
[2023-02-05] MEDS: BRIMONIDINE TARTRATE 0.2% OP SOLN 5 ML BTL 2 DROP EACH EYE (08:59)
[2023-02-05] MEDS: FUROSEMIDE INJ 40 MG/4 ML VIAL IV PUSH (08:59)
[2023-02-05] MEDS: MONTELUKAST SODIUM 10 MG TABLET PO (08:59)
[2023-02-05] MEDS: lisinopriL 20 MG TABLET 40 MG PO (08:59)
[2023-02-05] MEDS: buPROPion HCL XL (24 HR) 150 MG TABCR PO (08:59)
[2023-02-05] MEDS: CLOPIDOGREL BISULFATE 75 MG TABLET PO (08:59)
[2023-02-05] MEDS: busPIRone HCL 5 MG TABLET 15 MG PO ×2 (08:59→12:34)
[2023-02-05] MEDS: TIMOLOL MALEATE 0.5% OP SOLN 5 ML BOTTLE 2 DROP EACH EYE (09:00)
[2023-02-05] MEDS: METOPROLOL SUCCINATE EXT REL 25 MG TABCR PO (09:00)
[2023-02-05] MEDS: INSULIN ASPART (*BKC) 100 UNITS/ML SUB-Q ×2 (09:08→12:14)
[2023-02-05] MEDS: INSULIN HUMAN REGULAR (*BKC) 100 UNITS/ML 55 UNITS SUB-Q (09:09)
[2023-02-05] MEDS: BENZONATATE 100 MG CAPSULE PO (09:20)
--- NOTE | 2023-02-05 11:14 | PM.DS ---
DS: Admitting Diagnosis Discharge Date February 05, 2023 Admitting Diagnosis Cellulitis in lower extremity edema. DS: Discharge Diagnosis Discharge Diagnosis (1) CHF exacerbation: Qualifiers: Heart failure type: diastolic Qualified Code(s): I50.33 - Acute on chronic diastolic (congestive) heart failure Code(s): I50.9 - Heart failure, unspecified Status: Acute Assessment and Plan: Continue diuresis. Respiratory status is stable. Edema of the lower extremities is improving. (2) Cellulitis: Qualifiers: Laterality: right Site of cellulitis: extremity Site of cellulitis of extremity: lower extremity Qualified Code(s): L03.115 - Cellulitis of right lower limb Code(s): L03.90 - Cellulitis, unspecified Status: Acute Assessment and Plan: Continue antibiotics. 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: Code(s): Z79.899 - Other intermediate (current) drug therapy Status: Acute (4) Right wrist pain: Code(s): M25.531 - Pain in right wrist Status: Acute (5) Bilateral hand pain: Code(s): M79.641 - Pain in right hand; M79.642 - Pain in left hand Status: Acute (6) Anxiety: Code(s): F41.9 - Anxiety disorder, unspecified Status: Acute (7) Sinusitis, acute: Qualifiers: Sinusitis location: other Recurrence: non-recurrent Qualified Code(s): J01.80 - Other acute sinusitis Code(s): J01.90 - Acute sinusitis, unspecified Status: Acute (8) Diabetic neuropathy: Code(s): E11.40 - Type 2 diabetes mellitus with diabetic neuropathy, unspecified Status: Acute (9) Stenosis of right carotid artery: Code(s): I65.21 - Occlusion and stenosis of right carotid artery Status: Acute (10) 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 Status: Acute (11) CVA (cerebral vascular accident): Code(s): I63.9 - Cerebral infarction, unspecified Status: Acute (12) Unsteady gait: Code(s): R26.81 - Unsteadiness on feet Status: Acute (13) Weakness: Code(s): R53.1 - Weakness Status: Acute (14) Open leg wound: Code(s): S81.809A - Unspecified open wound, unspecified lower leg, initial encounter Status: Acute (15) Hypokalemia: Code(s): E87.6 - Hypokalemia Status: Acute (16) Dry mouth: Code(s): R68.2 - Dry mouth, unspecified Status: Acute (17) CAP (community acquired pneumonia): Code(s): J18.9 - Pneumonia, unspecified organism Status: Acute (18) Diastolic CHF: Code(s): I50.30 - Unspecified diastolic (congestive) heart failure Status: Acute (19) Suspected sleep apnea: Code(s): R29.818 - Other symptoms and signs involving the nervous system Status: Acute (20) Opacities of both lungs present on chest x-ray: Code(s): R91.8 - Other nonspecific abnormal finding of lung field Status: Acute (21) Microcytic anemia: Code(s): D50.9 - Iron deficiency anemia, unspecified Status: Acute (22) Heart failure of unknown type: Code(s): I50.9 - Heart failure, unspecified Status: Acute (23) Type 2 diabetes mellitus: Qualifiers: Diabetes mellitus county judge insulin use: with county judge use Diabetes mellitus complication status: with neurologic complications Code(s): E11.9 - Type 2 diabetes mellitus without complications Status: Acute (24) Chronic kidney disease: Code(s): N18.9 - Chronic kidney disease, unspecified Status: Acute (25) Coronary artery disease: Code(s): I25.10 - Atherosclerotic heart disease of [place] coronary artery without angina pectoris Status: Acute (26) Volume overload: Code(s): E87.70 - Fluid overload, unspecified Status: Acute (27) Bilateral edema of lower extremity: Code(s): R60.0 - Localized edema Status: Acute (28) Physical deconditioning: Code(s):
[2023-02-05 11:36] LABS: Glucose Point of Care 328 mg/dl (65-105)
[2023-02-05] MEDS: INSULIN HUMAN REGULAR (*BKC) 100 UNITS/ML 40 UNITS SUB-Q (12:15)
[2023-02-05] MEDS: SILVERGEL (ELTA) 45 ML 1 APPLIC TOPICAL (12:35)
[2023-02-05 13:46] LABS: SARS-CoV-2 RNA PCR Negative (Negative)
--- NOTE | 2023-02-05 16:09 | PC.NURSE ---
Multiple attempts made to fax paperwork to [place] [facility]. Continues to say busy. Facility has been notified.
== END 2023-02-05 15:50 | DRG 602 ==
LOC: ANHED 20:00 → ANH3MED 20:35
PROVIDERS: Admitting Provider Family Medicine; Emergency Provider Physician Assistant; PCP Family Medicine; Visit Provider Chiropractor
DX: L03.115 Cellulitis of right lower limb (principal); I50.33 Acute on chronic diastolic (congestive) heart failure; I13.0 Hypertensive heart and chronic kidney disease with heart failure and stage 1 through stage 4 chronic kidney disease, or unspecified chronic kidney disease; Z68.41 Body mass index [BMI] 40.0-44.9, adult; L03.116 Cellulitis of left lower limb; I25.10 Atherosclerotic heart disease of native coronary artery without angina pectoris; E11.22 Type 2 diabetes mellitus with diabetic chronic kidney disease; N18.30 Chronic kidney disease, stage 3 unspecified; J44.9 Chronic obstructive pulmonary disease, unspecified; F41.9 Anxiety disorder, unspecified; K58.0 Irritable bowel syndrome with diarrhea; E78.2 Mixed hyperlipidemia; G47.33 Obstructive sleep apnea (adult) (pediatric); E66.01 Morbid (severe) obesity due to excess calories; J01.90 Acute sinusitis, unspecified; E88.810 Metabolic syndrome; E11.42 Type 2 diabetes mellitus with diabetic polyneuropathy; B37.31 Acute candidiasis of vulva and vagina; I48.91 Unspecified atrial fibrillation; Z79.01 Long term (current) use of anticoagulants; Z95.5 Presence of coronary angioplasty implant and graft; Z87.891 Personal history of nicotine dependence; Z79.4 Long term (current) use of insulin; Z11.52 Encounter for screening for COVID-19; F32.A Depression, unspecified; M51.36 Other intervertebral disc degeneration, lumbar region
CPT/HCPCS: 36415; 71045; 80048; 80053; 80202; 81001; 82565; 82948; 83605; 83735; 83880; 84100; 84484; 85025; 85055; 85610; 85652; 85730; 86140; 87040; 87086; 87088; 87635; 87636; 93005; 94640; 96365; 96366; 96375; 97110; 97161; 97165; 97530; 97535; 99285; A9270; J0696; J1815; J1940; J3370

== ENCOUNTER → 2023-02-13 10:29 | Outpatient (CLI) | payer MEDICARE, SELFPAY ==
--- NOTE | ~2023-02-13 | XR_ITS ---
Clinical Indication: Shortness of breath PA and lateral views of the chest: Comparison: 02/01/2023 Findings: There is minimal right pleural effusion with probable early bibasilar pulmonary edema. Car diomediastinal silhouette is stable, with a loop recorder present. Bones and soft tissues are unremar kable. Impression: Minimal right pleural effusion with probable early bibasilar pulmonary edema. Cardiac loop recorder. Reviewed, dictated and finalized at location . Impression: Minimal right pleural effusion with probable early bibasilar pulmonary edema. Cardiac loop recorder.
== END ==
PROVIDERS: PCP Nurse Practitioner; Visit Provider Nurse Practitioner
DX: R06.02 Shortness of breath (principal); R05.9 Cough, unspecified; J90 Pleural effusion, not elsewhere classified
CPT/HCPCS: 71046

== ENCOUNTER 2023-04-16 16:14 | Inpatient (IN) | payer MEDICARE, SELFPAY ==
[2023-04-16] VITALS (16 sets, daily range): BP systolic 113–156; BP diastolic 37–77; PULSE 74–85; RESP 16–24; TEMP 36.6–37.1; O2SAT 91–100; BMI 42.5
--- NOTE | ~2023-04-16 | XR_ITS ---
XR chest 2V 04/21/2023 09:11 Indication: Shortness of breath and cough Procedure: PA and lateral views the chest Comparison: Comparison to multiple prior studies sequentially, with oldest reviewed study dated 01/08. Findings: Cardiomegaly with pulmonary vascular congestion. No acute focal pneumonia, significant effu jarek or pneumothorax. No acute osseous abnormality. Impression: 1: Cardiomegaly with pulmonary vascular congestion. Reviewed, dictated and finalized at location A. RAL HOME MAKEUP ARTIST Impression: 1: Cardiomegaly with pulmonary vascular congestion.
--- NOTE | ~2023-04-16 | CT_ITS ---
EXAMINATION: CTA chest PE protocol DATE: 04/16/2023 19:05 INDICATION: Dyspnea. TECHNIQUE: Computed tomography angiography (CTA) of the chest was performed with 100 mL Omnipaque-350 intravenous contrast timed to evaluate the pulmonary arteries. Coronal maximum intensity projection 3D-reconstructions were created by the technologist. Automated exposure control and iterative reconst ruction technique were employed. The dose-length product was 1013.51 mGy-cm. COMPARISON: None. FINDINGS: There is mild scarring at the lung apices. There is mild atelectasis bilaterally. No pleura l effusion. Cardiomegaly is noted. There are coronary artery calcifications. No pericardial effusion. The central pulmonary is enlarged, consistent with pulmonary arterial hypertension. There is no pulm onary embolus. There are changes of cholecystectomy. There is calcified atherosclerosis of the aorta and many of the other arteries. There is a subcutaneous electronic implant in left anterior chest wal l. There is severe cervical spondylosis and moderate thoracic spondylosis. IMPRESSION: 1. No pulmonary embolus. 2. Mucous plugging in right lower lobe. Reviewed, dictated and finalized at location E. DENTIAL DOOR UNIT INSTALLER
--- NOTE | ~2023-04-16 | XR_ITS ---
EXAMINATION: XR chest 1V portable DATE: 04/16/2023 17:52 INDICATION: Dyspnea. TECHNIQUE: A single frontal view of the chest was obtained. COMPARISON: Chest 2 views 02/13/2023 FINDINGS: Sensitivity is decreased by obesity. There is no pneumonia, pleural effusion, or pneumothor ax. Cardiomegaly is noted. There are prominent paracardial fat pads. An electronic device overlies le ft chest. IMPRESSION: 1. Cardiomegaly. Reviewed, dictated and finalized at location E. ETING STRATEGY ANALYST IMPRESSION: 1. Cardiomegaly.
--- NOTE | ~2023-04-16 | US_ITS ---
EXAMINATION: US venous doppler [facility] DATE: 04/18/2023 15:30 INDICATION: edema . TECHNIQUE: Grayscale images without and with compression and Doppler images of the bilateral lower ex tremity veins were obtained. COMPARISON: None FINDINGS: The right common femoral vein, profunda (deep) femoral vein, femoral vein, popliteal vein, peroneal v ein, posterior tibial veins, gastrocnemius vein, and greater saphenous vein are patent. The left common femoral vein, profunda (deep) femoral vein, femoral vein, popliteal vein, peroneal v ein, posterior tibial veins, gastrocnemius vein, and greater saphenous vein are patent. IMPRESSION: Patent bilateral lower extremity veins. No evidence of deep venous thrombosis. Reviewed, dictated and finalized at location K. AL TIMER
--- NOTE | 2023-04-16 17:26 | ECG_ITS ---
Measurements Intervals [place] Rate: 73 P: 68 UT: 192 QRS: 41 QRSD: 83 T: 73 QT: 365 QTc: 405 Interpretive Statements SINUS RHYTHM LOW QRS VOLTAGE IN PRECORDIAL LEADS [QRS DEFLECTION < 1.0 mV IN CHEST LEADS] BORDERLINE ECG COMPARED TO ECG 02/01/2023 18:56:42 NO SIGNIFICANT CHANGES Electronically Signed On 04-17-2023 15:33:35 REGISTERED NURSE BONE MARROW TRANSPLANT by Julio Cesar Kendrick M.D.
[2023-04-16 18:00] LABS: Basophils Percent Auto 0.4 % (0.2-1.2); Eosinophils Absolute Auto 0.1 K/mm3 (0-0.3); Eosinophils Percent Auto 1.1 % (0-4.4); Hematocrit 39.6 % (37.0-47.0); Hemoglobin 12.7 g/dL (12.0-15.0); Immature Granulocyte Absolute 0.05 K/mm3 (0.00-0.031); Immature Granulocyte Percent A 0.5 % (0-0.5); Lymphocytes Absolute Auto 1.72 K/mm3 (0.9-3.2); Lymphocytes Percent Auto 17.9 % (18.3-44.2); Mean Corpuscular HGB Conc 32.1 g/dl (32-36); Mean Corpuscular Hemoglobin 31.1 pg (26-34); Mean Corpuscular Volume 96.8 fl (80-100); Monocytes Absolute Auto 1.1 K/mm3 (0.1-0.6); Monocytes Percent Auto 11.8 % (2.6-8.5); Neutrophils Absolute Auto 6.6 K/mm3 (1.3-6.7); Neutrophils Percent Auto 68.3 % (45.5-73.1); Platelet Count Result 199 k/mm3 (150-375); Red Blood Count 4.09 M/mm3 (4.2-5.4); Red Cell Distribution Width 15.2 % (11.5-14.5); White Blood Count 9.6 K/mm3 (4.5-10.0)
--- NOTE | 2023-04-16 18:04 | ED.GENADULT ---
HPI - General Adult General Chief complaint: Recheck/Abnormal Lab/Rx Stated complaint: CHF Time Seen by Provider: 04/16/23 17:06 Source: patient Mode of arrival: ambulatory Limitations: no limitations History of Present Illness HPI narrative: This is a 78-year-old female with PMH of CHF, CVA, T2 dm, CKD, CAD who presents to the ED with chief complaint bilateral lower extremity edema and cough for the past 3-4 days. Reports that she feels like she has an upper respiratory infection with a lot of sinus congestion, sinus drainage, productive cough. Reports green/yellow sputum. Also reports feeling generally short of breath. Reports orthopnea. States she has been admitted to the hospital a couple of times this year for CHF exacerbations. Reports her legs have been weeping fluid and have some erythema. Reports the erythema has not been spreading and is not painful. Denies fevers, chills, chest pain, abdominal pain, nausea, vomiting. Upon entering the room, nursing noted that her oxygen was in the low 90s and placed her on 2 L of O2 nasal cannula. Reports that she is feeling better after being placed on oxygen. Reports history of COPD but she never has been placed on oxygen. Past surgical history of cardiac catheterization, coronary stent Related Data Home Medications Medication Instructions Recorded Confirmed budesonide-formoterol HFA 160 2 puff inhalation Q12H 10/29/19 04/16/23 mcg-4.5 mcg/actuation aerosol inhaler cyclobenzaprine 10 mg tablet 10 mg PO TID PRN Pain 02/02/23 04/16/23 [id number] tablet 1 tablet PO DAILY 02/03/23 04/16/23 Allergies Allergy/AdvReac Type Severity Reaction Status Date / Time amoxicillin AdvReac Mild Nausea and Verified 04/17/23 00:04 Vomiting clavulanic acid AdvReac Mild Nausea and Verified 04/17/23 00:04 [From Augmentin] Vomiting Review of Systems Review of Systems: All systems as dictated in HPI [facility] Past Medical History Medical History Anxiety Asthma Back pain Benign hypertension Chronic kidney disease Coronary artery disease History of stent to in December 2016. Depression Hypertension Hypokalemia Irritable bowel syndrome with diarrhea Metabolic syndrome Mixed hyperlipidemia Obesity Sinusitis, acute Type 2 diabetes mellitus Vertigo Surgical History Surgical History History of cardiac catheterization History of coronary artery stent placement History of tonsillectomy Family History Family History Father Family history of mental disorder Depression Family history of arthritis Family history of diabetes mellitus in first degree relative Family history of congestive heart failure Family history of heart disease in male family member before age 55 Family history of hearing loss Diabetes mellitus Family history of cardiovascular disease Acute myocardial infarction Mother Family history of anemia Family history of arthritis Family history of malignant neoplasm of breast in first degree relative Sibling Family history of cardiovascular disease Other Family history of elevated blood lipids Social History Social History Social History: Surrogate medical decision maker: Ben Finch, son. Code status: Full code. Smoking packs per day: 2 Smoking cigarettes per day: 40.0 Years smoked: 35 Smoking pack-years: 70.00 Smoking status: Former smoker Alcohol intake: never Substance use: never Other substance usage details: CBD/THC oil and gummies. Lack of Transportation: No Lack of Food: Never True Current Housing: I Have Housing Concerned About Future Housing: No Difficulty Paying Gas/Electric Bills: No Difficulty Paying for Meds: No Currently Unemployed: No Education: High
[2023-04-16 18:10] LABS: Alanine Aminotransferase 36 U/L (6-35); Albumin Level 4.1 g/dL (3.5-5.1); Alkaline Phosphatase 170 U/L (38-126); Anion Gap 7 mmol/L (8-16); Aspartate Amino Transferase 39 U/L (14-36); Bilirubin,Total 0.6 mg/dL (0.2-1.3); Blood Urea Nitrogen 29 mg/dL (7-17); Calcium 10.3 mg/dL (8.4-10.2); Carbon Dioxide 28 mmol/L (22-30); Chloride 101 mmol/L (98-107); Estimated CRCL calculation 29 ml/min; Estimated Glomerular Filt Rate 31; Glucose 191 mg/dL (65-110); Potassium 4.9 mmol/L (3.4-5.0); Sodium 136 mmol/L (137-145)
[2023-04-16 18:19] LABS: NT Pro B Type Natriuretic Pept 281 pg/mL (19.9-100)
[2023-04-16 18:21] LABS: INR 2.6; Prothrombin Time 29.3 Seconds (11.1-14.7)
[2023-04-16 18:22] LABS: Partial Thromboplastin Time 64.1 SECONDS (22.3-36.8)
[2023-04-16 18:25] LABS: D Dimer 0.93 ug/mL (<0.48)
[2023-04-16 18:56] LABS: Influenza A QL RT-PCR Negative (Negative); Influenza B QL RT-PCR Negative (Negative); RSV RNA, RT-PCR Negative (Negative); SARS-CoV-2 RNA PCR Negative (Negative)
--- NOTE | 2023-04-16 19:12 | PC.NURSE ---
Report given to Dima TOBIN, all questions answered
[2023-04-16 19:25] LABS: Appearance Urine Cloudy (Clear); Bacteria Urine 4+ /hpf; Bilirubin Urine Negative (Negative); Blood Urine 1+ (Negative); Color Urine Yellow (Yellow); Glucose Urine UA Negative (Negative); Ketones Urine Negative (Negative); Leukocyte Esterase Ur Trace LEU/UL (Negative); Nitrate Urine Positive (Negative); Non Pathogenic Casts 0-2; Protein Urine Negative (Negative); Specific Grav Ur 1.011 (1.001-1.035); Squamous Epithelial Cell Urine None seen /hpf (Few); Urobilinogen Urine 0.2 mg/dL (<2.0)
[2023-04-16 19:27] LABS: Add Urine Microscopic? YES
[2023-04-16] MEDS: IPRATROPIUM BR 0.02% INH SOLN 0.5 MG/2.5 ML VIAL 2 MG INHALATION (19:34)
[2023-04-16] MEDS: ALBUTEROL SULFATE NEB 2.5 MG/3 ML INH 10 MG INHALATION (19:34)
--- NOTE | 2023-04-16 20:07 | PM.IMHP ---
H&P: HPI History of Present Illness Date/Time: 04/16/23 20:07 Chief Complaint: sob Narrative: 78-YEAR-OLD FEMALE WITH PAST MEDICAL HISTORY SIGNIFICANT FOR OBESITY, CHRONIC BILATERAL LOWER EXTREMITY LYMPHEDEMA, TYPE DIABETES MELLITUS, DYSLIPIDEMIA, CHRONIC KIDNEY DISEASE, COPD/EMPHYSEMA, CONGESTIVE HEART FAILURE, CORONARY ARTERY DISEASE. PATIENT PRESENTS TO THE EMERGENCY ROOM DUE TO WORSENING BILATERAL LOWER EXTREMITY EDEMA AND SHORTNESS OF BREATH FOR SEVERAL DAYS EXAMINATION: XR chest 1V portable DATE: 04/16/2023 17:52 INDICATION: Dyspnea. TECHNIQUE: A single frontal view of the chest was obtained. COMPARISON: Chest 2 views 02/13/2023 FINDINGS: Sensitivity is decreased by obesity. There is no pneumonia, pleural effusion, or pneumothorax. Cardiomegaly is noted. There are prominent paracardial fat pads. An electronic device overlies left chest. IMPRESSION: 1. Cardiomegaly. EXAMINATION: CTA chest PE protocol DATE: 04/16/2023 19:05 INDICATION: Dyspnea. TECHNIQUE: Computed tomography angiography (CTA) of the chest was performed with 100 mL Omnipaque-350 intravenous contrast timed to evaluate the pulmonary arteries. Coronal maximum intensity projection 3D-reconstructions were created by the technologist. Automated exposure control and iterative reconstruction technique were employed. The dose-length product was 1013.51 mGy-cm. COMPARISON: None. FINDINGS: There is mild scarring at the lung apices. There is mild atelectasis bilaterally. No pleural effusion. Cardiomegaly is noted. There are coronary artery calcifications. No pericardial effusion. The central pulmonary is enlarged, consistent with pulmonary arterial hypertension. There is no pulmonary embolus. There are changes of cholecystectomy. There is calcified atherosclerosis of the aorta and many of the other arteries. There is a subcutaneous electronic implant in left anterior chest wall. There is severe cervical spondylosis and moderate thoracic spondylosis. IMPRESSION: 1. No pulmonary embolus. 2. Mucous plugging in right lower lobe. Review of Systems Review of Systems: sob [facility] Past Medical History Medical History Anxiety Asthma Back pain Benign hypertension Chronic kidney disease Coronary artery disease History of stent to OM in December 2016. Depression Hypertension Hypokalemia Irritable bowel syndrome with diarrhea Metabolic syndrome Mixed hyperlipidemia Obesity Sinusitis, acute Type 2 diabetes mellitus Vertigo Surgical History Surgical History History of cardiac catheterization History of coronary artery stent placement History of tonsillectomy Family History Family History Father Family history of mental disorder Depression Family history of arthritis Family history of diabetes mellitus in first degree relative Family history of congestive heart failure Family history of heart disease in male family member before age 55 Family history of hearing loss Diabetes mellitus Family history of cardiovascular disease Acute myocardial infarction Mother Family history of anemia Family history of arthritis Family history of malignant neoplasm of breast in first degree relative Sibling Family history of cardiovascular disease Other Family history of elevated blood lipids Social History Social History Social History: Surrogate medical decision maker: Ben Finch, son. Code status: Full code. Smoking packs per day: 2 Smoking cigarettes per day: 40.0 Years smoked: 35 Smoking pack-years: 70.00 Smoking status: Former smoker Alcohol intake: never Substance use: never Other substance usage details: CBD/THC oil and gummies. Do You Feel Safe in your Home?: Yes Lack of Transportation: No
[2023-04-16 21:21] LABS: Glucose Point of Care 198 mg/dl (65-105)
[2023-04-16] MEDS: INSULIN HUMAN REGULAR (*BKC) 100 UNITS/ML 6 UNITS SUB-Q (21:43)
--- NOTE | 2023-04-16 23:43 | ADMGEN ---
This patient, Mihaela Finch, was admitted to Medical Room 250-01. Patient/family oriented to hospital policies and general routines including ID bracelet, bed and alarms, visiting hours, pain management, procedures, bathroom and other care routines, personal items, smoking policy, room service/diet, and visiting hours. Information on how to activate the Rapid Response Team has been discussed. Patient/Family are encouraged to report perceived risks to care and to ask questions if they do not understand what they are told or what they should do.
[2023-04-17] VITALS (21 sets, daily range): BP systolic 145–149; BP diastolic 52–82; PULSE 72–89; RESP 16–24; TEMP 36.5–36.6; O2SAT 94–100
[2023-04-17] MEDS: ALBUTEROL SULFATE NEB 2.5 MG/3 ML INH INHALATION ×4 (02:11→21:06)
[2023-04-17] MEDS: IPRATROPIUM BR 0.02% INH SOLN 0.5 MG/2.5 ML VIAL INHALATION ×4 (02:11→21:07)
[2023-04-17] MEDS: guaiFENesin/DEXTROMETHORPHAN 10 ML UDC PO ×3 (02:13→20:15)
--- NOTE | 2023-04-17 06:00 | ECHO_ITS ---
Patient Info Name: Mihaeal Finch Age: 78 years : 1945 Gender: Female Ht: 62 in Wt: 232 lbs BSA: 2.21 m2 HR: 85 bpm BP: 147 / 52 mmHg Heart Rhythm: Sinus Rhythm Technical Quality: Poor Exam Date: 04/17/2023 1:16 PM Exam Location: Echo Lab Patient Status: Outpatient Admit Date: 04/16/2023 Staff Ordering Physician: Subhash Souza PA-C Cast Associate: Mumtaz Ortiz RDCS Attending Provider: Bong Triplett MD Referring Physician: Harley COLBERT; Exam Type: CA echo doppler color flow Study Info Indications - CHF, NEW OXYGEN REQUIREMENT Complete two-dimensional, color flow and Doppler transthoracic echocardiogram is performed with contrast to opacify the left ventricle and to improve the deliniation of the left ventricle endocardial borders. Contrast/Agitated Saline Contrast/Ag. Saline: Definity Amount: 3.00 ml Reason for Poor Study: poor echocardiographic windows Summary 1. Technically difficult study. 2. Left ventricular chamber dimension is normal. 3. Left ventricular systolic function is normal, estimated at 60-65%. 4. There is moderately increased left ventricular wall thickness. 5. The left ventricular diastolic function is grade II diastolic dysfunction. 6. There is trace mitral valve regurgitation. 7. There is trace tricuspid valve regurgitation. 8. No pulmonary hypertension, estimated pulmonary arterial systolic pressure is 33 mmHg. Left Ventricle Left ventricular chamber dimension is normal. Left ventricular systolic function is normal, estimated at 60-65%. There is moderately increased left ventricular wall thickness. The left ventricular diastolic function is grade II diastolic dysfunction. Technically difficult study. Right Ventricle Right ventricular chamber dimension is normal. Prominent moderator band. Right ventricular systolic function is normal. Left Atria Left atrial chamber dimension is normal. Right Atria Right atrial chamber dimension is normal. Aortic Valve The aortic valve is not well visualized. There is no aortic valve stenosis. There is no aortic valve regurgitation. Pulmonic Valve The pulmonic valve is not well visualized. Mitral Valve The mitral valve has thickened leaflets. There is trace mitral valve regurgitation. The mitral valve annulus is mildly calcified. Tricuspid Valve The tricuspid valve leaflets are normal. There is trace tricuspid valve regurgitation. No pulmonary hypertension, estimated pulmonary arterial systolic pressure is 33 mmHg. Pericardium/Pleural The pericardium appears normal. There is small pericardial effusion. Inferior Vena Cava Normal inferior vena cava with >50% collapse upon inspiration consistent with normal right atrial pressure, 5 mmHg. Aorta The aortic root size at the sinus of Valsalva is normal. There is mild aortic atherosclerosis. Left Ventricular Outflow Tract Name Value Normal LVOT 2D LVOT Diameter 1.9 cm LVOT Doppler LVOT Peak Gradient 3 mmHg LVOT Mean Gradient 2 mmHg LVOT VTI 20 cm LVOT VTI/AV VTI Ratio 0.5 LVO
[2023-04-17 07:56] LABS: Basophils Percent Auto 0.4 % (0.2-1.2); Eosinophils Absolute Auto 0.1 K/mm3 (0-0.3); Eosinophils Percent Auto 0.8 % (0-4.4); Hematocrit 37.4 % (37.0-47.0); Hemoglobin 12.1 g/dL (12.0-15.0); Immature Granulocyte Absolute 0.05 K/mm3 (0.00-0.031); Immature Granulocyte Percent A 0.4 % (0-0.5); Lymphocytes Absolute Auto 1.29 K/mm3 (0.9-3.2); Lymphocytes Percent Auto 11.3 % (18.3-44.2); Mean Corpuscular HGB Conc 32.4 g/dl (32-36); Mean Corpuscular Hemoglobin 31.6 pg (26-34); Mean Corpuscular Volume 97.7 fl (80-100); Mean Platelet Volume 10.3 fl (7.4-10.4); Monocytes Absolute Auto 1.3 K/mm3 (0.1-0.6); Monocytes Percent Auto 11.1 % (2.6-8.5); Neutrophils Absolute Auto 8.7 K/mm3 (1.3-6.7); Platelet Count Result 284 k/mm3 (150-375); Red Blood Count 3.83 M/mm3 (4.2-5.4); Red Cell Distribution Width 15.2 % (11.5-14.5); White Blood Count 11.4 K/mm3 (4.5-10.0)
[2023-04-17 08:18] LABS: Anion Gap 6 mmol/L (8-16); Blood Urea Nitrogen 30 mg/dL (7-17); Calcium 9.9 mg/dL (8.4-10.2); Carbon Dioxide 28 mmol/L (22-30); Chloride 102 mmol/L (98-107); Estimated CRCL calculation 31 ml/min; Estimated Glomerular Filt Rate 33; Glucose 271 mg/dL (65-110); Potassium 5.5 mmol/L (3.4-5.0); Sodium 136 mmol/L (137-145)
[2023-04-17] MEDS: busPIRone HCL 5 MG TABLET 15 MG PO ×3 (08:21→18:00)
[2023-04-17] MEDS: MONTELUKAST SODIUM 10 MG TABLET PO (08:21)
[2023-04-17] MEDS: LORATADINE 10 MG TABLET PO (08:21)
[2023-04-17] MEDS: CHOLECALCIFEROL 1,000 UNITS TABLET 1000 UNITS PO (08:21)
[2023-04-17] MEDS: METOPROLOL SUCCINATE EXT REL 25 MG TABCR PO (08:22)
[2023-04-17] MEDS: lisinopriL 20 MG TABLET 40 MG PO (08:22)
[2023-04-17] MEDS: ACETAMINOPHEN 500 MG TABLET 1000 MG PO ×2 (08:22→20:10)
[2023-04-17] MEDS: CLOPIDOGREL BISULFATE 75 MG TABLET PO (08:23)
[2023-04-17] MEDS: TIMOLOL MALEATE 0.5% OP SOLN 5 ML BOTTLE 2 DROP EACH EYE ×2 (08:23→20:14)
[2023-04-17] MEDS: buPROPion HCL XL (24 HR) 150 MG TABCR PO (08:23)
[2023-04-17] MEDS: RIVAROXABAN 20 MG TABLET PO (08:23)
[2023-04-17] MEDS: BRIMONIDINE TARTRATE 0.2% OP SOLN 5 ML BTL 2 DROP EACH EYE ×2 (08:24→20:14)
[2023-04-17] MEDS: MICONAZOLE NITRATE 2% CREAM 30 GM TUBE 1 APPLIC TOPICAL ×2 (08:25→18:06)
[2023-04-17] MEDS: FLUTICASONE/UMECLIDIN/VILANTER 100-62.5-25 MCG ELLIPTA 1 PUFF INHALATION (10:00)
[2023-04-17] MEDS: FUROSEMIDE 40 MG TABLET PO (10:49)
--- NOTE | 2023-04-17 12:10 | PM.IMPN ---
Progress Note: A&P Assessment and Plan (1) UTI (urinary tract infection): Code(s): N39.0 - Urinary tract infection, site not specified Status: Acute Assessment and Plan: WBC elevated UA positive for nitrates, bacteria on admission Started on Rocephin UA culture pending (2) Mucus plug in respiratory tract: Code(s): T17.998A - Other foreign object in respiratory tract, part unspecified causing other injury, initial encounter Status: Acute Assessment and Plan: CTA showed mucus plug in the right lower lobe pulmonary toileting ordered Pulmozyme continue albuterol respiratory panel negative sputum culture ordered (3) CHF (congestive heart failure): Code(s): I50.9 - Heart failure, unspecified Status: Chronic Assessment and Plan: Last ECHO in August of 2022 Repeat ECHO ordered BNP on admission slightly elevated but likely related to chronic CHF (4) Type 2 diabetes mellitus: Qualifiers: Diabetes mellitus complication status: with neurologic complications Diabetes mellitus terminologist insulin use: with mcfp use Code(s): E11.9 - Type 2 diabetes mellitus without complications Status: Chronic Assessment and Plan: Continue home insulin, accuchecks, hypoglycemia protocol. (5) Chronic kidney disease: Code(s): N18.9 - Chronic kidney disease, unspecified Status: Chronic Assessment and Plan: BUN 30 Creatinine 1.50 eGFR 33 near baseline, will continue to monitor and trend mild hyperkalemia 5.5 today, given 40 of lasix and will recheck in am (6) Coronary artery disease: Code(s): I25.10 - Atherosclerotic heart disease of [place] coronary artery without angina pectoris Status: Chronic Assessment and Plan: Wound consult for weeping of bilateral LE no visible wounds or infection (7) Physical deconditioning: Code(s): R53.81 - Other malaise Status: Acute Assessment and Plan: will order PT/OT for eval Subjective Date/time seen: 04/17/23 12:10 Interval history: Patient is a 78 YO female with PMH of CHF, CVA, T2 dm, CKD, CAD admitted with chief complaint bilateral lower extremity edema and cough for the past 3-4 days. Reports that she feels like she has an upper respiratory infection with a lot of sinus congestion, sinus drainage, productive cough. Reports green/yellow sputum and reports feeling short of breath. She has been admitted to the hospital a few times this year with CHF exacerbations. Reports her legs have been weeping fluid and have some erythema. Reports the erythema has not been spreading and is not painful. Denies fevers, chills, chest pain, abdominal pain, nausea, vomiting. She reports not feeling well this morning on exam, but is not in acute distress. UA showed bacteria, UA culture pending but started on Rocephin until results are in. CXR negative, but CT showed mucus plugging. Will continue pulmonary toileting, Pulmozyme ordered. Will obtain sputum culture if possible. ECHO ordered, most recent in August of 2022. Review of Systems Review of Systems: All systems reviewed & are unremarkable except as noted in HPI and below Exam Narrative: GENERAL: Well-appearing, well-nourished, and in no acute distress. HEAD: Normocephalic, atraumatic. EYES: PERRLA and EOMI. ENT: Nares clear, no rhinorrhea or epistaxis. Mucous membranes moist. NECK: Supple. No adenopathy or masses. CHEST: No respiratory distress. Diminished breath sounds bilaterally in the lower lobes. No crackles or rales or wheezing. HEART: RRR. No murmur heard. Normal peripheral pulses. ABDOMEN: Soft, nontender, nondistended, normal active bowel sounds. MSK:Bilateral lower extremities with 2+ pitting edema from feet to knee. There are skin breaks to the posterior calves with erythema. No tenderness. No purulent drainage. No weeping at this time but noted previously. Pedal pulses present. SK
[2023-04-17] MEDS: traMADol HCL (*CRX) 50 MG TABLET PO (13:05)
[2023-04-17 16:55] LABS: Anion Gap 7 mmol/L (8-16); Blood Urea Nitrogen 30 mg/dL (7-17); Calcium 9.6 mg/dL (8.4-10.2); Carbon Dioxide 27 mmol/L (22-30); Chloride 100 mmol/L (98-107); Estimated CRCL calculation 29 ml/min; Estimated Glomerular Filt Rate 31; Glucose 285 mg/dL (65-110); Potassium 5.4 mmol/L (3.4-5.0); Sodium 134 mmol/L (137-145)
[2023-04-17] MEDS: INSULIN ASPART (*BKC) 100 UNITS/ML SUB-Q ×2 (18:09→20:48)
[2023-04-17 20:08] LABS: Glucose Point of Care 307 mg/dl (65-105)
[2023-04-17] MEDS: FLUTICASONE PROPIONATE 0.05% NA SPR 16 GM BTL (*BKC) 2 SPRAY NASAL (20:14)
[2023-04-17] MEDS: ATORVASTATIN 40 MG TABLET PO (20:14)
[2023-04-17] MEDS: traZODone HCL 50 MG TABLET 100 MG PO (20:15)
[2023-04-17] MEDS: FLUTICASONE/SALMETEROL 115-21 MCG INHALER 1 PUFF 2 PUFF INHALATION (21:07)
[2023-04-17] MEDS: DORNASE ALFA INH SOLN 1 MG/ML 2.5 ML AMP 2.5 MG INHALATION (21:09)
[2023-04-18] VITALS (17 sets, daily range): BP systolic 110–161; BP diastolic 50–66; PULSE 75–85; RESP 19–22; TEMP 36.5–37.1; O2SAT 91–100
[2023-04-18] MEDS: ALBUTEROL SULFATE NEB 2.5 MG/3 ML INH INHALATION ×4 (02:45→23:10)
[2023-04-18] MEDS: IPRATROPIUM BR 0.02% INH SOLN 0.5 MG/2.5 ML VIAL INHALATION ×4 (02:46→23:11)
[2023-04-18 05:08] LABS: Anion Gap 6 mmol/L (8-16); Blood Urea Nitrogen 30 mg/dL (7-17); Calcium 9.6 mg/dL (8.4-10.2); Carbon Dioxide 26 mmol/L (22-30); Chloride 101 mmol/L (98-107); Estimated CRCL calculation 26 ml/min; Estimated Glomerular Filt Rate 27; Glucose 273 mg/dL (65-110); Potassium 4.6 mmol/L (3.4-5.0); Sodium 133 mmol/L (137-145)
[2023-04-18 07:34] LABS: Basophils Absolute Auto 0.1 K/mm3 (0.0-0.1); Basophils Percent Auto 0.6 % (0.2-1.2); Eosinophils Absolute Auto 0.2 K/mm3 (0-0.3); Eosinophils Percent Auto 2.3 % (0-4.4); Hematocrit 36.3 % (37.0-47.0); Hemoglobin 11.4 g/dL (12.0-15.0); Immature Granulocyte Absolute 0.05 K/mm3 (0.00-0.031); Immature Granulocyte Percent A 0.6 % (0-0.5); Lymphocytes Absolute Auto 1.52 K/mm3 (0.9-3.2); Lymphocytes Percent Auto 17.1 % (18.3-44.2); Mean Corpuscular HGB Conc 31.4 g/dl (32-36); Mean Corpuscular Hemoglobin 31.2 pg (26-34); Mean Corpuscular Volume 99.5 fl (80-100); Mean Platelet Volume 13.3 fl (7.4-10.4); Monocytes Absolute Auto 1.1 K/mm3 (0.1-0.6); Monocytes Percent Auto 12.2 % (2.6-8.5); Neutrophils Percent Auto 67.2 % (45.5-73.1); Red Blood Count 3.65 M/mm3 (4.2-5.4); Red Cell Distribution Width 14.9 % (11.5-14.5); White Blood Count 8.9 K/mm3 (4.5-10.0)
[2023-04-18 07:47] LABS: Glucose Point of Care 300 mg/dl (65-105)
[2023-04-18] MEDS: DORNASE ALFA INH SOLN 1 MG/ML 2.5 ML AMP 2.5 MG INHALATION ×2 (08:16→23:10)
[2023-04-18] MEDS: FLUTICASONE/UMECLIDIN/VILANTER 100-62.5-25 MCG ELLIPTA 1 PUFF INHALATION (08:19)
[2023-04-18] MEDS: CLOPIDOGREL BISULFATE 75 MG TABLET PO (08:32)
[2023-04-18] MEDS: busPIRone HCL 5 MG TABLET 15 MG PO ×3 (08:33→17:45)
[2023-04-18] MEDS: buPROPion HCL XL (24 HR) 150 MG TABCR PO (08:33)
[2023-04-18] MEDS: METOPROLOL SUCCINATE EXT REL 25 MG TABCR PO (08:33)
[2023-04-18] MEDS: MONTELUKAST SODIUM 10 MG TABLET PO (08:34)
[2023-04-18] MEDS: CHOLECALCIFEROL 1,000 UNITS TABLET 1000 UNITS PO (08:34)
[2023-04-18] MEDS: lisinopriL 20 MG TABLET 40 MG PO (08:34)
[2023-04-18] MEDS: BRIMONIDINE TARTRATE 0.2% OP SOLN 5 ML BTL 2 DROP EACH EYE ×2 (08:35→20:37)
[2023-04-18] MEDS: LORATADINE 10 MG TABLET PO (08:35)
[2023-04-18] MEDS: TIMOLOL MALEATE 0.5% OP SOLN 5 ML BOTTLE 2 DROP EACH EYE ×2 (08:35→20:39)
[2023-04-18] MEDS: INSULIN ASPART (*BKC) 100 UNITS/ML SUB-Q ×4 (08:37→20:46)
[2023-04-18 08:45] LABS: Platelet Count Result 272 k/mm3 (150-375)
[2023-04-18] MEDS: guaiFENesin/DEXTROMETHORPHAN 10 ML UDC PO (08:47)
--- NOTE | 2023-04-18 09:11 | PM.CNCAR ---
Assessment and Plan Assessment and plan (1) Diastolic CHF: Code(s): I50.30 - Unspecified diastolic (congestive) heart failure Status: Acute Assessment and Plan: She has grade II diastolic dysfunction on echo. However, I do not think her shortness of breath and swelling represent decompensated heart failure. Objectively, she does not have evidence of pulmonary congestion on chest Xray or chest CTA, and her BNP is minimally elevated. Her shortness of breath is more likely secondary to COPD, mucous plug, and perhaps a component of obesity hypoventilation. Can add spironolactone to her medical regimen for the diastolic dysfunction and for BP management Jardiance is also an option for medical management of diastolic heart failure. However, because of her renal function (GFR <30) she is not a candidate for this. Additionally, she is at increased risk for fungal genital infections given her body habitus. Her home furosemide can be restarted but I don't think she needs additional diuresis at this point Blood pressure control Weight loss supplemental O2 as needed Intake and output Daily weight Suspect she has YONI, [facility]alink earlier this year with AHI of 16. Unsure if she ever had formal sleep study as outpatient, but untreated YONI could be contributing (2) Shortness of breath: Code(s): R06.02 - Shortness of breath Status: Acute Assessment and Plan: As above (3) Bilateral edema of lower extremity: Code(s): R60.0 - Localized edema Status: Acute Assessment and Plan: She has chronic lower extremity lymphedema. Consider outpatient referral for lymphedema wraps. Will also check lower extremity venous Doppler since she is having pain on her posterior right calf (though this is likely secondary to her worsening edema) Plan Will arrange for outpatient follow up in our office. Cardiology will sign off. Thank you for this consultation please call with any questions. History of Present Illness History of Present Illness Consult date/time: 04/18/23 09:11 Requesting physician: Raine Owens APRN Consult reason: congestive heart failure Reason For Visit: Right Lung Mucous Plug, CHF Narrative: Mihaela Finch is a 78-year-old female with chronic lower extremity lymphedema, COPD, type 2 diabetes mellitus, chronic kidney disease, coronary artery disease, paroxysmal atrial fibrillation, and diastolic dysfunction. She is admitted to the hospital now because of shortness of breath and worsening lower extremity edema. She has had progressive shortness of breath over the past couple weeks and has also had a productive cough. Her leg edema is chronic but has worsened and her posterior right calf is weeping. She denies any chest pain or palpitations. She feels like her shortness of breath is worse today than yesterday. Review of Systems Review of Systems: All systems reviewed & are unremarkable except as noted in HPI and below PMFSH Past Medical History Medical History Anxiety Asthma Back pain Benign hypertension Chronic kidney disease Coronary artery disease History of stent to in December 2016. Depression Hypertension Hypokalemia Irritable bowel syndrome with diarrhea Metabolic syndrome Mixed hyperlipidemia Obesity Sinusitis, acute Type 2 diabetes mellitus Vertigo Surgical History Surgical History History of cardiac catheterization History of coronary artery stent placement History of tonsillectomy Family History Family History Father Family history of mental disorder Depression Family history of arthritis Family history of diabetes mellitus in first degree relative Family history of congestive heart failure Family history of heart disease in male family member before age 55 Family histo
[2023-04-18 11:51] LABS: Glucose Point of Care 344 mg/dl (65-105)
[2023-04-18] MEDS: MICONAZOLE NITRATE 2% CREAM 30 GM TUBE 1 APPLIC TOPICAL ×2 (12:32→17:44)
--- NOTE | 2023-04-18 13:06 | PCPTNOTE ---
Spoke with Hospitalist, Raine Owens APRN, regarding bedrest orders. Hospitalist OK removal of bedrest orders - RN aware.
--- NOTE | 2023-04-18 13:59 | P.PNIM_ITS ---
Progress Note: A&P Assessment and Plan (1) UTI (urinary tract infection): Code(s): N39.0 - Urinary tract infection, site not specified Status: Acute Assessment and Plan: * WBC 8.9 * UA positive for nitrates, bacteria on admission * UA culture prelim shows E. coli, currently covered with Rocephin (2) Mucus plug in respiratory tract: Code(s): T17.998A - Other foreign object in respiratory tract, part unspecified causing other injury, initial encounter Status: Acute Assessment and Plan: * CTA showed mucus plug in the right lower lobe * pulmonary toileting ordered, CPT with pep therapy * Pulmozyme * continue albuterol * respiratory panel negative * sputum culture pending (3) CHF (congestive heart failure): Code(s): I50.9 - Heart failure, unspecified Status: Chronic Assessment and Plan: * Last ECHO in August of 2022 * Repeat ECHO showed grade 2 diastolic dysfunction. * BNP on admission slightly elevated but likely related to chronic CHF * cardiology consulted - recommends spironolactone, restart home Lasix (4) Type 2 diabetes mellitus: Qualifiers: Diabetes mellitus complication status: with neurologic complications Diabetes mellitus intermediate accountant insulin use: with intermediate accountant use Code(s): E11.9 - Type 2 diabetes mellitus without complications Status: Chronic Assessment and Plan: * Continue home insulin, accuchecks, hypoglycemia protocol. (5) Chronic kidney disease: Code(s): N18.9 - Chronic kidney disease, unspecified Status: Chronic Assessment and Plan: * BUN 30 * Creatinine 1.80 * eGFR 27 * near baseline, will continue to monitor and trend * mild hyperkalemia resolved (6) Coronary artery disease: Code(s): I25.10 - Atherosclerotic heart disease of [place] coronary artery without angina pectoris Status: Chronic Assessment and Plan: * Wound consult for weeping of bilateral LE * no visible wounds or infection * US dopplers ordered (7) Physical deconditioning: Code(s): R53.81 - Other malaise Status: Acute Assessment and Plan: * PT/OT for eval Subjective Date/time seen: 04/18/23 13:59 Interval history: She reports not feeling well this morning on exam, but is not in acute distress. UA showed bacteria, UA culture pending but started on Rocephin until results are in. CXR negative, but CT showed mucus plugging. Will continue pulmonary toileting, CPT pep therapy ordered. Sputum culture pending. Cardiology consulted, started on spironolactone. US dopplers ordered for continued edema, but likely would benefit from outpatient follow up for lymphedema wraps. Review of Systems Review of Systems: All systems reviewed & are unremarkable except as noted in HPI and below Exam Narrative: GENERAL: Well-appearing, well-nourished, and in no acute distress. HEAD: Normocephalic, atraumatic. EYES: PERRLA and EOMI. ENT: Nares clear, no rhinorrhea or epistaxis. Mucous membranes moist. NECK: Supple. No adenopathy or masses. CHEST: No respiratory distress. Diminished breath sounds bilaterally in the lower lobes. Crackles and mild wheezing in upper lobes. HEART: RRR. No murmur heard. Normal peripheral pulses. ABDOMEN: Soft, nontender, nondistended, normal active bowel sounds. MSK: Bilateral lower extremities with 2+ pitting edema from feet to knee. There are skin breaks to the posterior calves with erythema. No tenderness. No purulent drainage. Mild weeping on right posterior lower l
--- NOTE | 2023-04-18 13:59 | PM.IMPN ---
Progress Note: A&P Assessment and Plan (1) UTI (urinary tract infection): Code(s): N39.0 - Urinary tract infection, site not specified Status: Acute Assessment and Plan: WBC 8.9 UA positive for nitrates, bacteria on admission UA culture prelim shows E. coli, currently covered with Rocephin (2) Mucus plug in respiratory tract: Code(s): T17.998A - Other foreign object in respiratory tract, part unspecified causing other injury, initial encounter Status: Acute Assessment and Plan: CTA showed mucus plug in the right lower lobe pulmonary toileting ordered, CPT with pep therapy Pulmozyme continue albuterol respiratory panel negative sputum culture pending (3) CHF (congestive heart failure): Code(s): I50.9 - Heart failure, unspecified Status: Chronic Assessment and Plan: Last ECHO in August of 2022 Repeat ECHO showed grade 2 diastolic dysfunction. BNP on admission slightly elevated but likely related to chronic CHF cardiology consulted - recommends spironolactone, restart home Lasix (4) Type 2 diabetes mellitus: Qualifiers: Diabetes mellitus complication status: with neurologic complications Diabetes mellitus longterm insulin use: with longterm use Code(s): E11.9 - Type 2 diabetes mellitus without complications Status: Chronic Assessment and Plan: Continue home insulin, accuchecks, hypoglycemia protocol. (5) Chronic kidney disease: Code(s): N18.9 - Chronic kidney disease, unspecified Status: Chronic Assessment and Plan: BUN 30 Creatinine 1.80 eGFR 27 near baseline, will continue to monitor and trend mild hyperkalemia resolved (6) Coronary artery disease: Code(s): I25.10 - Atherosclerotic heart disease of [place] coronary artery without angina pectoris Status: Chronic Assessment and Plan: Wound consult for weeping of bilateral LE no visible wounds or infection US dopplers ordered (7) Physical deconditioning: Code(s): R53.81 - Other malaise Status: Acute Assessment and Plan: PT/OT for eval Subjective Date/time seen: 04/18/23 13:59 Interval history: She reports not feeling well this morning on exam, but is not in acute distress. UA showed bacteria, UA culture pending but started on Rocephin until results are in. CXR negative, but CT showed mucus plugging. Will continue pulmonary toileting, CPT pep therapy ordered. Sputum culture pending. Cardiology consulted, started on spironolactone. US dopplers ordered for continued edema, but likely would benefit from outpatient follow up for lymphedema wraps. Review of Systems Review of Systems: All systems reviewed & are unremarkable except as noted in HPI and below Exam Narrative: GENERAL: Well-appearing, well-nourished, and in no acute distress. HEAD: Normocephalic, atraumatic. EYES: PERRLA and EOMI. ENT: Nares clear, no rhinorrhea or epistaxis. Mucous membranes moist. NECK: Supple. No adenopathy or masses. CHEST: No respiratory distress. Diminished breath sounds bilaterally in the lower lobes. Crackles and mild wheezing in upper lobes. HEART: RRR. No murmur heard. Normal peripheral pulses. ABDOMEN: Soft, nontender, nondistended, normal active bowel sounds. MSK: Bilateral lower extremities with 2+ pitting edema from feet to knee. There are skin breaks to the posterior calves with erythema. No tenderness. No purulent drainage. Mild weeping on right posterior lower leg. Pedal pulses present. SKIN: Warm, dry, no rash. NEURO: Alert and oriented x4. No focal deficits. PSYCH: Normal mood and affect. Objective Data Vital Signs Vital Signs: Vital Signs - 24 hr 04/17/23 14:25 04/17/23 14:40 04/17/23 14:00 Temperature 98 F Pulse Rate 72 76 74 Respiratory Rate 24 H 24 H 18 Blood Pressure 145/82 H Pulse Oximetry 99 Oxygen Delivery Oxygen Flow Rate Fraction of Inspired Oxygen
[2023-04-18 17:24] LABS: Glucose Point of Care 290 mg/dl (65-105)
[2023-04-18] MEDS: RIVAROXABAN 20 MG TABLET PO ×2 (17:44→20:38)
[2023-04-18] MEDS: ATORVASTATIN 40 MG TABLET PO (20:38)
[2023-04-18] MEDS: traZODone HCL 50 MG TABLET 100 MG PO (20:39)
[2023-04-18] MEDS: FLUTICASONE PROPIONATE 0.05% NA SPR 16 GM BTL (*BKC) 2 SPRAY NASAL (20:39)
[2023-04-18 22:17] LABS: Glucose Point of Care 283 mg/dl (65-105)
[2023-04-18] MEDS: FLUTICASONE/SALMETEROL 115-21 MCG INHALER 1 PUFF 2 PUFF INHALATION (23:11)
--- NOTE | 2023-04-18 23:11 | PCRCNOTE ---
Window of time for administration has passed. See next scheduled administration.
[2023-04-19] VITALS (22 sets, daily range): BP systolic 123–149; BP diastolic 60–79; PULSE 70–90; RESP 16–22; TEMP 36.4–36.8; O2SAT 93–100
[2023-04-19] MEDS: IPRATROPIUM BR 0.02% INH SOLN 0.5 MG/2.5 ML VIAL INHALATION ×4 (03:13→20:54)
[2023-04-19] MEDS: ALBUTEROL SULFATE NEB 2.5 MG/3 ML INH INHALATION ×4 (03:14→20:53)
[2023-04-19] MEDS: traMADol HCL (*CRX) 50 MG TABLET PO (05:21)
[2023-04-19] MEDS: guaiFENesin/DEXTROMETHORPHAN 10 ML UDC PO ×2 (05:24→22:48)
[2023-04-19] MEDS: ALBUTEROL SULFATE (*SP) AEROSOL 1 PUFF 2 PUFF INHALATION (05:42)
[2023-04-19 06:22] LABS: Anion Gap 7 mmol/L (8-16); Blood Urea Nitrogen 28 mg/dL (7-17); Calcium 9.6 mg/dL (8.4-10.2); Carbon Dioxide 24 mmol/L (22-30); Chloride 104 mmol/L (98-107); Estimated CRCL calculation 33 ml/min; Estimated Glomerular Filt Rate 36; Glucose 284 mg/dL (65-110); Potassium 4.7 mmol/L (3.4-5.0); Sodium 135 mmol/L (137-145)
[2023-04-19 06:30] LABS: Basophils Percent Auto 0.5 % (0.2-1.2); Eosinophils Absolute Auto 0.2 K/mm3 (0-0.3); Eosinophils Percent Auto 1.9 % (0-4.4); Hematocrit 36.2 % (37.0-47.0); Hemoglobin 11.3 g/dL (12.0-15.0); Immature Granulocyte Absolute 0.07 K/mm3 (0.00-0.031); Immature Granulocyte Percent A 0.8 % (0-0.5); Lymphocytes Absolute Auto 1.23 K/mm3 (0.9-3.2); Lymphocytes Percent Auto 14.5 % (18.3-44.2); Mean Corpuscular HGB Conc 31.2 g/dl (32-36); Mean Corpuscular Hemoglobin 30.6 pg (26-34); Mean Corpuscular Volume 98.1 fl (80-100); Mean Platelet Volume 12.2 fl (7.4-10.4); Monocytes Absolute Auto 0.9 K/mm3 (0.1-0.6); Monocytes Percent Auto 10.6 % (2.6-8.5); Neutrophils Absolute Auto 6.1 K/mm3 (1.3-6.7); Neutrophils Percent Auto 71.7 % (45.5-73.1); Platelet Count Result 134 k/mm3 (150-375); Red Blood Count 3.69 M/mm3 (4.2-5.4); Red Cell Distribution Width 14.7 % (11.5-14.5); White Blood Count 8.5 K/mm3 (4.5-10.0)
[2023-04-19] MEDS: DORNASE ALFA INH SOLN 1 MG/ML 2.5 ML AMP 2.5 MG INHALATION ×2 (08:03→20:54)
[2023-04-19] MEDS: FLUTICASONE/SALMETEROL 115-21 MCG INHALER 1 PUFF 2 PUFF INHALATION ×2 (08:04→20:54)
[2023-04-19] MEDS: FLUTICASONE/UMECLIDIN/VILANTER 100-62.5-25 MCG ELLIPTA 1 PUFF INHALATION (08:04)
[2023-04-19 08:15] LABS: Glucose Point of Care 292 mg/dl (65-105)
[2023-04-19] MEDS: busPIRone HCL 5 MG TABLET 15 MG PO ×3 (08:58→17:26)
[2023-04-19] MEDS: BRIMONIDINE TARTRATE 0.2% OP SOLN 5 ML BTL 2 DROP EACH EYE ×2 (08:58→20:27)
[2023-04-19] MEDS: buPROPion HCL XL (24 HR) 150 MG TABCR PO (08:58)
[2023-04-19] MEDS: LORATADINE 10 MG TABLET PO (08:59)
[2023-04-19] MEDS: CHOLECALCIFEROL 1,000 UNITS TABLET 1000 UNITS PO (08:59)
[2023-04-19] MEDS: CLOPIDOGREL BISULFATE 75 MG TABLET PO (08:59)
[2023-04-19] MEDS: FUROSEMIDE 40 MG TABLET PO (08:59)
[2023-04-19] MEDS: MONTELUKAST SODIUM 10 MG TABLET PO (09:00)
[2023-04-19] MEDS: METOPROLOL SUCCINATE EXT REL 25 MG TABCR PO (09:00)
[2023-04-19] MEDS: SPIRONOLACTONE 12.5 MG TABLET PO (09:01)
[2023-04-19] MEDS: MICONAZOLE NITRATE 2% CREAM 30 GM TUBE 1 APPLIC TOPICAL ×2 (09:02→17:26)
[2023-04-19] MEDS: TIMOLOL MALEATE 0.5% OP SOLN 5 ML BOTTLE 2 DROP EACH EYE ×2 (09:02→20:27)
[2023-04-19] MEDS: INSULIN ASPART (*BKC) 100 UNITS/ML SUB-Q ×4 (09:04→22:40)
[2023-04-19] MEDS: lisinopriL 20 MG TABLET 40 MG PO (10:30)
[2023-04-19 11:52] LABS: Glucose Point of Care 363 mg/dl (65-105)
--- NOTE | 2023-04-19 13:28 | P.PNIM_ITS ---
Progress Note: A&P Assessment and Plan (1) UTI (urinary tract infection): Code(s): N39.0 - Urinary tract infection, site not specified Status: Acute Assessment and Plan: * WBC 8.5 * UA positive for nitrates, bacteria on admission * UA culture prelim shows E. coli, transitioned to PO cefdinir today (2) Mucus plug in respiratory tract: Code(s): T17.998A - Other foreign object in respiratory tract, part unspecified causing other injury, initial encounter Status: Acute Assessment and Plan: * CTA showed mucus plug in the right lower lobe * pulmonary toileting ordered, CPT with pep therapy * Pulmozyme * continue albuterol * respiratory panel negative * sputum culture pending * will start on dexamethasone 6 mg (3) CHF (congestive heart failure): Code(s): I50.9 - Heart failure, unspecified Status: Chronic Assessment and Plan: * Last ECHO in August of 2022 * Repeat ECHO showed grade 2 diastolic dysfunction. * BNP on admission slightly elevated but likely related to chronic CHF * cardiology consulted - recommends spironolactone, restart home Lasix and signed off (4) Type 2 diabetes mellitus: Qualifiers: Diabetes mellitus complication status: with neurologic complications Diabetes mellitus detention insulin use: with detention use Code(s): E11.9 - Type 2 diabetes mellitus without complications Status: Chronic Assessment and Plan: * Continue home insulin, accuchecks, hypoglycemia protocol. * sliding scale escalated to moderate as BS have been elevated. (5) Chronic kidney disease: Code(s): N18.9 - Chronic kidney disease, unspecified Status: Chronic Assessment and Plan: * BUN 30 * Creatinine 1.80 * eGFR 27 * near baseline, will continue to monitor and trend * mild hyperkalemia resolved (6) Coronary artery disease: Code(s): I25.10 - Atherosclerotic heart disease of [place] coronary artery without angina pectoris Status: Chronic Assessment and Plan: * Wound consult for weeping of bilateral LE * no visible wounds or infection * US dopplers ordered (7) Physical deconditioning: Code(s): R53.81 - Other malaise Status: Acute Assessment and Plan: * PT/OT for eval Subjective Date/time seen: 04/19/23 13:28 Interval history: She reports not feeling well this morning on exam, but is not in acute distress. She reports her coughing is now more productive and the CPT therapy did help somewhat. UA culture positive for E.coli, transition to PO cefdinir today. Sputum culture still pending. Cardiology consulted and signed off with recommendations. US doppler negative for DVT, but likely would benefit from outpatient follow up for lymphedema wraps. Will continue to monitor kidney function closely. Review of Systems Review of Systems: All systems reviewed & are unremarkable except as noted in HPI and below Exam Narrative: GENERAL: Well-appearing, well-nourished, and in no acute distress. HEAD: Normocephalic, atraumatic. EYES: PERRLA and EOMI. ENT: Nares clear, no rhinorrhea or epistaxis. Mucous membranes moist. NECK: Supple. No adenopathy or masses. CHEST: No respiratory distress. Diminished breath sounds bilaterally in the lower lobes. Crackles and mild wheezing in upper lobes. HEART: RRR. No murmur heard. Normal peripheral pulses. ABDOMEN: Soft, nontender, nondistended, normal active bowel sounds. MSK: Bilateral lower extremities with 2+ pitting edema from feet t
--- NOTE | 2023-04-19 13:28 | PM.IMPN ---
Progress Note: A&P Assessment and Plan (1) UTI (urinary tract infection): Code(s): N39.0 - Urinary tract infection, site not specified Status: Acute Assessment and Plan: WBC 8.5 UA positive for nitrates, bacteria on admission UA culture prelim shows E. coli, transitioned to PO cefdinir today (2) Mucus plug in respiratory tract: Code(s): T17.998A - Other foreign object in respiratory tract, part unspecified causing other injury, initial encounter Status: Acute Assessment and Plan: CTA showed mucus plug in the right lower lobe pulmonary toileting ordered, CPT with pep therapy Pulmozyme continue albuterol respiratory panel negative sputum culture pending will start on dexamethasone 6 mg (3) CHF (congestive heart failure): Code(s): I50.9 - Heart failure, unspecified Status: Chronic Assessment and Plan: Last ECHO in August of 2022 Repeat ECHO showed grade 2 diastolic dysfunction. BNP on admission slightly elevated but likely related to chronic CHF cardiology consulted - recommends spironolactone, restart home Lasix and signed off (4) Type 2 diabetes mellitus: Qualifiers: Diabetes mellitus complication status: with neurologic complications Diabetes mellitus alf insulin use: with alf use Code(s): E11.9 - Type 2 diabetes mellitus without complications Status: Chronic Assessment and Plan: Continue home insulin, accuchecks, hypoglycemia protocol. sliding scale escalated to moderate as BS have been elevated. (5) Chronic kidney disease: Code(s): N18.9 - Chronic kidney disease, unspecified Status: Chronic Assessment and Plan: BUN 30 Creatinine 1.80 eGFR 27 near baseline, will continue to monitor and trend mild hyperkalemia resolved (6) Coronary artery disease: Code(s): I25.10 - Atherosclerotic heart disease of [place] coronary artery without angina pectoris Status: Chronic Assessment and Plan: Wound consult for weeping of bilateral LE no visible wounds or infection US dopplers ordered (7) Physical deconditioning: Code(s): R53.81 - Other malaise Status: Acute Assessment and Plan: PT/OT for eval Subjective Date/time seen: 04/19/23 13:28 Interval history: She reports not feeling well this morning on exam, but is not in acute distress. She reports her coughing is now more productive and the CPT therapy did help somewhat. UA culture positive for E.coli, transition to PO cefdinir today. Sputum culture still pending. Cardiology consulted and signed off with recommendations. US doppler negative for DVT, but likely would benefit from outpatient follow up for lymphedema wraps. Will continue to monitor kidney function closely. Review of Systems Review of Systems: All systems reviewed & are unremarkable except as noted in HPI and below Exam Narrative: GENERAL: Well-appearing, well-nourished, and in no acute distress. HEAD: Normocephalic, atraumatic. EYES: PERRLA and EOMI. ENT: Nares clear, no rhinorrhea or epistaxis. Mucous membranes moist. NECK: Supple. No adenopathy or masses. CHEST: No respiratory distress. Diminished breath sounds bilaterally in the lower lobes. Crackles and mild wheezing in upper lobes. HEART: RRR. No murmur heard. Normal peripheral pulses. ABDOMEN: Soft, nontender, nondistended, normal active bowel sounds. MSK: Bilateral lower extremities with 2+ pitting edema from feet to knee. There are skin breaks to the posterior calves with erythema. No tenderness. No purulent drainage. Mild weeping on right posterior lower leg. Pedal pulses present. SKIN: Warm, dry, no rash. NEURO: Alert and oriented x4. No focal deficits. PSYCH: Normal mood and affect. Objective Data Vital Signs Vital Signs: Vital Signs - 24 hr 04/18/23 14:07 04/18/23 14:24 04/18/23 14:31 Temperature 98.0 F Pulse Rate 82 80 80 Respiratory
[2023-04-19] MEDS: DEXAMETHASONE 2 MG TABLET 6 MG PO (14:14)
--- NOTE | 2023-04-19 14:15 | PC.NURSE ---
Unable to bring NF medication Vilazodone from home at this time.
[2023-04-19 16:52] LABS: Glucose Point of Care 327 mg/dl (65-105)
[2023-04-19] MEDS: traZODone HCL 50 MG TABLET 100 MG PO (20:15)
[2023-04-19] MEDS: ATORVASTATIN 40 MG TABLET PO (20:16)
[2023-04-19] MEDS: FLUTICASONE PROPIONATE 0.05% NA SPR 16 GM BTL (*BKC) 2 SPRAY NASAL (20:16)
[2023-04-19] MEDS: clonazePAM (*CRX) 0.5 MG TABLET PO (20:16)
[2023-04-19 20:22] LABS: Glucose Point of Care > 500 mg/dl (65-105)
[2023-04-19 20:22] LABS: Glucose Point of Care > 500 mg/dl (65-105)
--- NOTE | 2023-04-19 20:50 | P.PNCROSS_ITS ---
Event Note Event Note Event Note: BS greater than 500, typically takes larger doses of Humalog at home 20+. Star devin on dexamethasone today. Will add 10 U of Lantus HS, add A1C to AM labs, and give 7 U of Humalog now, recheck BS in 1-1.5 hrs post-admin. consider titration of Lantus if BS remains elevated.
[2023-04-19] MEDS: INSULIN ASPART (*BKC) 100 UNITS/ML 7 UNITS SUB-Q (21:23)
[2023-04-19] MEDS: INSULIN GLARGINE (*BKC) 100 UNITS/ML 10 UNITS SUB-Q (21:23)
[2023-04-19 22:21] LABS: Glucose Point of Care > 500 mg/dl (65-105)
[2023-04-19 22:21] LABS: Glucose Point of Care > 500 mg/dl (65-105)
[2023-04-19 23:21] LABS: Glucose Point of Care > 500 mg/dl (65-105)
[2023-04-19 23:32] LABS: Anion Gap 9 mmol/L (8-16); Blood Urea Nitrogen 30 mg/dL (7-17); Calcium 9.4 mg/dL (8.4-10.2); Carbon Dioxide 23 mmol/L (22-30); Chloride 99 mmol/L (98-107); Estimated CRCL calculation 31 ml/min; Estimated Glomerular Filt Rate 33; Glucose 575 mg/dL (65-110); Potassium 5.4 mmol/L (3.4-5.0); Sodium 131 mmol/L (137-145)
[2023-04-19] MEDS: INSULIN ASPART (*BKC) 100 UNITS/ML 12 UNITS SUB-Q (23:32)
[2023-04-20] VITALS (19 sets, daily range): BP systolic 123–166; BP diastolic 50–88; PULSE 75–101; RESP 18–20; TEMP 36.2–36.7; O2SAT 87–97
[2023-04-20 01:42] LABS: Glucose Point of Care 407 mg/dl (65-105)
[2023-04-20] MEDS: INSULIN HUMAN REGULAR (*BKC) 100 UNITS/ML 12 UNITS SUB-Q (02:10)
[2023-04-20 03:15] LABS: Glucose Point of Care 367 mg/dl (65-105)
[2023-04-20] MEDS: INSULIN HUMAN REGULAR (*BKC) 100 UNITS/ML 8 UNITS SUB-Q (03:23)
[2023-04-20 04:38] LABS: Glucose Point of Care 338 mg/dl (65-105)
[2023-04-20] MEDS: INSULIN HUMAN REGULAR (*BKC) 100 UNITS/ML 6 UNITS SUB-Q ×2 (04:55→22:12)
[2023-04-20 05:54] LABS: Basophils Percent Auto 0.2 % (0.2-1.2); Hematocrit 34.8 % (37.0-47.0); Hemoglobin 10.9 g/dL (12.0-15.0); Immature Granulocyte Absolute 0.09 K/mm3 (0.00-0.031); Immature Granulocyte Percent A 1.1 % (0-0.5); Lymphocytes Percent Auto 8.2 % (18.3-44.2); Mean Corpuscular HGB Conc 31.3 g/dl (32-36); Mean Corpuscular Hemoglobin 30.4 pg (26-34); Mean Corpuscular Volume 97.2 fl (80-100); Mean Platelet Volume 12.7 fl (7.4-10.4); Monocytes Absolute Auto 0.4 K/mm3 (0.1-0.6); Monocytes Percent Auto 4.7 % (2.6-8.5); Neutrophils Absolute Auto 7.4 K/mm3 (1.3-6.7); Neutrophils Percent Auto 85.8 % (45.5-73.1); Platelet Count Result 121 k/mm3 (150-375); Red Blood Count 3.58 M/mm3 (4.2-5.4); Red Cell Distribution Width 14.3 % (11.5-14.5); White Blood Count 8.6 K/mm3 (4.5-10.0)
[2023-04-20 06:03] LABS: Albumin Level 3.7 g/dL (3.5-5.1); Anion Gap 10 mmol/L (8-16); Blood Urea Nitrogen 31 mg/dL (7-17); Calcium 9.7 mg/dL (8.4-10.2); Carbon Dioxide 26 mmol/L (22-30); Chloride 99 mmol/L (98-107); Estimated CRCL calculation 31 ml/min; Estimated Glomerular Filt Rate 33; Glucose 321 mg/dL (65-110); Phosphorus 2.9 mg/dL (2.5-4.5); Potassium 4.9 mmol/L (3.4-5.0); Sodium 135 mmol/L (137-145)
[2023-04-20 06:11] LABS: Glucose Point of Care 289 mg/dl (65-105)
[2023-04-20] MEDS: INSULIN HUMAN REGULAR (*BKC) 100 UNITS/ML SUB-Q ×3 (06:17→23:55)
[2023-04-20 08:01] LABS: Glucose Point of Care 270 mg/dl (65-105)
[2023-04-20] MEDS: INSULIN ASPART (*BKC) 100 UNITS/ML SUB-Q ×2 (08:28→12:25)
[2023-04-20] MEDS: busPIRone HCL 5 MG TABLET 15 MG PO ×3 (08:45→17:18)
[2023-04-20] MEDS: DEXAMETHASONE 2 MG TABLET 6 MG PO (08:45)
[2023-04-20] MEDS: buPROPion HCL XL (24 HR) 150 MG TABCR PO (08:45)
[2023-04-20] MEDS: FUROSEMIDE 40 MG TABLET PO (08:46)
[2023-04-20] MEDS: CHOLECALCIFEROL 1,000 UNITS TABLET 1000 UNITS PO (08:46)
[2023-04-20] MEDS: CEFDINIR 300 MG CAPSULE PO ×2 (08:46→20:32)
[2023-04-20] MEDS: CLOPIDOGREL BISULFATE 75 MG TABLET PO (08:46)
[2023-04-20] MEDS: lisinopriL 20 MG TABLET 40 MG PO (08:46)
[2023-04-20] MEDS: LORATADINE 10 MG TABLET PO (08:47)
[2023-04-20] MEDS: MONTELUKAST SODIUM 10 MG TABLET PO (08:47)
[2023-04-20] MEDS: METOPROLOL SUCCINATE EXT REL 25 MG TABCR PO (08:47)
[2023-04-20] MEDS: SPIRONOLACTONE 12.5 MG TABLET PO (08:47)
[2023-04-20] MEDS: BRIMONIDINE TARTRATE 0.2% OP SOLN 5 ML BTL 2 DROP EACH EYE ×2 (08:48→20:44)
[2023-04-20] MEDS: TIMOLOL MALEATE 0.5% OP SOLN 5 ML BOTTLE 2 DROP EACH EYE ×2 (08:48→20:32)
[2023-04-20] MEDS: ALBUTEROL SULFATE NEB 2.5 MG/3 ML INH INHALATION (09:15)
[2023-04-20] MEDS: DORNASE ALFA INH SOLN 1 MG/ML 2.5 ML AMP 2.5 MG INHALATION (09:16)
[2023-04-20] MEDS: IPRATROPIUM BR 0.02% INH SOLN 0.5 MG/2.5 ML VIAL INHALATION (09:16)
[2023-04-20] MEDS: FLUTICASONE/SALMETEROL 115-21 MCG INHALER 1 PUFF 2 PUFF INHALATION (09:26)
[2023-04-20] MEDS: FLUTICASONE/UMECLIDIN/VILANTER 100-62.5-25 MCG ELLIPTA 1 PUFF INHALATION (09:26)
--- NOTE | 2023-04-20 09:41 | PCDIET ---
Nutrition consult for 1800 kcal diet restriction. Diet orders: [facility]. Patient will be allowed to order 600 kcals per meal, diet office is aware. Discussed with nursing today. Thank you for consult.
[2023-04-20 10:02] LABS: Hemoglobin A1C 9.5 % (<5.7)
[2023-04-20 12:02] LABS: Glucose Point of Care 331 mg/dl (65-105)
[2023-04-20] MEDS: MICONAZOLE NITRATE 2% CREAM 30 GM TUBE 1 APPLIC TOPICAL (12:27)
--- NOTE | 2023-04-20 12:44 | P.PNIM_ITS ---
Progress Note: A&P Assessment and Plan (1) UTI (urinary tract infection): Code(s): N39.0 - Urinary tract infection, site not specified Status: Acute Assessment and Plan: * WBC 8.5 * UA positive for nitrates, bacteria on admission * UA culture prelim shows E. coli, transitioned to PO cefdinir (2) Mucus plug in respiratory tract: Code(s): T17.998A - Other foreign object in respiratory tract, part unspecified causing other injury, initial encounter Status: Acute Assessment and Plan: * CTA showed mucus plug in the right lower lobe * pulmonary toileting ordered, CPT with pep therapy * Pulmozyme * continue albuterol * respiratory panel negative * sputum culture pending * dexamethasone 6 mg (3) CHF (congestive heart failure): Code(s): I50.9 - Heart failure, unspecified Status: Chronic Assessment and Plan: * Last ECHO in August of 2022 * Repeat ECHO showed grade 2 diastolic dysfunction. * BNP on admission slightly elevated but likely related to chronic CHF * cardiology consulted - recommends spironolactone, restart home Lasix and signed off (4) Type 2 diabetes mellitus: Qualifiers: Diabetes mellitus prison insulin use: with terminal superintendent use Diabetes mellitus complication status: with neurologic complications Code(s): E11.9 - Type 2 diabetes mellitus without complications Status: Chronic Assessment and Plan: * Continue home insulin, accuchecks, hypoglycemia protocol. * sliding scale escalated to high and long acting initiated overnight as BS have been elevated. * monitor closely with steroid use (5) Chronic kidney disease: Code(s): N18.9 - Chronic kidney disease, unspecified Status: Chronic Assessment and Plan: * BUN 31 * Creatinine 1.50 * eGFR 33 * will continue to monitor and trend * mild hyperkalemia resolved (6) Coronary artery disease: Code(s): I25.10 - Atherosclerotic heart disease of [place] coronary artery without angina pectoris Status: Chronic Assessment and Plan: * no visible wounds or infection * US dopplers negative for DVT * would likely benefit from lymphedema wraps outpatient (7) Physical deconditioning: Code(s): R53.81 - Other malaise Status: Acute Assessment and Plan: * PT/OT for eval Subjective Date/time seen: 04/20/23 12:44 Interval history: Patient reports she is feeling a little better today. She reports her coughing is now more productive. She is requiring 2L O2 NC which she is not using at home. Will work to titrate off oxygen and consider home 02 eval if not able. Sputum culture still pending. Will continue to monitor kidney function closely. BS highly elevated overnight, adjustments made to insulin regimen overnight and will continue to monitor closely. Review of Systems Review of Systems: All systems reviewed & are unremarkable except as noted in HPI and below Exam Narrative: GENERAL: Well-appearing, well-nourished, and in no acute distress. HEAD: Normocephalic, atraumatic. EYES: PERRLA and EOMI. ENT: Nares clear, no rhinorrhea or epistaxis. Mucous membranes moist. NECK: Supple. No adenopathy or masses. CHEST: No respiratory distress. Diminished breath sounds bilaterally in the lower lobes. Crackles and mild wheezing in upper lobes. HEART: RRR. No murmur heard. Normal peripheral pulses. ABDOMEN: Soft, nontender, nondistended, normal active bowel sounds. MSK: Bilateral lower extremities with 2+ pitting e
--- NOTE | 2023-04-20 12:44 | PM.IMPN ---
Progress Note: A&P Assessment and Plan (1) UTI (urinary tract infection): Code(s): N39.0 - Urinary tract infection, site not specified Status: Acute Assessment and Plan: WBC 8.5 UA positive for nitrates, bacteria on admission UA culture prelim shows E. coli, transitioned to PO cefdinir (2) Mucus plug in respiratory tract: Code(s): T17.998A - Other foreign object in respiratory tract, part unspecified causing other injury, initial encounter Status: Acute Assessment and Plan: CTA showed mucus plug in the right lower lobe pulmonary toileting ordered, CPT with pep therapy Pulmozyme continue albuterol respiratory panel negative sputum culture pending dexamethasone 6 mg (3) CHF (congestive heart failure): Code(s): I50.9 - Heart failure, unspecified Status: Chronic Assessment and Plan: Last ECHO in August of 2022 Repeat ECHO showed grade 2 diastolic dysfunction. BNP on admission slightly elevated but likely related to chronic CHF cardiology consulted - recommends spironolactone, restart home Lasix and signed off (4) Type 2 diabetes mellitus: Qualifiers: Diabetes mellitus intermediate manager insulin use: with fpc use Diabetes mellitus complication status: with neurologic complications Code(s): E11.9 - Type 2 diabetes mellitus without complications Status: Chronic Assessment and Plan: Continue home insulin, accuchecks, hypoglycemia protocol. sliding scale escalated to high and long acting initiated overnight as BS have been elevated. monitor closely with steroid use (5) Chronic kidney disease: Code(s): N18.9 - Chronic kidney disease, unspecified Status: Chronic Assessment and Plan: BUN 31 Creatinine 1.50 eGFR 33 will continue to monitor and trend mild hyperkalemia resolved (6) Coronary artery disease: Code(s): I25.10 - Atherosclerotic heart disease of [place] coronary artery without angina pectoris Status: Chronic Assessment and Plan: no visible wounds or infection US dopplers negative for DVT would likely benefit from lymphedema wraps outpatient (7) Physical deconditioning: Code(s): R53.81 - Other malaise Status: Acute Assessment and Plan: PT/OT for eval Subjective Date/time seen: 04/20/23 12:44 Interval history: Patient reports she is feeling a little better today. She reports her coughing is now more productive. She is requiring 2L O2 NC which she is not using at home. Will work to titrate off oxygen and consider home 02 eval if not able. Sputum culture still pending. Will continue to monitor kidney function closely. BS highly elevated overnight, adjustments made to insulin regimen overnight and will continue to monitor closely. Review of Systems Review of Systems: All systems reviewed & are unremarkable except as noted in HPI and below Exam Narrative: GENERAL: Well-appearing, well-nourished, and in no acute distress. HEAD: Normocephalic, atraumatic. EYES: PERRLA and EOMI. ENT: Nares clear, no rhinorrhea or epistaxis. Mucous membranes moist. NECK: Supple. No adenopathy or masses. CHEST: No respiratory distress. Diminished breath sounds bilaterally in the lower lobes. Crackles and mild wheezing in upper lobes. HEART: RRR. No murmur heard. Normal peripheral pulses. ABDOMEN: Soft, nontender, nondistended, normal active bowel sounds. MSK: Bilateral lower extremities with 2+ pitting edema from feet to knee. There are skin breaks to the posterior calves with erythema. No tenderness. No purulent drainage. Mild weeping on right posterior lower leg. Pedal pulses present. SKIN: Warm, dry, no rash. NEURO: Alert and oriented x4. No focal deficits. PSYCH: Normal mood and affect. Objective Data Vital Signs Vital Signs: Vital Signs - 24 hr 04/19/23 14:44 04/19/23 15:09 04/19/23 14:45 Temperature 98.0 F Pulse Rate 74 70 72 Re
[2023-04-20 17:10] LABS: Glucose Point of Care 473 mg/dl (65-105)
[2023-04-20] MEDS: RIVAROXABAN 20 MG TABLET PO (17:18)
[2023-04-20] MEDS: INSULIN ASPART (*BKC) 100 UNITS/ML 12 UNITS SUB-Q (17:33)
[2023-04-20] MEDS: INSULIN GLARGINE (*BKC) 100 UNITS/ML 15 UNITS SUB-Q (20:25)
[2023-04-20] MEDS: ATORVASTATIN 40 MG TABLET PO (20:32)
[2023-04-20] MEDS: traZODone HCL 50 MG TABLET 100 MG PO (20:32)
[2023-04-20] MEDS: FLUTICASONE PROPIONATE 0.05% NA SPR 16 GM BTL (*BKC) 2 SPRAY NASAL (20:33)
[2023-04-20] MEDS: ACETAMINOPHEN 500 MG TABLET 1000 MG PO (20:42)
[2023-04-20] MEDS: clonazePAM (*CRX) 0.5 MG TABLET PO (20:42)
[2023-04-20 21:07] LABS: Glucose Point of Care > 500 mg/dl (65-105)
[2023-04-20 21:50] LABS: Glucose Point of Care 483 mg/dl (65-105)
--- NOTE | 2023-04-20 22:42 | PCRCNOTE ---
Window of time for administration has passed. See next scheduled administration.
[2023-04-20 23:40] LABS: Glucose Point of Care 443 mg/dl (65-105)
--- NOTE | 2023-04-20 23:43 | PM.EVENT ---
Event Note Event Note Event Note: Patient hyperglycemic yesterday >500 (04/19) overnight requiring additional 17u, 3u, 2u of Humalog and additional 12u, 8u, 6u, 4u of regular insulin throughout the night. Lantus 10u HS added. Patient again >500 around 8 pm. Additonal doses of regular insulin given, 5u and 6u, patient's blood sugar remains >440 x2. suspect this is secondary to dexamethasone. Patient not previously on long acting at home but taking large doses of Humalog with meals. Will start weight based regimen at 0.5 U/kg = Lantus dose of 26u HS, NPH at 13u BIDAC. Leave high dose corrective in place. Will correct current hyperglycemia (443 - 23:28) with 5u of regular insulin and additional 5u of Lantus for total Lantus dose of 20 this evening, assess for toleration tomorrow. Repeat BS at 00:51 394, given 14u of regular insulin. If patient remains moderately hyperglycemic through the day then continue with current planned titration of Lantus from 20u -> 26u tomorrow evening (04/21). If severely hyperglycemic through the day/evening requiring max doses of corrective insulin consider transitioning to 0.6 U/kg. Critical Care Time: I personally spent 30 minutes of direct patient care including (but not limited to) the physical examination, decision-making, bedside evaluation, review of medical records, review of labs and imaging, discussion with nursing staff and other providers for collaborative, critical care management of this patient.
[2023-04-20] MEDS: INSULIN GLARGINE (*BKC) 100 UNITS/ML SUB-Q (23:56)
[2023-04-21] VITALS (9 sets, daily range): BP systolic 148–151; BP diastolic 56–70; PULSE 66–88; RESP 16–20; TEMP 36.2–36.7; O2SAT 95–97
[2023-04-21 00:59] LABS: Glucose Point of Care 394 mg/dl (65-105)
[2023-04-21] MEDS: INSULIN HUMAN REGULAR (*BKC) 100 UNITS/ML 14 UNITS SUB-Q (01:31)
[2023-04-21 02:31] LABS: Glucose Point of Care 359 mg/dl (65-105)
[2023-04-21] MEDS: INSULIN HUMAN REGULAR (*BKC) 100 UNITS/ML 12 UNITS SUB-Q (02:39)
[2023-04-21 03:49] LABS: Glucose Point of Care 292 mg/dl (65-105)
[2023-04-21] MEDS: INSULIN HUMAN NPH (*BKC) 100 UNITS/ML 13 UNITS SUB-Q (05:39)
[2023-04-21 05:46] LABS: Glucose Point of Care 204 mg/dl (65-105)
[2023-04-21 06:00] LABS: Basophils Percent Auto 0.2 % (0.2-1.2); Hematocrit 33.2 % (37.0-47.0); Hemoglobin 10.6 g/dL (12.0-15.0); Immature Granulocyte Absolute 0.14 K/mm3 (0.00-0.031); Immature Granulocyte Percent A 1.1 % (0-0.5); Lymphocytes Absolute Auto 1.35 K/mm3 (0.9-3.2); Lymphocytes Percent Auto 10.2 % (18.3-44.2); Mean Corpuscular HGB Conc 31.9 g/dl (32-36); Mean Corpuscular Hemoglobin 31.1 pg (26-34); Mean Corpuscular Volume 97.4 fl (80-100); Mean Platelet Volume 11.9 fl (7.4-10.4); Monocytes Absolute Auto 1.3 K/mm3 (0.1-0.6); Monocytes Percent Auto 9.9 % (2.6-8.5); Neutrophils Absolute Auto 10.5 K/mm3 (1.3-6.7); Neutrophils Percent Auto 78.6 % (45.5-73.1); Platelet Count Result 156 k/mm3 (150-375); Red Blood Count 3.41 M/mm3 (4.2-5.4); Red Cell Distribution Width 14.3 % (11.5-14.5); White Blood Count 13.3 K/mm3 (4.5-10.0)
[2023-04-21 06:16] LABS: Albumin Level 3.5 g/dL (3.5-5.1); Anion Gap 8 mmol/L (8-16); Blood Urea Nitrogen 36 mg/dL (7-17); Calcium 9.8 mg/dL (8.4-10.2); Carbon Dioxide 29 mmol/L (22-30); Chloride 101 mmol/L (98-107); Estimated CRCL calculation 31 ml/min; Estimated Glomerular Filt Rate 33; Glucose 215 mg/dL (65-110); Phosphorus 3.1 mg/dL (2.5-4.5); Potassium 4.8 mmol/L (3.4-5.0); Sodium 138 mmol/L (137-145)
[2023-04-21 08:43] LABS: Glucose Point of Care 110 mg/dl (65-105)
[2023-04-21] MEDS: traMADol HCL (*CRX) 50 MG TABLET PO (08:49)
[2023-04-21] MEDS: buPROPion HCL XL (24 HR) 150 MG TABCR PO (08:49)
[2023-04-21] MEDS: lisinopriL 20 MG TABLET 40 MG PO (08:49)
[2023-04-21] MEDS: DEXAMETHASONE 2 MG TABLET 6 MG PO (08:49)
[2023-04-21] MEDS: SPIRONOLACTONE 12.5 MG TABLET PO (08:49)
[2023-04-21] MEDS: busPIRone HCL 5 MG TABLET 15 MG PO ×2 (08:50→12:30)
[2023-04-21] MEDS: CHOLECALCIFEROL 1,000 UNITS TABLET 1000 UNITS PO (08:50)
[2023-04-21] MEDS: CEFDINIR 300 MG CAPSULE PO ×2 (08:50→14:50)
[2023-04-21] MEDS: METOPROLOL SUCCINATE EXT REL 25 MG TABCR PO (08:50)
[2023-04-21] MEDS: LORATADINE 10 MG TABLET PO (08:50)
[2023-04-21] MEDS: CLOPIDOGREL BISULFATE 75 MG TABLET PO (08:50)
[2023-04-21] MEDS: TIMOLOL MALEATE 0.5% OP SOLN 5 ML BOTTLE 2 DROP EACH EYE (08:51)
[2023-04-21] MEDS: MONTELUKAST SODIUM 10 MG TABLET PO (08:51)
[2023-04-21] MEDS: FUROSEMIDE 40 MG TABLET PO (08:55)
[2023-04-21] MEDS: BRIMONIDINE TARTRATE 0.2% OP SOLN 5 ML BTL 2 DROP EACH EYE (08:56)
[2023-04-21 12:02] LABS: Glucose Point of Care 281 mg/dl (65-105)
--- NOTE | 2023-04-21 12:26 | HOMEO2EVAL ---
Evaluation was performed at [facility] Home Oxygen Evaluation RC: Home Oxygen (O2) Evaluation Start: 04/20/23 16:13 Freq: ONCE Status: Active Protocol: RPE Activity Type Activity Date Activity User E-sign Co-sign Detail Recorded Client Recorded Date Recorded By Document 04/20/23 18:02 MDW [email or web address] 04/20/23 18:11 MDW Document 04/20/23 18:03 MDW [email or web address] 04/20/23 18:11 MDW Document 04/20/23 18:04 MDW [email or web address] 04/20/23 18:11 MDW Document 04/20/23 18:05 MDW [email or web address] 04/20/23 18:11 MDW 04/20/23 04/20/23 04/20/23 18:02 18:03 18:04 Home O2 Evaluation [Oxygen] -Test Phase Resting Exercise Exercise -Oxygen Delivery Room Air Room Air Room Air -Oxygen Flow Rate (L/min) -Fraction of Inspired Oxygen (%) [Pulse Oximetry] -Pulse Oximetry (90-100 %) 93 90 87 L [Pulse Rate] -Pulse Rate (60-100 beats/min) 89 95 101 H [Evaluation] -Activity Tolerance Good Good Fair -Rating of Perceived Dyspnea (PD) +1 Mild, +2 Mild, Some +2 Mild, Some Noticeable to Difficulty, Difficulty, the Participant Noticeable to Noticeable to but Not to an the Observer the Observer Observer -Rate of Perceived Exertion (PE) 6 Very, very 8 8 Query Text:Click the Protocol Button light to View the RPE Scale [Exercise] -Ambulation Distance (feet) 0 10 15 -Ambulation Distance (meters) 0 3.04 4.57 04/20/23 18:05 Home O2 Evaluation [Oxygen] -Test Phase Exercise -Oxygen Delivery Nasal Cannula -Oxygen Flow Rate (L/min) 2 -Fraction of Inspired Oxygen (%) 28 [Pulse Oximetry] -Pulse Oximetry (90-100 %) 91 [Pulse Rate] -Pulse Rate (60-100 beats/min) 101 H [Evaluation] -Activity Tolerance Fair -Rating of Perceived Dyspnea (PD) +3 Moderate Difficulty, But Can Continue -Rate of Perceived Exertion (PE) 12 Query Text:Click the Protocol Button to View the RPE Scale [Exercise] -Ambulation Distance (feet) 20 -Ambulation Distance (meters) 6.09
[2023-04-21] MEDS: INSULIN ASPART (*BKC) 100 UNITS/ML SUB-Q (12:30)
--- NOTE | 2023-04-21 12:52 | PCRCNOTE ---
Home 02 Eval completed 04/20. [facility] notified on 04/21
[2023-04-21] MEDS: IPRATROPIUM BR 0.02% INH SOLN 0.5 MG/2.5 ML VIAL INHALATION (14:11)
[2023-04-21] MEDS: ALBUTEROL SULFATE NEB 2.5 MG/3 ML INH INHALATION (14:11)
--- NOTE | 2023-04-21 14:46 | P.DS_ITS ---
DS: Admitting Diagnosis Discharge Date 04/21/23 Admitting Diagnosis SOB, worsening LE edema DS: Discharge Diagnosis Discharge Diagnosis (1) Mucus plug in respiratory tract: Code(s): T17.998A - Other foreign object in respiratory tract, part unspecified causing other injury, initial encounter Status: Acute Assessment and Plan: * CTA showed mucus plug in the right lower lobe * pulmonary toileting, CPT with pep therapy * Pulmozyme * continue albuterol * respiratory panel negative * sputum culture pending * dexamethasone 6 mg on d/c for full 10 day course * repeat CXR 04/21 showed marked improvement (2) CHF (congestive heart failure): Code(s): I50.9 - Heart failure, unspecified Status: Chronic Assessment and Plan: * Last ECHO in August of 2022 * Repeat ECHO showed grade 2 diastolic dysfunction. * BNP on admission slightly elevated but likely related to chronic CHF * cardiology consulted - recommends spironolactone, restart home Lasix and signed off (3) Suspected sleep apnea: Code(s): R29.818 - Other symptoms and signs involving the nervous system Status: Acute Assessment and Plan: * Home O2 eval - home oxygen arranged for 2L NC (4) Type 2 diabetes mellitus: Qualifiers: Diabetes mellitus complication status: with neurologic complications Diabetes mellitus termite technician insulin use: with group home use Code(s): E11.9 - Type 2 diabetes mellitus without complications Status: Chronic Assessment and Plan: * Continue home insulin, accuchecks, hypoglycemia protocol. * sliding scale escalated to high and long acting initiated overnight as BS have been elevated. * monitor closely with steroid use (5) Diabetic neuropathy: Code(s): E11.40 - Type 2 diabetes mellitus with diabetic neuropathy, unspecified Status: Chronic Assessment and Plan: * would benefit from referral from primary for lymphedema wraps (6) Weakness: Code(s): R53.1 - Weakness Status: Chronic Assessment and Plan: * PT/OT evaluated, safe to return to [place] (7) Chronic kidney disease: Code(s): N18.9 - Chronic kidney disease, unspecified Status: Chronic Assessment and Plan: * BUN 36, Creatinine 1.50, eGFR 33 * near baseline for patient * mild hyperkalemia resolved (8) Coronary artery disease: Code(s): I25.10 - Atherosclerotic heart disease of [place] coronary artery without angina pectoris Status: Chronic Assessment and Plan: * no visible wounds or infection * US dopplers negative for DVT * would likely benefit from lymphedema wraps outpatient (9) Physical deconditioning: Code(s): R53.81 - Other malaise Status: Acute Assessment and Plan: * PT/OT for eval (10) Obesity (BMI 30-39.9): Code(s): E66.9 - Obesity, unspecified Status: Chronic Assessment and Plan: * lifestyle and diet DS: Summary Hospital Course Hospital Course: Patient is a 78 YO female with PMH of CHF, CVA, T2 dm, CKD, CAD admitted with chief complaint bilateral lower extremity edema and cough for the 3-4 days prior to admission. Reported that she feels like she has an upper respiratory infection with a lot of sinus congestion, sinus drainage, productive cough. Reported green/yellow sputum and reports feeling short of breath. She has been admitted to the hospital a few times this year with CHF exacerbations. Reported her legs have been weeping fluid and have some erythema. Reported the erythema has n
--- NOTE | 2023-04-21 14:46 | PM.DS ---
DS: Admitting Diagnosis Discharge Date 04/21/23 Admitting Diagnosis SOB, worsening LE edema DS: Discharge Diagnosis Discharge Diagnosis (1) Mucus plug in respiratory tract: Code(s): T17.998A - Other foreign object in respiratory tract, part unspecified causing other injury, initial encounter Status: Acute Assessment and Plan: CTA showed mucus plug in the right lower lobe pulmonary toileting, CPT with pep therapy Pulmozyme continue albuterol respiratory panel negative sputum culture pending dexamethasone 6 mg on d/c for full 10 day course repeat CXR 04/21 showed marked improvement (2) CHF (congestive heart failure): Code(s): I50.9 - Heart failure, unspecified Status: Chronic Assessment and Plan: Last ECHO in August of 2022 Repeat ECHO showed grade 2 diastolic dysfunction. BNP on admission slightly elevated but likely related to chronic CHF cardiology consulted - recommends spironolactone, restart home Lasix and signed off (3) Suspected sleep apnea: Code(s): R29.818 - Other symptoms and signs involving the nervous system Status: Acute Assessment and Plan: Home O2 eval - home oxygen arranged for 2L NC (4) Type 2 diabetes mellitus: Qualifiers: Diabetes mellitus complication status: with neurologic complications Diabetes mellitus [facility] insulin use: with [facility] use Code(s): E11.9 - Type 2 diabetes mellitus without complications Status: Chronic Assessment and Plan: Continue home insulin, accuchecks, hypoglycemia protocol. sliding scale escalated to high and long acting initiated overnight as BS have been elevated. monitor closely with steroid use (5) Diabetic neuropathy: Code(s): E11.40 - Type 2 diabetes mellitus with diabetic neuropathy, unspecified Status: Chronic Assessment and Plan: would benefit from referral from primary for lymphedema wraps (6) Weakness: Code(s): R53.1 - Weakness Status: Chronic Assessment and Plan: PT/OT evaluated, safe to return to [place] (7) Chronic kidney disease: Code(s): N18.9 - Chronic kidney disease, unspecified Status: Chronic Assessment and Plan: BUN 36, Creatinine 1.50, eGFR 33 near baseline for patient mild hyperkalemia resolved (8) Coronary artery disease: Code(s): I25.10 - Atherosclerotic heart disease of [place] coronary artery without angina pectoris Status: Chronic Assessment and Plan: no visible wounds or infection US dopplers negative for DVT would likely benefit from lymphedema wraps outpatient (9) Physical deconditioning: Code(s): R53.81 - Other malaise Status: Acute Assessment and Plan: PT/OT for eval (10) Obesity (BMI 30-39.9): Code(s): E66.9 - Obesity, unspecified Status: Chronic Assessment and Plan: lifestyle and diet DS: Summary Hospital Course Hospital Course: Patient is a 78 YO female with PMH of CHF, CVA, T2 dm, CKD, CAD admitted with chief complaint bilateral lower extremity edema and cough for the 3-4 days prior to admission. Reported that she feels like she has an upper respiratory infection with a lot of sinus congestion, sinus drainage, productive cough. Reported green/yellow sputum and reports feeling short of breath. She has been admitted to the hospital a few times this year with CHF exacerbations. Reported her legs have been weeping fluid and have some erythema. Reported the erythema has not been spreading and is not painful. Patient received supportive care for her mucus plug, started on dexamethasone 6 mg and a home O2 evaluation for her new oxygen needs. Coordination for oxygen at discharge. Repeat CXR today looked improved from admission without signs of pneumonia. Will follow up on sputum culture. She received full course of antibiotic treatment for her UTI while inpatient. She is feeling much better today, st
--- NOTE | 2023-04-21 15:33 | PC.NURSE ---
Called report to Camilo Rascon for DC.
--- NOTE | 2023-04-24 13:10 | PC.NURSE ---
Sputum culture is negative.
== END 2023-04-21 16:58 | DRG 206 ==
LOC: ANHED 18:08 → ANH3MEDSUR 22:20 → ANH2MED 22:59
PROVIDERS: Student in an Organized Health Care Education/Training Program; Admitting Provider Internal Medicine; Emergency Provider Physician Assistant; PCP Family Medicine; Visit Provider Nurse Practitioner
DX: T17.998A Other foreign object in respiratory tract, part unspecified causing other injury, initial encounter (principal); I50.32 Chronic diastolic (congestive) heart failure; N39.0 Urinary tract infection, site not specified; Z68.41 Body mass index [BMI] 40.0-44.9, adult; I13.0 Hypertensive heart and chronic kidney disease with heart failure and stage 1 through stage 4 chronic kidney disease, or unspecified chronic kidney disease; B96.20 Unspecified Escherichia coli [E. coli] as the cause of diseases classified elsewhere; E87.5 Hyperkalemia; E11.22 Type 2 diabetes mellitus with diabetic chronic kidney disease; N18.9 Chronic kidney disease, unspecified; I25.10 Atherosclerotic heart disease of native coronary artery without angina pectoris; Z20.822 Contact with and (suspected) exposure to COVID-19; E78.2 Mixed hyperlipidemia; E11.42 Type 2 diabetes mellitus with diabetic polyneuropathy; K58.0 Irritable bowel syndrome with diarrhea; E88.810 Metabolic syndrome; E66.9 Obesity, unspecified; I87.8 Other specified disorders of veins; R53.81 Other malaise; G47.30 Sleep apnea, unspecified; I89.0 Lymphedema, not elsewhere classified; I48.0 Paroxysmal atrial fibrillation; Z95.5 Presence of coronary angioplasty implant and graft; Z87.891 Personal history of nicotine dependence
CPT/HCPCS: 36415; 71045; 71046; 71275; 80048; 80053; 80069; 81001; 82948; 83036; 83735; 83880; 85025; 85380; 85610; 85730; 87070; 87077; 87086; 87186; 87205; 87637; 93005; 93306; 93970; 94640; 94667; 96365; 96376; 97161; 97530; 99285; A9270; G0378; J0696; J1815; J8540; Q9967

== ENCOUNTER 2023-07-10 09:57 | Outpatient (CLI) | payer MEDICARE, SELFPAY ==
--- NOTE | ~2023-07-10 | XR_ITS ---
EXAMINATION: XR chest 2V DATE: 07/10/2023 10:21 INDICATION: Cough. Shortness of breath. TECHNIQUE: Frontal and lateral views of the chest were obtained on 3 radiographs. COMPARISON: Chest 2 views 04/21/2023, chest CT 04/16/2023 FINDINGS: Sensitivity is decreased by obesity. There are airspace opacities in the lower lung zones. There is a small right pleural effusion. No pneumothorax. The heart size is normal. There are promine nt paracardial fat pads. There is an electronic implant in anterior chest wall. IMPRESSION: 1. Airspace opacities in the lower lung zones, consistent with atelectasis versus pneumonia. 2. Small right pleural effusion. Reviewed, dictated and finalized at location A. IMPRESSION: 1. Airspace opacities in the lower lung zones, consistent with atelectasis vers us pneumonia. 2. Small right pleural effusion.
== END 2023-07-10 09:58 ==
PROVIDERS: PCP Family Medicine; Visit Provider Family Medicine
DX: R91.8 Other nonspecific abnormal finding of lung field (principal); J90 Pleural effusion, not elsewhere classified; J44.9 Chronic obstructive pulmonary disease, unspecified; R06.02 Shortness of breath
CPT/HCPCS: 71046

== ENCOUNTER 2023-07-25 16:09 | Inpatient (IN) | payer MEDICARE, SELFPAY ==
[2023-07-25] VITALS (22 sets, daily range): BP systolic 118–174; BP diastolic 47–95; PULSE 64–76; RESP 15–25; TEMP 36.6; O2SAT 92–100
--- NOTE | ~2023-07-25 | US_ITS ---
EXAMINATION: US venous doppler [facility] DATE: 07/27/2023 13:23 INDICATION: Lower limb swelling. TECHNIQUE: Grayscale ultrasound images without and with compression and Doppler ultrasound images of the bilateral lower extremity veins were obtained. COMPARISON: Ultrasound 04/18/2023 FINDINGS: The visualized portions of right common femoral vein, profunda (deep) femoral vein, femoral vein, pop liteal vein, and greater saphenous vein outflow are patent. The calf veins are not well evaluated due to edema. The visualized portions of left common femoral vein, profunda femoral vein, femoral vein, popliteal v ein, and greater saphenous vein outflow are patent. The calf veins are not well evaluated due to timothy a. IMPRESSION: 1. No deep venous thrombosis. Reviewed, dictated and finalized at location A.
--- NOTE | ~2023-07-25 | XR_ITS ---
EXAMINATION: XR chest 2V Exam Date/Time: 07/25/2023 18:23 CDT HISTORY: lower leg swelling Comparison: 07/10/2023. RESULT: Lines, tubes, and devices: None. Lungs and pleura: Limited by body habitus and low lung volumes. Mild perihilar reticular opacities a nd reticular. Subsegmental bibasilar scar/atelectasis. Cardiomediastinal silhouette: Stable. Other: No acute osseous or upper abdominal finding. IMPRESSION: Mild interstitial edema. Reviewed, dictated and finalized at location [facility]. IMPRESSION: Mild interstitial edema.
--- NOTE | 2023-07-25 18:05 | ECG_ITS ---
Measurements Intervals [place] Rate: 68 P: 75 TX: 187 QRS: 41 QRSD: 75 T: 60 QT: 391 QTc: 417 Interpretive Statements SINUS RHYTHM WITH SINUS ARRHYTHMIA LOW QRS VOLTAGE IN PRECORDIAL LEADS BASELINE ARTIFACT- I, III, AVL, AVF, V2, V6 BORDERLINE ECG COMPARED TO ECG 04/16/2023 17:55:12 SINUS ARRHYTHMIA NOW PRESENT Electronically Signed On 07-25-2023 20:21:36 CDT by Darien Marte D.O.
--- NOTE | 2023-07-25 18:06 | ED.GENADULT ---
HPI - General Adult General Chief complaint: Extremity Problem,Nontraumatic <Subhash Souza PA-C - Last Filed: 07/26/23 02:17> Stated complaint: ble edema <Subhash Souza PA-C - Last Filed: 07/26/23 02:17> Time Seen by Provider: 07/25/23 17:42 <Subhash Souza PA-C - Last Filed: 07/26/23 02:17> Source: patient <MABEL Wade Last Filed: 07/26/23 02:17> Mode of arrival: EMS <MABEL Wade Last Filed: 07/26/23 02:17> Limitations: no limitations <MABEL Wade Last Filed: 07/26/23 02:17> History of Present Illness HPI narrative: This is a 78-year-old female with history of lymphedema, COPD, T2 dm, CAD who presents to the ED with chief complaint of bilateral lower extremity edema. Reports chronic edema due to lymphedema seems to be worsening in the last couple of weeks. she reports the legs have been weeping clear fluid for 2 weeks. They increased her Lasix to 40 BID when she saw her PCP 2 weeks ago but she feels that the swelling is worsening regardless. She was referred to the ED today for IV diuresis. Reports chronic shortness of breath that does not seem any worse. She does report intermittent bouts of chest pain palpitations but relates this to AFib. She is anticoagulated. Denies any fevers, chills, nausea, vomiting, cough. <Subhash Souza PA-C - Last Filed: 07/26/23 02:17> Related Data Home medications: Home Medications Medication Instructions Recorded Confirmed budesonide-formoterol HFA 160 2 puff inhalation Q12H 10/29/19 07/25/23 mcg-4.5 mcg/actuation aerosol inhaler ejlmidqut-AEO-ngvlqoajapusq tablet 1 tablet PO DAILY 02/03/23 07/25/23 benzonatate 100 mg capsule 100 mg PO TID PRN Cough 07/26/23 07/26/23 buspirone 15 mg tablet 15 mg PO TID 07/26/23 07/26/23 fluticasone fur. 100 mcg-umeclid 1 inh inhalation DAILY 07/26/23 07/26/23 62.5 mcg-vilant 25 mcg inhalat.powder (Trelegy Ellipta) fluticasone propionate 50 2 spray intranasal HS 07/26/23 07/26/23 mcg/actuation nasal spray,suspension vilazodone 10 mg tablet 10 mg PO DAILY 07/26/23 07/26/23 <Subhash Souza PA-C - Last Filed: 07/26/23 02:17> Allergies/adverse reactions: Allergies Allergy/AdvReac Type Severity Reaction Status Date / Time amoxicillin AdvReac Mild Nausea and Verified 07/25/23 16:23 Vomiting clavulanic acid AdvReac Mild Nausea and Verified 07/25/23 16:23 [From Augmentin] Vomiting <Subhash Souza PA-C - Last Filed: 07/26/23 02:17> Review of Systems Review of Systems: All systems as dictated in HPI <Subhash Souza PA-C - Last Filed: 07/26/23 02:17> [facility] Past Medical History Medical History: Medical History Anxiety Asthma Back pain Benign hypertension Chronic kidney disease Coronary artery disease History of stent to OM in December 2016. Depression Hypertension Hypokalemia Irritable bowel syndrome with diarrhea Metabolic syndrome Mixed hyperlipidemia Obesity Sinusitis, acute Type 2 diabetes mellitus Vertigo <Subhash Souza PA-C - Last Filed: 07/26/23 02:17> Surgical History Surgical History: Surgical History History of cardiac catheterization History of coronary artery stent placement History of tonsillectomy <Subhash Souza PA-C - Last Filed: 07/26/23 02:17> Family History Family History: Family History Father Family history of mental disorder Depression Family history of arthritis Family history of diabetes mellitus in first degree relative Family history of congestive heart failure Family history of heart disease in male family member before age 55 Family history of hearing loss Diabetes mellitus Family history of cardiovascular disease Acute myocardial infarction Mother Family history of anemia Family history
[2023-07-25 19:10] LABS: Basophils Absolute Auto 0.1 K/mm3 (0.0-0.1); Basophils Percent Auto 0.5 % (0.2-1.2); Eosinophils Absolute Auto 0.3 K/mm3 (0-0.3); Eosinophils Percent Auto 2.7 % (0-4.4); Hematocrit 37.6 % (37.0-47.0); Hemoglobin 11.7 g/dL (12.0-15.0); Immature Granulocyte Absolute 0.07 K/mm3 (0.00-0.031); Immature Granulocyte Percent A 0.6 % (0-0.5); Lymphocytes Absolute Auto 1.78 K/mm3 (0.9-3.2); Lymphocytes Percent Auto 15.5 % (18.3-44.2); Mean Corpuscular HGB Conc 31.1 g/dl (32-36); Mean Corpuscular Hemoglobin 30.9 pg (26-34); Mean Corpuscular Volume 99.2 fl (80-100); Mean Platelet Volume 10.5 fl (7.4-10.4); Monocytes Absolute Auto 1.1 K/mm3 (0.1-0.6); Monocytes Percent Auto 9.6 % (2.6-8.5); Neutrophils Absolute Auto 8.2 K/mm3 (1.3-6.7); Neutrophils Percent Auto 71.1 % (45.5-73.1); Platelet Count Result 248 k/mm3 (150-375); Red Blood Count 3.79 M/mm3 (4.2-5.4); Red Cell Distribution Width 14.4 % (11.5-14.5); White Blood Count 11.5 K/mm3 (4.5-10.0)
[2023-07-25 19:32] LABS: INR 2.4; Prothrombin Time 27.5 Seconds (11.1-14.7)
[2023-07-25 19:33] LABS: Partial Thromboplastin Time 47.6 Seconds (22.3-36.8)
[2023-07-25 20:00] LABS: Glucose Point of Care 114 mg/dl (65-105)
--- NOTE | 2023-07-25 20:18 | PC.NURSE ---
Patient called out to nursing station and advised that her blood sugar is 52 per her phone alarm. Staff obtained a POC BS of 114. Notified EDP JIMMY Cullen. Per JIMMY Cullen patient is okay to eat something.
[2023-07-25 20:53] LABS: Alanine Aminotransferase 18 U/L (6-35); Alkaline Phosphatase 137 U/L (38-126); Anion Gap 3 mmol/L (4-12); Aspartate Amino Transferase 25 U/L (14-36); Bilirubin,Total 0.5 mg/dL (0.2-1.3); Blood Urea Nitrogen 33 mg/dL (7-17); Calcium 10.1 mg/dL (8.4-10.2); Carbon Dioxide 32 mmol/L (22-30); Chloride 103 mmol/L (98-107); Estimated CRCL calculation 29 ml/min; Estimated Glomerular Filt Rate 31; Glucose 101 mg/dL (65-110); Potassium 4.5 mmol/L (3.4-5.0); Sodium 138 mmol/L (137-145)
[2023-07-25 21:06] LABS: NT Pro B Type Natriuretic Pept 529 pg/mL (19.9-100); Troponin I < 0.012 ng/mL (0.000-0.034)
[2023-07-25] MEDS: FUROSEMIDE INJ 40 MG/4 ML VIAL IV PUSH (21:14)
[2023-07-25] MEDS: BUMETANIDE INJ 1 MG/4 ML VIAL IV PUSH (21:43)
[2023-07-25] MEDS: ACETAMINOPHEN 325 MG TABLET 650 MG PO (23:25)
[2023-07-26] VITALS (7 sets, daily range): BP systolic 119–140; BP diastolic 39–51; PULSE 72–77; RESP 14–20; TEMP 36.1–36.4; O2SAT 94–95; BMI 41.3
--- NOTE | 2023-07-26 03:51 | PC.NURSE ---
Pt is A&O x4, able to make needs know. Admission packet reviewed with the pt, medication reconciliation completed. Pt instructed about use of call light. Dressings to BLE applied, pictures taken, pt tolerated well. No further questions at this time.
[2023-07-26] MEDS: ACETAMINOPHEN 325 MG TABLET 650 MG PO ×3 (04:40→18:01)
[2023-07-26 07:57] LABS: Glucose Point of Care 258 mg/dl (65-105)
--- NOTE | 2023-07-26 08:12 | PM.IMHP ---
H&P: HPI History of Present Illness Date/Time: 07/26/23 08:12 Chief Complaint: Worsening bilateral lower extremity edema Narrative: This is a 78-year-old female with history of grade 2 diastolic dysfunction on echocardiogram April 17, 2023, lymphedema, COPD, T2 dm, CAD who presents to the ED with chief complaint of bilateral lower extremity edema.? Patient has been having worsening lower extremity edema in past weeks, and noticed weeping clear fluid for 2 weeks. Patient also has chronic shortness of breath, worse exertion. Patient denies chest pain, headache, focal weakness but has general weakness patient has intermittent palpitation. Denies fever, chills, abdomen pain, nausea vomiting diarrhea. Patient came to ED for evaluation, in the ED, patient was found have leukocytosis 11,500 with left shift, hemoglobin 11.7 above baseline, elevated BUN creatinine 33/1.6 on the baseline, uncontrolled glucose 258, chest x-ray shows mild interstitial edema, EKG shows sinus rhythm no specific ST T-wave changes PMFSH Past Medical History Medical History Anxiety Asthma Back pain Benign hypertension Chronic kidney disease Coronary artery disease History of stent to in December 2016. Depression Hypertension Hypokalemia Irritable bowel syndrome with diarrhea Metabolic syndrome Mixed hyperlipidemia Obesity Sinusitis, acute Type 2 diabetes mellitus Vertigo Surgical History Surgical History History of cardiac catheterization History of coronary artery stent placement History of tonsillectomy Family History Family History Father Family history of mental disorder Depression Family history of arthritis Family history of diabetes mellitus in first degree relative Family history of congestive heart failure Family history of heart disease in male family member before age 55 Family history of hearing loss Diabetes mellitus Family history of cardiovascular disease Acute myocardial infarction Mother Family history of anemia Family history of arthritis Family history of malignant neoplasm of breast in first degree relative Sibling Family history of cardiovascular disease Other Family history of elevated blood lipids Social History Social History Social History: Surrogate medical decision maker: Ben Finch, son. Code status: Full code. Smoking packs per day: 2 Smoking cigarettes per day: 40.0 Years smoked: 35 Smoking pack-years: 70.00 Smoking status: Former smoker Alcohol intake: never Substance use: never Other substance usage details: CBD/THC oil and gummies. Do You Feel Safe in your Home?: Yes Lack of Transportation: No Lack of Food: Never True Current Housing: I Have Housing Concerned About Future Housing: No Difficulty Paying Gas/Electric Bills: No Difficulty Paying for Meds: No Currently Unemployed: No Education: High School Diploma/GED Difficulty w/ Childcare or Family Care: No Additional living arrangements comments: . Lives in [place]. Occupation/Education: retired Spiritual care concerns: No Meds Home Medications and Allergies Home Medications Medication Instructions Recorded Confirmed Type budesonide-formoterol HFA 160 2 puff inhalation Q12H 10/29/19 07/25/23 History mcg-4.5 mcg/actuation aerosol inhaler albuterol sulfate 90 mcg/actuation 2 inh inhalation Q4H PRN shortness 04/12/22 07/25/23 Rx aerosol inhaler of breath or wheezing #8.5 grams silver 200 mcg/gram topical gel 1 applic topical DAILY 1 month #90 06/05/22 07/25/23 Rx (Silver-Sept) grams dicyclomine 20 mg tablet 20 mg PO QID PRN Cramps #28 tabs 10/08/22 07/25/23 Rx tramadol 50 mg tablet 50 mg PO Q6H PRN pain #30 tabs 11/08/22 07/25/23 Rx cet
[2023-07-26] MEDS: FUROSEMIDE INJ 40 MG/4 ML VIAL 60 MG IV PUSH ×2 (10:04→16:30)
[2023-07-26] MEDS: CHOLECALCIFEROL 1,000 UNITS TABLET 1000 UNITS PO (10:05)
[2023-07-26] MEDS: MONTELUKAST SODIUM 10 MG TABLET PO (10:05)
[2023-07-26] MEDS: LORATADINE 10 MG TABLET PO (10:05)
[2023-07-26] MEDS: busPIRone HCL 5 MG TABLET 15 MG PO ×3 (10:05→16:31)
[2023-07-26] MEDS: lisinopriL 20 MG TABLET 40 MG PO (10:05)
[2023-07-26] MEDS: buPROPion HCL XL (24 HR) 150 MG TABCR PO (10:05)
[2023-07-26] MEDS: CLOPIDOGREL BISULFATE 75 MG TABLET PO (10:05)
[2023-07-26] MEDS: INSULIN GLARGINE (*BKC) 100 UNITS/ML 40 UNITS SUB-Q ×2 (10:06→16:34)
[2023-07-26] MEDS: TIMOLOL MALEATE 0.5% OP SOLN 5 ML BOTTLE 1 DROP EACH EYE (10:07)
[2023-07-26] MEDS: BRIMONIDINE TARTRATE 0.2% OP SOLN 5 ML BTL 1 DROP EACH EYE (10:07)
[2023-07-26] MEDS: SPIRONOLACTONE 12.5 MG TABLET PO (10:11)
[2023-07-26] MEDS: FLUTICASONE/UMECLIDIN/VILANTER 100-62.5-25 MCG ELLIPTA 1 PUFF INHALATION (10:11)
[2023-07-26] MEDS: MICONAZOLE NITRATE 2% CREAM 30 GM TUBE 1 APPLIC TOPICAL (10:12)
[2023-07-26] MEDS: traMADol HCL (*CRX) 50 MG TABLET PO ×2 (10:15→17:59)
[2023-07-26 11:16] LABS: Glucose Point of Care 348 mg/dl (65-105)
[2023-07-26] MEDS: INSULIN ASPART (*BKC) 100 UNITS/ML 10 UNITS SUB-Q ×2 (12:44→16:34)
[2023-07-26] MEDS: INSULIN ASPART (*BKC) 100 UNITS/ML SUB-Q ×3 (12:44→20:16)
[2023-07-26 16:13] LABS: Glucose Point of Care 282 mg/dl (65-105)
[2023-07-26] MEDS: DOXYCYCLINE HYCLATE 100 MG TABLET PO (16:31)
[2023-07-26] MEDS: cefTRIAXone 2 GM/NS 100 ML 2 GM/100 ML BAG IVPB (16:32)
[2023-07-26] MEDS: RIVAROXABAN 20 MG TABLET PO (18:01)
[2023-07-26] MEDS: ATORVASTATIN 40 MG TABLET PO (20:09)
[2023-07-26] MEDS: traZODone HCL 50 MG TABLET 100 MG PO (20:09)
[2023-07-26] MEDS: clonazePAM (*CRX) 0.5 MG TABLET PO (20:10)
[2023-07-26] MEDS: oxyCODONE/ACETAMINOPHEN (*CRX) 5-325 MG TABLET 1 TABLET PO (20:14)
[2023-07-26] MEDS: FLUTICASONE/SALMETEROL 115-21 MCG INHALER 1 PUFF 2 PUFF INHALATION (20:59)
[2023-07-26 23:15] LABS: Glucose Point of Care 230 mg/dl (65-105)
[2023-07-27 05:20] VITALS: BP 132/61; PULSE 81; RESP 22; TEMP 36.1; O2SAT 93
[2023-07-27] MEDS: DOXYCYCLINE HYCLATE 100 MG TABLET PO ×2 (05:42→16:45)
[2023-07-27 07:41] LABS: Glucose Point of Care 199 mg/dl (65-105)
[2023-07-27 08:00] VITALS: PULSE 81; RESP 22; O2SAT 93
[2023-07-27 08:20] VITALS: O2SAT 93
[2023-07-27] MEDS: FLUTICASONE/SALMETEROL 115-21 MCG INHALER 1 PUFF 2 PUFF INHALATION (08:20)
[2023-07-27] MEDS: FLUTICASONE/UMECLIDIN/VILANTER 100-62.5-25 MCG ELLIPTA 1 PUFF INHALATION (08:27)
[2023-07-27] MEDS: MONTELUKAST SODIUM 10 MG TABLET PO (09:01)
[2023-07-27] MEDS: buPROPion HCL XL (24 HR) 150 MG TABCR PO (09:01)
[2023-07-27] MEDS: CHOLECALCIFEROL 1,000 UNITS TABLET 1000 UNITS PO (09:01)
[2023-07-27] MEDS: SPIRONOLACTONE 12.5 MG TABLET PO (09:01)
[2023-07-27] MEDS: busPIRone HCL 5 MG TABLET 15 MG PO ×3 (09:01→16:44)
[2023-07-27] MEDS: BRIMONIDINE TARTRATE 0.2% OP SOLN 5 ML BTL 1 DROP EACH EYE ×2 (09:02→20:24)
[2023-07-27] MEDS: lisinopriL 20 MG TABLET 40 MG PO (09:02)
[2023-07-27] MEDS: CLOPIDOGREL BISULFATE 75 MG TABLET PO (09:02)
[2023-07-27] MEDS: LORATADINE 10 MG TABLET PO (09:02)
[2023-07-27] MEDS: TIMOLOL MALEATE 0.5% OP SOLN 5 ML BOTTLE 1 DROP EACH EYE ×2 (09:02→20:24)
[2023-07-27] MEDS: FUROSEMIDE INJ 40 MG/4 ML VIAL 60 MG IV PUSH (09:02)
[2023-07-27] MEDS: INSULIN GLARGINE (*BKC) 100 UNITS/ML 40 UNITS SUB-Q ×2 (09:08→16:48)
[2023-07-27] MEDS: INSULIN ASPART (*BKC) 100 UNITS/ML 10 UNITS SUB-Q ×3 (09:08→16:47)
--- NOTE | 2023-07-27 09:31 | PM.IMPN ---
Progress Note: A&P Assessment and Plan (1) Acute and chronic respiratory failure, unspecified whether with hypoxia or hypercapnia: Code(s): J96.20 - Acute and chronic respiratory failure, unspecified whether with hypoxia or hypercapnia Status: Acute (2) Paroxysmal A-fib: Code(s): I48.0 - Paroxysmal atrial fibrillation Status: Acute (3) Bilateral leg edema: Code(s): R60.0 - Localized edema Status: Acute (4) Lymphedema: Code(s): I89.0 - Lymphedema, not elsewhere classified Status: Acute (5) Coronary artery disease: Code(s): I25.10 - Atherosclerotic heart disease of [place] coronary artery without angina pectoris Status: Chronic (6) CKD stage 3 secondary to diabetes: Code(s): E11.22 - Type 2 diabetes mellitus with diabetic chronic kidney disease; N18.30 - Chronic kidney disease, stage 3 unspecified Status: Acute (7) Uncontrolled type 2 diabetes mellitus: Status: Acute (8) Shortness of breath: Code(s): R06.02 - Shortness of breath Status: Acute (9) Physical deconditioning: Code(s): R53.81 - Other malaise Status: Acute (10) Morbid (severe) obesity due to excess calories: Code(s): E66.01 - Morbid (severe) obesity due to excess calories Status: Acute (11) COPD (chronic obstructive pulmonary disease): Code(s): J44.9 - Chronic obstructive pulmonary disease, unspecified Status: Acute (12) Cellulitis of both lower extremities: Code(s): L03.115 - Cellulitis of right lower limb; L03.116 - Cellulitis of left lower limb Status: Acute Plan Acute on chronic diastolic heart failure History of grade 2 diastolic heart failure on echocardiogram March 2023 Worsening leg edema possible due to exacerbation of diastolic heart failure superimposed with lymphedema Hold oral Lasix 40 mg b.i.d. p.o. start Lasix 60 mg b.i.d. IV push, continue spironolactone 25 mg daily p.o. now sob is improving, hold lasix Bilateral lower extremities cellulitis Bilateral Leg edema, tender, erythema suggesting bilateral cellulitis Patient has a broken skin bilaterally Need to rule out DVT Follow-up venous Doppler bilateral lower extremities Consult wound care Started doxycycline p.o., ceftriaxone IV History of CAD Stable Plavix 75 mg daily p.o. Lipitor 40 mg daily p.o. nitroglycerin sublingual as needed History of COPD Continue home medication Symbicort 2 puff q.12 hours, continue albuterol nebulizer as needed History of paroxysmal AFib Chronic pain has sinus rhythm Continue Xarelto 20 mg daily p.o. CKD stage 3 Elevated BUN creatinine on the baseline Avoid nephrotoxic medication Follow-up BMP Uncontrolled type 2 diabetes Start Lantus 40 units b.i.d. based on patient's home dose insulin Start aspart 10 unit a.c. and high-dose sliding scale a.c. q.h.s. Optimize medication for better glucose control Hypertension Continue lisinopril 20 mg daily p.o. Anxiety Continue trazodone Klonopin at home does Morbid obesity, physical deconditioning Consult PT OT career manager for evaluation and assisting placement Patient may stay more than 2 midnights based on patient condition Subjective Date/time seen: 07/27/23 09:31 Interval history: I saw and exam patient today. Patient feels comfortable, denies headache, chest pain. shortness breath is improving, patient also denies abdomen pain, nausea vomiting diarrhea or dysuria. Patient denies focal weakness. Patient has a bowel movement, Exam Narrative: GENERAL: Morbid obesity in no acute distress. Well-nourished. - EYES: EOMI. Anicteric. - HENT: Moist mucous membranes. - LUNGS: Clear to auscultation bilaterally, no wheezing, rhonchi, or rales. - CARDIOVASCULAR: Regular rate and rhythm. No murmur. No JVD. - ABDOMEN: Soft, non-tender and non-distended. No palpable masses. - EXTREMITIES: 2+ lower extremities edema. Peripher
[2023-07-27] MEDS: PANTOPRAZOLE 40 MG TABLET PO (10:12)
[2023-07-27 11:38] LABS: Basophils Absolute Auto 0.1 K/mm3 (0.0-0.1); Basophils Percent Auto 0.5 % (0.2-1.2); Eosinophils Absolute Auto 0.2 K/mm3 (0-0.3); Eosinophils Percent Auto 1.9 % (0-4.4); Hematocrit 34.1 % (37.0-47.0); Hemoglobin 10.4 g/dL (12.0-15.0); Immature Granulocyte Absolute 0.04 K/mm3 (0.00-0.031); Immature Granulocyte Percent A 0.4 % (0-0.5); Lymphocytes Percent Auto 12.6 % (18.3-44.2); Mean Corpuscular HGB Conc 30.5 g/dl (32-36); Mean Corpuscular Hemoglobin 30.2 pg (26-34); Mean Corpuscular Volume 99.1 fl (80-100); Mean Platelet Volume 11.1 fl (7.4-10.4); Monocytes Percent Auto 9.8 % (2.6-8.5); Neutrophils Absolute Auto 7.7 K/mm3 (1.3-6.7); Neutrophils Percent Auto 74.8 % (45.5-73.1); Platelet Count Result 191 k/mm3 (150-375); Red Blood Count 3.44 M/mm3 (4.2-5.4); Red Cell Distribution Width 14.7 % (11.5-14.5); White Blood Count 10.3 K/mm3 (4.5-10.0)
[2023-07-27 11:45] LABS: Glucose Point of Care 268 mg/dl (65-105)
[2023-07-27 11:50] LABS: Anion Gap 7 mmol/L (4-12); Blood Urea Nitrogen 40 mg/dL (7-17); Calcium 9.5 mg/dL (8.4-10.2); Carbon Dioxide 27 mmol/L (22-30); Chloride 101 mmol/L (98-107); Estimated CRCL calculation 26 ml/min; Estimated Glomerular Filt Rate 27; Glucose 263 mg/dL (65-110); Potassium 4.5 mmol/L (3.4-5.0); Sodium 135 mmol/L (137-145)
[2023-07-27] MEDS: cefTRIAXone 2 GM/NS 100 ML 2 GM/100 ML BAG IVPB (12:17)
[2023-07-27] MEDS: INSULIN ASPART (*BKC) 100 UNITS/ML SUB-Q ×2 (12:18→16:47)
[2023-07-27] MEDS: traMADol HCL (*CRX) 50 MG TABLET PO (13:07)
[2023-07-27] MEDS: ACETAMINOPHEN 325 MG TABLET 650 MG PO ×2 (13:07→20:24)
[2023-07-27 14:00] VITALS: BP 152/74; PULSE 86; RESP 22; TEMP 36.4; O2SAT 100
[2023-07-27 16:31] LABS: Glucose Point of Care 217 mg/dl (65-105)
[2023-07-27] MEDS: RIVAROXABAN 20 MG TABLET PO (16:51)
[2023-07-27] MEDS: oxyCODONE/ACETAMINOPHEN (*CRX) 5-325 MG TABLET 1 TABLET PO (17:23)
[2023-07-27 20:00] VITALS: O2SAT 100
[2023-07-27] MEDS: traZODone HCL 50 MG TABLET 100 MG PO (20:24)
[2023-07-27] MEDS: ATORVASTATIN 40 MG TABLET PO (20:24)
[2023-07-27] MEDS: clonazePAM (*CRX) 0.5 MG TABLET PO (20:24)
[2023-07-27 20:35] LABS: Glucose Point of Care 161 mg/dl (65-105)
[2023-07-27 22:35] VITALS: BP 111/40; PULSE 73; RESP 20; TEMP 36.2; O2SAT 96
[2023-07-28] MEDS: CYCLOBENZAPRINE HCL 10 MG TABLET PO ×2 (00:38→12:01)
[2023-07-28] MEDS: traMADol HCL (*CRX) 50 MG TABLET PO (00:38)
[2023-07-28 00:39] LABS: Glucose Point of Care 124 mg/dl (65-105)
[2023-07-28 04:17] LABS: Glucose Point of Care 192 mg/dl (65-105)
[2023-07-28] MEDS: DOXYCYCLINE HYCLATE 100 MG TABLET PO ×2 (05:48→16:54)
[2023-07-28 06:45] VITALS: BP 122/56; PULSE 74; RESP 18; TEMP 36.3; O2SAT 97
[2023-07-28 07:04] LABS: Basophils Absolute Auto 0.1 K/mm3 (0.0-0.1); Basophils Percent Auto 0.5 % (0.2-1.2); Eosinophils Absolute Auto 0.3 K/mm3 (0-0.3); Eosinophils Percent Auto 3.1 % (0-4.4); Hematocrit 34.5 % (37.0-47.0); Hemoglobin 10.6 g/dL (12.0-15.0); Immature Granulocyte Absolute 0.06 K/mm3 (0.00-0.031); Immature Granulocyte Percent A 0.6 % (0-0.5); Lymphocytes Absolute Auto 1.41 K/mm3 (0.9-3.2); Lymphocytes Percent Auto 14.9 % (18.3-44.2); Mean Corpuscular HGB Conc 30.7 g/dl (32-36); Mean Corpuscular Hemoglobin 30.7 pg (26-34); Mean Platelet Volume 10.7 fl (7.4-10.4); Monocytes Absolute Auto 0.9 K/mm3 (0.1-0.6); Monocytes Percent Auto 9.3 % (2.6-8.5); Neutrophils Absolute Auto 6.8 K/mm3 (1.3-6.7); Neutrophils Percent Auto 71.6 % (45.5-73.1); Platelet Count Result 193 k/mm3 (150-375); Red Blood Count 3.45 M/mm3 (4.2-5.4); Red Cell Distribution Width 14.7 % (11.5-14.5); White Blood Count 9.4 K/mm3 (4.5-10.0)
[2023-07-28 07:17] LABS: Anion Gap 6 mmol/L (4-12); Blood Urea Nitrogen 40 mg/dL (7-17); Calcium 9.4 mg/dL (8.4-10.2); Carbon Dioxide 27 mmol/L (22-30); Chloride 102 mmol/L (98-107); Estimated CRCL calculation 23 ml/min; Estimated Glomerular Filt Rate 24; Glucose 191 mg/dL (65-110); Potassium 4.3 mmol/L (3.4-5.0); Sodium 135 mmol/L (137-145)
[2023-07-28 07:56] LABS: Glucose Point of Care 184 mg/dl (65-105)
[2023-07-28 08:00] VITALS: O2SAT 96
[2023-07-28] MEDS: LORATADINE 10 MG TABLET PO (08:52)
[2023-07-28] MEDS: CLOPIDOGREL BISULFATE 75 MG TABLET PO (08:52)
[2023-07-28] MEDS: busPIRone HCL 5 MG TABLET 15 MG PO ×3 (08:52→16:53)
[2023-07-28] MEDS: MONTELUKAST SODIUM 10 MG TABLET PO (08:52)
[2023-07-28] MEDS: CHOLECALCIFEROL 1,000 UNITS TABLET 1000 UNITS PO (08:52)
[2023-07-28] MEDS: SPIRONOLACTONE 12.5 MG TABLET PO (08:52)
[2023-07-28] MEDS: buPROPion HCL XL (24 HR) 150 MG TABCR PO (08:52)
[2023-07-28] MEDS: PANTOPRAZOLE 40 MG TABLET PO (08:52)
[2023-07-28] MEDS: lisinopriL 20 MG TABLET 40 MG PO (08:52)
[2023-07-28] MEDS: INSULIN ASPART (*BKC) 100 UNITS/ML 10 UNITS SUB-Q ×3 (08:53→16:56)
[2023-07-28] MEDS: INSULIN GLARGINE (*BKC) 100 UNITS/ML 40 UNITS SUB-Q ×2 (08:55→16:54)
[2023-07-28] MEDS: BRIMONIDINE TARTRATE 0.2% OP SOLN 5 ML BTL 1 DROP EACH EYE ×2 (08:57→20:57)
[2023-07-28] MEDS: TIMOLOL MALEATE 0.5% OP SOLN 5 ML BOTTLE 1 DROP EACH EYE ×2 (08:58→20:58)
--- NOTE | 2023-07-28 09:05 | PM.IMPN ---
Progress Note: A&P Assessment and Plan (1) Acute and chronic respiratory failure, unspecified whether with hypoxia or hypercapnia: Code(s): J96.20 - Acute and chronic respiratory failure, unspecified whether with hypoxia or hypercapnia Status: Acute (2) Paroxysmal A-fib: Code(s): I48.0 - Paroxysmal atrial fibrillation Status: Acute (3) Bilateral leg edema: Code(s): R60.0 - Localized edema Status: Acute (4) Lymphedema: Code(s): I89.0 - Lymphedema, not elsewhere classified Status: Acute (5) Coronary artery disease: Code(s): I25.10 - Atherosclerotic heart disease of [place] coronary artery without angina pectoris Status: Chronic (6) CKD stage 3 secondary to diabetes: Code(s): E11.22 - Type 2 diabetes mellitus with diabetic chronic kidney disease; N18.30 - Chronic kidney disease, stage 3 unspecified Status: Acute (7) Uncontrolled type 2 diabetes mellitus: Status: Acute (8) Shortness of breath: Code(s): R06.02 - Shortness of breath Status: Acute (9) Physical deconditioning: Code(s): R53.81 - Other malaise Status: Acute (10) Morbid (severe) obesity due to excess calories: Code(s): E66.01 - Morbid (severe) obesity due to excess calories Status: Acute (11) COPD (chronic obstructive pulmonary disease): Code(s): J44.9 - Chronic obstructive pulmonary disease, unspecified Status: Acute (12) Cellulitis of both lower extremities: Code(s): L03.115 - Cellulitis of right lower limb; L03.116 - Cellulitis of left lower limb Status: Acute Plan Acute on chronic diastolic heart failure History of grade 2 diastolic heart failure on echocardiogram March 2023 Worsening leg edema possible due to exacerbation of diastolic heart failure superimposed with lymphedema Hold oral Lasix 40 mg b.i.d. p.o. start Lasix 60 mg b.i.d. IV push, continue spironolactone 25 mg daily p.o. now sob is improving close to baseline, no self overload hold lasix Bilateral lower extremities cellulitis Bilateral Leg edema, tender, erythema suggesting bilateral cellulitis Patient has a broken skin bilaterally Need to rule out DVT Follow-up venous Doppler bilateral lower extremities Consult wound care Started doxycycline p.o., ceftriaxone IV Cellulitis improving, white blood cell within normal limit History of CAD Stable Plavix 75 mg daily p.o. Lipitor 40 mg daily p.o. nitroglycerin sublingual as needed History of COPD Continue home medication Symbicort 2 puff q.12 hours, continue albuterol nebulizer as needed History of paroxysmal AFib Chronic pain has sinus rhythm Continue Xarelto 20 mg daily p.o. CKD stage 3 Elevated BUN creatinine on the baseline Avoid nephrotoxic medication Follow-up BMP Uncontrolled type 2 diabetes Start Lantus 40 units b.i.d. based on patient's home dose insulin Start aspart 10 unit a.c. and high-dose sliding scale a.c. q.h.s. Optimize medication for better glucose control Hypertension Continue lisinopril 20 mg daily p.o. Anxiety Continue trazodone Klonopin at home does Morbid obesity, physical deconditioning Consult PT OT career coach for evaluation and assisting placement Patient may stay more than 2 midnights based on patient condition Subjective Date/time seen: 07/28/23 09:05 Interval history: I saw exam patient today. Patient feels legs pain is improving. Patient denies chest pain, shortness breast and rest, denies abdomen pain, nausea vomiting diarrhea. Patient has constipation. We afebrile overnight, blood blood cell is in normal limit Exam Narrative: GENERAL: Morbid obesity in no acute distress. Well-nourished. - EYES: EOMI. Anicteric. - HENT: Moist mucous membranes. - LUNGS: Clear to auscultation bilaterally, no wheezing, rhonchi, or rales. - CARDIOVASCULAR: Regular rate and rhythm. No murmur. No JVD. - ABDOMEN: Soft, non-t
[2023-07-28] MEDS: FLUTICASONE/SALMETEROL 115-21 MCG INHALER 1 PUFF 2 PUFF INHALATION ×2 (09:58→21:47)
[2023-07-28] MEDS: FLUTICASONE/UMECLIDIN/VILANTER 100-62.5-25 MCG ELLIPTA 1 PUFF INHALATION (09:59)
[2023-07-28 10:02] VITALS: O2SAT 94
[2023-07-28 11:37] LABS: Glucose Point of Care 243 mg/dl (65-105)
[2023-07-28] MEDS: cefTRIAXone 2 GM/NS 100 ML 2 GM/100 ML BAG IVPB (11:50)
[2023-07-28] MEDS: INSULIN ASPART (*BKC) 100 UNITS/ML SUB-Q (11:51)
[2023-07-28 14:00] VITALS: BP 127/54; PULSE 73; RESP 20; TEMP 36.5; O2SAT 100
[2023-07-28 16:36] LABS: Glucose Point of Care 200 mg/dl (65-105)
[2023-07-28] MEDS: oxyCODONE/ACETAMINOPHEN (*CRX) 5-325 MG TABLET 1 TABLET PO (16:53)
[2023-07-28] MEDS: polyethylene glycoL 3350 17 GM POWD.PACK PO (16:53)
[2023-07-28] MEDS: RIVAROXABAN 20 MG TABLET PO (16:54)
[2023-07-28] MEDS: traZODone HCL 50 MG TABLET 100 MG PO (20:54)
[2023-07-28] MEDS: ATORVASTATIN 40 MG TABLET PO (20:54)
[2023-07-28] MEDS: clonazePAM (*CRX) 0.5 MG TABLET PO (20:54)
[2023-07-28] MEDS: ACETAMINOPHEN 325 MG TABLET 650 MG PO (20:56)
[2023-07-28 22:00] VITALS: BP 130/52; PULSE 74; RESP 18; TEMP 37.1; O2SAT 96
[2023-07-28 22:21] LABS: Glucose Point of Care 173 mg/dl (65-105)
[2023-07-29] MEDS: oxyCODONE/ACETAMINOPHEN (*CRX) 5-325 MG TABLET 1 TABLET PO (05:33)
[2023-07-29] MEDS: DOXYCYCLINE HYCLATE 100 MG TABLET PO (05:33)
[2023-07-29 05:58] VITALS: BP 120/72; PULSE 82; RESP 20; TEMP 36.9; O2SAT 94
[2023-07-29 08:00] VITALS: O2SAT 95
--- NOTE | 2023-07-29 08:18 | PM.IMPN ---
Progress Note: A&P Assessment and Plan (1) Acute and chronic respiratory failure, unspecified whether with hypoxia or hypercapnia: Code(s): J96.20 - Acute and chronic respiratory failure, unspecified whether with hypoxia or hypercapnia Status: Acute (2) Paroxysmal A-fib: Code(s): I48.0 - Paroxysmal atrial fibrillation Status: Acute (3) Bilateral leg edema: Code(s): R60.0 - Localized edema Status: Acute (4) Lymphedema: Code(s): I89.0 - Lymphedema, not elsewhere classified Status: Acute (5) Coronary artery disease: Code(s): I25.10 - Atherosclerotic heart disease of [place] coronary artery without angina pectoris Status: Chronic (6) CKD stage 3 secondary to diabetes: Code(s): E11.22 - Type 2 diabetes mellitus with diabetic chronic kidney disease; N18.30 - Chronic kidney disease, stage 3 unspecified Status: Acute (7) Uncontrolled type 2 diabetes mellitus: Status: Acute (8) Shortness of breath: Code(s): R06.02 - Shortness of breath Status: Acute (9) Physical deconditioning: Code(s): R53.81 - Other malaise Status: Acute (10) Morbid (severe) obesity due to excess calories: Code(s): E66.01 - Morbid (severe) obesity due to excess calories Status: Acute (11) COPD (chronic obstructive pulmonary disease): Code(s): J44.9 - Chronic obstructive pulmonary disease, unspecified Status: Acute (12) Cellulitis of both lower extremities: Code(s): L03.115 - Cellulitis of right lower limb; L03.116 - Cellulitis of left lower limb Status: Acute Plan Acute on chronic diastolic heart failure History of grade 2 diastolic heart failure on echocardiogram March 2023 Worsening leg edema possible due to exacerbation of diastolic heart failure superimposed with lymphedema Hold oral Lasix 40 mg b.i.d. p.o. start Lasix 60 mg b.i.d. IV push, continue spironolactone 25 mg daily p.o. now sob is improving close to baseline, no fluid overload Stopped IV lasix Bilateral lower extremities cellulitis Bilateral Leg edema, tender, erythema suggesting bilateral cellulitis Patient has a broken skin bilaterally Need to rule out DVT Follow-up venous Doppler bilateral lower extremities Consult wound care Started doxycycline p.o., ceftriaxone IV Cellulitis improving, white blood cell within normal limit Switch to doxycycline and cefdinir p.o. on discharge History of CAD Stable Plavix 75 mg daily p.o. Lipitor 40 mg daily p.o. nitroglycerin sublingual as needed History of COPD Continue home medication Symbicort 2 puff q.12 hours, continue albuterol nebulizer as needed History of paroxysmal AFib Chronic pain has sinus rhythm Continue Xarelto 20 mg daily p.o. CKD stage 3 Elevated BUN creatinine on the baseline Avoid nephrotoxic medication Follow-up BMP Creatinine is trending down Uncontrolled type 2 diabetes Start Lantus 40 units b.i.d. based on patient's home dose insulin Start aspart 10 unit a.c. and high-dose sliding scale a.c. q.h.s. Optimize medication for better glucose control Resume home medication on discharge Hypertension Continue lisinopril 20 mg daily p.o. Anxiety Continue trazodone Klonopin at home does Morbid obesity, physical deconditioning Consult PT OT career coordinator for evaluation and assisting placement Patient will be discharged home with home health for wound care Subjective Date/time seen: 07/29/23 08:18 Interval history: I saw exam patient today. Patient feels comfortable, denies shortness of breath, chest pain, denies abdomen pain, nausea vomiting diarrhea. Patient has is bowel movement. We afebrile overnight, labs reviewed, creatinine is trending down Exam Narrative: GENERAL: Morbid obesity in no acute distress. Well-nourished. - EYES: EOMI. Anicteric. - HENT: Moist mucous membranes. - LUNGS: Clear to auscultation bilaterally, no wheezin
[2023-07-29 08:19] VITALS: O2SAT 93
[2023-07-29] MEDS: FLUTICASONE/SALMETEROL 115-21 MCG INHALER 1 PUFF 2 PUFF INHALATION (08:19)
[2023-07-29] MEDS: FLUTICASONE/UMECLIDIN/VILANTER 100-62.5-25 MCG ELLIPTA 1 PUFF INHALATION (08:19)
--- NOTE | 2023-07-29 08:20 | PM.DS ---
DS: Admitting Diagnosis Discharge Date 07/29/23 Admitting Diagnosis (1) Acute and chronic respiratory failure, unspecified whether with hypoxia or hypercapnia: ?Code(s): J96.20 - Acute and chronic respiratory failure, unspecified whether with hypoxia or hypercapnia ?Status:?Acute (2) Paroxysmal A-fib: ?Code(s): I48.0 - Paroxysmal atrial fibrillation ?Status:?Acute (3) Bilateral leg edema: ?Code(s): R60.0 - Localized edema ?Status:?Acute (4) Lymphedema: ?Code(s): I89.0 - Lymphedema, not elsewhere classified ?Status:?Acute (5) Coronary artery disease: ?Code(s): I25.10 - Atherosclerotic heart disease of [place] coronary artery without angina pectoris ?Status:?Chronic (6) CKD stage 3 secondary to diabetes: ?Code(s): E11.22 - Type 2 diabetes mellitus with diabetic chronic kidney disease; N18.30 - Chronic kidney disease, stage 3 unspecified ?Status:?Acute (7) Uncontrolled type 2 diabetes mellitus: ?Status:?Acute (8) Shortness of breath: ?Code(s): R06.02 - Shortness of breath ?Status:?Acute (9) Physical deconditioning: ?Code(s): R53.81 - Other malaise ?Status:?Acute (10) Morbid (severe) obesity due to excess calories: ?Code(s): E66.01 - Morbid (severe) obesity due to excess calories ?Status:?Acute (11) COPD (chronic obstructive pulmonary disease): ?Code(s): J44.9 - Chronic obstructive pulmonary disease, unspecified ?Status:?Acute (12) Cellulitis of both lower extremities: ?Code(s): L03.115 - Cellulitis of right lower limb; L03.116 - Cellulitis of left lower limb ?Status:?Acute DS: Discharge Diagnosis Discharge Diagnosis (1) Acute and chronic respiratory failure, unspecified whether with hypoxia or hypercapnia: Code(s): J96.20 - Acute and chronic respiratory failure, unspecified whether with hypoxia or hypercapnia Status: Acute (2) Paroxysmal A-fib: Code(s): I48.0 - Paroxysmal atrial fibrillation Status: Acute (3) Bilateral leg edema: Code(s): R60.0 - Localized edema Status: Acute (4) Lymphedema: Code(s): I89.0 - Lymphedema, not elsewhere classified Status: Acute (5) Coronary artery disease: Code(s): I25.10 - Atherosclerotic heart disease of [place] coronary artery without angina pectoris Status: Chronic (6) CKD stage 3 secondary to diabetes: Code(s): E11.22 - Type 2 diabetes mellitus with diabetic chronic kidney disease; N18.30 - Chronic kidney disease, stage 3 unspecified Status: Acute (7) Uncontrolled type 2 diabetes mellitus: Status: Acute (8) Shortness of breath: Code(s): R06.02 - Shortness of breath Status: Acute (9) Physical deconditioning: Code(s): R53.81 - Other malaise Status: Acute (10) Morbid (severe) obesity due to excess calories: Code(s): E66.01 - Morbid (severe) obesity due to excess calories Status: Acute (11) COPD (chronic obstructive pulmonary disease): Code(s): J44.9 - Chronic obstructive pulmonary disease, unspecified Status: Acute (12) Cellulitis of both lower extremities: Code(s): L03.115 - Cellulitis of right lower limb; L03.116 - Cellulitis of left lower limb Status: Acute DS: Summary Hospital Course Hospital Course: This is a 78-year-old female with history of grade 2 diastolic dysfunction on echocardiogram April 17, 2023, lymphedema, COPD, T2 dm, CAD who presents to the ED with chief complaint of bilateral lower extremity edema.? Patient has been having worsening lower extremity edema in past weeks, and noticed weeping clear fluid for 2 weeks.? Patient also has chronic shortness of breath, worse exertion.? Patient denies chest pain, headache, focal weakness but has general weakness patient has intermittent palpitation.? Denies fever, chills, abdomen pain, nausea vomiting diarrhea.? Patient came to ED for evaluation, in the ED, patient
[2023-07-29 08:31] LABS: Glucose Point of Care 151 mg/dl (65-105)
[2023-07-29] MEDS: lisinopriL 20 MG TABLET 40 MG PO (08:46)
[2023-07-29] MEDS: CHOLECALCIFEROL 1,000 UNITS TABLET 1000 UNITS PO (08:46)
[2023-07-29] MEDS: LORATADINE 10 MG TABLET PO (08:46)
[2023-07-29] MEDS: buPROPion HCL XL (24 HR) 150 MG TABCR PO (08:46)
[2023-07-29] MEDS: CLOPIDOGREL BISULFATE 75 MG TABLET PO (08:46)
[2023-07-29] MEDS: MONTELUKAST SODIUM 10 MG TABLET PO (08:46)
[2023-07-29] MEDS: busPIRone HCL 5 MG TABLET 15 MG PO ×2 (08:47→12:03)
[2023-07-29] MEDS: SPIRONOLACTONE 12.5 MG TABLET PO (08:47)
[2023-07-29] MEDS: PANTOPRAZOLE 40 MG TABLET PO (08:47)
[2023-07-29] MEDS: INSULIN GLARGINE (*BKC) 100 UNITS/ML 40 UNITS SUB-Q (08:47)
[2023-07-29] MEDS: INSULIN ASPART (*BKC) 100 UNITS/ML 10 UNITS SUB-Q ×2 (08:49→11:52)
[2023-07-29] MEDS: BRIMONIDINE TARTRATE 0.2% OP SOLN 5 ML BTL 1 DROP EACH EYE (08:52)
[2023-07-29] MEDS: TIMOLOL MALEATE 0.5% OP SOLN 5 ML BOTTLE 1 DROP EACH EYE (08:52)
[2023-07-29 09:50] LABS: Basophils Absolute Auto 0.1 K/mm3 (0.0-0.1); Basophils Percent Auto 0.5 % (0.2-1.2); Eosinophils Absolute Auto 0.4 K/mm3 (0-0.3); Eosinophils Percent Auto 3.8 % (0-4.4); Hematocrit 34.4 % (37.0-47.0); Hemoglobin 10.7 g/dL (12.0-15.0); Immature Granulocyte Absolute 0.05 K/mm3 (0.00-0.031); Immature Granulocyte Percent A 0.5 % (0-0.5); Lymphocytes Absolute Auto 1.54 K/mm3 (0.9-3.2); Lymphocytes Percent Auto 16.7 % (18.3-44.2); Mean Corpuscular HGB Conc 31.1 g/dl (32-36); Mean Corpuscular Hemoglobin 30.6 pg (26-34); Mean Corpuscular Volume 98.3 fl (80-100); Monocytes Absolute Auto 0.8 K/mm3 (0.1-0.6); Neutrophils Absolute Auto 6.4 K/mm3 (1.3-6.7); Neutrophils Percent Auto 69.5 % (45.5-73.1); Platelet Count Result 220 k/mm3 (150-375); Red Cell Distribution Width 14.5 % (11.5-14.5); White Blood Count 9.2 K/mm3 (4.5-10.0)
[2023-07-29 10:01] LABS: Anion Gap 10 mmol/L (4-12); Blood Urea Nitrogen 42 mg/dL (7-17); Calcium 9.3 mg/dL (8.4-10.2); Carbon Dioxide 24 mmol/L (22-30); Chloride 102 mmol/L (98-107); Estimated CRCL calculation 26 ml/min; Estimated Glomerular Filt Rate 27; Glucose 153 mg/dL (65-110); Potassium 4.5 mmol/L (3.4-5.0); Sodium 136 mmol/L (137-145)
[2023-07-29] MEDS: cefTRIAXone 2 GM/NS 100 ML 2 GM/100 ML BAG IVPB (11:53)
[2023-07-29 12:00] LABS: Glucose Point of Care 175 mg/dl (65-105)
[2023-07-29 14:00] VITALS: BP 121/62; PULSE 77; RESP 16; TEMP 36.8; O2SAT 100
== END 2023-07-29 15:00 | disposition home health service (06) | DRG 291 ==
LOC: ANHED 18:18 → ANH3MEDSUR 23:23
PROVIDERS: Admitting Provider Internal Medicine; Emergency Provider Physician Assistant; PCP Family Medicine; Visit Provider Hospitalist
DX: I13.0 Hypertensive heart and chronic kidney disease with heart failure and stage 1 through stage 4 chronic kidney disease, or unspecified chronic kidney disease (principal); I50.33 Acute on chronic diastolic (congestive) heart failure; J96.20 Acute and chronic respiratory failure, unspecified whether with hypoxia or hypercapnia; L03.116 Cellulitis of left lower limb; L03.115 Cellulitis of right lower limb; Z68.41 Body mass index [BMI] 40.0-44.9, adult; E11.22 Type 2 diabetes mellitus with diabetic chronic kidney disease; E11.65 Type 2 diabetes mellitus with hyperglycemia; E78.2 Mixed hyperlipidemia; E66.01 Morbid (severe) obesity due to excess calories; F41.9 Anxiety disorder, unspecified; N18.30 Chronic kidney disease, stage 3 unspecified; I25.10 Atherosclerotic heart disease of native coronary artery without angina pectoris; I48.0 Paroxysmal atrial fibrillation; J44.9 Chronic obstructive pulmonary disease, unspecified; Z95.5 Presence of coronary angioplasty implant and graft; Z79.85 Long-term (current) use of injectable non-insulin antidiabetic drugs; Z79.4 Long term (current) use of insulin; Z79.01 Long term (current) use of anticoagulants; Z79.02 Long term (current) use of antithrombotics/antiplatelets
CPT/HCPCS: 36415; 71046; 80048; 80053; 82948; 83880; 84484; 85025; 85610; 85730; 93005; 93970; 94640; 96374; 96375; 97161; 97165; 99285; A9270; G0378; J0696; J1815; J1939; J1940

== ENCOUNTER 2023-08-18 17:55 | Inpatient (IN) | payer MEDICARE, SELFPAY ==
--- NOTE | ~2023-08-18 | XR_ITS ---
XR chest 2V 08/27/2023 10:08 Indication: Shortness of breath Procedure: AP and lateral views of the chest Comparison: Comparison to multiple prior studies sequentially, with oldest reviewed study dated 03/30. Findings: Cardiomegaly. Mild interstitial edema. There is an electronic implanted overlying the left chest wall. Impression: 1: Mild interstitial edema. Reviewed, dictated and finalized at location B. Impression: 1: Mild interstitial edema.
--- NOTE | ~2023-08-18 | US_ITS ---
EXAMINATION: US renal BI DATE: 08/27/2023 10:27 INDICATION: Acute on chronic kidney disease. TECHNIQUE: Multiple ultrasound grayscale images of the kidneys were obtained. COMPARISON: None. FINDINGS: The right kidney measures 9.2 x 4.7 x 4.8 cm. The left kidney measures 9.9 x 5.6 x 4.4 cm. The kidney s demonstrate normal parenchymal echogenicity. There is mild right hydronephrosis. The bladder is dec ompressed by a Dyson catheter. IMPRESSION: 1. Mild right hydronephrosis. Reviewed, dictated and finalized at location A.
--- NOTE | ~2023-08-18 | XR_ITS ---
EXAMINATION: XR chest 1V portable DATE: 08/18/2023 21:00 INDICATION: Dyspnea. TECHNIQUE: A single frontal view of the chest was obtained. COMPARISON: Chest 2 views 3 10/23/2023 FINDINGS: There is mild atelectasis in the lower lung zones. No pleural effusion or pneumothorax. Car diomegaly is noted. There is an electronic implant overlying left chest. IMPRESSION: 1. Mild atelectasis in the lower lung zones. 2. Cardiomegaly. Reviewed, dictated and finalized at location E.
--- NOTE | ~2023-08-18 | US_ITS ---
EXAMINATION: US venous doppler [facility] DATE: 08/24/2023 16:43 INDICATION: Swelling left posterior calf/leg tenderness . TECHNIQUE: Grayscale images without and with compression and Doppler images of the bilateral lower ex tremity veins were obtained. COMPARISON: None FINDINGS: The right common femoral vein, profunda (deep) femoral vein, femoral vein, popliteal vein, peroneal v ein, posterior tibial veins, gastrocnemius vein, and greater saphenous vein are patent. The left common femoral vein, profunda (deep) femoral vein, femoral vein, popliteal vein, peroneal v ein, posterior tibial veins, gastrocnemius vein, and greater saphenous vein are patent. IMPRESSION: Patent bilateral lower extremity veins. No evidence of deep venous thrombosis. Reviewed, dictated and finalized at location K.
[2023-08-18 18:06] VITALS: BP 142/61; PULSE 60; RESP 18; TEMP 36.6; O2SAT 99
--- NOTE | 2023-08-18 19:22 | PC.NURSE ---
this rn assumed care of patient. this rn took patient report from MAHAD Astudillo.
--- NOTE | 2023-08-18 19:32 | ECG_ITS ---
SEE SCANNED COPY FOR CONFIRMED REPORT MTDD
[2023-08-18 20:40] LABS: Basophils Percent Auto 0.4 % (0.2-1.2); Eosinophils Absolute Auto 0.3 K/mm3 (0-0.3); Eosinophils Percent Auto 2.8 % (0-4.4); Hematocrit 35.2 % (37.0-47.0); Hemoglobin 10.7 g/dL (12.0-15.0); Immature Granulocyte Absolute 0.05 K/mm3 (0.00-0.031); Immature Granulocyte Percent A 0.5 % (0-0.5); Lymphocytes Absolute Auto 1.63 K/mm3 (0.9-3.2); Lymphocytes Percent Auto 15.8 % (18.3-44.2); Mean Corpuscular HGB Conc 30.4 g/dl (32-36); Mean Corpuscular Hemoglobin 29.7 pg (26-34); Mean Corpuscular Volume 97.8 fl (80-100); Mean Platelet Volume 11.9 fl (7.4-10.4); Monocytes Absolute Auto 0.8 K/mm3 (0.1-0.6); Monocytes Percent Auto 7.6 % (2.6-8.5); Neutrophils Absolute Auto 7.5 K/mm3 (1.3-6.7); Neutrophils Percent Auto 72.9 % (45.5-73.1); Platelet Count Result 183 k/mm3 (150-375); Red Cell Distribution Width 14.5 % (11.5-14.5); White Blood Count 10.3 K/mm3 (4.5-10.0)
[2023-08-18 20:49] VITALS: BP 148/80; PULSE 61; RESP 15; O2SAT 100
[2023-08-18 20:50] VITALS: BP 148/80; PULSE 58; RESP 23; O2SAT 100; O2SAT 99
[2023-08-18 20:55] LABS: Alanine Aminotransferase 29 U/L (6-35); Albumin Level 4.1 g/dL (3.5-5.1); Alkaline Phosphatase 141 U/L (38-126); Anion Gap 5 mmol/L (4-12); Aspartate Amino Transferase 50 U/L (14-36); Bilirubin,Total 0.4 mg/dL (0.2-1.3); Blood Urea Nitrogen 40 mg/dL (7-17); Calcium 9.8 mg/dL (8.4-10.2); Carbon Dioxide 28 mmol/L (22-30); Chloride 106 mmol/L (98-107); Estimated CRCL calculation 29 ml/min; Estimated Glomerular Filt Rate 29; Glucose 159 mg/dL (65-110); INR 2.4; Lactic Acid Reflex 1.3 mmol/L (0.7-2.0); Magnesium 2.1 mg/dL (1.6-2.3); Potassium 4.7 mmol/L (3.4-5.0); Prothrombin Time 27.7 Seconds (11.1-14.7); Sodium 139 mmol/L (137-145)
[2023-08-18 20:56] LABS: Partial Thromboplastin Time 53.8 Seconds (22.3-36.8)
[2023-08-18 21:06] LABS: NT Pro B Type Natriuretic Pept 1050 pg/mL (19.9-100); Troponin I < 0.012 ng/mL (0.000-0.034)
[2023-08-18 21:17] VITALS: BP 136/73; PULSE 64; RESP 20; O2SAT 96
[2023-08-18 21:24] LABS: Procalcitonin 0.1 ng/mL
--- NOTE | 2023-08-18 22:17 | ED.GENADULT ---
HPI - General Adult General Chief complaint: Extremity Problem,Nontraumatic Stated complaint: b/l LE wounds Time Seen by Provider: 08/18/23 19:25 History of Present Illness HPI narrative: Patient's [age] year old female who presents emergency department with chief complaint of increasing lower extremity edema mild shortness of breath and increasing wounds to her lower extremities the patient reports she is treated for cellulitis and CHF recently was discharged from the hospital about a month ago was doing better but then has had increasing peripheral edema and increasing shortness of breath and our lower extremities are instructed to get red and. Related Data Home Medications Medication Instructions Recorded Confirmed budesonide-formoterol HFA 160 2 puff inhalation Q12H 10/29/19 08/08/23 mcg-4.5 mcg/actuation aerosol inhaler mqpwipvbm-POB-akrsehzeoeute tablet 1 tablet PO DAILY 02/03/23 08/08/23 benzonatate 100 mg capsule 100 mg PO TID PRN Cough 07/26/23 08/08/23 buspirone 15 mg tablet 15 mg PO TID 07/26/23 08/08/23 fluticasone fur. 100 mcg-umeclid 1 inh inhalation DAILY 07/26/23 08/08/23 62.5 mcg-vilant 25 mcg inhalat.powder (Trelegy Ellipta) fluticasone propionate 50 2 spray intranasal HS 07/26/23 08/08/23 mcg/actuation nasal spray,suspension vilazodone 10 mg tablet 10 mg PO DAILY 07/26/23 08/08/23 Allergies Allergy/AdvReac Type Severity Reaction Status Date / Time amoxicillin AdvReac Mild Nausea and Verified 08/18/23 18:14 Vomiting clavulanic acid AdvReac Mild Nausea and Verified 08/18/23 18:14 [From Augmentin] Vomiting Review of Systems Review of Systems: A 10 system review of systems was completed on the patient and is negative except for what is stated in the HPI. Nursing and ancillary documentation was reviewed. [facility] Past Medical History Medical History Anxiety Asthma Back pain Benign hypertension Chronic kidney disease Coronary artery disease History of stent to in December 2016. Depression Hypertension Hypokalemia Irritable bowel syndrome with diarrhea Metabolic syndrome Mixed hyperlipidemia Obesity Sinusitis, acute Type 2 diabetes mellitus Vertigo Surgical History Surgical History History of cardiac catheterization History of coronary artery stent placement History of tonsillectomy Family History Family History Father Family history of mental disorder Depression Family history of arthritis Family history of diabetes mellitus in first degree relative Family history of congestive heart failure Family history of heart disease in male family member before age 55 Family history of hearing loss Diabetes mellitus Family history of cardiovascular disease Acute myocardial infarction Mother Family history of anemia Family history of arthritis Family history of malignant neoplasm of breast in first degree relative Sibling Family history of cardiovascular disease Other Family history of elevated blood lipids Social History Social History Social History: Surrogate medical decision maker: Ben Finch, son. Code status: Full code. Smoking packs per day: 2 Smoking cigarettes per day: 40.0 Years smoked: 35 Smoking pack-years: 70.00 Smoking status: Former smoker Alcohol intake: never Substance use: never Other substance usage details: CBD/THC oil and gummies. Do You Feel Safe in your Home?: Yes Lack of Transportation: No Lack of Food: Never True Current Housing: I Have Housing Concerned About Future Housing: No Difficulty Paying Gas/Electric Bills: No Difficulty Paying for Meds: No Currently Unemployed: No Education: High School Diploma/GED Difficulty w/ Childcare
[2023-08-18 22:28] LABS: Appearance Urine Cloudy (Clear); Bacteria Urine 1+ /hpf; Bilirubin Urine Negative (Negative); Blood Urine Negative (Negative); Color Urine Yellow (Yellow); Glucose Urine UA Negative (Negative); Ketones Urine Negative (Negative); Leukocyte Esterase Ur 1+ LEU/UL (Negative); Need Manual Microscopic Reviewed; Nitrate Urine Negative (Negative); Protein Urine Negative (Negative); RBC Urine 0-2 /hpf (0-2); Specific Grav Ur 1.016 (1.001-1.035); Squamous Epithelial Cell Urine Many /hpf (Few); Urobilinogen Urine 0.2 mg/dL (<2.0); WBC Urine 21-50 /hpf (0-3); pH Urine 5.5 (5.0-9.0)
[2023-08-18 22:30] LABS: Add Urine Microscopic? YES
--- NOTE | 2023-08-18 22:47 | PM.IMHP ---
H&P: HPI History of Present Illness Date/Time: 08/18/23 22:47 Chief Complaint: LEG SWELLING Narrative: THIS IS A 78-YEAR-OLD FEMALE WITH PAST MEDICAL HISTORY SIGNIFICANT FOR MORBID OBESITY, TYPE DIABETES MELLITUS, CONGESTIVE HEART FAILURE, HYPERTENSION, PATIENT RECENTLY DISCHARGED AFTER BEING TREATED FOR RESPIRATORY FAILURE, DECONDITIONING. PATIENT RETURNS WITH WORSENING BILATERAL LOWER EXTREMITY EDEMA, BLISTERING, OOZING. PRELIMINARY WORKUP WAS SIGNIFICANT FOR URINALYSIS WITH NUMEROUS WBCS PRESENT. PATIENT HAS BEEN ADMITTED FOR FURTHER EVALUATION MANAGEMENT AND TREATMENT. EXAMINATION: XR chest 1V portable DATE: 08/18/2023 21:00 INDICATION: Dyspnea. TECHNIQUE: A single frontal view of the chest was obtained. COMPARISON: Chest 2 views 3 10/23/2023 FINDINGS: There is mild atelectasis in the lower lung zones. No pleural effusion or pneumothorax. Cardiomegaly is noted. There is an electronic implant overlying left chest. IMPRESSION: 1. Mild atelectasis in the lower lung zones. 2. Cardiomegaly. [facility] Past Medical History Medical History Anxiety Asthma Back pain Benign hypertension Chronic kidney disease Coronary artery disease History of stent to OM in December 2016. Depression Hypertension Hypokalemia Irritable bowel syndrome with diarrhea Metabolic syndrome Mixed hyperlipidemia Obesity Sinusitis, acute Type 2 diabetes mellitus Vertigo Surgical History Surgical History History of cardiac catheterization History of coronary artery stent placement History of tonsillectomy Family History Family History Father Family history of mental disorder Depression Family history of arthritis Family history of diabetes mellitus in first degree relative Family history of congestive heart failure Family history of heart disease in male family member before age 55 Family history of hearing loss Diabetes mellitus Family history of cardiovascular disease Acute myocardial infarction Mother Family history of anemia Family history of arthritis Family history of malignant neoplasm of breast in first degree relative Sibling Family history of cardiovascular disease Other Family history of elevated blood lipids Social History Social History Social History: Surrogate medical decision maker: Ben Finch, son. Code status: Full code. Smoking packs per day: 2 Smoking cigarettes per day: 40.0 Years smoked: 35 Smoking pack-years: 70.00 Smoking status: Former smoker Alcohol intake: never Substance use: former Other substance usage details: CBD/THC oil and gummies. Do You Feel Safe in your Home?: Yes Lack of Transportation: No Lack of Food: Never True Current Housing: I Have Housing Concerned About Future Housing: No Difficulty Paying Gas/Electric Bills: No Difficulty Paying for Meds: No Currently Unemployed: No Education: High School Diploma/GED Difficulty w/ Childcare or Family Care: No Additional living arrangements comments: . Lives in [place]. Occupation/Education: retired Spiritual care concerns: No Meds Home Medications and Allergies Home Medications Medication Instructions Recorded Confirmed Type budesonide-formoterol HFA 160 2 puff inhalation Q12H 10/29/19 08/19/23 History mcg-4.5 mcg/actuation aerosol inhaler albuterol sulfate 90 mcg/actuation 2 inh inhalation Q4H PRN shortness 04/12/22 08/19/23 Rx aerosol inhaler of breath or wheezing #8.5 grams dicyclomine 20 mg tablet 20 mg PO QID PRN Cramps #28 tabs 10/08/22 08/19/23 Rx tramadol 50 mg tablet 50 mg PO Q6H PRN pain #30 tabs 11/08/22 08/19/23 Rx cetirizine 10 mg tablet (Zyrtec) 10 mg PO DAILY #90 tabs 11/09/22 08/19/23 Rx albuter
[2023-08-18 23:25] VITALS: BP 123/69; PULSE 63; RESP 18; O2SAT 100
[2023-08-18 23:31] VITALS: BP 133/59; PULSE 62; RESP 18; O2SAT 100
[2023-08-18] MEDS: FUROSEMIDE INJ 40 MG/4 ML VIAL IV PUSH (23:32)
[2023-08-19] VITALS (11 sets, daily range): BP systolic 135–156; BP diastolic 54–57; PULSE 59–77; RESP 16–22; TEMP 36.1–37.1; O2SAT 94–100
--- NOTE | 2023-08-19 00:15 | ADMGEN ---
This patient, Mihaela Finch, was admitted to [facility] Surg Room 310-01. Patient/family oriented to hospital policies and general routines including ID bracelet, bed and alarms, visiting hours, pain management, procedures, bathroom and other care routines, personal items, smoking policy, room service/diet, and visiting hours. Information on how to activate the Rapid Response Team has been discussed. Patient/Family are encouraged to report perceived risks to care and to ask questions if they do not understand what they are told or what they should do.
[2023-08-19] MEDS: traMADol HCL (*CRX) 50 MG TABLET PO ×2 (01:41→09:12)
[2023-08-19] MEDS: HYDROcodone/acetaminophen (*CRX) 5-325 MG TABLET 1 TAB PO (05:27)
[2023-08-19] MEDS: FLUTICASONE/UMECLIDIN/VILANTER 100-62.5-25 MCG ELLIPTA 1 PUFF INHALATION (07:44)
[2023-08-19 07:54] LABS: Glucose Point of Care 168 mg/dl (65-105)
--- NOTE | 2023-08-19 08:21 | P.PNIM_ITS ---
Progress Note: A&P Assessment and Plan (1) Acute exacerbation of CHF (congestive heart failure): Code(s): I50.9 - Heart failure, unspecified Status: Acute Assessment and Plan: 08/18/23: ADMITTED TO [facility] DIURESE NEEDED DAILY INTAKE AND OUTPUT 08/19/23: * Continue diuresis with Lasix 40 mg b.i.d. IV dosing * Strict I&O * Last echocardiogram done on 04/17/2023 reviewed and revealed normal LV systolic function with an estimated EF of 60-65% grade 2 diastolic dysfunction * Continue spironolactone (2) Acute and chronic respiratory failure, unspecified whether with hypoxia or hypercapnia: Code(s): J96.20 - Acute and chronic respiratory failure, unspecified whether with hypoxia or hypercapnia Status: Acute Assessment and Plan: 08/18/23: * ON SUPPLEMENTAL OXYGEN BY NASAL CANNULA 08/19/23: * Patient currently on 3 L nasal cannula which is her baseline (3) UTI (urinary tract infection): Code(s): N39.0 - Urinary tract infection, site not specified Status: Acute Assessment and Plan: 08/18/23: STARTED ROCEPHIN CULTURES IN PROGRESS 08/19/23: * UA shown 1+ leukocytes, 21-50 urine wbc's, 1+ bacteria, many urine squamous epithelial cells * Urine culture and blood cultures obtained and are pending * Continue Rocephin (4) Lymphedema: Code(s): I89.0 - Lymphedema, not elsewhere classified Status: Acute Assessment and Plan: 08/18/23 WORSENED 08/19/23: * Bilateral lower extremity edema 4+ pitting, anasarca present * Patient does have congestive heart failure * Continue diuresis (5) COPD (chronic obstructive pulmonary disease): Code(s): J44.9 - Chronic obstructive pulmonary disease, unspecified Status: Acute Assessment and Plan: 08/18/23: RESUME HOME MED NOT ACTIVELY WHEEZING 08/19/23: * Continue albuterol inhaler (6) Morbid (severe) obesity due to excess calories: Code(s): E66.01 - Morbid (severe) obesity due to excess calories Status: Acute Assessment and Plan: 08/18/23: LIFESTYLE AND DIET MODIFICATION 08/19/23: * 46.8MI/ 116.1kg (7) CKD stage 3 secondary to diabetes: Code(s): E11.22 - Type 2 diabetes mellitus with diabetic chronic kidney disease; N18.30 - Chronic kidney disease, stage 3 unspecified Status: Acute Assessment and Plan: 08/18/23: CONTINUE TO MONITOR BUN AND CREATININE 08/19/23: * BG ranging 153-175 * Hgb A1C 9.5 on 04/20/23 * Will recheck HGB A1C tomorrow * Accu checks AC/HS * hypoglycemic protocol in place * Creatinine 1.7, EGFR 29 * Continue to trend labs Time Spent With Patient Time with patient: Greater than 35 minutes Subjective Date/time seen: 08/19/23 08:21 Interval history: This is a 78 year female who presented to the with complaints bilateral lower extremity swelling and wounds. She denies any fever, chills, nausea, vomiting, diarrhea, abdominal pain, or chest pain. She reports shortness of Breath with activity and anasarca. Workup in the hospital included chest x-ray which shows and cardiomegaly. Initial labs showed a white blood cell count of 10.3, hemoglobin 10.7 creatinine 0.7, EGFR 29, lactic acid 1.3 AST 50, ALT 20 phos 141, proBNP 1050. UA was obtained and showed 1+ leukocyte, 21-50 urine wbc's, many urine squamous epithelial 1+ urine bacteria. Blood and urine cultures obtained and are pending. Patient was given a dose of Lasix while in the ED along with Tylenol. We will continue with diuresis. Review
--- NOTE | 2023-08-19 08:21 | PM.IMPN ---
Progress Note: A&P Assessment and Plan (1) Acute exacerbation of CHF (congestive heart failure): Code(s): I50.9 - Heart failure, unspecified Status: Acute Assessment and Plan: 08/18/23: ADMITTED TO [facility] DIURESE NEEDED DAILY INTAKE AND OUTPUT 08/19/23: Continue diuresis with Lasix 40 mg b.i.d. IV dosing Strict I&O Last echocardiogram done on 04/17/2023 reviewed and revealed normal LV systolic function with an estimated EF of 60-65% grade 2 diastolic dysfunction Continue spironolactone (2) Acute and chronic respiratory failure, unspecified whether with hypoxia or hypercapnia: Code(s): J96.20 - Acute and chronic respiratory failure, unspecified whether with hypoxia or hypercapnia Status: Acute Assessment and Plan: 08/18/23: ON SUPPLEMENTAL OXYGEN BY NASAL CANNULA 08/19/23: Patient currently on 3 L nasal cannula which is her baseline (3) UTI (urinary tract infection): Code(s): N39.0 - Urinary tract infection, site not specified Status: Acute Assessment and Plan: 08/18/23: STARTED ROCEPHIN CULTURES IN PROGRESS 08/19/23: UA shown 1+ leukocytes, 21-50 urine wbc's, 1+ bacteria, many urine squamous epithelial cells Urine culture and blood cultures obtained and are pending Continue Rocephin (4) Lymphedema: Code(s): I89.0 - Lymphedema, not elsewhere classified Status: Acute Assessment and Plan: 08/18/23 WORSENED 08/19/23: Bilateral lower extremity edema 4+ pitting, anasarca present Patient does have congestive heart failure Continue diuresis (5) COPD (chronic obstructive pulmonary disease): Code(s): J44.9 - Chronic obstructive pulmonary disease, unspecified Status: Acute Assessment and Plan: 08/18/23: RESUME HOME MED NOT ACTIVELY WHEEZING 08/19/23: Continue albuterol inhaler (6) Morbid (severe) obesity due to excess calories: Code(s): E66.01 - Morbid (severe) obesity due to excess calories Status: Acute Assessment and Plan: 08/18/23: LIFESTYLE AND DIET MODIFICATION 08/19/23: 46.8MI/ 116.1kg (7) CKD stage 3 secondary to diabetes: Code(s): E11.22 - Type 2 diabetes mellitus with diabetic chronic kidney disease; N18.30 - Chronic kidney disease, stage 3 unspecified Status: Acute Assessment and Plan: 08/18/23: CONTINUE TO MONITOR BUN AND CREATININE 08/19/23: BG ranging 153-175 Hgb A1C 9.5 on 04/20/23 Will recheck HGB A1C tomorrow Accu checks AC/HS hypoglycemic protocol in place Creatinine 1.7, EGFR 29 Continue to trend labs Time Spent With Patient Time with patient: Greater than 35 minutes Subjective Date/time seen: 08/19/23 08:21 Interval history: This is a 78 year female who presented to the with complaints bilateral lower extremity swelling and wounds. She denies any fever, chills, nausea, vomiting, diarrhea, abdominal pain, or chest pain. She reports shortness of Breath with activity and anasarca. Workup in the hospital included chest x-ray which shows and cardiomegaly. Initial labs showed a white blood cell count of 10.3, hemoglobin 10.7 creatinine 0.7, EGFR 29, lactic acid 1.3 AST 50, ALT 20 phos 141, proBNP 1050. UA was obtained and showed 1+ leukocyte, 21-50 urine wbc's, many urine squamous epithelial 1+ urine bacteria. Blood and urine cultures obtained and are pending. Patient was given a dose of Lasix while in the ED along with Tylenol. We will continue with diuresis. Review of Systems Review of Systems: All systems reviewed & are unremarkable except as noted in HPI and below Constitutional: Constitutional: Reports as per HPI and Reports no additional constitutional complaints Eyes: Eyes: Reports as per HPI and Reports no additional eye complaints ENT: Reports system reviewed and no additional complaints, except as documented and Reports as per HPI Cardiovascular: Cardiovascular: Reports as per HPI and Reports no additional card
[2023-08-19] MEDS: MONTELUKAST SODIUM 10 MG TABLET PO (09:13)
[2023-08-19] MEDS: CHOLECALCIFEROL 1,000 UNITS TABLET 1000 UNITS PO (09:13)
[2023-08-19] MEDS: SPIRONOLACTONE 12.5 MG TABLET PO (09:13)
[2023-08-19] MEDS: LORATADINE 10 MG TABLET PO (09:13)
[2023-08-19] MEDS: lisinopriL 20 MG TABLET 40 MG PO (09:14)
[2023-08-19] MEDS: busPIRone HCL 5 MG TABLET 15 MG PO ×3 (09:14→16:11)
[2023-08-19] MEDS: CLOPIDOGREL BISULFATE 75 MG TABLET PO (09:14)
[2023-08-19] MEDS: buPROPion HCL XL (24 HR) 150 MG TABCR PO (09:14)
[2023-08-19] MEDS: BRIMONIDINE TARTRATE 0.2% OP SOLN 5 ML BTL 2 DROP EACH EYE ×2 (09:15→21:56)
[2023-08-19] MEDS: TIMOLOL MALEATE 0.5% OP SOLN 5 ML BOTTLE 2 DROP EACH EYE ×2 (09:19→21:56)
[2023-08-19] MEDS: MICONAZOLE NITRATE 2% CREAM 30 GM TUBE 1 APPLIC TOPICAL (09:21)
[2023-08-19] MEDS: MUPIROCIN 2% OINT 22 GM TUBE 1 APPLIC TOPICAL (09:22)
[2023-08-19] MEDS: FUROSEMIDE INJ 40 MG/4 ML VIAL IV PUSH ×2 (09:24→21:55)
[2023-08-19 11:25] LABS: Glucose Point of Care 221 mg/dl (65-105)
[2023-08-19] MEDS: INSULIN ASPART (*BKC) 100 UNITS/ML SUB-Q ×3 (11:56→22:05)
[2023-08-19] MEDS: polyethylene glycoL 3350 17 GM POWD.PACK PO (15:13)
[2023-08-19] MEDS: RIVAROXABAN 20 MG TABLET PO (16:11)
[2023-08-19 16:40] LABS: Glucose Point of Care 321 mg/dl (65-105)
[2023-08-19 20:25] LABS: Glucose Point of Care 335 mg/dl (65-105)
[2023-08-19] MEDS: ATORVASTATIN 40 MG TABLET PO (21:51)
[2023-08-19] MEDS: clonazePAM (*CRX) 0.5 MG TABLET PO (21:52)
[2023-08-19] MEDS: traZODone HCL 50 MG TABLET 100 MG PO (21:52)
[2023-08-19] MEDS: FLUTICASONE PROPIONATE 0.05% NA SPR 16 GM BTL (*BKC) 2 SPRAY NASAL (21:53)
[2023-08-19] MEDS: ACETAMINOPHEN 500 MG TABLET 1000 MG BY MOUTH (22:08)
[2023-08-20] VITALS (12 sets, daily range): BP systolic 118–122; BP diastolic 43–51; PULSE 60–79; RESP 16–22; TEMP 36.1–36.7; O2SAT 95–100
[2023-08-20 06:34] LABS: Basophils Percent Auto 0.5 % (0.2-1.2); Eosinophils Absolute Auto 0.2 K/mm3 (0-0.3); Eosinophils Percent Auto 2.4 % (0-4.4); Hematocrit 32.2 % (37.0-47.0); Hemoglobin 9.9 g/dL (12.0-15.0); Immature Granulocyte Absolute 0.04 K/mm3 (0.00-0.031); Immature Granulocyte Percent A 0.5 % (0-0.5); Immature Platelet Fraction Pct 2.3 % (0.9-11.2); Lymphocytes Absolute Auto 1.13 K/mm3 (0.9-3.2); Lymphocytes Percent Auto 13.4 % (18.3-44.2); Mean Corpuscular HGB Conc 30.7 g/dl (32-36); Mean Corpuscular Hemoglobin 29.7 pg (26-34); Mean Corpuscular Volume 96.7 fl (80-100); Mean Platelet Volume 13.2 fl (7.4-10.4); Monocytes Absolute Auto 0.7 K/mm3 (0.1-0.6); Monocytes Percent Auto 8.4 % (2.6-8.5); Neutrophils Absolute Auto 6.3 K/mm3 (1.3-6.7); Neutrophils Percent Auto 74.8 % (45.5-73.1); Platelet Count Result 223 k/mm3 (150-375); Red Blood Count 3.33 M/mm3 (4.2-5.4); Red Cell Distribution Width 14.4 % (11.5-14.5); White Blood Count 8.5 K/mm3 (4.5-10.0)
[2023-08-20 06:42] LABS: Alanine Aminotransferase 21 U/L (6-35); Albumin Level 3.8 g/dL (3.5-5.1); Alkaline Phosphatase 118 U/L (38-126); Anion Gap 4 mmol/L (4-12); Aspartate Amino Transferase 24 U/L (14-36); Bilirubin,Total 0.6 mg/dL (0.2-1.3); Blood Urea Nitrogen 39 mg/dL (7-17); Calcium 9.7 mg/dL (8.4-10.2); Carbon Dioxide 28 mmol/L (22-30); Chloride 105 mmol/L (98-107); Estimated CRCL calculation 28 ml/min; Estimated Glomerular Filt Rate 27; Glucose 337 mg/dL (65-110); Sodium 137 mmol/L (137-145)
[2023-08-20] MEDS: FLUTICASONE/UMECLIDIN/VILANTER 100-62.5-25 MCG ELLIPTA 1 PUFF INHALATION (08:16)
[2023-08-20 08:50] LABS: Glucose Point of Care 320 mg/dl (65-105)
[2023-08-20] MEDS: INSULIN ASPART (*BKC) 100 UNITS/ML SUB-Q ×3 (08:57→20:40)
[2023-08-20] MEDS: SPIRONOLACTONE 12.5 MG TABLET PO (08:59)
[2023-08-20] MEDS: LORATADINE 10 MG TABLET PO (09:00)
[2023-08-20] MEDS: busPIRone HCL 5 MG TABLET 15 MG PO ×3 (09:00→16:44)
[2023-08-20] MEDS: buPROPion HCL XL (24 HR) 150 MG TABCR PO (09:00)
[2023-08-20] MEDS: CHOLECALCIFEROL 1,000 UNITS TABLET 1000 UNITS PO (09:00)
[2023-08-20] MEDS: CLOPIDOGREL BISULFATE 75 MG TABLET PO (09:00)
[2023-08-20] MEDS: FUROSEMIDE INJ 40 MG/4 ML VIAL IV PUSH ×2 (09:00→20:33)
[2023-08-20] MEDS: lisinopriL 20 MG TABLET 40 MG PO (09:00)
[2023-08-20] MEDS: MONTELUKAST SODIUM 10 MG TABLET PO (09:00)
[2023-08-20] MEDS: MUPIROCIN 2% OINT 22 GM TUBE 1 APPLIC TOPICAL (09:01)
[2023-08-20] MEDS: BRIMONIDINE TARTRATE 0.2% OP SOLN 5 ML BTL 2 DROP EACH EYE ×2 (09:01→20:30)
[2023-08-20] MEDS: TIMOLOL MALEATE 0.5% OP SOLN 5 ML BOTTLE 2 DROP EACH EYE ×2 (09:02→20:29)
--- NOTE | 2023-08-20 10:54 | PCPTNOTE ---
Patient declined PT at this time. Patient states she had OT prior and would like to wait and do PT later. PT will continue to follow per plan of care.
[2023-08-20] MEDS: HYDROcodone/acetaminophen (*CRX) 5-325 MG TABLET 1 TAB PO (11:02)
--- NOTE | 2023-08-20 11:14 | P.CDI_ITS ---
CDI Query Clarification Request * Documented history of CHF. * CHF noted in the assessment and plan. * Elevated BNP on 08/18/23 lab work. * Lasix listed as a home medication. * Patient receiving Lasix. * Patient presented with shortness of breath and lower extremity edema. Assessment and Plan (1) Acute exacerbation of CHF (congestive heart failure): ?Code(s): I50.9 - Heart failure, unspecified ?Status:?Acute ?Assessment and Plan: 08/18/23: ?[facility]DIURESE NEEDED ?DAILY INTAKE AND OUTPUT 08/19/23: * Continue diuresis with Lasix 40 mg b.i.d. IV dosing * Strict I&O * Last echocardiogram done on 04/17/2023 reviewed and revealed normal LV systolic function with an estimated EF of 60-65% grade 2 diastolic dysfunction * Continue spironolactone Please specify type and acuity of heart failure if known. * Acute * Chronic * Acute on Chronic * Unknown * Systolic * Diastolic * Combined Systolic and Diastolic * Unknown <Katie Salinas RN - Last Filed: 08/20/23 11:19> Clarified Diagnosis Clarified Diagnosis: Acute on chronic diastolic heart failure <Jennifer Kohli APRN - Last Filed: 08/20/23 11:56>
--- NOTE | 2023-08-20 11:14 | WPDCDIQUERY2 ---
CDI Query Clarification Request Documented history of CHF. CHF noted in the assessment and plan. Elevated BNP on 08/18/23 lab work. Lasix listed as a home medication. Patient receiving Lasix. Patient presented with shortness of breath and lower extremity edema. Assessment and Plan (1) Acute exacerbation of CHF (congestive heart failure): ?Code(s): I50.9 - Heart failure, unspecified ?Status:?Acute ?Assessment and Plan: 08/18/23: ?ADMITTED TO [facility] ?DIURESE NEEDED ?DAILY INTAKE AND OUTPUT 08/19/23: Continue diuresis with Lasix 40 mg b.i.d. IV dosing Strict I&O Last echocardiogram done on 04/17/2023 reviewed and revealed normal LV systolic function with an estimated EF of 60-65% grade 2 diastolic dysfunction Continue spironolactone Please specify type and acuity of heart failure if known. Acute Chronic Acute on Chronic Unknown Systolic Diastolic Combined Systolic and Diastolic Unknown <Katie Salinas RN - Last Filed: 08/20/23 11:19> Clarified Diagnosis Clarified Diagnosis: Acute on chronic diastolic heart failure <Jennifer Kohli APRN - Last Filed: 08/20/23 11:56>
--- NOTE | 2023-08-20 11:56 | P.PNIM_ITS ---
Progress Note: A&P Assessment and Plan (1) Acute exacerbation of CHF (congestive heart failure): Code(s): I50.9 - Heart failure, unspecified Status: Acute Assessment and Plan: 08/18/23: ADMITTED TO [facility] TELE DIURESE NEEDED DAILY INTAKE AND OUTPUT 08/19/23: * Acute on chronic diastolic congestive heart failure * Continue diuresis with Lasix 40 mg b.i.d. IV dosing * Strict I&O * Last echocardiogram done on 04/17/2023 reviewed and revealed normal LV systolic function with an estimated EF of 60-65% grade 2 diastolic dysfunction * Continue spironolactone 08/20/23: * PT and OT ordered for evaluation and treatment * Consult placed to Cardiology for additional support considering her kidney function (2) Acute and chronic respiratory failure, unspecified whether with hypoxia or hypercapnia: Code(s): J96.20 - Acute and chronic respiratory failure, unspecified whether with hypoxia or hypercapnia Status: Acute Assessment and Plan: 08/18/23: * ON SUPPLEMENTAL OXYGEN BY NASAL CANNULA 08/19/23: * Patient currently on 3 L nasal cannula which is her baseline 08/20/23: * No change to current treatment plan (3) UTI (urinary tract infection): Code(s): N39.0 - Urinary tract infection, site not specified Status: Acute Assessment and Plan: 08/18/23: STARTED ROCEPHIN CULTURES IN PROGRESS 08/19/23: * UA shown 1+ leukocytes, 21-50 urine wbc's, 1+ bacteria, many urine squamous epithelial cells * Urine culture and blood cultures obtained and are pending * Continue Rocephin 08/20/23: * Urine culture is still pending * Blood culture showing no growth today on preliminary read * Continue Rocephin (4) Lymphedema: Code(s): I89.0 - Lymphedema, not elsewhere classified Status: Acute Assessment and Plan: 08/18/23 WORSENED 08/19/23: * Bilateral lower extremity edema 4+ pitting, anasarca present * Patient does have congestive heart failure * Continue diuresis 08/20/23: * No change to current treatment plan (5) COPD (chronic obstructive pulmonary disease): Code(s): J44.9 - Chronic obstructive pulmonary disease, unspecified Status: Acute Assessment and Plan: 4/21/24: RESUME HOME MED NOT ACTIVELY WHEEZING 08/19/23: * Continue albuterol inhaler 08/20/23: * No change to current treatment (6) Morbid (severe) obesity due to excess calories: Code(s): E66.01 - Morbid (severe) obesity due to excess calories Status: Acute Assessment and Plan: 08/18/23: LIFESTYLE AND DIET MODIFICATION 08/19/23: * 46.8MI/ 116.1kg (7) CKD stage 3 secondary to diabetes: Code(s): E11.22 - Type 2 diabetes mellitus with diabetic chronic kidney disease; N18.30 - Chronic kidney disease, stage 3 unspecified Status: Acute Assessment and Plan: 08/18/23: CONTINUE TO MONITOR BUN AND CREATININE 08/19/23: * BG ranging 153-175 * Hgb A1C 9.5 on 04/20/23 * Will recheck HGB A1C tomorrow * Accu checks AC/HS * hypoglycemic protocol in place * Creatinine 1.7, EGFR 29 * Continue to trend labs 08/20/23: * Blood sugars ranging 337-458 * Will change to high-dose sliding scale insulin * Will start Lantus 30 units tonight * Will give NPH 15 units now * Humulin KwikPen is currently on hold * If blood sugars are not under control by tomorrow consider mealtime dosing and an increase in the Lantus. Plan was reviewed with pharmacy. Time Spent With Patient Time
--- NOTE | 2023-08-20 11:56 | PM.IMPN ---
Progress Note: A&P Assessment and Plan (1) Acute exacerbation of CHF (congestive heart failure): Code(s): I50.9 - Heart failure, unspecified Status: Acute Assessment and Plan: 08/18/23: ADMITTED TO MED TELE DIURESE NEEDED DAILY INTAKE AND OUTPUT 08/19/23: Acute on chronic diastolic congestive heart failure Continue diuresis with Lasix 40 mg b.i.d. IV dosing Strict I&O Last echocardiogram done on 04/17/2023 reviewed and revealed normal LV systolic function with an estimated EF of 60-65% grade 2 diastolic dysfunction Continue spironolactone 08/20/23: PT and OT ordered for evaluation and treatment Consult placed to Cardiology for additional support considering her kidney function (2) Acute and chronic respiratory failure, unspecified whether with hypoxia or hypercapnia: Code(s): J96.20 - Acute and chronic respiratory failure, unspecified whether with hypoxia or hypercapnia Status: Acute Assessment and Plan: 08/18/23: ON SUPPLEMENTAL OXYGEN BY NASAL CANNULA 08/19/23: Patient currently on 3 L nasal cannula which is her baseline 08/20/23: No change to current treatment plan (3) UTI (urinary tract infection): Code(s): N39.0 - Urinary tract infection, site not specified Status: Acute Assessment and Plan: 08/18/23: STARTED ROCEPHIN CULTURES IN PROGRESS 08/19/23: UA shown 1+ leukocytes, 21-50 urine wbc's, 1+ bacteria, many urine squamous epithelial cells Urine culture and blood cultures obtained and are pending Continue Rocephin 08/20/23: Urine culture is still pending Blood culture showing no growth today on preliminary read Continue Rocephin (4) Lymphedema: Code(s): I89.0 - Lymphedema, not elsewhere classified Status: Acute Assessment and Plan: 08/18/23 WORSENED 08/19/23: Bilateral lower extremity edema 4+ pitting, anasarca present Patient does have congestive heart failure Continue diuresis 08/20/23: No change to current treatment plan (5) COPD (chronic obstructive pulmonary disease): Code(s): J44.9 - Chronic obstructive pulmonary disease, unspecified Status: Acute Assessment and Plan: 08/18/23: RESUME HOME MED NOT ACTIVELY WHEEZING 08/19/23: Continue albuterol inhaler 08/20/23: No change to current treatment (6) Morbid (severe) obesity due to excess calories: Code(s): E66.01 - Morbid (severe) obesity due to excess calories Status: Acute Assessment and Plan: 08/18/23: LIFESTYLE AND DIET MODIFICATION 08/19/23: 46.8MI/ 116.1kg (7) CKD stage 3 secondary to diabetes: Code(s): E11.22 - Type 2 diabetes mellitus with diabetic chronic kidney disease; N18.30 - Chronic kidney disease, stage 3 unspecified Status: Acute Assessment and Plan: 08/18/23: CONTINUE TO MONITOR BUN AND CREATININE 08/19/23: BG ranging 153-175 Hgb A1C 9.5 on 04/20/23 Will recheck HGB A1C tomorrow Accu checks AC/HS hypoglycemic protocol in place Creatinine 1.7, EGFR 29 Continue to trend labs 08/20/23: Blood sugars ranging 337-458 Will change to high-dose sliding scale insulin Will start Lantus 30 units tonight Will give NPH 15 units now Humulin KwikPen is currently on hold If blood sugars are not under control by tomorrow consider mealtime dosing and an increase in the Lantus. Plan was reviewed with pharmacy. Time Spent With Patient Time with patient: Greater than 35 minutes Subjective Date/time seen: 08/20/23 11:56 Interval history: 08/19/23: This is a 78 year female who presented to the with complaints bilateral lower extremity swelling and wounds. She denies any fever, chills, nausea, vomiting, diarrhea, abdominal pain, or chest pain. She reports shortness of Breath with activity and anasarca. Workup in the hospital included chest x-ray which shows and cardiomegaly. Initial labs showed a white blood cell count of 10.3, hemoglobin 10.7 creatinine 0.7, E
[2023-08-20 12:04] LABS: Glucose Point of Care 458 mg/dl (65-105)
[2023-08-20] MEDS: INSULIN ASPART (*BKC) 100 UNITS/ML 8 UNITS SUB-Q (12:38)
[2023-08-20] MEDS: INSULIN HUMAN NPH (*BKC) 100 UNITS/ML 15 UNITS SUB-Q (13:06)
[2023-08-20] MEDS: RIVAROXABAN 20 MG TABLET PO (16:44)
[2023-08-20 16:56] LABS: Glucose Point of Care 396 mg/dl (65-105)
[2023-08-20] MEDS: traMADol HCL (*CRX) 50 MG TABLET PO (18:03)
[2023-08-20] MEDS: traZODone HCL 50 MG TABLET 100 MG PO (20:27)
[2023-08-20] MEDS: clonazePAM (*CRX) 0.5 MG TABLET PO (20:28)
[2023-08-20] MEDS: ATORVASTATIN 40 MG TABLET PO (20:28)
[2023-08-20] MEDS: MELATONIN 5 MG TABLET PO (20:28)
[2023-08-20] MEDS: INSULIN GLARGINE (*BKC) 100 UNITS/ML 30 UNITS SUB-Q (20:36)
[2023-08-20] MEDS: ACETAMINOPHEN 500 MG TABLET 1000 MG BY MOUTH (20:42)
[2023-08-20 20:51] LABS: Glucose Point of Care 376 mg/dl (65-105)
[2023-08-20 22:24] LABS: Hemoglobin A1C 7.9 % (<5.7)
[2023-08-21] VITALS (11 sets, daily range): BP systolic 119–137; BP diastolic 48–68; PULSE 55–92; RESP 20–24; TEMP 36.1–37.1; O2SAT 97–100
--- NOTE | 2023-08-21 00:05 | PC.NURSE ---
This RN preceptor has read over and agrees with student nurse Mora's notes and assessment.
[2023-08-21] MEDS: HYDROcodone/acetaminophen (*CRX) 5-325 MG TABLET 1 TAB PO ×3 (01:43→18:33)
[2023-08-21 06:56] LABS: Basophils Percent Auto 0.4 % (0.2-1.2); Eosinophils Absolute Auto 0.3 K/mm3 (0-0.3); Eosinophils Percent Auto 3.5 % (0-4.4); Hematocrit 31.9 % (37.0-47.0); Hemoglobin 9.9 g/dL (12.0-15.0); Immature Granulocyte Absolute 0.05 K/mm3 (0.00-0.031); Immature Granulocyte Percent A 0.6 % (0-0.5); Immature Platelet Fraction Pct 2.8 % (0.9-11.2); Lymphocytes Absolute Auto 1.28 K/mm3 (0.9-3.2); Lymphocytes Percent Auto 15.3 % (18.3-44.2); Mean Corpuscular Volume 96.7 fl (80-100); Mean Platelet Volume 13.6 fl (7.4-10.4); Monocytes Absolute Auto 0.8 K/mm3 (0.1-0.6); Neutrophils Percent Auto 71.2 % (45.5-73.1); Platelet Count Result 225 k/mm3 (150-375); Red Cell Distribution Width 14.5 % (11.5-14.5); White Blood Count 8.4 K/mm3 (4.5-10.0)
[2023-08-21 07:03] LABS: Alanine Aminotransferase 19 U/L (6-35); Albumin Level 3.8 g/dL (3.5-5.1); Alkaline Phosphatase 114 U/L (38-126); Anion Gap 7 mmol/L (4-12); Aspartate Amino Transferase 22 U/L (14-36); Bilirubin,Total 0.5 mg/dL (0.2-1.3); Blood Urea Nitrogen 41 mg/dL (7-17); Calcium 9.7 mg/dL (8.4-10.2); Carbon Dioxide 26 mmol/L (22-30); Chloride 103 mmol/L (98-107); Estimated CRCL calculation 26 ml/min; Estimated Glomerular Filt Rate 26; Glucose 292 mg/dL (65-110); Sodium 136 mmol/L (137-145)
[2023-08-21 07:56] LABS: Glucose Point of Care 296 mg/dl (65-105)
[2023-08-21] MEDS: INSULIN ASPART (*BKC) 100 UNITS/ML SUB-Q ×5 (08:03→22:47)
[2023-08-21] MEDS: BRIMONIDINE TARTRATE 0.2% OP SOLN 5 ML BTL 2 DROP EACH EYE ×2 (08:04→21:03)
[2023-08-21] MEDS: MONTELUKAST SODIUM 10 MG TABLET PO (08:05)
[2023-08-21] MEDS: CHOLECALCIFEROL 1,000 UNITS TABLET 1000 UNITS PO (08:05)
[2023-08-21] MEDS: LORATADINE 10 MG TABLET PO (08:05)
[2023-08-21] MEDS: MUPIROCIN 2% OINT 22 GM TUBE 1 APPLIC TOPICAL (08:06)
[2023-08-21] MEDS: CLOPIDOGREL BISULFATE 75 MG TABLET PO (08:06)
[2023-08-21] MEDS: lisinopriL 20 MG TABLET 40 MG PO (08:06)
[2023-08-21] MEDS: busPIRone HCL 5 MG TABLET 15 MG PO ×3 (08:06→17:03)
[2023-08-21] MEDS: SPIRONOLACTONE 12.5 MG TABLET PO (08:06)
[2023-08-21] MEDS: buPROPion HCL XL (24 HR) 150 MG TABCR PO (08:06)
[2023-08-21] MEDS: FUROSEMIDE INJ 40 MG/4 ML VIAL IV PUSH (08:06)
[2023-08-21] MEDS: TIMOLOL MALEATE 0.5% OP SOLN 5 ML BOTTLE 2 DROP EACH EYE ×2 (08:07→21:03)
[2023-08-21] MEDS: FLUTICASONE/UMECLIDIN/VILANTER 100-62.5-25 MCG ELLIPTA 1 PUFF INHALATION (08:15)
[2023-08-21 11:30] LABS: Glucose Point of Care 283 mg/dl (65-105)
--- NOTE | 2023-08-21 11:55 | PM.CNCAR ---
Assessment and Plan Assessment and plan (1) Acute on chronic heart failure with preserved ejection fraction: Code(s): I50.33 - Acute on chronic diastolic (congestive) heart failure Status: Acute Assessment and Plan: Patient presents once again clinical evidence for acute on chronic heart failure with preserved ejection fraction. She has not appear to be responding favorably to IV Lasix 40 mg twice daily at this time. We will discontinue in favor of bumetanide 1.5 mg IV twice daily. Monitor renal function electrolytes very closely. Accurate input and output, daily weight, less than 2 g daily sodium intake. Continue spironolactone 12.5 mg daily for now. Continue to Ifeanyi wrap her lower extremities. Elevate legs while seated. History of preserved LV systolic function by echo 03/2023. Patient denies history of lymphedema. Etiology multifactorial given underlying renal insufficiency, chronic hypoxic respiratory failure, probable untreated YONI. She is not reporting anginal symptoms although this is another consideration. Recommend apnea link overnight. Continue telemetry for now. (2) Acute and chronic respiratory failure, unspecified whether with hypoxia or hypercapnia: Code(s): J96.20 - Acute and chronic respiratory failure, unspecified whether with hypoxia or hypercapnia Status: Acute Assessment and Plan: History of COPD with significant underlying lung disease. Continue O2 supplementation 3 L nasal cannula. Bronchodilator. Defer management to hospitalist service. (3) CKD stage 3 secondary to diabetes: Code(s): E11.22 - Type 2 diabetes mellitus with diabetic chronic kidney disease; N18.30 - Chronic kidney disease, stage 3 unspecified Status: Acute Assessment and Plan: Monitor renal function closely. Mild acute on chronic renal insufficiency since presentation. She appears to require increased diuretic given lack of significant documented response thus far. Due to monitor renal function very closely in this regard. Monitor electrolytes. If significant Worsening renal function and light of progressive decompensated heart failure then repeat 2D echocardiogram may be considered as well as Nephrology consultation. Minimize nephrotoxic agents. (4) Coronary artery disease: Qualifiers: Coronary Disease-Associated Artery/Lesion type: [place] artery [place] vs. transplanted heart: [place] heart Associated angina: without angina Qualified Code(s): I25.10 - Atherosclerotic heart disease of [place] coronary artery without angina pectoris Code(s): I25.10 - Atherosclerotic heart disease of [place] coronary artery without angina pectoris Status: Chronic Assessment and Plan: Stable, no acute issues at this time. She does not report anginal symptoms although he is relatively sedentary. Continue clopidogrel 75 mg daily, atorvastatin 40 mg at bedtime (5) Paroxysmal A-fib: Code(s): I48.0 - Paroxysmal atrial fibrillation Status: Acute Assessment and Plan: Maintaining sinus rhythm thus far. She is not currently on AV katerina blocking agents nor as an outpatient. Continue Xarelto reduced to 15 mg at bedtime due to renal failure. Monitor closely for bleeding. Follow H&H. (6) UTI (urinary tract infection): Code(s): N39.0 - Urinary tract infection, site not specified Status: Acute Assessment and Plan: Management per primary service. She remains on IV ceftriaxone. (7) Uncontrolled type 2 diabetes mellitus: Status: Acute Assessment and Plan: Continue to improve glucose control, defer to primary service in this regard. (8) Morbid (severe) obesity due to excess calories: Code(s): E66.01 - Morbid (severe) obesity due to excess calories Status: Acute Assessment and Plan: Lifestyle modification, weight loss. Apnea link to screen for YONI. History of Present Illness History of Present Illness Consult date/time: [place]
--- NOTE | 2023-08-21 15:40 | P.PNIM_ITS ---
Progress Note: A&P Assessment and Plan (1) Acute exacerbation of CHF (congestive heart failure): Code(s): I50.9 - Heart failure, unspecified Status: Acute Assessment and Plan: 08/18/23: ADMITTED TO [facility] [place] NEEDED DAILY INTAKE AND OUTPUT 08/19/23: * Acute on chronic diastolic congestive heart failure * Continue diuresis with Lasix 40 mg b.i.d. IV dosing * Strict I&O * Last echocardiogram done on 04/17/2023 reviewed and revealed normal LV systolic function with an estimated EF of 60-65% grade 2 diastolic dysfunction * Continue spironolactone 08/20/23: * PT and OT ordered for evaluation and treatment * Consult placed to Cardiology for additional support considering her kidney function 08/20: Cardiology changing Lasix over to Bumex 1.5 mg IV twice daily, continue spironolactone (2) Acute and chronic respiratory failure, unspecified whether with hypoxia or hypercapnia: Code(s): J96.20 - Acute and chronic respiratory failure, unspecified whether with hypoxia or hypercapnia Status: Acute Assessment and Plan: 08/18/23: * ON SUPPLEMENTAL OXYGEN BY NASAL CANNULA 08/19/23: * Patient currently on 3 L nasal cannula which is her baseline 08/20/23: * No change to current treatment plan (3) UTI (urinary tract infection): Code(s): N39.0 - Urinary tract infection, site not specified Status: Acute Assessment and Plan: 08/18/23: STARTED ROCEPHIN CULTURES IN PROGRESS 08/19/23: * UA shown 1+ leukocytes, 21-50 urine wbc's, 1+ bacteria, many urine squamous epithelial cells * Urine culture and blood cultures obtained and are pending * Continue Rocephin 08/20/23: * Urine culture is still pending * Blood culture showing no growth today on preliminary read * Continue Rocephin 08/20: Mixed lorena growth. Changed to Keflex for 2 more days starting tomorrow (4) Lymphedema: Code(s): I89.0 - Lymphedema, not elsewhere classified Status: Acute Assessment and Plan: 08/18/23 WORSENED 08/19/23: * Bilateral lower extremity edema 4+ pitting, anasarca present * Patient does have congestive heart failure * Continue diuresis 08/20: Diuretics changed per Cardiology (5) COPD (chronic obstructive pulmonary disease): Qualifiers: COPD type: unspecified COPD Qualified Code(s): J44.9 - Chronic obstructive pulmonary disease, unspecified Code(s): J44.9 - Chronic obstructive pulmonary disease, unspecified Status: Acute Assessment and Plan: 08/18/23: RESUME HOME MED NOT ACTIVELY WHEEZING 08/19/23: * Continue albuterol inhaler 08/20/23: * No change to current treatment (6) Morbid (severe) obesity due to excess calories: Code(s): E66.01 - Morbid (severe) obesity due to excess calories Status: Acute Assessment and Plan: 08/18/23: LIFESTYLE AND DIET MODIFICATION 08/19/23: * 46.8MI/ 116.1kg (7) CKD stage 3 secondary to diabetes: Code(s): E11.22 - Type 2 diabetes mellitus with diabetic chronic kidney disease; N18.30 - Chronic kidney disease, stage 3 unspecified Status: Acute Assessment and Plan: 08/18/23: CONTINUE TO MONITOR BUN AND CREATININE 08/19/23: * BG ranging 153-175 * Hgb A1C 9.5 on 04/20/23 * Will recheck HGB A1C tomorrow * Accu checks AC/HS * hypoglycemic protocol in place * Creatinine 1.7, EGFR 29 * Continue to trend labs 08/20/23: * Blood sugars ranging 337-458 * Will change to high-dose slid
--- NOTE | 2023-08-21 15:40 | PM.IMPN ---
Progress Note: A&P Assessment and Plan (1) Acute exacerbation of CHF (congestive heart failure): Code(s): I50.9 - Heart failure, unspecified Status: Acute Assessment and Plan: 08/18/23: ADMITTED TO [facility] NEEDED DAILY INTAKE AND OUTPUT 08/19/23: Acute on chronic diastolic congestive heart failure Continue diuresis with Lasix 40 mg b.i.d. IV dosing Strict I&O Last echocardiogram done on 04/17/2023 reviewed and revealed normal LV systolic function with an estimated EF of 60-65% grade 2 diastolic dysfunction Continue spironolactone 08/20/23: PT and OT ordered for evaluation and treatment Consult placed to Cardiology for additional support considering her kidney function 08/20: Cardiology changing Lasix over to Bumex 1.5 mg IV twice daily, continue spironolactone (2) Acute and chronic respiratory failure, unspecified whether with hypoxia or hypercapnia: Code(s): J96.20 - Acute and chronic respiratory failure, unspecified whether with hypoxia or hypercapnia Status: Acute Assessment and Plan: 08/18/23: ON SUPPLEMENTAL OXYGEN BY NASAL CANNULA 08/19/23: Patient currently on 3 L nasal cannula which is her baseline 08/20/23: No change to current treatment plan (3) UTI (urinary tract infection): Code(s): N39.0 - Urinary tract infection, site not specified Status: Acute Assessment and Plan: 08/18/23: STARTED ROCEPHIN CULTURES IN PROGRESS 08/19/23: UA shown 1+ leukocytes, 21-50 urine wbc's, 1+ bacteria, many urine squamous epithelial cells Urine culture and blood cultures obtained and are pending Continue Rocephin 08/20/23: Urine culture is still pending Blood culture showing no growth today on preliminary read Continue Rocephin 08/20: Mixed lorena growth. Changed to Keflex for 2 more days starting tomorrow (4) Lymphedema: Code(s): I89.0 - Lymphedema, not elsewhere classified Status: Acute Assessment and Plan: 08/18/23 WORSENED 08/19/23: Bilateral lower extremity edema 4+ pitting, anasarca present Patient does have congestive heart failure Continue diuresis 08/20: Diuretics changed per Cardiology (5) COPD (chronic obstructive pulmonary disease): Qualifiers: COPD type: unspecified COPD Qualified Code(s): J44.9 - Chronic obstructive pulmonary disease, unspecified Code(s): J44.9 - Chronic obstructive pulmonary disease, unspecified Status: Acute Assessment and Plan: 08/18/23: RESUME HOME MED NOT ACTIVELY WHEEZING 08/19/23: Continue albuterol inhaler 08/20/23: No change to current treatment (6) Morbid (severe) obesity due to excess calories: Code(s): E66.01 - Morbid (severe) obesity due to excess calories Status: Acute Assessment and Plan: 08/18/23: LIFESTYLE AND DIET MODIFICATION 08/19/23: 46.8MI/ 116.1kg (7) CKD stage 3 secondary to diabetes: Code(s): E11.22 - Type 2 diabetes mellitus with diabetic chronic kidney disease; N18.30 - Chronic kidney disease, stage 3 unspecified Status: Acute Assessment and Plan: 08/18/23: CONTINUE TO MONITOR BUN AND CREATININE 08/19/23: BG ranging 153-175 Hgb A1C 9.5 on 04/20/23 Will recheck HGB A1C tomorrow Accu checks AC/HS hypoglycemic protocol in place Creatinine 1.7, EGFR 29 Continue to trend labs 08/20/23: Blood sugars ranging 337-458 Will change to high-dose sliding scale insulin Will start Lantus 30 units tonight Will give NPH 15 units now Humulin KwikPen is currently on hold If blood sugars are not under control by tomorrow consider mealtime dosing and an increase in the Lantus. Plan was reviewed with pharmacy. 08/20: Increase Lantus to 45 units at night. Continue high-dose sliding scale. Time Spent With Patient Time with patient: Greater than 35 minutes Subjective Date/time seen: 08/21/23 15:40 Interval history: 08/19/23: This is a 78 year female who present
[2023-08-21 16:13] LABS: Glucose Point of Care 330 mg/dl (65-105)
--- NOTE | 2023-08-21 16:24 | PCPTNOTE ---
Patient refused treatment this session. PT will continue to follow per plan of care.
[2023-08-21] MEDS: RIVAROXABAN 15 MG TABLET PO (17:03)
[2023-08-21] MEDS: BUMETANIDE INJ 1 MG/4 ML VIAL 1.5 MG IV PUSH (17:04)
[2023-08-21] MEDS: ATORVASTATIN 40 MG TABLET PO (20:55)
[2023-08-21] MEDS: traZODone HCL 50 MG TABLET 100 MG PO (20:55)
[2023-08-21] MEDS: ACETAMINOPHEN 500 MG TABLET 1000 MG BY MOUTH (20:55)
[2023-08-21] MEDS: MELATONIN 5 MG TABLET PO (20:56)
[2023-08-21] MEDS: INSULIN GLARGINE (*BKC) 100 UNITS/ML 45 UNITS SUB-Q (20:56)
[2023-08-21] MEDS: clonazePAM (*CRX) 0.5 MG TABLET PO (21:03)
[2023-08-21 21:25] LABS: Glucose Point of Care 424 mg/dl (65-105)
[2023-08-22] VITALS (7 sets, daily range): BP systolic 116–131; BP diastolic 42–59; PULSE 65–106; RESP 14–24; TEMP 36.3–36.4; O2SAT 97–100
[2023-08-22 06:15] LABS: Basophils Percent Auto 0.4 % (0.2-1.2); Eosinophils Absolute Auto 0.3 K/mm3 (0-0.3); Hematocrit 32.5 % (37.0-47.0); Hemoglobin 10.1 g/dL (12.0-15.0); Immature Granulocyte Absolute 0.08 K/mm3 (0.00-0.031); Immature Granulocyte Percent A 0.9 % (0-0.5); Lymphocytes Absolute Auto 1.44 K/mm3 (0.9-3.2); Lymphocytes Percent Auto 15.4 % (18.3-44.2); Mean Corpuscular HGB Conc 31.1 g/dl (32-36); Mean Corpuscular Hemoglobin 30.1 pg (26-34); Mean Platelet Volume 12.1 fl (7.4-10.4); Monocytes Percent Auto 10.8 % (2.6-8.5); Neutrophils Absolute Auto 6.5 K/mm3 (1.3-6.7); Neutrophils Percent Auto 69.5 % (45.5-73.1); Platelet Count Result 169 k/mm3 (150-375); Red Blood Count 3.35 M/mm3 (4.2-5.4); Red Cell Distribution Width 14.5 % (11.5-14.5); White Blood Count 9.4 K/mm3 (4.5-10.0)
[2023-08-22 06:40] LABS: Alanine Aminotransferase 19 U/L (6-35); Alkaline Phosphatase 133 U/L (38-126); Anion Gap 9 mmol/L (4-12); Aspartate Amino Transferase 21 U/L (14-36); Bilirubin,Total 0.4 mg/dL (0.2-1.3); Blood Urea Nitrogen 42 mg/dL (7-17); Calcium 9.5 mg/dL (8.4-10.2); Carbon Dioxide 24 mmol/L (22-30); Chloride 101 mmol/L (98-107); Estimated CRCL calculation 24 ml/min; Estimated Glomerular Filt Rate 23; Glucose 301 mg/dL (65-110); Magnesium 2.1 mg/dL (1.6-2.3); Potassium 5.1 mmol/L (3.4-5.0); Sodium 134 mmol/L (137-145)
[2023-08-22] MEDS: FLUTICASONE/UMECLIDIN/VILANTER 100-62.5-25 MCG ELLIPTA 1 PUFF INHALATION (07:07)
[2023-08-22 07:51] LABS: Glucose Point of Care 302 mg/dl (65-105)
[2023-08-22] MEDS: INSULIN ASPART (*BKC) 100 UNITS/ML SUB-Q ×4 (08:08→21:44)
[2023-08-22] MEDS: INSULIN ASPART (*BKC) 100 UNITS/ML 6 UNITS SUB-Q ×3 (08:08→17:35)
[2023-08-22] MEDS: CLOPIDOGREL BISULFATE 75 MG TABLET PO (08:09)
[2023-08-22] MEDS: BUMETANIDE INJ 1 MG/4 ML VIAL 1.5 MG IV PUSH ×2 (08:09→17:34)
[2023-08-22] MEDS: lisinopriL 20 MG TABLET 40 MG PO (08:09)
[2023-08-22] MEDS: LORATADINE 10 MG TABLET PO (08:09)
[2023-08-22] MEDS: busPIRone HCL 5 MG TABLET 15 MG PO ×3 (08:09→17:34)
[2023-08-22] MEDS: CEPHALEXIN 500 MG CAPSULE PO ×2 (08:09→21:22)
[2023-08-22] MEDS: buPROPion HCL XL (24 HR) 150 MG TABCR PO (08:10)
[2023-08-22] MEDS: CHOLECALCIFEROL 1,000 UNITS TABLET 1000 UNITS PO (08:10)
[2023-08-22] MEDS: MONTELUKAST SODIUM 10 MG TABLET PO (08:10)
[2023-08-22] MEDS: TIMOLOL MALEATE 0.5% OP SOLN 5 ML BOTTLE 2 DROP EACH EYE ×2 (08:13→21:24)
[2023-08-22] MEDS: MUPIROCIN 2% OINT 22 GM TUBE 1 APPLIC TOPICAL (08:14)
[2023-08-22] MEDS: BRIMONIDINE TARTRATE 0.2% OP SOLN 5 ML BTL 2 DROP EACH EYE ×2 (08:14→21:23)
[2023-08-22] MEDS: HYDROcodone/acetaminophen (*CRX) 5-325 MG TABLET 1 TAB PO ×2 (10:48→17:35)
--- NOTE | 2023-08-22 11:06 | PM.PNCARD ---
Progress Note: A&P Assessment and Plan (1) Acute on chronic heart failure with preserved ejection fraction: Code(s): I50.33 - Acute on chronic diastolic (congestive) heart failure Status: Acute Assessment and Plan: Patient presents once again clinical evidence for acute on chronic heart failure with preserved ejection fraction. History of preserved LV systolic function by echo 03/2023. Etiology multifactorial given underlying renal insufficiency, chronic hypoxic respiratory failure, probable untreated YONI. Continue diuresis with bumex 1.5mg IV b.i.d. Accurate input and output daily weight less than 2 g daily sodium intake. Continue spironolactone 12.5 mg daily for now. Continue to Ifeanyi wrap her lower extremities. Elevate legs while seated. (2) Acute and chronic respiratory failure, unspecified whether with hypoxia or hypercapnia: Code(s): J96.20 - Acute and chronic respiratory failure, unspecified whether with hypoxia or hypercapnia Status: Acute Assessment and Plan: History of COPD with significant underlying lung disease. Continue O2 supplementation 3 L nasal cannula. Bronchodilator. Defer management to hospitalist service. (3) CKD stage 3 secondary to diabetes: Code(s): E11.22 - Type 2 diabetes mellitus with diabetic chronic kidney disease; N18.30 - Chronic kidney disease, stage 3 unspecified Status: Acute Assessment and Plan: SCr 2.10 today from 1.9. Continue to monitor closely with aggressive diuresis. (4) Coronary artery disease: Qualifiers: Coronary Disease-Associated Artery/Lesion type: [place] artery [place] vs. transplanted heart: [place] heart Associated angina: without angina Qualified Code(s): I25.10 - Atherosclerotic heart disease of [place] coronary artery without angina pectoris Code(s): I25.10 - Atherosclerotic heart disease of [place] coronary artery without angina pectoris Status: Chronic Assessment and Plan: Stable, no acute issues at this time. Continue ASA, statin (5) Paroxysmal A-fib: Code(s): I48.0 - Paroxysmal atrial fibrillation Status: Acute Assessment and Plan: Maintaining sinus rhythm thus far. She is not currently on AV katerina blocking agents nor as an outpatient. Continue Xarelto reduced to 15 mg at bedtime due to renal failure. Monitor closely for bleeding. Follow H&H. (6) UTI (urinary tract infection): Code(s): N39.0 - Urinary tract infection, site not specified Status: Acute Assessment and Plan: Management per primary service. She remains on IV ceftriaxone. (7) Uncontrolled type 2 diabetes mellitus: Status: Acute Assessment and Plan: Continue to improve glucose control, defer to primary service in this regard. (8) Morbid (severe) obesity due to excess calories: Code(s): E66.01 - Morbid (severe) obesity due to excess calories Status: Acute Assessment and Plan: Lifestyle modification, weight loss. Apnea link to screen for YONI. Subjective Date/time seen: 08/22/23 11:06 Interval history: Cardiology follow up for CHF Date of service 08/22/2023: Complaining of pain in her legs where she has wounds. She still feels short of breath. Feels like she is urinating a lot. Review of Systems Review of Systems: Remainder of the review of systems is otherwise negative aside from that noted in the HPI. All systems reviewed & are unremarkable except as noted in HPI and below Constitutional: Constitutional: Reports as per HPI and Reports no additional constitutional complaints Eyes: Eyes: Reports as per HPI and Reports no additional eye complaints ENT: Reports system reviewed and no additional complaints, except as documented and Reports as per HPI Cardiovascular: Cardiovascular: Reports as per HPI and Reports no additional cardiovascular complaints Respiratory: Respiratory: Reports as per HPI and Reports no additional res
[2023-08-22 11:47] LABS: Glucose Point of Care 328 mg/dl (65-105)
--- NOTE | 2023-08-22 11:55 | P.PNIM_ITS ---
Progress Note: A&P Assessment and Plan (1) Acute exacerbation of CHF (congestive heart failure): Code(s): I50.9 - Heart failure, unspecified Status: Acute Assessment and Plan: 08/18/23: ADMITTED TO [facility] [place] NEEDED DAILY INTAKE AND OUTPUT 08/19/23: * Acute on chronic diastolic congestive heart failure * Continue diuresis with Lasix 40 mg b.i.d. IV dosing * Strict I&O * Last echocardiogram done on 04/17/2023 reviewed and revealed normal LV systolic function with an estimated EF of 60-65% grade 2 diastolic dysfunction * Continue spironolactone 08/20/23: * PT and OT ordered for evaluation and treatment * Consult placed to Cardiology for additional support considering her kidney function 08/20: Cardiology changing Lasix over to Bumex 1.5 mg IV twice daily, continue spironolactone 08/21: Potassium slightly elevated this morning. Spironolactone held this morning. (2) Acute and chronic respiratory failure, unspecified whether with hypoxia or hypercapnia: Code(s): J96.20 - Acute and chronic respiratory failure, unspecified whether with hypoxia or hypercapnia Status: Acute Assessment and Plan: 08/18/23: * ON SUPPLEMENTAL OXYGEN BY NASAL CANNULA 08/19/23: * Patient currently on 3 L nasal cannula which is her baseline 08/20/23: * No change to current treatment plan (3) UTI (urinary tract infection): Code(s): N39.0 - Urinary tract infection, site not specified Status: Acute Assessment and Plan: 08/18/23: STARTED ROCEPHIN CULTURES IN PROGRESS 08/19/23: * UA shown 1+ leukocytes, 21-50 urine wbc's, 1+ bacteria, many urine squamous epithelial cells * Urine culture and blood cultures obtained and are pending * Continue Rocephin 08/20/23: * Urine culture is still pending * Blood culture showing no growth today on preliminary read * Continue Rocephin 08/20: Mixed lorena growth. Changed to Keflex for 2 more days starting tomorrow (4) Lymphedema: Code(s): I89.0 - Lymphedema, not elsewhere classified Status: Acute Assessment and Plan: 08/18/23 WORSENED 08/19/23: * Bilateral lower extremity edema 4+ pitting, anasarca present * Patient does have congestive heart failure * Continue diuresis 08/20: Diuretics changed per Cardiology (5) COPD (chronic obstructive pulmonary disease): Qualifiers: COPD type: unspecified COPD Qualified Code(s): J44.9 - Chronic obstructive pulmonary disease, unspecified Code(s): J44.9 - Chronic obstructive pulmonary disease, unspecified Status: Acute Assessment and Plan: 08/18/23: RESUME HOME MED NOT ACTIVELY WHEEZING 08/19/23: * Continue albuterol inhaler 08/20/23: * No change to current treatment (6) Morbid (severe) obesity due to excess calories: Code(s): E66.01 - Morbid (severe) obesity due to excess calories Status: Acute Assessment and Plan: 08/18/23: LIFESTYLE AND DIET MODIFICATION 08/19/23: * 46.8MI/ 116.1kg (7) CKD stage 3 secondary to diabetes: Code(s): E11.22 - Type 2 diabetes mellitus with diabetic chronic kidney disease; N18.30 - Chronic kidney disease, stage 3 unspecified Status: Acute Assessment and Plan: 08/18/23: CONTINUE TO MONITOR BUN AND CREATININE 08/19/23: * BG ranging 153-175 * Hgb A1C 9.5 on 04/20/23 * Will recheck HGB A1C tomorrow * Accu checks AC/HS * hypoglycemic protocol in place * Creatinine 1.7, EGFR 29 * Continue to trend labs
--- NOTE | 2023-08-22 11:55 | PM.IMPN ---
Progress Note: A&P Assessment and Plan (1) Acute exacerbation of CHF (congestive heart failure): Code(s): I50.9 - Heart failure, unspecified Status: Acute Assessment and Plan: 08/18/23: ADMITTED TO [facility] NEEDED DAILY INTAKE AND OUTPUT 08/19/23: Acute on chronic diastolic congestive heart failure Continue diuresis with Lasix 40 mg b.i.d. IV dosing Strict I&O Last echocardiogram done on 04/17/2023 reviewed and revealed normal LV systolic function with an estimated EF of 60-65% grade 2 diastolic dysfunction Continue spironolactone 08/20/23: PT and OT ordered for evaluation and treatment Consult placed to Cardiology for additional support considering her kidney function 08/20: Cardiology changing Lasix over to Bumex 1.5 mg IV twice daily, continue spironolactone 08/21: Potassium slightly elevated this morning. Spironolactone held this morning. (2) Acute and chronic respiratory failure, unspecified whether with hypoxia or hypercapnia: Code(s): J96.20 - Acute and chronic respiratory failure, unspecified whether with hypoxia or hypercapnia Status: Acute Assessment and Plan: 08/18/23: ON SUPPLEMENTAL OXYGEN BY NASAL CANNULA 08/19/23: Patient currently on 3 L nasal cannula which is her baseline 08/20/23: No change to current treatment plan (3) UTI (urinary tract infection): Code(s): N39.0 - Urinary tract infection, site not specified Status: Acute Assessment and Plan: 08/18/23: STARTED ROCEPHIN CULTURES IN PROGRESS 08/19/23: UA shown 1+ leukocytes, 21-50 urine wbc's, 1+ bacteria, many urine squamous epithelial cells Urine culture and blood cultures obtained and are pending Continue Rocephin 08/20/23: Urine culture is still pending Blood culture showing no growth today on preliminary read Continue Rocephin 08/20: Mixed lorena growth. Changed to Keflex for 2 more days starting tomorrow (4) Lymphedema: Code(s): I89.0 - Lymphedema, not elsewhere classified Status: Acute Assessment and Plan: 08/18/23 WORSENED 08/19/23: Bilateral lower extremity edema 4+ pitting, anasarca present Patient does have congestive heart failure Continue diuresis 08/20: Diuretics changed per Cardiology (5) COPD (chronic obstructive pulmonary disease): Qualifiers: COPD type: unspecified COPD Qualified Code(s): J44.9 - Chronic obstructive pulmonary disease, unspecified Code(s): J44.9 - Chronic obstructive pulmonary disease, unspecified Status: Acute Assessment and Plan: 08/18/23: RESUME HOME MED NOT ACTIVELY WHEEZING 08/19/23: Continue albuterol inhaler 08/20/23: No change to current treatment (6) Morbid (severe) obesity due to excess calories: Code(s): E66.01 - Morbid (severe) obesity due to excess calories Status: Acute Assessment and Plan: 08/18/23: LIFESTYLE AND DIET MODIFICATION 08/19/23: 46.8MI/ 116.1kg (7) CKD stage 3 secondary to diabetes: Code(s): E11.22 - Type 2 diabetes mellitus with diabetic chronic kidney disease; N18.30 - Chronic kidney disease, stage 3 unspecified Status: Acute Assessment and Plan: 08/18/23: CONTINUE TO MONITOR BUN AND CREATININE 08/19/23: BG ranging 153-175 Hgb A1C 9.5 on 04/20/23 Will recheck HGB A1C tomorrow Accu checks AC/HS hypoglycemic protocol in place Creatinine 1.7, EGFR 29 Continue to trend labs 08/20/23: Blood sugars ranging 337-458 Will change to high-dose sliding scale insulin Will start Lantus 30 units tonight Will give NPH 15 units now Humulin KwikPen is currently on hold If blood sugars are not under control by tomorrow consider mealtime dosing and an increase in the Lantus. Plan was reviewed with pharmacy. 08/20: Increase Lantus to 45 units at night. Continue high-dose sliding scale. Added 6 units per meal and changed diet from heart healthy to diabetic and 2g low-sodium diet. 08/21:
[2023-08-22] MEDS: traMADol HCL (*CRX) 50 MG TABLET PO ×2 (13:21→21:24)
[2023-08-22] MEDS: CYCLOBENZAPRINE HCL 10 MG TABLET PO (14:40)
[2023-08-22 16:58] LABS: Glucose Point of Care 310 mg/dl (65-105)
[2023-08-22] MEDS: RIVAROXABAN 15 MG TABLET PO (17:36)
[2023-08-22 20:50] LABS: Glucose Point of Care 331 mg/dl (65-105)
[2023-08-22] MEDS: clonazePAM (*CRX) 0.5 MG TABLET PO (21:22)
[2023-08-22] MEDS: MELATONIN 5 MG TABLET PO (21:22)
[2023-08-22] MEDS: traZODone HCL 50 MG TABLET 100 MG PO (21:22)
[2023-08-22] MEDS: ATORVASTATIN 40 MG TABLET PO (21:22)
[2023-08-22] MEDS: FLUTICASONE PROPIONATE 0.05% NA SPR 16 GM BTL (*BKC) 2 SPRAY NASAL (21:23)
[2023-08-22] MEDS: ACETAMINOPHEN 500 MG TABLET 1000 MG BY MOUTH (21:30)
[2023-08-22] MEDS: BENZONATATE 100 MG CAPSULE PO (21:30)
[2023-08-22] MEDS: INSULIN GLARGINE (*BKC) 100 UNITS/ML 45 UNITS SUB-Q (21:45)
[2023-08-23 05:33] VITALS: BP 119/52; PULSE 66; RESP 14; TEMP 36.1; O2SAT 98
[2023-08-23 06:27] LABS: Basophils Absolute Auto 0.1 K/mm3 (0.0-0.1); Basophils Percent Auto 0.6 % (0.2-1.2); Eosinophils Absolute Auto 0.3 K/mm3 (0-0.3); Eosinophils Percent Auto 3.4 % (0-4.4); Hematocrit 33.9 % (37.0-47.0); Hemoglobin 10.4 g/dL (12.0-15.0); Immature Granulocyte Absolute 0.06 K/mm3 (0.00-0.031); Immature Granulocyte Percent A 0.7 % (0-0.5); Lymphocytes Absolute Auto 1.44 K/mm3 (0.9-3.2); Lymphocytes Percent Auto 17.3 % (18.3-44.2); Mean Corpuscular HGB Conc 30.7 g/dl (32-36); Mean Corpuscular Hemoglobin 29.6 pg (26-34); Mean Corpuscular Volume 96.6 fl (80-100); Mean Platelet Volume 12.2 fl (7.4-10.4); Monocytes Absolute Auto 0.8 K/mm3 (0.1-0.6); Monocytes Percent Auto 9.3 % (2.6-8.5); Neutrophils Absolute Auto 5.7 K/mm3 (1.3-6.7); Neutrophils Percent Auto 68.7 % (45.5-73.1); Platelet Count Result 159 k/mm3 (150-375); Red Blood Count 3.51 M/mm3 (4.2-5.4); Red Cell Distribution Width 14.4 % (11.5-14.5); White Blood Count 8.3 K/mm3 (4.5-10.0)
[2023-08-23 06:40] LABS: Alanine Aminotransferase 17 U/L (6-35); Albumin Level 3.8 g/dL (3.5-5.1); Alkaline Phosphatase 117 U/L (38-126); Anion Gap 5 mmol/L (4-12); Aspartate Amino Transferase 22 U/L (14-36); Bilirubin,Total 0.4 mg/dL (0.2-1.3); Blood Urea Nitrogen 46 mg/dL (7-17); Calcium 9.8 mg/dL (8.4-10.2); Carbon Dioxide 27 mmol/L (22-30); Chloride 104 mmol/L (98-107); Estimated CRCL calculation 25 ml/min; Estimated Glomerular Filt Rate 24; Glucose 256 mg/dL (65-110); Magnesium 1.9 mg/dL (1.6-2.3); Potassium 4.8 mmol/L (3.4-5.0); Sodium 136 mmol/L (137-145)
[2023-08-23 07:51] LABS: Glucose Point of Care 244 mg/dl (65-105)
[2023-08-23 08:05] VITALS: O2SAT 96
[2023-08-23] MEDS: FLUTICASONE/UMECLIDIN/VILANTER 100-62.5-25 MCG ELLIPTA 1 PUFF INHALATION (08:05)
[2023-08-23 09:15] VITALS: O2SAT 96
[2023-08-23] MEDS: INSULIN ASPART (*BKC) 100 UNITS/ML 6 UNITS SUB-Q ×3 (09:16→17:05)
[2023-08-23] MEDS: INSULIN ASPART (*BKC) 100 UNITS/ML SUB-Q ×4 (09:16→21:12)
[2023-08-23] MEDS: lisinopriL 20 MG TABLET 40 MG PO (09:17)
[2023-08-23] MEDS: buPROPion HCL XL (24 HR) 150 MG TABCR PO (09:17)
[2023-08-23] MEDS: MONTELUKAST SODIUM 10 MG TABLET PO (09:17)
[2023-08-23] MEDS: busPIRone HCL 5 MG TABLET 15 MG PO ×3 (09:18→17:07)
[2023-08-23] MEDS: CEPHALEXIN 500 MG CAPSULE PO ×2 (09:18→21:01)
[2023-08-23] MEDS: LORATADINE 10 MG TABLET PO (09:18)
[2023-08-23] MEDS: CLOPIDOGREL BISULFATE 75 MG TABLET PO (09:18)
[2023-08-23] MEDS: CHOLECALCIFEROL 1,000 UNITS TABLET 1000 UNITS PO (09:18)
[2023-08-23] MEDS: BRIMONIDINE TARTRATE 0.2% OP SOLN 5 ML BTL 2 DROP EACH EYE ×2 (09:21→21:03)
[2023-08-23] MEDS: TIMOLOL MALEATE 0.5% OP SOLN 5 ML BOTTLE 2 DROP EACH EYE ×2 (09:21→21:03)
[2023-08-23] MEDS: MUPIROCIN 2% OINT 22 GM TUBE 1 APPLIC TOPICAL (09:22)
--- NOTE | 2023-08-23 10:08 | PM.DS ---
DS: Summary Time Spent with Patient Time attestation: Total time spent providing and/or coordinating discharge services: DS: Data Data Completed and Pending Labs on day of discharge: Labs from last 24 hours 08/23/23 08/23/23 08/22/23 07:41 05:43 19:52 WBC 8.3 RBC 3.51 L Hgb 10.4 L Hct 33.9 L MCV 96.6 MCH 29.6 MCHC 30.7 L RDW 14.4 Plt Count 159 MPV 12.2 H Immature Gran % (Auto) 0.7 H Neut % (Auto) 68.7 Lymph % (Auto) 17.3 L [place] % (Auto) 9.3 H Eos % (Auto) 3.4 Baso % (Auto) 0.6 Lymph # (Auto) 1.44 [place] # (Auto) 0.8 H Eos # (Auto) 0.3 Baso # (Auto) 0.1 Abs Immat Gran (auto) 0.06 H Absolute Neuts (auto) 5.7 Absolute Nucleated RBC 0.000 Nucleated RBC % 0.0 Sodium 136 L Potassium 4.8 Chloride 104 Carbon Dioxide 27 Anion Gap 5 BUN 46 H Creatinine 2.00 H Estim Creat Clear Calc 25 Estimated GFR 24 L Glucose 256 H POC Capillary Glucose 244 H 331 H Calcium 9.8 Magnesium 1.9 Total Bilirubin 0.4 AST 22 ALT 17 Alkaline Phosphatase 117 Total Protein 7.0 Albumin 3.8 08/22/23 08/22/23 16:42 11:44 WBC RBC Hgb Hct MCV MCH MCHC RDW Plt Count MPV Immature Gran % (Auto) Neut % (Auto) Lymph % (Auto) [place] % (Auto) Eos % (Auto) Baso % (Auto) Lymph # (Auto) [place] # (Auto) Eos # (Auto) Baso # (Auto) Abs Immat Gran (auto) Absolute Neuts (auto) Absolute Nucleated RBC Nucleated RBC % Sodium Potassium Chloride Carbon Dioxide Anion Gap BUN Creatinine Estim Creat Clear Calc Estimated GFR Glucose POC Capillary Glucose 310 H 328 H Calcium Magnesium Total Bilirubin AST ALT Alkaline Phosphatase Total Protein Albumin Preliminary micro results at discharge 08/18/23 21:59 Blood Culture - Preliminary Blood 08/18/23 20:28 Blood Culture - Preliminary Blood Discharge Plan Discharge Consulting providers: Addie Yanez Patient Instructions: Heart Failure (GEN), Blood Thinners (GEN) Discharge Medications: No Action Trulicity 4.5 mg/0.5 mL pen injector 4.5 mg subcut WEEKLY 90 Days Qty: 6 3RF Rx Instructions: sundays furosemide 40 mg tablet 40 mg PO QAM Qty: 90 1RF mupirocin 2 % ointment 1 applic topical DAILY Qty: 15 1RF Rx Instructions: to affected area, bilateral groin tramadol 50 mg tablet 50 mg PO Q6H PRN (Reason: pain) Qty: 30 0RF Rx Instructions: For moderate to severe pain budesonide-formoterol 160-4.5 mcg/actuation Hfa Aerosol Inhaler 2 puff INHALATION Q12H clonazepam 0.5 mg tablet 0.5 mg PO HS acetaminophen [Tylenol Arthritis Pain] 650 mg tablet extended release 1,300 mg PO HS PRN (Reason: Pain) spironolactone [Aldactone] 25 mg tablet 12.5 mg PO DAILY Qty: 30 0RF dexamethasone 6 mg tablet 6 mg PO DAILY Qty: 7 0RF benzonatate 100 mg capsule 100 mg PO TID PRN (Reason: Cough) Rx Instructions: TAKE ONE CAPSULE BY MOUTH THREE TIMES A DAY NEEDED FOR COUGH fluticasone propionate 50 mcg/actuation spray,suspension 2 spray intranasal HS Rx Instructions: USE 2 SPRAYS IN EACH NOSTRIL HS buspirone 15 mg tablet 15 mg PO TID Rx Instructions: TAKE ONE TABLET BY MOUTH THREE TIMES DAILY vilazodone 10 mg tablet 10 mg PO DAILY PRN (Reason: During monthly cycle of depression) Rx Instructions: TAKE ONE TABLET BY MOUTH EVERY DAY Trelegy Ellipta 100-62.5-25 mcg blister with device 1 inh inhalation DAILY Rx Instructions: INHALE ONE PUFF BY MOUTH DAILY polyethylene glycol 3350 [Miralax] 17 gram Powder In Packet 17 g PO QAM PRN (Reason: Constipation) Qty: 30 0RF hydrocodone-acetaminophen 5-325 mg Tablet 1 tablet PO Q6H PRN (Reason: Pain Rated 4-6) Qty: 14 0RF albuterol sulfate 90 mcg/actuation HFA aerosol inhaler 2 inh INHA
[2023-08-23] MEDS: BUMETANIDE INJ 1 MG/4 ML VIAL 1.5 MG IV PUSH ×2 (10:09→17:20)
[2023-08-23] MEDS: INSULIN GLARGINE (*BKC) 100 UNITS/ML 45 UNITS SUB-Q ×2 (10:14→21:10)
--- NOTE | 2023-08-23 10:20 | PM.PNCARD ---
Progress Note: A&P Assessment and Plan (1) Acute on chronic heart failure with preserved ejection fraction: Code(s): I50.33 - Acute on chronic diastolic (congestive) heart failure Status: Acute Assessment and Plan: Patient presents once again clinical evidence for acute on chronic heart failure with preserved ejection fraction. History of preserved LV systolic function by echo 03/2023. Etiology multifactorial given underlying renal insufficiency, chronic hypoxic respiratory failure, probable untreated YONI. Continue diuresis with bumex 1.5mg IV b.i.d. Accurate input and output daily weight less than 2 g daily sodium intake. Continue spironolactone 12.5 mg daily for now. Continue to Ifeanyi wrap her lower extremities. Elevate legs while seated. (2) Acute and chronic respiratory failure, unspecified whether with hypoxia or hypercapnia: Code(s): J96.20 - Acute and chronic respiratory failure, unspecified whether with hypoxia or hypercapnia Status: Acute Assessment and Plan: History of COPD with significant underlying lung disease. Continue O2 supplementation 3 L nasal cannula. Bronchodilator. Defer management to hospitalist service. (3) CKD stage 3 secondary to diabetes: Code(s): E11.22 - Type 2 diabetes mellitus with diabetic chronic kidney disease; N18.30 - Chronic kidney disease, stage 3 unspecified Status: Acute Assessment and Plan: SCr 2.10 today from 1.9. Continue to monitor closely with aggressive diuresis. (4) Coronary artery disease: Qualifiers: Associated angina: without angina Coronary Disease-Associated Artery/Lesion type: [place] artery [place] vs. transplanted heart: [place] heart Qualified Code(s): I25.10 - Atherosclerotic heart disease of [place] coronary artery without angina pectoris Code(s): I25.10 - Atherosclerotic heart disease of [place] coronary artery without angina pectoris Status: Chronic Assessment and Plan: Stable, no acute issues at this time. Continue ASA, statin (5) Paroxysmal A-fib: Code(s): I48.0 - Paroxysmal atrial fibrillation Status: Acute Assessment and Plan: Maintaining sinus rhythm thus far. She is not currently on AV katerina blocking agents nor as an outpatient. Continue Xarelto reduced to 15 mg at bedtime due to renal failure. Monitor closely for bleeding. Follow H&H. (6) UTI (urinary tract infection): Code(s): N39.0 - Urinary tract infection, site not specified Status: Acute Assessment and Plan: Management per primary service. She remains on IV ceftriaxone. (7) Uncontrolled type 2 diabetes mellitus: Status: Acute Assessment and Plan: Continue to improve glucose control, defer to primary service in this regard. (8) Morbid (severe) obesity due to excess calories: Code(s): E66.01 - Morbid (severe) obesity due to excess calories Status: Acute Assessment and Plan: Lifestyle modification, weight loss. Subjective Date/time seen: 08/23/23 10:20 Interval history: Cardiology follow up for CHF Date of service 08/22/2023: Complaining of pain in her legs where she has wounds. She still feels short of breath. Feels like she is urinating a lot. Date of service 08/23/2023: Feeling slightly better today. Feels less short of breath. She still has some pain in her legs. Review of Systems Review of Systems: Remainder of the review of systems is otherwise negative aside from that noted in the HPI. All systems reviewed & are unremarkable except as noted in HPI and below Constitutional: Constitutional: Reports as per HPI and Reports no additional constitutional complaints Eyes: Eyes: Reports as per HPI and Reports no additional eye complaints ENT: Reports system reviewed and no additional complaints, except as documented and Reports as per HPI Cardiovascular: Cardiovascular: Reports as per HPI and Reports no additional c
[2023-08-23 12:08] LABS: Glucose Point of Care 260 mg/dl (65-105)
[2023-08-23] MEDS: HYDROcodone/acetaminophen (*CRX) 5-325 MG TABLET 1 TAB PO ×2 (13:37→21:01)
[2023-08-23 14:00] VITALS: BP 130/43; PULSE 82; RESP 16; TEMP 36.6; O2SAT 100
--- NOTE | 2023-08-23 15:05 | P.PNIM_ITS ---
Progress Note: A&P Assessment and Plan (1) Acute exacerbation of CHF (congestive heart failure): Code(s): I50.9 - Heart failure, unspecified Status: Acute Assessment and Plan: 08/18/23: [facility]KE AND OUTPUT 08/19/23: * Acute on chronic diastolic congestive heart failure * Continue diuresis with Lasix 40 mg b.i.d. IV dosing * Strict I&O * Last echocardiogram done on 04/17/2023 reviewed and revealed normal LV systolic function with an estimated EF of 60-65% grade 2 diastolic dysfunction * Continue spironolactone 08/20/23: * PT and OT ordered for evaluation and treatment * Consult placed to Cardiology for additional support considering her kidney function 08/20: Cardiology changing Lasix over to Bumex 1.5 mg IV twice daily, continue spironolactone 08/21: Potassium slightly elevated this morning. Spironolactone held this morning. 08/22: Cardiology still wants IV diuresis for a couple more days. Drainage through leg dressings is improving but still present (2) Acute and chronic respiratory failure, unspecified whether with hypoxia or hypercapnia: Code(s): J96.20 - Acute and chronic respiratory failure, unspecified whether with hypoxia or hypercapnia Status: Acute Assessment and Plan: 08/18/23: * ON SUPPLEMENTAL OXYGEN BY NASAL CANNULA 08/19/23: * Patient currently on 3 L nasal cannula which is her baseline 08/20/23: * No change to current treatment plan (3) UTI (urinary tract infection): Code(s): N39.0 - Urinary tract infection, site not specified Status: Acute Assessment and Plan: 08/18/23: STARTED ROCEPHIN CULTURES IN PROGRESS 08/19/23: * UA shown 1+ leukocytes, 21-50 urine wbc's, 1+ bacteria, many urine squamous epithelial cells * Urine culture and blood cultures obtained and are pending * Continue Rocephin 08/20/23: * Urine culture is still pending * Blood culture showing no growth today on preliminary read * Continue Rocephin 08/20: Mixed lorena growth. Changed to Keflex for 2 more days starting tomorrow (4) Lymphedema: Code(s): I89.0 - Lymphedema, not elsewhere classified Status: Acute Assessment and Plan: 08/18/23 WORSENED 08/19/23: * Bilateral lower extremity edema 4+ pitting, anasarca present * Patient does have congestive heart failure * Continue diuresis 08/20: Diuretics changed per Cardiology 08/22: Cardiology believes patient still needs a couple days of further IV diuresis [facility] (5) COPD (chronic obstructive pulmonary disease): Qualifiers: COPD type: unspecified COPD Qualified Code(s): J44.9 - Chronic obstructive pulmonary disease, unspecified Code(s): J44.9 - Chronic obstructive pulmonary disease, unspecified Status: Acute Assessment and Plan: 08/18/23: RESUME HOME MED NOT ACTIVELY WHEEZING 08/19/23: * Continue albuterol inhaler 08/20/23: * No change to current treatment (6) Morbid (severe) obesity due to excess calories: Code(s): E66.01 - Morbid (severe) obesity due to excess calories Status: Acute Assessment and Plan: 08/18/23: LIFESTYLE AND DIET MODIFICATION 08/19/23: * 46.8MI/ 116.1kg (7) CKD stage 3 secondary to diabetes: Code(s): E11.22 - Type 2 diabetes mellitus with diabetic chronic kidney disease; N18.30 - Chronic kidney disease, stage 3 unspecified Status: Acute Assessment and Plan:
--- NOTE | 2023-08-23 15:05 | PM.IMPN ---
Progress Note: A&P Assessment and Plan (1) Acute exacerbation of CHF (congestive heart failure): Code(s): I50.9 - Heart failure, unspecified Status: Acute Assessment and Plan: 08/18/23: ADMITTED TO [facility] NEEDED DAILY INTAKE AND OUTPUT 08/19/23: Acute on chronic diastolic congestive heart failure Continue diuresis with Lasix 40 mg b.i.d. IV dosing Strict I&O Last echocardiogram done on 04/17/2023 reviewed and revealed normal LV systolic function with an estimated EF of 60-65% grade 2 diastolic dysfunction Continue spironolactone 08/20/23: PT and OT ordered for evaluation and treatment Consult placed to Cardiology for additional support considering her kidney function 08/20: Cardiology changing Lasix over to Bumex 1.5 mg IV twice daily, continue spironolactone 08/21: Potassium slightly elevated this morning. Spironolactone held this morning. 08/22: Cardiology still wants IV diuresis for a couple more days. Drainage through leg dressings is improving but still present (2) Acute and chronic respiratory failure, unspecified whether with hypoxia or hypercapnia: Code(s): J96.20 - Acute and chronic respiratory failure, unspecified whether with hypoxia or hypercapnia Status: Acute Assessment and Plan: 08/18/23: ON SUPPLEMENTAL OXYGEN BY NASAL CANNULA 08/19/23: Patient currently on 3 L nasal cannula which is her baseline 08/20/23: No change to current treatment plan (3) UTI (urinary tract infection): Code(s): N39.0 - Urinary tract infection, site not specified Status: Acute Assessment and Plan: 08/18/23: STARTED ROCEPHIN CULTURES IN PROGRESS 08/19/23: UA shown 1+ leukocytes, 21-50 urine wbc's, 1+ bacteria, many urine squamous epithelial cells Urine culture and blood cultures obtained and are pending Continue Rocephin 08/20/23: Urine culture is still pending Blood culture showing no growth today on preliminary read Continue Rocephin 08/20: Mixed lorena growth. Changed to Keflex for 2 more days starting tomorrow (4) Lymphedema: Code(s): I89.0 - Lymphedema, not elsewhere classified Status: Acute Assessment and Plan: 08/18/23 WORSENED 08/19/23: Bilateral lower extremity edema 4+ pitting, anasarca present Patient does have congestive heart failure Continue diuresis 08/20: Diuretics changed per Cardiology 08/22: Cardiology believes patient still needs a couple days of further IV diuresis prior to discharge to [facility]. (5) COPD (chronic obstructive pulmonary disease): Qualifiers: COPD type: unspecified COPD Qualified Code(s): J44.9 - Chronic obstructive pulmonary disease, unspecified Code(s): J44.9 - Chronic obstructive pulmonary disease, unspecified Status: Acute Assessment and Plan: 08/18/23: RESUME HOME MED NOT ACTIVELY WHEEZING 08/19/23: Continue albuterol inhaler 08/20/23: No change to current treatment (6) Morbid (severe) obesity due to excess calories: Code(s): E66.01 - Morbid (severe) obesity due to excess calories Status: Acute Assessment and Plan: 08/18/23: LIFESTYLE AND DIET MODIFICATION 08/19/23: 46.8MI/ 116.1kg (7) CKD stage 3 secondary to diabetes: Code(s): E11.22 - Type 2 diabetes mellitus with diabetic chronic kidney disease; N18.30 - Chronic kidney disease, stage 3 unspecified Status: Acute Assessment and Plan: 08/18/23: CONTINUE TO MONITOR BUN AND CREATININE 08/19/23: BG ranging 153-175 Hgb A1C 9.5 on 04/20/23 Will recheck HGB A1C tomorrow Accu checks AC/HS hypoglycemic protocol in place Creatinine 1.7, EGFR 29 Continue to trend labs 08/20/23: Blood sugars ranging 337-458 Will change to high-dose sliding scale insulin Will start Lantus 30 units tonight Will give NPH 15 units now Humulin KwikPen is currently on hold If blood sugars are not under control by tomorrow dewey carmona
--- NOTE | 2023-08-23 15:22 | PC.NURSE ---
On 08/23/23, the ED TEACHER, Radha, provided care and completed [facility] documentation on this patient. I have reviewed the ED TEACHER's documentation and agree with the findings.
[2023-08-23 16:53] LABS: Glucose Point of Care 232 mg/dl (65-105)
[2023-08-23] MEDS: RIVAROXABAN 15 MG TABLET PO (17:07)
[2023-08-23 19:55] VITALS: BP 124/32; PULSE 82; RESP 24; TEMP 36; O2SAT 98
[2023-08-23 20:00] VITALS: O2SAT 98
[2023-08-23] MEDS: BENZONATATE 100 MG CAPSULE PO (21:01)
[2023-08-23] MEDS: clonazePAM (*CRX) 0.5 MG TABLET PO (21:01)
[2023-08-23] MEDS: traZODone HCL 50 MG TABLET 100 MG PO (21:01)
[2023-08-23] MEDS: ATORVASTATIN 40 MG TABLET PO (21:01)
[2023-08-23] MEDS: MELATONIN 5 MG TABLET PO (21:01)
[2023-08-23] MEDS: FLUTICASONE PROPIONATE 0.05% NA SPR 16 GM BTL (*BKC) 2 SPRAY NASAL (21:03)
[2023-08-23] MEDS: ACETAMINOPHEN 500 MG TABLET 1000 MG BY MOUTH (21:06)
[2023-08-23 21:59] LABS: Glucose Point of Care 320 mg/dl (65-105)
[2023-08-24 04:25] VITALS: BP 139/60; PULSE 70; RESP 20; TEMP 35.9; O2SAT 95
[2023-08-24 05:39] LABS: Basophils Percent Auto 0.5 % (0.2-1.2); Eosinophils Absolute Auto 0.3 K/mm3 (0-0.3); Eosinophils Percent Auto 3.1 % (0-4.4); Immature Granulocyte Absolute 0.06 K/mm3 (0.00-0.031); Immature Granulocyte Percent A 0.7 % (0-0.5); Lymphocytes Percent Auto 19.9 % (18.3-44.2); Mean Corpuscular HGB Conc 31.3 g/dl (32-36); Mean Corpuscular Volume 96.1 fl (80-100); Mean Platelet Volume 13.5 fl (7.4-10.4); Monocytes Absolute Auto 0.8 K/mm3 (0.1-0.6); Monocytes Percent Auto 9.6 % (2.6-8.5); Neutrophils Absolute Auto 5.3 K/mm3 (1.3-6.7); Neutrophils Percent Auto 66.2 % (45.5-73.1); Platelet Count Result 244 k/mm3 (150-375); Red Blood Count 3.33 M/mm3 (4.2-5.4); Red Cell Distribution Width 14.5 % (11.5-14.5); White Blood Count 8.1 K/mm3 (4.5-10.0)
[2023-08-24 05:53] LABS: Alanine Aminotransferase 16 U/L (6-35); Albumin Level 3.7 g/dL (3.5-5.1); Alkaline Phosphatase 121 U/L (38-126); Anion Gap 6 mmol/L (4-12); Aspartate Amino Transferase 20 U/L (14-36); Bilirubin,Total 0.4 mg/dL (0.2-1.3); Blood Urea Nitrogen 46 mg/dL (7-17); Calcium 9.4 mg/dL (8.4-10.2); Carbon Dioxide 26 mmol/L (22-30); Chloride 102 mmol/L (98-107); Estimated CRCL calculation 26 ml/min; Estimated Glomerular Filt Rate 26; Glucose 306 mg/dL (65-110); Magnesium 1.8 mg/dL (1.6-2.3); Potassium 5.1 mmol/L (3.4-5.0); Sodium 134 mmol/L (137-145)
[2023-08-24 07:42] LABS: Glucose Point of Care 293 mg/dl (65-105)
[2023-08-24 08:45] VITALS: O2SAT 100
[2023-08-24] MEDS: LORATADINE 10 MG TABLET PO (08:45)
[2023-08-24] MEDS: CLOPIDOGREL BISULFATE 75 MG TABLET PO (08:45)
[2023-08-24] MEDS: lisinopriL 20 MG TABLET 40 MG PO (08:46)
[2023-08-24] MEDS: CHOLECALCIFEROL 1,000 UNITS TABLET 1000 UNITS PO (08:46)
[2023-08-24] MEDS: MONTELUKAST SODIUM 10 MG TABLET PO (08:46)
[2023-08-24] MEDS: buPROPion HCL XL (24 HR) 150 MG TABCR PO (08:46)
[2023-08-24] MEDS: busPIRone HCL 5 MG TABLET 15 MG PO ×3 (08:46→19:18)
[2023-08-24] MEDS: BRIMONIDINE TARTRATE 0.2% OP SOLN 5 ML BTL 2 DROP EACH EYE ×2 (08:47→21:45)
[2023-08-24] MEDS: MUPIROCIN 2% OINT 22 GM TUBE 1 APPLIC TOPICAL (08:47)
[2023-08-24] MEDS: TIMOLOL MALEATE 0.5% OP SOLN 5 ML BOTTLE 2 DROP EACH EYE ×2 (08:47→21:44)
[2023-08-24] MEDS: INSULIN GLARGINE (*BKC) 100 UNITS/ML 45 UNITS SUB-Q (08:49)
[2023-08-24] MEDS: INSULIN ASPART (*BKC) 100 UNITS/ML 6 UNITS SUB-Q ×3 (08:50→17:38)
[2023-08-24] MEDS: INSULIN ASPART (*BKC) 100 UNITS/ML SUB-Q ×4 (08:50→21:42)
[2023-08-24] MEDS: BUMETANIDE INJ 1 MG/4 ML VIAL 1.5 MG IV PUSH (08:56)
[2023-08-24] MEDS: HYDROcodone/acetaminophen (*CRX) 5-325 MG TABLET 1 TAB PO ×2 (09:09→19:37)
--- NOTE | 2023-08-24 10:10 | PCOTNOTE ---
Per RN, pt is requesting to not see therapy today due to wanting to rest.
[2023-08-24 10:28] VITALS: O2SAT 96
[2023-08-24] MEDS: FLUTICASONE/UMECLIDIN/VILANTER 100-62.5-25 MCG ELLIPTA 1 PUFF INHALATION (10:28)
--- NOTE | 2023-08-24 11:17 | P.PNIM_ITS ---
Progress Note: A&P Assessment and Plan (1) Acute exacerbation of CHF (congestive heart failure): Code(s): I50.9 - Heart failure, unspecified Status: Acute Assessment and Plan: 08/18/23: ADMITTED TO [facility] NEEDED DAILY INTAKE AND OUTPUT 08/19/23: * Acute on chronic diastolic congestive heart failure * Continue diuresis with Lasix 40 mg b.i.d. IV dosing * Strict I&O * Last echocardiogram done on 04/17/2023 reviewed and revealed normal LV systolic function with an estimated EF of 60-65% grade 2 diastolic dysfunction * Continue spironolactone 08/20/23: * PT and OT ordered for evaluation and treatment * Consult placed to Cardiology for additional support considering her kidney function 08/20: Cardiology changing Lasix over to Bumex 1.5 mg IV twice daily, continue spironolactone 08/21: Potassium slightly elevated this morning. Spironolactone held this morning. 08/22: Cardiology still wants IV diuresis for a couple more days. Drainage through leg dressings is improving but still present 08/23: Unchanged except new tenderness left posterior leg. Ordered venous ultrasound lower extremity duplex (2) Acute and chronic respiratory failure, unspecified whether with hypoxia or hypercapnia: Code(s): J96.20 - Acute and chronic respiratory failure, unspecified whether with hypoxia or hypercapnia Status: Acute Assessment and Plan: 08/18/23: * ON SUPPLEMENTAL OXYGEN BY NASAL CANNULA 08/19/23: * Patient currently on 3 L nasal cannula which is her baseline 08/20/23: * No change to current treatment plan (3) Lymphedema: Code(s): I89.0 - Lymphedema, not elsewhere classified Status: Acute Assessment and Plan: 08/18/23 WORSENED 08/19/23: * Bilateral lower extremity edema 4+ pitting, anasarca present * Patient does have congestive heart failure * Continue diuresis 08/20: Diuretics changed per Cardiology 08/22: Cardiology believes patient still needs a couple days of further IV diuresis prior to discharge to [facility] facility. 08/23: Tenderness left lower leg posterior aspect. Ordered venous duplex lower extremities, patient receives these frequently due to chronic swelling (4) COPD (chronic obstructive pulmonary disease): Qualifiers: COPD type: unspecified COPD Qualified Code(s): J44.9 - Chronic obstructive pulmonary disease, unspecified Code(s): J44.9 - Chronic obstructive pulmonary disease, unspecified Status: Acute Assessment and Plan: 08/18/23: RESUME HOME MED NOT ACTIVELY WHEEZING 08/19/23: * Continue albuterol inhaler 08/20/23: * No change to current treatment (5) Morbid (severe) obesity due to excess calories: Code(s): E66.01 - Morbid (severe) obesity due to excess calories Status: Acute Assessment and Plan: 08/18/23: LIFESTYLE AND DIET MODIFICATION 08/19/23: * 46.8MI/ 116.1kg (6) CKD stage 3 secondary to diabetes: Code(s): E11.22 - Type 2 diabetes mellitus with diabetic chronic kidney disease; N18.30 - Chronic kidney disease, stage 3 unspecified Status: Acute Assessment and Plan: 08/18/23: CONTINUE TO MONITOR BUN AND CREATININE 08/19/23: * BG ranging 153-175 * Hgb A1C 9.5 on 04/20/23 * Will recheck HGB A1C tomorrow * Accu checks AC/HS * hypoglycemic protocol in place * Creatinine 1.7, EGFR 29 * Continue to trend labs 08/20/23: * Blood sugars ranging 337-458 * Will change to high-dose sliding scale insulin * Will sta
--- NOTE | 2023-08-24 11:17 | PM.IMPN ---
Progress Note: A&P Assessment and Plan (1) Acute exacerbation of CHF (congestive heart failure): Code(s): I50.9 - Heart failure, unspecified Status: Acute Assessment and Plan: 08/18/23: ADMITTED TO [facility] NEEDED DAILY INTAKE AND OUTPUT 08/19/23: Acute on chronic diastolic congestive heart failure Continue diuresis with Lasix 40 mg b.i.d. IV dosing Strict I&O Last echocardiogram done on 04/17/2023 reviewed and revealed normal LV systolic function with an estimated EF of 60-65% grade 2 diastolic dysfunction Continue spironolactone 08/20/23: PT and OT ordered for evaluation and treatment Consult placed to Cardiology for additional support considering her kidney function 08/20: Cardiology changing Lasix over to Bumex 1.5 mg IV twice daily, continue spironolactone 08/21: Potassium slightly elevated this morning. Spironolactone held this morning. 08/22: Cardiology still wants IV diuresis for a couple more days. Drainage through leg dressings is improving but still present 08/23: Unchanged except new tenderness left posterior leg. Ordered venous ultrasound lower extremity duplex (2) Acute and chronic respiratory failure, unspecified whether with hypoxia or hypercapnia: Code(s): J96.20 - Acute and chronic respiratory failure, unspecified whether with hypoxia or hypercapnia Status: Acute Assessment and Plan: 08/18/23: ON SUPPLEMENTAL OXYGEN BY NASAL CANNULA 08/19/23: Patient currently on 3 L nasal cannula which is her baseline 08/20/23: No change to current treatment plan (3) Lymphedema: Code(s): I89.0 - Lymphedema, not elsewhere classified Status: Acute Assessment and Plan: 08/18/23 WORSENED 08/19/23: Bilateral lower extremity edema 4+ pitting, anasarca present Patient does have congestive heart failure Continue diuresis 08/20: Diuretics changed per Cardiology 08/22: Cardiology believes patient still needs a couple days of further IV diuresis prior to [facility]. 08/23: Tenderness left lower leg posterior aspect. Ordered venous duplex lower extremities, patient receives these frequently due to chronic swelling (4) COPD (chronic obstructive pulmonary disease): Qualifiers: COPD type: unspecified COPD Qualified Code(s): J44.9 - Chronic obstructive pulmonary disease, unspecified Code(s): J44.9 - Chronic obstructive pulmonary disease, unspecified Status: Acute Assessment and Plan: 08/18/23: RESUME HOME MED NOT ACTIVELY WHEEZING 08/19/23: Continue albuterol inhaler 08/20/23: No change to current treatment (5) Morbid (severe) obesity due to excess calories: Code(s): E66.01 - Morbid (severe) obesity due to excess calories Status: Acute Assessment and Plan: 08/18/23: LIFESTYLE AND DIET MODIFICATION 08/19/23: 46.8MI/ 116.1kg (6) CKD stage 3 secondary to diabetes: Code(s): E11.22 - Type 2 diabetes mellitus with diabetic chronic kidney disease; N18.30 - Chronic kidney disease, stage 3 unspecified Status: Acute Assessment and Plan: 08/18/23: CONTINUE TO MONITOR BUN AND CREATININE 08/19/23: BG ranging 153-175 Hgb A1C 9.5 on 04/20/23 Will recheck HGB A1C tomorrow Accu checks AC/HS hypoglycemic protocol in place Creatinine 1.7, EGFR 29 Continue to trend labs 08/20/23: Blood sugars ranging 337-458 Will change to high-dose sliding scale insulin Will start Lantus 30 units tonight Will give NPH 15 units now Humulin KwikPen is currently on hold If blood sugars are not under control by tomorrow consider mealtime dosing and an increase in the Lantus. Plan was reviewed with pharmacy. 08/20: Increase Lantus to 45 units at night. Continue high-dose sliding scale. Added 6 units per meal and changed diet from heart healthy to diabetic and 2g low-sodium diet. 08/21: Despite changes to diet and insulin glucose remains above 300. Leg wo
[2023-08-24 11:44] LABS: Glucose Point of Care 359 mg/dl (65-105)
[2023-08-24] MEDS: traMADol HCL (*CRX) 50 MG TABLET PO (13:12)
--- NOTE | 2023-08-24 13:32 | PCPTNOTE ---
Per nursing please hold therapy today.
[2023-08-24 14:00] VITALS: BP 125/47; PULSE 73; RESP 20; TEMP 36.5; O2SAT 100
[2023-08-24] MEDS: BENZONATATE 100 MG CAPSULE PO ×2 (14:41→19:38)
--- NOTE | 2023-08-24 15:19 | PM.PNCARD ---
Progress Note: A&P Assessment and Plan (1) Acute on chronic heart failure with preserved ejection fraction: Code(s): I50.33 - Acute on chronic diastolic (congestive) heart failure Status: Acute Assessment and Plan: Patient presents once again clinical evidence for acute on chronic heart failure with preserved ejection fraction. History of preserved LV systolic function by echo 03/2023. Etiology multifactorial given underlying renal insufficiency, chronic hypoxic respiratory failure, probable untreated YONI. Continue diuresis will increase Bumex to 2 mg b.i.d. starting in a.m.. Accurate input and output, I have concern this is not accurately being recorded making assessment of her volume status more difficult. daily weight less than 2 g daily sodium intake. Continue spironolactone 12.5 mg daily for now. Monitor electrolytes closely. If hyperkalemia become more problematic may need to discontinue spironolactone. Continue to Ifeanyi wrap her lower extremities. Elevate legs while seated. Will give metolazone 2.5 mg p.o. x1 tomorrow morning. (2) Coronary artery disease: Qualifiers: Coronary Disease-Associated Artery/Lesion type: [place] artery [place] vs. transplanted heart: [place] heart Associated angina: without angina Qualified Code(s): I25.10 - Atherosclerotic heart disease of [place] coronary artery without angina pectoris Code(s): I25.10 - Atherosclerotic heart disease of [place] coronary artery without angina pectoris Status: Chronic Assessment and Plan: Stable, no acute issues at this time. Continue ASA 81 mg daily, atorvastatin 40 mg at bedtime (3) Paroxysmal A-fib: Code(s): I48.0 - Paroxysmal atrial fibrillation Status: Acute Assessment and Plan: Maintaining sinus rhythm thus far. She is not currently on AV katerina blocking agents nor as an outpatient. Continue Xarelto reduced to 15 mg at bedtime due to renal failure. Monitor closely for bleeding. Follow H&H. (4) Acute and chronic respiratory failure, unspecified whether with hypoxia or hypercapnia: Code(s): J96.20 - Acute and chronic respiratory failure, unspecified whether with hypoxia or hypercapnia Status: Acute Assessment and Plan: History of COPD with significant underlying lung disease. Continue O2 supplementation 3 L nasal cannula. Bronchodilator. Defer management to hospitalist service. (5) UTI (urinary tract infection): Code(s): N39.0 - Urinary tract infection, site not specified Status: Resolved Assessment and Plan: Management per primary service. She remains on IV ceftriaxone. (6) CKD stage 3 secondary to diabetes: Code(s): E11.22 - Type 2 diabetes mellitus with diabetic chronic kidney disease; N18.30 - Chronic kidney disease, stage 3 unspecified Status: Acute Assessment and Plan: SCr 1.9. Continue to monitor closely with aggressive diuresis. Monitor closely. (7) Uncontrolled type 2 diabetes mellitus: Status: Acute Assessment and Plan: Continue to improve glucose control, defer to primary service in this regard. (8) Morbid (severe) obesity due to excess calories: Code(s): E66.01 - Morbid (severe) obesity due to excess calories Status: Acute Assessment and Plan: Lifestyle modification, weight loss. Subjective Date/time seen: Date of service: 08/24/23 15:19 Interval history: Cardiology follow up for CHF Date of service 08/22/2023: Complaining of pain in her legs where she has wounds. She still feels short of breath. Feels like she is urinating a lot. Date of service 08/23/2023: Feeling slightly better today. Feels less short of breath. She still has some pain in her legs. Date of service 08/24/2023: Overall she feels about the same. Edema largely unchanged. Patient has a cough she attributes to COPD. Minimally productive. No new issues overnight. Review of Systems Review of Syst
[2023-08-24 16:32] LABS: Glucose Point of Care 304 mg/dl (65-105)
[2023-08-24] MEDS: SODIUM ZIRCONIUM CYCLOSILICATE 10 GM POWD.PACK PO (17:32)
[2023-08-24 17:37] VITALS: BP 139/40
[2023-08-24] MEDS: BUMETANIDE INJ 1 MG/4 ML VIAL 2 MG IV PUSH (17:49)
[2023-08-24] MEDS: RIVAROXABAN 15 MG TABLET PO (19:18)
[2023-08-24] MEDS: CYCLOBENZAPRINE HCL 10 MG TABLET PO (19:38)
--- NOTE | 2023-08-24 20:00 | PC.NURSE ---
I have reviewed and agree with Radha's findings.
[2023-08-24 20:25] VITALS: BP 138/41; PULSE 75; RESP 20; TEMP 36.2; O2SAT 97
[2023-08-24 21:37] LABS: Glucose Point of Care 295 mg/dl (65-105)
[2023-08-24] MEDS: traZODone HCL 50 MG TABLET 100 MG PO (21:43)
[2023-08-24] MEDS: INSULIN GLARGINE (*BKC) 100 UNITS/ML 60 UNITS SUB-Q (21:43)
[2023-08-24] MEDS: ATORVASTATIN 40 MG TABLET PO (21:44)
[2023-08-24] MEDS: MELATONIN 5 MG TABLET PO (21:44)
[2023-08-24] MEDS: clonazePAM (*CRX) 0.5 MG TABLET PO (21:44)
[2023-08-25 04:40] VITALS: BP 98/35; PULSE 67; RESP 22; TEMP 35.7; O2SAT 96
[2023-08-25 06:49] LABS: Basophils Percent Auto 0.4 % (0.2-1.2); Eosinophils Absolute Auto 0.3 K/mm3 (0-0.3); Eosinophils Percent Auto 2.8 % (0-4.4); Hematocrit 33.5 % (37.0-47.0); Hemoglobin 10.5 g/dL (12.0-15.0); Immature Granulocyte Absolute 0.05 K/mm3 (0.00-0.031); Immature Granulocyte Percent A 0.5 % (0-0.5); Lymphocytes Absolute Auto 1.65 K/mm3 (0.9-3.2); Lymphocytes Percent Auto 16.9 % (18.3-44.2); Mean Corpuscular HGB Conc 31.3 g/dl (32-36); Mean Corpuscular Hemoglobin 29.9 pg (26-34); Mean Corpuscular Volume 95.4 fl (80-100); Monocytes Absolute Auto 0.9 K/mm3 (0.1-0.6); Monocytes Percent Auto 8.7 % (2.6-8.5); Neutrophils Absolute Auto 6.9 K/mm3 (1.3-6.7); Neutrophils Percent Auto 70.7 % (45.5-73.1); Platelet Count Result 126 k/mm3 (150-375); Red Blood Count 3.51 M/mm3 (4.2-5.4); Red Cell Distribution Width 14.6 % (11.5-14.5); White Blood Count 9.8 K/mm3 (4.5-10.0)
[2023-08-25 06:59] VITALS: BP 104/45
[2023-08-25 07:02] LABS: Alanine Aminotransferase 16 U/L (6-35); Alkaline Phosphatase 110 U/L (38-126); Anion Gap 8 mmol/L (4-12); Aspartate Amino Transferase 22 U/L (14-36); Bilirubin,Total 0.5 mg/dL (0.2-1.3); Blood Urea Nitrogen 47 mg/dL (7-17); Carbon Dioxide 28 mmol/L (22-30); Chloride 102 mmol/L (98-107); Estimated CRCL calculation 25 ml/min; Estimated Glomerular Filt Rate 24; Glucose 217 mg/dL (65-110); Magnesium 1.7 mg/dL (1.6-2.3); Potassium 4.8 mmol/L (3.4-5.0); Sodium 138 mmol/L (137-145)
[2023-08-25 07:26] LABS: Glucose Point of Care 206 mg/dl (65-105)
[2023-08-25 08:00] VITALS: PULSE 67; RESP 18; O2SAT 100
[2023-08-25] MEDS: buPROPion HCL XL (24 HR) 150 MG TABCR PO (09:22)
[2023-08-25] MEDS: LORATADINE 10 MG TABLET PO (09:22)
[2023-08-25] MEDS: MONTELUKAST SODIUM 10 MG TABLET PO (09:22)
[2023-08-25] MEDS: busPIRone HCL 5 MG TABLET 15 MG PO ×3 (09:22→17:47)
[2023-08-25] MEDS: CHOLECALCIFEROL 1,000 UNITS TABLET 1000 UNITS PO (09:22)
[2023-08-25] MEDS: CLOPIDOGREL BISULFATE 75 MG TABLET PO (09:22)
[2023-08-25] MEDS: BUMETANIDE INJ 1 MG/4 ML VIAL 2 MG IV PUSH ×2 (09:22→17:47)
[2023-08-25] MEDS: BRIMONIDINE TARTRATE 0.2% OP SOLN 5 ML BTL 2 DROP EACH EYE ×2 (09:23→20:59)
[2023-08-25] MEDS: INSULIN GLARGINE (*BKC) 100 UNITS/ML 60 UNITS SUB-Q ×2 (09:23→21:01)
[2023-08-25] MEDS: metOLazone 2.5 MG TABLET PO (09:23)
[2023-08-25 09:24] VITALS: O2SAT 96
[2023-08-25] MEDS: INSULIN ASPART (*BKC) 100 UNITS/ML SUB-Q ×4 (09:24→21:03)
[2023-08-25] MEDS: MUPIROCIN 2% OINT 22 GM TUBE 1 APPLIC TOPICAL (09:24)
[2023-08-25] MEDS: INSULIN ASPART (*BKC) 100 UNITS/ML 6 UNITS SUB-Q ×3 (09:24→17:48)
[2023-08-25] MEDS: FLUTICASONE/UMECLIDIN/VILANTER 100-62.5-25 MCG ELLIPTA 1 PUFF INHALATION (09:24)
--- NOTE | 2023-08-25 10:17 | PCOTNOTE ---
Attempted to see pt for Occupational Therapy treatment. Pt declined to participate in therapy session on this date due to increase pain, fatigue, and not feeling up to it . Pt is educated on the importance of continued therapy participation to increase independence with daily tasks and for edema management. Pt verbalizes understanding however, continues to decline. Pt also declined to have feet up while sitting in recliner. Will attempt tomorrow per poc duration/frequency.
[2023-08-25] MEDS: TIMOLOL MALEATE 0.5% OP SOLN 5 ML BOTTLE 2 DROP EACH EYE ×2 (10:19→20:59)
[2023-08-25] MEDS: HYDROcodone/acetaminophen (*CRX) 5-325 MG TABLET 1 TAB PO ×2 (10:19→18:48)
--- NOTE | 2023-08-25 10:39 | P.PNIM_ITS ---
Progress Note: A&P Assessment and Plan (1) Acute exacerbation of CHF (congestive heart failure): Code(s): I50.9 - Heart failure, unspecified Status: Acute Assessment and Plan: 08/18/23: ADMITTED TO [facility] NEEDED DAILY INTAKE AND OUTPUT 08/19/23: * Acute on chronic diastolic congestive heart failure * Continue diuresis with Lasix 40 mg b.i.d. IV dosing * Strict I&O * Last echocardiogram done on 04/17/2023 reviewed and revealed normal LV systolic function with an estimated EF of 60-65% grade 2 diastolic dysfunction * Continue spironolactone 08/20/23: * PT and OT ordered for evaluation and treatment * Consult placed to Cardiology for additional support considering her kidney function 08/20: Cardiology changing Lasix over to Bumex 1.5 mg IV twice daily, continue spironolactone 08/21: Potassium slightly elevated this morning. Spironolactone held this morning. 08/22: Cardiology still wants IV diuresis for a couple more days. Drainage through leg dressings is improving but still present 08/23: Unchanged except new tenderness left posterior leg. Ordered venous ultrasound lower extremity duplex 08/24: Seemingly worsened anasarca despite fluid restriction and increased diure tics, improved respiratory status (2) Acute and chronic respiratory failure, unspecified whether with hypoxia or hypercapnia: Code(s): J96.20 - Acute and chronic respiratory failure, unspecified whether with hypoxia or hypercapnia Status: Acute Assessment and Plan: 08/18/23: * ON SUPPLEMENTAL OXYGEN BY NASAL CANNULA 08/19/23: * Patient currently on 3 L nasal cannula which is her baseline 08/20/23: * No change to current treatment plan (3) Lymphedema: Code(s): I89.0 - Lymphedema, not elsewhere classified Status: Acute Assessment and Plan: 08/18/23 WORSENED 08/19/23: * Bilateral lower extremity edema 4+ pitting, anasarca present * Patient does have congestive heart failure * Continue diuresis 08/20: Diuretics changed per Cardiology 08/22: Cardiology believes patient still needs a couple days of further IV diuresis prior to discharge to long-term facility. 08/23: Tenderness left lower leg posterior aspect. Ordered venous duplex lower extremities, patient receives these frequently due to chronic swelling 08/24: venous duplex negative for DVT. Anasarca with seems to be worsening de spite increased diuretics (4) COPD (chronic obstructive pulmonary disease): Qualifiers: COPD type: unspecified COPD Qualified Code(s): J44.9 - Chronic obstructive pulmonary disease, unspecified Code(s): J44.9 - Chronic obstructive pulmonary disease, unspecified Status: Acute Assessment and Plan: 08/18/23: RESUME HOME MED NOT ACTIVELY WHEEZING 08/19/23: * Continue albuterol inhaler 08/20/23: * No change to current treatment 08/24: mildly improved subjective dyspnea per patient report (5) Morbid (severe) obesity due to excess calories: Code(s): E66.01 - Morbid (severe) obesity due to excess calories Status: Acute Assessment and Plan: 08/18/23: LIFESTYLE AND DIET MODIFICATION 08/19/23: * 46.8MI/ 116.1kg (6) CKD stage 3 secondary to diabetes: Code(s): E11.22 - Type 2 diabetes mellitus with diabetic chronic kidney disease; N18.30 - Chronic kidney disease, stage 3 unspecified Status: Acute Assessment and Plan: 08/18/23: CONTINUE TO MONITOR BUN AND CREATININE 08/19/23: * BG ranging 153-175
--- NOTE | 2023-08-25 10:39 | PM.IMPN ---
Progress Note: A&P Assessment and Plan (1) Acute exacerbation of CHF (congestive heart failure): Code(s): I50.9 - Heart failure, unspecified Status: Acute Assessment and Plan: 08/18/23: ADMITTED TO [facility] NEEDED DAILY INTAKE AND OUTPUT 08/19/23: Acute on chronic diastolic congestive heart failure Continue diuresis with Lasix 40 mg b.i.d. IV dosing Strict I&O Last echocardiogram done on 04/17/2023 reviewed and revealed normal LV systolic function with an estimated EF of 60-65% grade 2 diastolic dysfunction Continue spironolactone 08/20/23: PT and OT ordered for evaluation and treatment Consult placed to Cardiology for additional support considering her kidney function 08/20: Cardiology changing Lasix over to Bumex 1.5 mg IV twice daily, continue spironolactone 08/21: Potassium slightly elevated this morning. Spironolactone held this morning. 08/22: Cardiology still wants IV diuresis for a couple more days. Drainage through leg dressings is improving but still present 08/23: Unchanged except new tenderness left posterior leg. Ordered venous ultrasound lower extremity duplex 08/24: Seemingly worsened anasarca despite fluid restriction and increased diuretics, improved respiratory status (2) Acute and chronic respiratory failure, unspecified whether with hypoxia or hypercapnia: Code(s): J96.20 - Acute and chronic respiratory failure, unspecified whether with hypoxia or hypercapnia Status: Acute Assessment and Plan: 08/18/23: ON SUPPLEMENTAL OXYGEN BY NASAL CANNULA 08/19/23: Patient currently on 3 L nasal cannula which is her baseline 08/20/23: No change to current treatment plan (3) Lymphedema: Code(s): I89.0 - Lymphedema, not elsewhere classified Status: Acute Assessment and Plan: 08/18/23 WORSENED 08/19/23: Bilateral lower extremity edema 4+ pitting, anasarca present Patient does have congestive heart failure Continue diuresis 08/20: Diuretics changed per Cardiology 08/22: Cardiology believes patient still needs a couple days of further IV diuresis prior to discharge to snf facility. 08/23: Tenderness left lower leg posterior aspect. Ordered venous duplex lower extremities, patient receives these frequently due to chronic swelling 08/24: venous duplex negative for DVT. Anasarca with seems to be worsening despite increased diuretics (4) COPD (chronic obstructive pulmonary disease): Qualifiers: COPD type: unspecified COPD Qualified Code(s): J44.9 - Chronic obstructive pulmonary disease, unspecified Code(s): J44.9 - Chronic obstructive pulmonary disease, unspecified Status: Acute Assessment and Plan: 08/18/23: RESUME HOME MED NOT ACTIVELY WHEEZING 08/19/23: Continue albuterol inhaler 08/20/23: No change to current treatment 08/24: mildly improved subjective dyspnea per patient report (5) Morbid (severe) obesity due to excess calories: Code(s): E66.01 - Morbid (severe) obesity due to excess calories Status: Acute Assessment and Plan: 08/18/23: LIFESTYLE AND DIET MODIFICATION 08/19/23: 46.8MI/ 116.1kg (6) CKD stage 3 secondary to diabetes: Code(s): E11.22 - Type 2 diabetes mellitus with diabetic chronic kidney disease; N18.30 - Chronic kidney disease, stage 3 unspecified Status: Acute Assessment and Plan: 08/18/23: CONTINUE TO MONITOR BUN AND CREATININE 08/19/23: BG ranging 153-175 Hgb A1C 9.5 on 04/20/23 Will recheck HGB A1C tomorrow Accu checks AC/HS hypoglycemic protocol in place Creatinine 1.7, EGFR 29 Continue to trend labs 08/20/23: Blood sugars ranging 337-458 Will change to high-dose sliding scale insulin Will start Lantus 30 units tonight Will give NPH 15 units now Humulin KwikPen is currently on hold If blood sugars are not under control by tomorrow consider mealtime dosing and an increase in the Lantus. Plan was
[2023-08-25 11:33] LABS: Glucose Point of Care 257 mg/dl (65-105)
--- NOTE | 2023-08-25 12:39 | PM.PNCARD ---
Progress Note: A&P Assessment and Plan (1) Acute on chronic heart failure with preserved ejection fraction: Code(s): I50.33 - Acute on chronic diastolic (congestive) heart failure Status: Acute Assessment and Plan: Patient presents once again clinical evidence for acute on chronic heart failure with preserved ejection fraction. History of preserved LV systolic function by echo 03/2023. Etiology multifactorial given underlying renal insufficiency, chronic hypoxic respiratory failure, probable untreated YONI. Continue diuresis will increase Bumex to 2 mg b.i.d. starting in a.m.. Accurate input and output. daily weight less than 2 g daily sodium intake. Continue spironolactone 12.5 mg daily for now. Monitor electrolytes closely. If hyperkalemia become more problematic may need to discontinue spironolactone. Continue to Ifeanyi wrap her lower extremities. Elevate legs while seated. She was given metolazone 2.5 mg this morning as well as increased Bumex 2 mg IV. Renal function stable. Documentation of urine output I do not believe is accurate making volume assessment very difficult. Observe response today with increased Bumex. Consider Lasix continuous infusion if no improvement overnight. (2) Coronary artery disease: Qualifiers: Coronary Disease-Associated Artery/Lesion type: [place] artery [place] vs. transplanted heart: [place] heart Associated angina: without angina Qualified Code(s): I25.10 - Atherosclerotic heart disease of [place] coronary artery without angina pectoris Code(s): I25.10 - Atherosclerotic heart disease of [place] coronary artery without angina pectoris Status: Chronic Assessment and Plan: Stable, no acute issues at this time. Continue ASA 81 mg daily, atorvastatin 40 mg at bedtime (3) Paroxysmal A-fib: Code(s): I48.0 - Paroxysmal atrial fibrillation Status: Acute Assessment and Plan: Maintaining sinus rhythm thus far. She is not currently on AV katerina blocking agents nor as an outpatient. Continue Xarelto reduced to 15 mg at bedtime due to renal failure. Monitor closely for bleeding. Follow H&H. (4) Acute and chronic respiratory failure, unspecified whether with hypoxia or hypercapnia: Code(s): J96.20 - Acute and chronic respiratory failure, unspecified whether with hypoxia or hypercapnia Status: Acute Assessment and Plan: History of COPD with significant underlying lung disease. Continue O2 supplementation 3 L nasal cannula. Bronchodilator. Defer management to hospitalist service. (5) UTI (urinary tract infection): Code(s): N39.0 - Urinary tract infection, site not specified Status: Resolved Assessment and Plan: Management per primary service. (6) CKD stage 3 secondary to diabetes: Code(s): E11.22 - Type 2 diabetes mellitus with diabetic chronic kidney disease; N18.30 - Chronic kidney disease, stage 3 unspecified Status: Acute Assessment and Plan: SCr 1.9. Continue to monitor closely with aggressive diuresis. Monitor closely. (7) Uncontrolled type 2 diabetes mellitus: Status: Acute Assessment and Plan: Continue to improve glucose control, defer to primary service in this regard. (8) Morbid (severe) obesity due to excess calories: Code(s): E66.01 - Morbid (severe) obesity due to excess calories Status: Acute Assessment and Plan: Lifestyle modification, weight loss. Subjective Date/time seen: Date of service: 08/25/23 12:39 Interval history: Cardiology follow up for CHF Date of service 08/22/2023: Complaining of pain in her legs where she has wounds. She still feels short of breath. Feels like she is urinating a lot. Date of service 08/23/2023: Feeling slightly better today. Feels less short of breath. She still has some pain in her legs. Date of service 08/24/2023: Overall she feels about the same. Edema largely unchanged. Daniel
[2023-08-25 13:55] VITALS: BP 125/42; PULSE 67; RESP 18; TEMP 36.3; O2SAT 100
[2023-08-25 16:32] LABS: Glucose Point of Care 240 mg/dl (65-105)
[2023-08-25] MEDS: RIVAROXABAN 15 MG TABLET PO (17:47)
[2023-08-25] MEDS: BENZONATATE 100 MG CAPSULE PO (18:48)
[2023-08-25] MEDS: MELATONIN 5 MG TABLET PO (20:57)
[2023-08-25] MEDS: ATORVASTATIN 40 MG TABLET PO (20:57)
[2023-08-25] MEDS: ACETAMINOPHEN 500 MG TABLET 1000 MG BY MOUTH (20:57)
[2023-08-25] MEDS: traZODone HCL 50 MG TABLET 100 MG PO (20:57)
[2023-08-25] MEDS: clonazePAM (*CRX) 0.5 MG TABLET PO (20:57)
[2023-08-25] MEDS: FLUTICASONE PROPIONATE 0.05% NA SPR 16 GM BTL (*BKC) 2 SPRAY NASAL (21:00)
[2023-08-25 21:16] VITALS: BP 115/50; PULSE 83; RESP 16; TEMP 36.6; O2SAT 97
[2023-08-25 21:25] LABS: Glucose Point of Care 264 mg/dl (65-105)
[2023-08-26 05:56] VITALS: BP 133/49; PULSE 71; RESP 16; TEMP 36.6; O2SAT 100
[2023-08-26 07:02] LABS: Basophils Percent Auto 0.4 % (0.2-1.2); Eosinophils Absolute Auto 0.3 K/mm3 (0-0.3); Eosinophils Percent Auto 3.3 % (0-4.4); Hematocrit 33.3 % (37.0-47.0); Hemoglobin 10.3 g/dL (12.0-15.0); Immature Granulocyte Absolute 0.07 K/mm3 (0.00-0.031); Immature Granulocyte Percent A 0.7 % (0-0.5); Lymphocytes Absolute Auto 1.72 K/mm3 (0.9-3.2); Mean Corpuscular HGB Conc 30.9 g/dl (32-36); Mean Corpuscular Hemoglobin 29.5 pg (26-34); Mean Corpuscular Volume 95.4 fl (80-100); Mean Platelet Volume 12.6 fl (7.4-10.4); Monocytes Absolute Auto 0.8 K/mm3 (0.1-0.6); Monocytes Percent Auto 8.8 % (2.6-8.5); Neutrophils Absolute Auto 6.6 K/mm3 (1.3-6.7); Neutrophils Percent Auto 68.8 % (45.5-73.1); Platelet Count Result 129 k/mm3 (150-375); Red Blood Count 3.49 M/mm3 (4.2-5.4); Red Cell Distribution Width 14.6 % (11.5-14.5); White Blood Count 9.6 K/mm3 (4.5-10.0)
[2023-08-26 07:22] LABS: Alanine Aminotransferase 15 U/L (6-35); Albumin Level 3.7 g/dL (3.5-5.1); Alkaline Phosphatase 103 U/L (38-126); Anion Gap 8 mmol/L (4-12); Aspartate Amino Transferase 22 U/L (14-36); Bilirubin,Total 0.4 mg/dL (0.2-1.3); Blood Urea Nitrogen 48 mg/dL (7-17); Calcium 9.9 mg/dL (8.4-10.2); Carbon Dioxide 27 mmol/L (22-30); Chloride 104 mmol/L (98-107); Estimated CRCL calculation 23 ml/min; Estimated Glomerular Filt Rate 22; Glucose 169 mg/dL (65-110); Magnesium 1.8 mg/dL (1.6-2.3); Potassium 4.4 mmol/L (3.4-5.0); Sodium 139 mmol/L (137-145)
[2023-08-26 08:00] VITALS: PULSE 81; RESP 18; O2SAT 98
[2023-08-26 08:07] LABS: Glucose Point of Care 177 mg/dl (65-105)
[2023-08-26] MEDS: FLUTICASONE/UMECLIDIN/VILANTER 100-62.5-25 MCG ELLIPTA 1 PUFF INHALATION (08:18)
[2023-08-26 08:20] VITALS: O2SAT 94
--- NOTE | 2023-08-26 08:45 | PM.PNCARD ---
Progress Note: A&P Assessment and Plan (1) Acute on chronic heart failure with preserved ejection fraction: Code(s): I50.33 - Acute on chronic diastolic (congestive) heart failure Status: Acute Assessment and Plan: Patient presents once again clinical evidence for acute on chronic heart failure with preserved ejection fraction. History of preserved LV systolic function by echo 03/2023. Etiology multifactorial given underlying renal insufficiency, chronic hypoxic respiratory failure, probable untreated YONI. Continue diuresis will increase Bumex to 2 mg b.i.d. starting in a.m.. Accurate input and output - according to I&O she remains 1L fluid balance positive. daily weight less than 2 g daily sodium intake. Continue spironolactone 12.5 mg daily for now. Monitor electrolytes closely. If hyperkalemia become more problematic may need to discontinue spironolactone. Continue to Ifeanyi wrap her lower extremities. Elevate legs while seated. Renal function stable. Documentation of urine output I do not believe is accurate making volume assessment very difficult. (2) Coronary artery disease: Qualifiers: Associated angina: without angina Coronary Disease-Associated Artery/Lesion type: [place] artery [place] vs. transplanted heart: [place] heart Qualified Code(s): I25.10 - Atherosclerotic heart disease of [place] coronary artery without angina pectoris Code(s): I25.10 - Atherosclerotic heart disease of [place] coronary artery without angina pectoris Status: Chronic Assessment and Plan: Stable, no acute issues at this time. Continue ASA 81 mg daily, atorvastatin 40 mg at bedtime (3) Paroxysmal A-fib: Code(s): I48.0 - Paroxysmal atrial fibrillation Status: Acute Assessment and Plan: Maintaining sinus rhythm thus far. She is not currently on AV katerina blocking agents nor as an outpatient. Continue Xarelto reduced to 15 mg at bedtime due to renal failure. Monitor closely for bleeding. Follow H&H. (4) Acute and chronic respiratory failure, unspecified whether with hypoxia or hypercapnia: Code(s): J96.20 - Acute and chronic respiratory failure, unspecified whether with hypoxia or hypercapnia Status: Acute Assessment and Plan: History of COPD with significant underlying lung disease. Continue O2 supplementation 3 L nasal cannula. Bronchodilator. Defer management to hospitalist service. (5) UTI (urinary tract infection): Code(s): N39.0 - Urinary tract infection, site not specified Status: Resolved Assessment and Plan: Management per primary service. (6) CKD stage 3 secondary to diabetes: Code(s): E11.22 - Type 2 diabetes mellitus with diabetic chronic kidney disease; N18.30 - Chronic kidney disease, stage 3 unspecified Status: Acute Assessment and Plan: SCr 2.2 today from 2.0. Continue to monitor closely with aggressive diuresis. (7) Uncontrolled type 2 diabetes mellitus: Status: Acute Assessment and Plan: Continue to improve glucose control, defer to primary service in this regard. (8) Morbid (severe) obesity due to excess calories: Code(s): E66.01 - Morbid (severe) obesity due to excess calories Status: Acute Assessment and Plan: Lifestyle modification, weight loss. Subjective Date/time seen: 08/26/23 08:45 Interval history: Cardiology follow up for CHF Date of service 08/22/2023: Complaining of pain in her legs where she has wounds. She still feels short of breath. Feels like she is urinating a lot. Date of service 08/23/2023: Feeling slightly better today. Feels less short of breath. She still has some pain in her legs. Date of service 08/24/2023: Overall she feels about the same. Edema largely unchanged. Patient has a cough she attributes to COPD. Minimally productive. No new issues overnight. Date of service 08/25/2023: Overall she states again she fee
[2023-08-26] MEDS: busPIRone HCL 5 MG TABLET 15 MG PO ×3 (09:17→18:02)
[2023-08-26] MEDS: MONTELUKAST SODIUM 10 MG TABLET PO (09:17)
[2023-08-26] MEDS: LORATADINE 10 MG TABLET PO (09:17)
[2023-08-26] MEDS: CLOPIDOGREL BISULFATE 75 MG TABLET PO (09:17)
[2023-08-26] MEDS: CHOLECALCIFEROL 1,000 UNITS TABLET 1000 UNITS PO (09:17)
[2023-08-26] MEDS: INSULIN ASPART (*BKC) 100 UNITS/ML 6 UNITS SUB-Q ×3 (09:18→18:03)
[2023-08-26] MEDS: MUPIROCIN 2% OINT 22 GM TUBE 1 APPLIC TOPICAL (09:18)
[2023-08-26] MEDS: INSULIN GLARGINE (*BKC) 100 UNITS/ML 60 UNITS SUB-Q ×2 (09:18→20:29)
[2023-08-26] MEDS: BUMETANIDE INJ 1 MG/4 ML VIAL 2 MG IV PUSH ×2 (09:18→18:03)
[2023-08-26] MEDS: TIMOLOL MALEATE 0.5% OP SOLN 5 ML BOTTLE 2 DROP EACH EYE ×2 (09:18→20:25)
[2023-08-26] MEDS: buPROPion HCL XL (24 HR) 150 MG TABCR PO (09:18)
[2023-08-26] MEDS: BRIMONIDINE TARTRATE 0.2% OP SOLN 5 ML BTL 2 DROP EACH EYE ×2 (09:18→20:25)
[2023-08-26] MEDS: HYDROcodone/acetaminophen (*CRX) 5-325 MG TABLET 1 TAB PO ×2 (09:41→18:30)
--- NOTE | 2023-08-26 11:02 | PCOTNOTE ---
Attempted to see Patient, Patient refused, stated she did some therapy, she is worn out and done . Patient given options for chair activity due to stating her legs are hurting so badly. Patient refused stating, I'm done with all activity, you can leave now, I'm tired .
--- NOTE | 2023-08-26 11:03 | PCNWS ---
Weekly nutritional screen. Patient is tolerating current Diabetic/ 2gm NA diet with adequate intake 50-100% No weight loss reported. No nutritional needs at this time.
[2023-08-26 11:56] LABS: Glucose Point of Care 183 mg/dl (65-105)
--- NOTE | 2023-08-26 12:31 | P.PNIM_ITS ---
Progress Note: A&P Assessment and Plan (1) Acute exacerbation of CHF (congestive heart failure): Code(s): I50.9 - Heart failure, unspecified Status: Acute Assessment and Plan: 08/18/23: ADMITTED TO [facility] NEEDED DAILY INTAKE AND OUTPUT 08/19/23: * Acute on chronic diastolic congestive heart failure * Continue diuresis with Lasix 40 mg b.i.d. IV dosing * Strict I&O * Last echocardiogram done on 04/17/2023 reviewed and revealed normal LV systolic function with an estimated EF of 60-65% grade 2 diastolic dysfunction * Continue spironolactone 08/20/23: * PT and OT ordered for evaluation and treatment * Consult placed to Cardiology for additional support considering her kidney function 08/20: Cardiology changing Lasix over to Bumex 1.5 mg IV twice daily, continue spironolactone 08/21: Potassium slightly elevated this morning. Spironolactone held this morning. 08/22: Cardiology still wants IV diuresis for a couple more days. Drainage through leg dressings is improving but still present 08/23: Unchanged except new tenderness left posterior leg. Ordered venous ultrasound lower extremity duplex 08/24: Seemingly worsened anasarca despite fluid restriction and increased diure tics, improved respiratory status 08/25: insert Dyson catheter for better I&O, reorder daily weights, cardiology managing diuresis (2) Acute and chronic respiratory failure, unspecified whether with hypoxia or hypercapnia: Code(s): J96.20 - Acute and chronic respiratory failure, unspecified whether with hypoxia or hypercapnia Status: Acute Assessment and Plan: 08/18/23: * ON SUPPLEMENTAL OXYGEN BY NASAL CANNULA 08/19/23: * Patient currently on 3 L nasal cannula which is her baseline 08/20/23: * No change to current treatment plan (3) Lymphedema: Code(s): I89.0 - Lymphedema, not elsewhere classified Status: Acute Assessment and Plan: 08/18/23 WORSENED 08/19/23: * Bilateral lower extremity edema 4+ pitting, anasarca present * Patient does have congestive heart failure * Continue diuresis 08/20: Diuretics changed per Cardiology 08/22: Cardiology believes patient still needs a couple days of further IV diuresis prior to discharge to residential facility. 08/23: Tenderness left lower leg posterior aspect. Ordered venous duplex lower extremities, patient receives these frequently due to chronic swelling 08/24: venous duplex negative for DVT. Anasarca with seems to be worsening despite increased diuretics 08/25: grossly unchanged (4) COPD (chronic obstructive pulmonary disease): Qualifiers: COPD type: unspecified COPD Qualified Code(s): J44.9 - Chronic o bstructive pulmonary disease, unspecified Code(s): J44.9 - Chronic obstructive pulmonary disease, unspecified Status: Acute Assessment and Plan: 08/18/23: RESUME HOME MED NOT ACTIVELY WHEEZING 08/19/23: * Continue albuterol inhaler 08/20/23: * No change to current treatment 08/24: mildly improved subjective dyspnea per patient report 08/25: but mildly improved subjective dyspnea (5) Morbid (severe) obesity due to excess calories: Code(s): E66.01 - Morbid (severe) obesity due to excess calories Status: Acute Assessment and Plan: 08/18/23: LIFESTYLE AND DIET MODIFICATION 08/19/23: * 46.8MI/ 116.1kg 08/25: Weight unchanged in computer, unsure if she has been getting daily weights. (6) CKD stage 3 secondary to diabetes: Code(s): E11.22 - Type 2 diabetes melanie
--- NOTE | 2023-08-26 12:31 | PM.IMPN ---
Progress Note: A&P Assessment and Plan (1) Acute exacerbation of CHF (congestive heart failure): Code(s): I50.9 - Heart failure, unspecified Status: Acute Assessment and Plan: 08/18/23: ADMITTED TO [facility] NEEDED DAILY INTAKE AND OUTPUT 08/19/23: Acute on chronic diastolic congestive heart failure Continue diuresis with Lasix 40 mg b.i.d. IV dosing Strict I&O Last echocardiogram done on 04/17/2023 reviewed and revealed normal LV systolic function with an estimated EF of 60-65% grade 2 diastolic dysfunction Continue spironolactone 08/20/23: PT and OT ordered for evaluation and treatment Consult placed to Cardiology for additional support considering her kidney function 08/20: Cardiology changing Lasix over to Bumex 1.5 mg IV twice daily, continue spironolactone 08/21: Potassium slightly elevated this morning. Spironolactone held this morning. 08/22: Cardiology still wants IV diuresis for a couple more days. Drainage through leg dressings is improving but still present 08/23: Unchanged except new tenderness left posterior leg. Ordered venous ultrasound lower extremity duplex 08/24: Seemingly worsened anasarca despite fluid restriction and increased diuretics, improved respiratory status 08/25: insert Dyson catheter for better I&O, reorder daily weights, cardiology managing diuresis (2) Acute and chronic respiratory failure, unspecified whether with hypoxia or hypercapnia: Code(s): J96.20 - Acute and chronic respiratory failure, unspecified whether with hypoxia or hypercapnia Status: Acute Assessment and Plan: 08/18/23: ON SUPPLEMENTAL OXYGEN BY NASAL CANNULA 08/19/23: Patient currently on 3 L nasal cannula which is her baseline 08/20/23: No change to current treatment plan (3) Lymphedema: Code(s): I89.0 - Lymphedema, not elsewhere classified Status: Acute Assessment and Plan: 08/18/23 WORSENED 08/19/23: Bilateral lower extremity edema 4+ pitting, anasarca present Patient does have congestive heart failure Continue diuresis 08/20: Diuretics changed per Cardiology 08/22: Cardiology believes patient still needs a couple days of further IV diuresis prior to discharge to [facility] facility. 08/23: Tenderness left lower leg posterior aspect. Ordered venous duplex lower extremities, patient receives these frequently due to chronic swelling 08/24: venous duplex negative for DVT. Anasarca with seems to be worsening despite increased diuretics 08/25: grossly unchanged (4) COPD (chronic obstructive pulmonary disease): Qualifiers: COPD type: unspecified COPD Qualified Code(s): J44.9 - Chronic obstructive pulmonary disease, unspecified Code(s): J44.9 - Chronic obstructive pulmonary disease, unspecified Status: Acute Assessment and Plan: 08/18/23: RESUME HOME MED NOT ACTIVELY WHEEZING 08/19/23: Continue albuterol inhaler 08/20/23: No change to current treatment 08/24: mildly improved subjective dyspnea per patient report 08/25: but mildly improved subjective dyspnea (5) Morbid (severe) obesity due to excess calories: Code(s): E66.01 - Morbid (severe) obesity due to excess calories Status: Acute Assessment and Plan: 08/18/23: LIFESTYLE AND DIET MODIFICATION 08/19/23: 46.8MI/ 116.1kg 08/25: Weight unchanged in computer, unsure if she has been getting daily weights. (6) CKD stage 3 secondary to diabetes: Code(s): E11.22 - Type 2 diabetes mellitus with diabetic chronic kidney disease; N18.30 - Chronic kidney disease, stage 3 unspecified Status: Acute Assessment and Plan: 08/18/23: CONTINUE TO MONITOR BUN AND CREATININE 08/19/23: BG ranging 153-175 Hgb A1C 9.5 on 04/20/23 Will recheck HGB A1C tomorrow Accu checks AC/HS hypoglycemic protocol in place Creatinine 1.7, EGFR 29 Continue to trend labs 08/20/23: Blood sugars ranging 337-458 Will change to high-
[2023-08-26 13:01] LABS: NT Pro B Type Natriuretic Pept 431 pg/mL (19.9-100)
[2023-08-26 14:00] VITALS: BP 134/52; PULSE 81; RESP 18; TEMP 35.8; O2SAT 98
--- NOTE | 2023-08-26 14:10 | PCOTNOTE ---
Attempted again this afternoon. Patient refused to participate in any services this P.M. Patient states she is exhausted and in bed for the night .
[2023-08-26 17:00] LABS: Glucose Point of Care 181 mg/dl (65-105)
[2023-08-26] MEDS: RIVAROXABAN 15 MG TABLET PO (18:03)
[2023-08-26 20:11] LABS: Glucose Point of Care 277 mg/dl (65-105)
[2023-08-26] MEDS: ATORVASTATIN 40 MG TABLET PO (20:23)
[2023-08-26] MEDS: MELATONIN 5 MG TABLET PO (20:23)
[2023-08-26] MEDS: ACETAMINOPHEN 500 MG TABLET 1000 MG BY MOUTH (20:23)
[2023-08-26] MEDS: clonazePAM (*CRX) 0.5 MG TABLET PO (20:24)
[2023-08-26] MEDS: traZODone HCL 50 MG TABLET 100 MG PO (20:24)
[2023-08-26] MEDS: FLUTICASONE PROPIONATE 0.05% NA SPR 16 GM BTL (*BKC) 2 SPRAY NASAL (20:25)
[2023-08-26] MEDS: INSULIN ASPART (*BKC) 100 UNITS/ML SUB-Q (20:27)
[2023-08-26 20:42] VITALS: BP 113/43; PULSE 88; RESP 14; TEMP 36.4; O2SAT 96
[2023-08-27 05:36] LABS: Basophils Percent Auto 0.4 % (0.2-1.2); Eosinophils Absolute Auto 0.3 K/mm3 (0-0.3); Hematocrit 35.7 % (37.0-47.0); Immature Granulocyte Absolute 0.06 K/mm3 (0.00-0.031); Immature Granulocyte Percent A 0.6 % (0-0.5); Lymphocytes Percent Auto 16.6 % (18.3-44.2); Mean Corpuscular HGB Conc 30.8 g/dl (32-36); Mean Corpuscular Hemoglobin 29.1 pg (26-34); Mean Corpuscular Volume 94.4 fl (80-100); Mean Platelet Volume 12.9 fl (7.4-10.4); Monocytes Absolute Auto 0.9 K/mm3 (0.1-0.6); Monocytes Percent Auto 8.5 % (2.6-8.5); Neutrophils Absolute Auto 7.3 K/mm3 (1.3-6.7); Neutrophils Percent Auto 70.9 % (45.5-73.1); Platelet Count Result 128 k/mm3 (150-375); Red Blood Count 3.78 M/mm3 (4.2-5.4); Red Cell Distribution Width 14.4 % (11.5-14.5); White Blood Count 10.2 K/mm3 (4.5-10.0)
[2023-08-27 05:43] VITALS: BP 119/36; PULSE 73; RESP 20; TEMP 35.9; O2SAT 100
[2023-08-27 05:48] LABS: Alanine Aminotransferase 17 U/L (6-35); Albumin Level 4.3 g/dL (3.5-5.1); Alkaline Phosphatase 117 U/L (38-126); Anion Gap 8 mmol/L (4-12); Aspartate Amino Transferase 25 U/L (14-36); Bilirubin,Total 0.6 mg/dL (0.2-1.3); Blood Urea Nitrogen 50 mg/dL (7-17); Calcium 10.5 mg/dL (8.4-10.2); Carbon Dioxide 29 mmol/L (22-30); Chloride 102 mmol/L (98-107); Estimated CRCL calculation 21 ml/min; Estimated Glomerular Filt Rate 20; Glucose 194 mg/dL (65-110); Magnesium 1.8 mg/dL (1.6-2.3); Potassium 4.7 mmol/L (3.4-5.0); Sodium 139 mmol/L (137-145)
[2023-08-27 07:41] VITALS: O2SAT 94
[2023-08-27] MEDS: FLUTICASONE/UMECLIDIN/VILANTER 100-62.5-25 MCG ELLIPTA 1 PUFF INHALATION (07:41)
[2023-08-27 07:47] LABS: Glucose Point of Care 164 mg/dl (65-105)
[2023-08-27 08:00] VITALS: O2SAT 94
--- NOTE | 2023-08-27 08:26 | P.PNIM_ITS ---
Progress Note: A&P Assessment and Plan (1) Acute exacerbation of CHF (congestive heart failure): Code(s): I50.9 - Heart failure, unspecified Status: Acute (2) Acute and chronic respiratory failure, unspecified whether with hypoxia or hypercapnia: Code(s): J96.20 - Acute and chronic respiratory failure, unspecified whether with hypoxia or hypercapnia Status: Acute (3) COPD (chronic obstructive pulmonary disease): Qualifiers: COPD type: unspecified COPD Qualified Code(s): J44.9 - Chronic obstructive pulmonary disease, unspecified Code(s): J44.9 - Chronic obstructive pulmonary disease, unspecified Status: Acute (4) Morbid (severe) obesity due to excess calories: Code(s): E66.01 - Morbid (severe) obesity due to excess calories Status: Acute (5) CKD stage 3 secondary to diabetes: Code(s): E11.22 - Type 2 diabetes mellitus with diabetic chronic kidney disease; N18.30 - Chronic kidney disease, stage 3 unspecified Status: Acute (6) UTI (urinary tract infection): Code(s): N39.0 - Urinary tract infection, site not specified Status: Resolved (7) Acute on chronic heart failure with preserved ejection fraction: Code(s): I50.33 - Acute on chronic diastolic (congestive) heart failure Status: Acute (8) Paroxysmal A-fib: Code(s): I48.0 - Paroxysmal atrial fibrillation Status: Acute (9) Type 2 diabetes mellitus with hyperglycemia: Code(s): E11.65 - Type 2 diabetes mellitus with hyperglycemia Status: Acute (10) Obesity (BMI 30-39.9): Code(s): E66.9 - Obesity, unspecified Status: Chronic Plan Acute on chronic respiratory failure with hypoxia * Likely secondary to CHF exacerbation * HX of COPD/Obesity/YONI * encourage CPAP * back to baseline on 3L NC * CXR atelectasis with cardiomegaly Acute on chronic diastolic heart failure * BNP elevated * cardiology consulted * IV lasix switched to IV Bumex switch to PO 08/26 * monitor renal function during diuresis bumped to 2.3 nephrology consulted * previous echocardiogram: 04/20 LVEF 60-65 Grade II diastolic HF * EKG SR * chest x-ray atelectasis with cardiomegaly * F/U CXR 4/30 Mild interstitial edema. * Optimize Ifeanyi inhibitors, beta-blockers, ARNI * Daily weight. * Strict I&O's treadwell placed * fluid restriction * elevate/Ifeanyi wrap legs if needed * spironolactone 12.5 monitoring K+ 4.7 Acute on chronic renal failure * Stage 3 * CR has bumped to 2.30 from baseline on diuretics * serum osmos pending * nephrology consulted * Avoid nephrotoxic drugs. * Monitor antihypertensive drug therapy. * Avoid NSAIDs. * Routine CMP monitoring GFR. * Monitor electrolytes especially potassium. * Antibiotic doses depending on creatinine clearance. * Pharmacy does medications. Diabetes * Accu-Cheks a.c. HS * sliding scale insulin * hold oral diabetic medications * Increased patient's home long-acting * Hemoglobin A1c goal less than 7 pending * lipid panel pending * Diabetic diet * consult to dietitian * encourage lifestyle modifications and weight loss * Optimize Ifeanyi inhibitors and statins. * Watch for hypoglycemia/hypoglycemic protocol ordered Obesity * encourage increased on physical activity and lifestyle modifications * Stress monitoring and eating disorder evaluation. * encourage outpatient weight loss clinic * BMI . * Diet exercise counseling done. * consult to dietitian HX CAD: Resumed Atorvastatin, ASA, and Plavix
--- NOTE | 2023-08-27 08:26 | PM.IMPN ---
Progress Note: A&P Assessment and Plan (1) Acute exacerbation of CHF (congestive heart failure): Code(s): I50.9 - Heart failure, unspecified Status: Acute (2) Acute and chronic respiratory failure, unspecified whether with hypoxia or hypercapnia: Code(s): J96.20 - Acute and chronic respiratory failure, unspecified whether with hypoxia or hypercapnia Status: Acute (3) COPD (chronic obstructive pulmonary disease): Qualifiers: COPD type: unspecified COPD Qualified Code(s): J44.9 - Chronic obstructive pulmonary disease, unspecified Code(s): J44.9 - Chronic obstructive pulmonary disease, unspecified Status: Acute (4) Morbid (severe) obesity due to excess calories: Code(s): E66.01 - Morbid (severe) obesity due to excess calories Status: Acute (5) CKD stage 3 secondary to diabetes: Code(s): E11.22 - Type 2 diabetes mellitus with diabetic chronic kidney disease; N18.30 - Chronic kidney disease, stage 3 unspecified Status: Acute (6) UTI (urinary tract infection): Code(s): N39.0 - Urinary tract infection, site not specified Status: Resolved (7) Acute on chronic heart failure with preserved ejection fraction: Code(s): I50.33 - Acute on chronic diastolic (congestive) heart failure Status: Acute (8) Paroxysmal A-fib: Code(s): I48.0 - Paroxysmal atrial fibrillation Status: Acute (9) Type 2 diabetes mellitus with hyperglycemia: Code(s): E11.65 - Type 2 diabetes mellitus with hyperglycemia Status: Acute (10) Obesity (BMI 30-39.9): Code(s): E66.9 - Obesity, unspecified Status: Chronic Plan Acute on chronic respiratory failure with hypoxia Likely secondary to CHF exacerbation HX of COPD/Obesity/YONI encourage CPAP back to baseline on 3L NC CXR atelectasis with cardiomegaly Acute on chronic diastolic heart failure BNP elevated cardiology consulted IV lasix switched to IV Bumex switch to PO 08/26 monitor renal function during diuresis bumped to 2.3 nephrology consulted previous echocardiogram: 04/20 LVEF 60-65 Grade II diastolic HF EKG SR chest x-ray atelectasis with cardiomegaly F/U CXR 08/26 Mild interstitial edema. Optimize Ifeanyi inhibitors, beta-blockers, ARNI Daily weight. Strict I&O's treadwell placed fluid restriction elevate/Ifeanyi wrap legs if needed spironolactone 12.5 monitoring K+ 4.7 Acute on chronic renal failure Stage 3 CR has bumped to 2.30 from baseline on diuretics serum osmos pending nephrology consulted Avoid nephrotoxic drugs. Monitor antihypertensive drug therapy. Avoid NSAIDs. Routine CMP monitoring GFR. Monitor electrolytes especially potassium. Antibiotic doses depending on creatinine clearance. Pharmacy does medications. Diabetes Accu-Cheks a.c. HS sliding scale insulin hold oral diabetic medications Increased patient's home long-acting Hemoglobin A1c goal less than 7 pending lipid panel pending Diabetic diet consult to dietitian encourage lifestyle modifications and weight loss Optimize Ifeanyi inhibitors and statins. Watch for hypoglycemia/hypoglycemic protocol ordered Obesity encourage increased on physical activity and lifestyle modifications Stress monitoring and eating disorder evaluation. encourage outpatient weight loss clinic BMI . Diet exercise counseling done. consult to dietitian HX CAD: Resumed Atorvastatin, ASA, and Plavix HX HTN: Lisinipril D/C HX AFIB: Resumed Xarelto and BB HX COPD: Inhaler PRN resumed HX YONI: Supplemental Oxygen at home 3LNC/CPAP HX anxiety: Resumed home medications Code status: Full code per patient DVT prophylaxis: Xarelto Stress ulcer prophylaxis: Protonix 40 daily PT/OT notes: Recommended SNF Disposition: Patient continues admission to [facility] floor with minimal change to edema/anasarca, renal function bumped today nephrology consul
[2023-08-27] MEDS: INSULIN ASPART (*BKC) 100 UNITS/ML 6 UNITS SUB-Q ×3 (08:34→16:37)
[2023-08-27] MEDS: CLOPIDOGREL BISULFATE 75 MG TABLET PO (08:35)
[2023-08-27] MEDS: buPROPion HCL XL (24 HR) 150 MG TABCR PO (08:35)
[2023-08-27] MEDS: busPIRone HCL 5 MG TABLET 15 MG PO ×3 (08:35→16:37)
[2023-08-27] MEDS: LORATADINE 10 MG TABLET PO (08:35)
[2023-08-27] MEDS: MONTELUKAST SODIUM 10 MG TABLET PO (08:35)
[2023-08-27] MEDS: CHOLECALCIFEROL 1,000 UNITS TABLET 1000 UNITS PO (08:35)
[2023-08-27] MEDS: BUMETANIDE 1 MG TABLET PO ×2 (08:35→16:37)
[2023-08-27] MEDS: INSULIN GLARGINE (*BKC) 100 UNITS/ML 60 UNITS SUB-Q ×2 (08:39→20:57)
[2023-08-27] MEDS: TIMOLOL MALEATE 0.5% OP SOLN 5 ML BOTTLE 2 DROP EACH EYE ×2 (08:40→20:56)
[2023-08-27] MEDS: MUPIROCIN 2% OINT 22 GM TUBE 1 APPLIC TOPICAL (08:40)
[2023-08-27] MEDS: BRIMONIDINE TARTRATE 0.2% OP SOLN 5 ML BTL 2 DROP EACH EYE ×2 (08:40→20:56)
--- NOTE | 2023-08-27 08:40 | PCOTNOTE ---
Attempted to see Patient in early A.M. as requested by the Patient. Patient refused to participate due to having horrible pain, just leave me alone, call the nurse to call the doctor . Patient even refused static position activities.
[2023-08-27] MEDS: HYDROcodone/acetaminophen (*CRX) 5-325 MG TABLET 1 TAB PO ×2 (08:44→16:37)
--- NOTE | 2023-08-27 08:57 | PM.PNCARD ---
Progress Note: A&P Assessment and Plan (1) Acute on chronic heart failure with preserved ejection fraction: Code(s): I50.33 - Acute on chronic diastolic (congestive) heart failure Status: Acute Assessment and Plan: Patient presents once again clinical evidence for acute on chronic heart failure with preserved ejection fraction. History of preserved LV systolic function by echo 03/2023. Etiology multifactorial given underlying renal insufficiency, chronic hypoxic respiratory failure, probable untreated YONI. Will shift to p.o. bumex and decrease dose today as her BUN/SCr bumped slightly. NTpro BNP 431 from 1050 on admission. Accurate input and output daily weight less than 2 g daily sodium intake. Holding spironolactone and lisinopril because of renal function. Should be resumed when renal function improves. Could consider shifting from lisinopril to Entresto for HFpEF. Continue to Ifeanyi wrap her lower extremities. Elevate legs while seated. BMP in the morning Perhaps discharge tomorrow if renal function improving (2) Coronary artery disease: Qualifiers: Associated angina: without angina Coronary Disease-Associated Artery/Lesion type: three affiliated artery [place] vs. transplanted heart: three affiliated heart Qualified Code(s): I25.10 - Atherosclerotic heart disease of [place] coronary artery without angina pectoris Code(s): I25.10 - Atherosclerotic heart disease of [place] coronary artery without angina pectoris Status: Chronic Assessment and Plan: Stable, no acute issues at this time. Continue ASA 81 mg daily, atorvastatin 40 mg at bedtime (3) Paroxysmal A-fib: Code(s): I48.0 - Paroxysmal atrial fibrillation Status: Acute Assessment and Plan: Maintaining sinus rhythm thus far. She is not currently on AV katerina blocking agents nor as an outpatient. Continue Xarelto reduced to 15 mg at bedtime due to renal failure. Monitor closely for bleeding. Follow H&H. (4) Acute and chronic respiratory failure, unspecified whether with hypoxia or hypercapnia: Code(s): J96.20 - Acute and chronic respiratory failure, unspecified whether with hypoxia or hypercapnia Status: Acute Assessment and Plan: History of COPD with significant underlying lung disease. Continue O2 supplementation 3 L nasal cannula. Bronchodilator. Defer management to hospitalist service. (5) UTI (urinary tract infection): Code(s): N39.0 - Urinary tract infection, site not specified Status: Resolved Assessment and Plan: Management per primary service. (6) CKD stage 3 secondary to diabetes: Code(s): E11.22 - Type 2 diabetes mellitus with diabetic chronic kidney disease; N18.30 - Chronic kidney disease, stage 3 unspecified Status: Acute Assessment and Plan: Slight increase in BUN/SCr today. Holding spironolactone and lisinopril. Transitioning to p.o. bumex today at decreased dose. (7) Uncontrolled type 2 diabetes mellitus: Status: Acute Assessment and Plan: Continue to improve glucose control, defer to primary service in this regard. (8) Morbid (severe) obesity due to excess calories: Code(s): E66.01 - Morbid (severe) obesity due to excess calories Status: Acute Assessment and Plan: Lifestyle modification, weight loss. Subjective Date/time seen: 08/27/23 08:57 Interval history: Cardiology follow up for CHF Date of service 08/22/2023: Complaining of pain in her legs where she has wounds. She still feels short of breath. Feels like she is urinating a lot. Date of service 08/23/2023: Feeling slightly better today. Feels less short of breath. She still has some pain in her legs. Date of service 08/24/2023: Overall she feels about the same. Edema largely unchanged. Patient has a cough she attributes to COPD. Minimally productive. No new issues overnight. Date of service 08/25/2023: Overall she states again
[2023-08-27 09:21] LABS: Creatine Kinase 49 U/L (30-135)
[2023-08-27 09:39] LABS: Appearance Urine Cloudy (Clear); Bacteria Urine None Seen /hpf; Bilirubin Urine Negative (Negative); Blood Urine 3+ (Negative); Color Urine Yellow (Yellow); Glucose Urine UA Negative (Negative); Ketones Urine Negative (Negative); Leukocyte Esterase Ur 2+ LEU/UL (Negative); Need Manual Microscopic Reviewed; Nitrate Urine Negative (Negative); Protein Urine 1+ mg/dL (Negative); RBC Urine >100 /hpf (0-2); Specific Grav Ur 1.017 (1.001-1.035); Squamous Epithelial Cell Urine Occasional /hpf (Few); Urobilinogen Urine 0.2 mg/dL (<2.0); WBC Urine 21-50 /hpf (0-3)
[2023-08-27 09:40] LABS: Add Urine Microscopic? YES
[2023-08-27 10:21] LABS: Creatinine Urine 120.7 mg/dL; Total Protein Urine Random 41 mg/dL; Ur Ttl Prot Creatinine Ratio 0.34 mg/mg (0-0.20)
[2023-08-27 10:24] LABS: Sodium Urine Random 78 meq/L
--- NOTE | 2023-08-27 10:24 | PCPTNOTE ---
The patient treatment was not able to be completed due to patient out of room for testing. Will plan to continue treatment per plan of care.
[2023-08-27 10:28] LABS: Urea Random Urine 617 MG/DL
[2023-08-27] MEDS: traMADol HCL (*CRX) 50 MG TABLET PO ×2 (10:57→18:06)
--- NOTE | 2023-08-27 11:02 | PC.NURSE ---
Patient spoke with JIMMY Thompson today about her current plan of care. Patient has been complaining of pain and discomfort due to treadwell placement. Donna states that due to the change in medication route, I&O will not need to be as precise as they were previously. Donna stated that the removal of the catheter would not be a detriment to the patient's care. Treadwell catheter removed at 10:55 AM 08/27/23. Patient stated instant relief.
--- NOTE | 2023-08-27 11:09 | PM.CNNEP ---
Assessment and Plan Assessment and plan (1) LIZ (acute kidney injury): Code(s): N17.9 - Acute kidney failure, unspecified Status: Acute Assessment and Plan: due to the necessity of IV diuresis in the context of CHF exacerbation suspect renal function will always fluctuate due to necessity of diuretic therapy diuretics being transitioned to oral bumex (per Cardiology) follow trend of repeat labs and UOP (2) Chronic kidney disease, stage IV (severe): Code(s): N18.4 - Chronic kidney disease, stage 4 (severe) Status: Chronic Assessment and Plan: baseline creatinine runs ~ 1.5 - 2.0mg/dl due to CAD/CHF, chronic need for diuretic therapy, HTN, DM, vascular disease and age (3) Acute on chronic heart failure with preserved ejection fraction: Code(s): I50.33 - Acute on chronic diastolic (congestive) heart failure Status: Acute Assessment and Plan: as noted on presentation fairly responsive to IV diuretic therapy since admission follow I/Os, daily weights, and fluid restriction on diuretic therapy Cardiology following (4) Acute and chronic respiratory failure, unspecified whether with hypoxia or hypercapnia: Code(s): J96.20 - Acute and chronic respiratory failure, unspecified whether with hypoxia or hypercapnia Status: Acute Assessment and Plan: likely secondary to CHF exacerbation however, complicated by known history of COPD, OSH/YONI, and obesity continue CPAP therapy on chronic supplemental oxygen follow respiratory status (5) Uncontrolled type 2 diabetes mellitus: Status: Acute Assessment and Plan: follow acc-cheks glycemic control per hospitallists I will continue to follow the patient with you while she remains hospitalized and make further recommendations as deemed necessary Thank you for allowing me to participate in the care this patient. History of Present Illness Reason for Consult Consult date: 08/27/23 Reason for consult: acute renal failure (on chronic kidney disease) Chief Complaint Chief complaint: CHF, increased peripheral edema History of Present Illness Narrative: The patient is a 78-year-old female with an extensive past medical history as outlined below who presented to [facility] Emergency room with worsening shortness of breath and worsening lower extremity edema. It should be noted the patient was just recently hospitalized at [facility] with subsequent treatment of acute respiratory failure and deconditioning as well as CHF. She responded to aggressive medical management in the form of IV diuresis and local wound care for lower extremities. Unfortunately, the same symptoms seems to have recurred recently in association with worsening lower extremity wounds associated with oozing. She returned to the ER for further assessment of these her current symptoms. Workup and evaluation in the emergency room demonstrated clear evidence of fluid overload both by physical exam and imaging studies. More concerning was that she had significant lower extremity edema causing skin blistering and oozing with concern for possible recurrent cellulitis/infection. Given these clinical findings, appropriate cultures were obtained and she was started on antibiotic therapy as well as aggressive IV diuresis given her significant volume overload/anasarca. She was subsequently admitted to the hospital for further evaluation and therapy. Since her admission, she has responded reasonably well with IV diuretic therapy with relative improvement in her overall volume status. However, as noted by labs done this morning, her creatinine has increased above baseline with these current interventions. Renal consultation was requested due to her acute kidney injury/acute renal failure on top of her baseline chronic kidney disease. From review of her records, it seemed that her baseline creatinine normally runs a
[2023-08-27 11:26] LABS: Eosinophil Urine None Seen % (None Seen); Urine Eos QC 2nd Tech Confirmed
[2023-08-27 11:40] LABS: Glucose Point of Care 137 mg/dl (65-105)
[2023-08-27 14:00] VITALS: BP 133/53; PULSE 80; RESP 18; TEMP 36.3; O2SAT 100
[2023-08-27 16:29] LABS: Glucose Point of Care 154 mg/dl (65-105)
[2023-08-27] MEDS: RIVAROXABAN 15 MG TABLET PO (16:37)
[2023-08-27 19:26] LABS: Glucose Point of Care 234 mg/dl (65-105)
[2023-08-27] MEDS: traZODone HCL 50 MG TABLET 100 MG PO (20:55)
[2023-08-27] MEDS: MELATONIN 5 MG TABLET PO (20:55)
[2023-08-27] MEDS: ACETAMINOPHEN 500 MG TABLET 1000 MG BY MOUTH (20:55)
[2023-08-27] MEDS: ATORVASTATIN 40 MG TABLET PO (20:56)
[2023-08-27] MEDS: FLUTICASONE PROPIONATE 0.05% NA SPR 16 GM BTL (*BKC) 2 SPRAY NASAL (20:56)
[2023-08-27] MEDS: clonazePAM (*CRX) 0.5 MG TABLET PO (20:56)
[2023-08-27] MEDS: INSULIN ASPART (*BKC) 100 UNITS/ML SUB-Q (20:59)
[2023-08-27 21:58] VITALS: BP 122/54; PULSE 79; RESP 20; TEMP 36.8; O2SAT 94
--- NOTE | 2023-08-27 22:25 | PC.NURSE ---
This RN preceptor has read and agrees with student nurse Mora's notes and assessment.
[2023-08-28 05:39] LABS: Basophils Percent Auto 0.4 % (0.2-1.2); Eosinophils Absolute Auto 0.4 K/mm3 (0-0.3); Eosinophils Percent Auto 3.6 % (0-4.4); Hemoglobin 10.5 g/dL (12.0-15.0); Immature Granulocyte Absolute 0.06 K/mm3 (0.00-0.031); Immature Granulocyte Percent A 0.6 % (0-0.5); Immature Platelet Fraction Pct 2.4 % (0.9-11.2); Lymphocytes Absolute Auto 1.82 K/mm3 (0.9-3.2); Lymphocytes Percent Auto 17.2 % (18.3-44.2); Mean Corpuscular HGB Conc 30.9 g/dl (32-36); Mean Corpuscular Hemoglobin 29.4 pg (26-34); Mean Corpuscular Volume 95.2 fl (80-100); Monocytes Absolute Auto 0.9 K/mm3 (0.1-0.6); Monocytes Percent Auto 8.5 % (2.6-8.5); Neutrophils Absolute Auto 7.4 K/mm3 (1.3-6.7); Neutrophils Percent Auto 69.7 % (45.5-73.1); Platelet Count Result 296 k/mm3 (150-375); Red Blood Count 3.57 M/mm3 (4.2-5.4); Red Cell Distribution Width 14.4 % (11.5-14.5); White Blood Count 10.6 K/mm3 (4.5-10.0)
[2023-08-28 05:46] LABS: Alanine Aminotransferase 16 U/L (6-35); Alkaline Phosphatase 101 U/L (38-126); Anion Gap 6 mmol/L (4-12); Aspartate Amino Transferase 26 U/L (14-36); Bilirubin,Total 0.4 mg/dL (0.2-1.3); Blood Urea Nitrogen 52 mg/dL (7-17); Carbon Dioxide 30 mmol/L (22-30); Chloride 101 mmol/L (98-107); Estimated CRCL calculation 21 ml/min; Estimated Glomerular Filt Rate 20; Glucose 106 mg/dL (65-110); Magnesium 1.7 mg/dL (1.6-2.3); Potassium 4.2 mmol/L (3.4-5.0); Sodium 137 mmol/L (137-145)
[2023-08-28 05:54] VITALS: BP 113/55; PULSE 75; RESP 20; TEMP 36.6; O2SAT 96
[2023-08-28 07:51] LABS: Glucose Point of Care 91 mg/dl (65-105)
[2023-08-28] MEDS: INSULIN GLARGINE (*BKC) 100 UNITS/ML 60 UNITS SUB-Q ×2 (07:53→20:48)
[2023-08-28] MEDS: INSULIN ASPART (*BKC) 100 UNITS/ML 6 UNITS SUB-Q ×3 (07:53→17:10)
[2023-08-28] MEDS: LORATADINE 10 MG TABLET PO (07:57)
[2023-08-28] MEDS: BUMETANIDE 1 MG TABLET PO ×2 (07:57→17:09)
[2023-08-28] MEDS: MONTELUKAST SODIUM 10 MG TABLET PO (07:57)
[2023-08-28] MEDS: busPIRone HCL 5 MG TABLET 15 MG PO ×3 (07:57→17:10)
[2023-08-28] MEDS: BRIMONIDINE TARTRATE 0.2% OP SOLN 5 ML BTL 2 DROP EACH EYE ×2 (07:57→20:37)
[2023-08-28] MEDS: buPROPion HCL XL (24 HR) 150 MG TABCR PO (07:57)
[2023-08-28] MEDS: CLOPIDOGREL BISULFATE 75 MG TABLET PO (07:57)
[2023-08-28] MEDS: CHOLECALCIFEROL 1,000 UNITS TABLET 1000 UNITS PO (07:57)
[2023-08-28] MEDS: TIMOLOL MALEATE 0.5% OP SOLN 5 ML BOTTLE 2 DROP EACH EYE ×2 (07:58→20:37)
[2023-08-28] MEDS: MUPIROCIN 2% OINT 22 GM TUBE 1 APPLIC TOPICAL (07:58)
[2023-08-28 08:00] VITALS: PULSE 85; RESP 18; O2SAT 95
[2023-08-28] MEDS: FLUTICASONE/UMECLIDIN/VILANTER 100-62.5-25 MCG ELLIPTA 1 PUFF INHALATION (08:04)
[2023-08-28 08:06] VITALS: PULSE 76; RESP 20; O2SAT 94
[2023-08-28 11:41] LABS: Glucose Point of Care 158 mg/dl (65-105)
--- NOTE | 2023-08-28 11:47 | PM.PNCARD ---
Progress Note: A&P Assessment and Plan (1) Acute on chronic heart failure with preserved ejection fraction: Code(s): I50.33 - Acute on chronic diastolic (congestive) heart failure Status: Acute Assessment and Plan: Patient presented once again with clinical evidence for acute on chronic heart failure with preserved ejection fraction. History of preserved LV systolic function by echo 03/2023. Etiology multifactorial given underlying renal insufficiency, chronic hypoxic respiratory failure, probable untreated YONI. Continue Bumex 1mg PO BID. Accurate input and output Daily weight Less than 2 g daily sodium intake. Holding Spironolactone and Lisinopril because of renal function. Should be resumed when renal function improves. Could consider shifting from Lisinopril to Entresto for HFpEF. Continue to maricel wrap her lower extremities. Elevate legs while seated. (2) Coronary artery disease: Qualifiers: Coronary Disease-Associated Artery/Lesion type: [place] artery [place] vs. transplanted heart: [place] heart Associated angina: without angina Qualified Code(s): I25.10 - Atherosclerotic heart disease of [place] coronary artery without angina pectoris Code(s): I25.10 - Atherosclerotic heart disease of [place] coronary artery without angina pectoris Status: Chronic Assessment and Plan: Stable, no acute issues at this time. Continue ASA 81 mg daily, Atorvastatin 40 mg at bedtime (3) Paroxysmal A-fib: Code(s): I48.0 - Paroxysmal atrial fibrillation Status: Acute Assessment and Plan: Maintaining sinus rhythm thus far. She is not currently on AV katerina blocking agents nor as an outpatient. Continue Xarelto reduced to 15 mg at bedtime due to renal failure. Monitor closely for bleeding. Follow H&H. (4) Acute and chronic respiratory failure, unspecified whether with hypoxia or hypercapnia: Code(s): J96.20 - Acute and chronic respiratory failure, unspecified whether with hypoxia or hypercapnia Status: Acute Assessment and Plan: History of COPD with significant underlying lung disease. Continue O2 supplementation 3 L nasal cannula. Bronchodilator. Defer management to hospitalist service. (5) UTI (urinary tract infection): Code(s): N39.0 - Urinary tract infection, site not specified Status: Resolved Assessment and Plan: Management per primary service. (6) CKD stage 3 secondary to diabetes: Code(s): E11.22 - Type 2 diabetes mellitus with diabetic chronic kidney disease; N18.30 - Chronic kidney disease, stage 3 unspecified Status: Acute Assessment and Plan: Nephrology consulted (7) Uncontrolled type 2 diabetes mellitus: Status: Acute Assessment and Plan: Continue to improve glucose control, defer to primary service in this regard. (8) Morbid (severe) obesity due to excess calories: Code(s): E66.01 - Morbid (severe) obesity due to excess calories Status: Acute Assessment and Plan: Lifestyle modification, weight loss. Subjective Date/time seen: 08/28/23 11:47 Interval history: Reason for visit: CHF HPI: Patient is a very pleasant 78-year-old female with a past medical history significant for paroxysmal atrial fibrillation on systemic anticoagulation, CAD with remote stenting, hypertension, type 2 diabetes mellitus, chronic kidney disease stage 3, morbid obesity, chronic heart failure with preserved ejection fraction, COPD and chronic hypoxic respiratory failure on 3 L nasal cannula with recent admission earlier this month worsening lower extremity edema, shortness of breath for which she was treated for decompensated heart failure, lower extremity cellulitis, and COPD.? She resides at [place] and reports that she has been intermittently receiving Lasix given concern for her renal function.? She notes she will receive Lasix for couple days then or be held for several mo
--- NOTE | 2023-08-28 12:21 | P.PNNP_ITS ---
Progress Note: A&P Assessment and Plan (1) LIZ (acute kidney injury): Code(s): N17.9 - Acute kidney failure, unspecified Status: Acute Assessment and Plan: * creatinine relatively stable * due to the necessity of IV diuresis in the context of CHF exacerbation * suspect renal function will always fluctuate due to necessity of diuretic therapy * follow trend of repeat labs and UOP (2) Chronic kidney disease, stage IV (severe): Code(s): N18.4 - Chronic kidney disease, stage 4 (severe) Status: Chronic Assessment and Plan: * baseline creatinine runs ~ 1.5 - 2.0mg/dl * due to CAD/CHF, chronic need for diuretic therapy, HTN, DM, vascular disease and age * this might be a situation where we have to accept a higher creatinine in order to maintain her volume status (3) Acute on chronic heart failure with preserved ejection fraction: Code(s): I50.33 - Acute on chronic diastolic (congestive) heart failure Status: Acute Assessment and Plan: * as noted on presentation * fairly responsive to IV diuretic therapy since admission * follow I/Os, daily weights, and fluid restriction * on diuretic therapy * Cardiology following (4) Acute and chronic respiratory failure, unspecified whether with hypoxia or hypercapnia: Code(s): J96.20 - Acute and chronic respiratory failure, unspecified whether with hypoxia or hypercapnia Status: Acute Assessment and Plan: * likely secondary to CHF exacerbation * however, complicated by known history of COPD, OSH/YONI, and obesity * continue CPAP therapy * on chronic supplemental oxygen * follow respiratory status (5) Uncontrolled type 2 diabetes mellitus: Status: Acute Assessment and Plan: * follow acc-cheks * glycemic control per hospitallists Will continue to follow. Subjective Date/time seen: 08/28/23 12:21 Interval history: Follow-up for acute kidney injury/acute renal failure on chronic kidney disease. Renal function relatively stable in the last 24 hours; still with LE swelling/e chaitanya although patient reports stability if not improvement at this time but still associated with pain/discomfort; no other issues/events overnight or earlier this AM. Exam Narrative: General: elderly but large female in NAD Heart: normal S1 and S2; no rub Lungs: clear to auscultation anteriorly; decreased at bases Abdomen: soft, nontender, nondistended, positive bowel sounds Extremities: no cyanosis or clubbing; 2 - 3+ edema Skin: LE wraps in place Objective Data Vital Signs Vital Signs: Vital Signs Temp Pulse Resp BP Pulse Ox O2 Del Method O2 Flow Rate 08/28/23 08:00 85 18 95 Nasal Cannula 3 08/28/23 08:06 76 20 08/28/23 08:06 94 Nasal Cannula 3 08/28/23 05:54 97.8 F 75 20 113/55 L 96 08/27/23 21:58 98.2 F 79 20 122/54 L 94 Intake/Output Intake/Output: Intake & Output 08/25/23 08/26/23 08/27/23 08/28/23 23:59 23:59 23:59 23:59 Intake Total 870 1747 031 2717 Output Total 1450 1050 850 Balance -580 266 54 0388 Meds/Results Medications: Active Medications Generic Name Dose Route Start Last Admin Trade Name Freq PRN Reason Stop Dose Admin
--- NOTE | 2023-08-28 12:21 | PM.PNNEP ---
Progress Note: A&P Assessment and Plan (1) LIZ (acute kidney injury): Code(s): N17.9 - Acute kidney failure, unspecified Status: Acute Assessment and Plan: creatinine relatively stable due to the necessity of IV diuresis in the context of CHF exacerbation suspect renal function will always fluctuate due to necessity of diuretic therapy follow trend of repeat labs and UOP (2) Chronic kidney disease, stage IV (severe): Code(s): N18.4 - Chronic kidney disease, stage 4 (severe) Status: Chronic Assessment and Plan: baseline creatinine runs ~ 1.5 - 2.0mg/dl due to CAD/CHF, chronic need for diuretic therapy, HTN, DM, vascular disease and age this might be a situation where we have to accept a higher creatinine in order to maintain her volume status (3) Acute on chronic heart failure with preserved ejection fraction: Code(s): I50.33 - Acute on chronic diastolic (congestive) heart failure Status: Acute Assessment and Plan: as noted on presentation fairly responsive to IV diuretic therapy since admission follow I/Os, daily weights, and fluid restriction on diuretic therapy Cardiology following (4) Acute and chronic respiratory failure, unspecified whether with hypoxia or hypercapnia: Code(s): J96.20 - Acute and chronic respiratory failure, unspecified whether with hypoxia or hypercapnia Status: Acute Assessment and Plan: likely secondary to CHF exacerbation however, complicated by known history of COPD, OSH/YONI, and obesity continue CPAP therapy on chronic supplemental oxygen follow respiratory status (5) Uncontrolled type 2 diabetes mellitus: Status: Acute Assessment and Plan: follow acc-cheks glycemic control per hospitallists Will continue to follow. Subjective Date/time seen: 08/28/23 12:21 Interval history: Follow-up for acute kidney injury/acute renal failure on chronic kidney disease. Renal function relatively stable in the last 24 hours; still with LE swelling/edema although patient reports stability if not improvement at this time but still associated with pain/discomfort; no other issues/events overnight or earlier this AM. Exam Narrative: General: elderly but large female in NAD Heart: normal S1 and S2; no rub Lungs: clear to auscultation anteriorly; decreased at bases Abdomen: soft, nontender, nondistended, positive bowel sounds Extremities: no cyanosis or clubbing; 2 - 3+ edema Skin: LE wraps in place Objective Data Vital Signs Vital Signs: Vital Signs Temp Pulse Resp BP Pulse Ox O2 Del Method O2 Flow Rate 08/28/23 08:00 85 18 95 Nasal Cannula 3 08/28/23 08:06 76 20 08/28/23 08:06 94 Nasal Cannula 3 08/28/23 05:54 97.8 F 75 20 113/55 L 96 08/27/23 21:58 98.2 F 79 20 122/54 L 94 Intake/Output Intake/Output: Intake & Output 08/25/23 08/26/23 08/27/23 08/28/23 23:59 23:59 23:59 23:59 Intake Total 870 5485 648 2260 Output Total 1450 1050 850 Balance -580 405 86 0838 Meds/Results Medications: Active Medications Generic Name Dose Route Start Last Admin Trade Name Freq PRN Reason Stop Dose Admin Acetaminophen 1,000 mg 08/19/23 04:19 08/27/23 20:55 Acetaminophen 500 Mg Tablet BY MOUTH 1,000 mg HS PRN Administration Pain Hydrocodone Bitart/Acetaminophen 1 tab 08/19/23 01:07 08/27/23 16:37 Hydrocodone/Acetaminophen (*Crx) 5-325 Mg Tablet PO 1 tab Q6H PRN Administration Pain Rated 7-10 Albuterol 2 puff 08/19/23 01:07 Albuterol Sulfate (*Sp) Aerosol 1 Puff INHALATION Q4H PRN shortness of breath or wheezing Atorvastatin Calcium 40 mg 08/19/23 21:00 08/27/23 20:56 Atorvastatin 40 Mg Tablet PO 40 mg HS SINDY Administration Benzonatate 100 mg 08/19/23 01:07 08/25/23 18:48 Benzonatate 100 Mg Capsule PO 100 mg TID PRN Administration Cough Brimonidin
[2023-08-28 13:39] LABS: Osmolality, Urine 466 mOsm/kg (50-1200)
[2023-08-28 13:51] VITALS: BP 128/42; PULSE 85; RESP 18; TEMP 36.4; O2SAT 95
[2023-08-28 16:33] LABS: Glucose Point of Care 247 mg/dl (65-105)
[2023-08-28] MEDS: RIVAROXABAN 15 MG TABLET PO (17:10)
[2023-08-28] MEDS: INSULIN ASPART (*BKC) 100 UNITS/ML SUB-Q ×2 (17:10→20:48)
[2023-08-28] MEDS: LACTULOSE 20 GM/30 ML UDC PO (17:14)
[2023-08-28] MEDS: HYDROcodone/acetaminophen (*CRX) 5-325 MG TABLET 1 TAB PO (18:39)
[2023-08-28 20:00] VITALS: O2SAT 94
[2023-08-28] MEDS: clonazePAM (*CRX) 0.5 MG TABLET PO (20:35)
[2023-08-28] MEDS: traZODone HCL 50 MG TABLET 100 MG PO (20:35)
[2023-08-28] MEDS: MELATONIN 5 MG TABLET PO (20:36)
[2023-08-28] MEDS: FLUTICASONE PROPIONATE 0.05% NA SPR 16 GM BTL (*BKC) 2 SPRAY NASAL (20:36)
[2023-08-28] MEDS: ATORVASTATIN 40 MG TABLET PO (20:36)
[2023-08-28] MEDS: BENZONATATE 100 MG CAPSULE PO (20:44)
[2023-08-28] MEDS: ACETAMINOPHEN 500 MG TABLET 1000 MG BY MOUTH (20:44)
[2023-08-28 20:57] LABS: Glucose Point of Care 305 mg/dl (65-105)
[2023-08-28 21:22] VITALS: BP 100/66; PULSE 85; RESP 14; TEMP 36.8; O2SAT 94
[2023-08-29 05:37] LABS: Basophils Absolute Auto 0.1 K/mm3 (0.0-0.1); Basophils Percent Auto 0.5 % (0.2-1.2); Eosinophils Absolute Auto 0.3 K/mm3 (0-0.3); Eosinophils Percent Auto 3.2 % (0-4.4); Hematocrit 33.3 % (37.0-47.0); Hemoglobin 10.3 g/dL (12.0-15.0); Immature Granulocyte Absolute 0.07 K/mm3 (0.00-0.031); Immature Granulocyte Percent A 0.7 % (0-0.5); Immature Platelet Fraction Pct 2.4 % (0.9-11.2); Lymphocytes Absolute Auto 1.94 K/mm3 (0.9-3.2); Lymphocytes Percent Auto 18.5 % (18.3-44.2); Mean Corpuscular HGB Conc 30.9 g/dl (32-36); Mean Corpuscular Hemoglobin 29.3 pg (26-34); Mean Corpuscular Volume 94.9 fl (80-100); Mean Platelet Volume 12.9 fl (7.4-10.4); Monocytes Absolute Auto 1.1 K/mm3 (0.1-0.6); Monocytes Percent Auto 10.1 % (2.6-8.5); Platelet Count Result 272 k/mm3 (150-375); Red Blood Count 3.51 M/mm3 (4.2-5.4); Red Cell Distribution Width 14.6 % (11.5-14.5); White Blood Count 10.5 K/mm3 (4.5-10.0)
[2023-08-29 05:47] LABS: Alanine Aminotransferase 15 U/L (6-35); Albumin Level 3.9 g/dL (3.5-5.1); Alkaline Phosphatase 105 U/L (38-126); Anion Gap 6 mmol/L (4-12); Aspartate Amino Transferase 24 U/L (14-36); Bilirubin,Total 0.5 mg/dL (0.2-1.3); Blood Urea Nitrogen 56 mg/dL (7-17); Calcium 9.7 mg/dL (8.4-10.2); Carbon Dioxide 30 mmol/L (22-30); Chloride 100 mmol/L (98-107); Estimated CRCL calculation 19 ml/min; Estimated Glomerular Filt Rate 18; Glucose 186 mg/dL (65-110); Magnesium 1.7 mg/dL (1.6-2.3); Potassium 4.7 mmol/L (3.4-5.0); Sodium 136 mmol/L (137-145)
[2023-08-29 06:00] VITALS: BP 104/42; PULSE 66; RESP 12; TEMP 36.3; O2SAT 96
[2023-08-29 07:41] LABS: Glucose Point of Care 183 mg/dl (65-105)
[2023-08-29 08:00] VITALS: O2SAT 95
[2023-08-29] MEDS: BRIMONIDINE TARTRATE 0.2% OP SOLN 5 ML BTL 2 DROP EACH EYE ×2 (08:58→21:14)
[2023-08-29] MEDS: busPIRone HCL 5 MG TABLET 15 MG PO ×3 (08:58→16:19)
[2023-08-29] MEDS: MONTELUKAST SODIUM 10 MG TABLET PO (08:58)
[2023-08-29] MEDS: LORATADINE 10 MG TABLET PO (08:58)
[2023-08-29] MEDS: TIMOLOL MALEATE 0.5% OP SOLN 5 ML BOTTLE 2 DROP EACH EYE ×2 (08:58→21:14)
[2023-08-29] MEDS: CLOPIDOGREL BISULFATE 75 MG TABLET PO (08:58)
[2023-08-29] MEDS: buPROPion HCL XL (24 HR) 150 MG TABCR PO (08:58)
[2023-08-29] MEDS: MUPIROCIN 2% OINT 22 GM TUBE 1 APPLIC TOPICAL (08:59)
[2023-08-29] MEDS: CHOLECALCIFEROL 1,000 UNITS TABLET 1000 UNITS PO (08:59)
[2023-08-29] MEDS: INSULIN ASPART (*BKC) 100 UNITS/ML 6 UNITS SUB-Q ×2 (09:00→12:12)
[2023-08-29] MEDS: INSULIN GLARGINE (*BKC) 100 UNITS/ML 60 UNITS SUB-Q (09:03)
[2023-08-29] MEDS: FLUTICASONE/UMECLIDIN/VILANTER 100-62.5-25 MCG ELLIPTA 1 PUFF INHALATION (09:45)
[2023-08-29 12:01] LABS: Glucose Point of Care 266 mg/dl (65-105)
[2023-08-29] MEDS: INSULIN ASPART (*BKC) 100 UNITS/ML SUB-Q ×3 (12:11→21:16)
[2023-08-29] MEDS: LACTULOSE 20 GM/30 ML UDC PO (12:16)
--- NOTE | 2023-08-29 13:33 | PM.PNNEP ---
Progress Note: A&P Assessment and Plan (1) LIZ (acute kidney injury): Code(s): N17.9 - Acute kidney failure, unspecified Status: Acute Assessment and Plan: creatinine fluctuating due to the necessity of IV diuresis in the context of CHF exacerbation suspect renal function will always fluctuate due to necessity of diuretic therapy follow trend of repeat labs and UOP (2) Chronic kidney disease, stage IV (severe): Code(s): N18.4 - Chronic kidney disease, stage 4 (severe) Status: Chronic Assessment and Plan: baseline creatinine runs ~ 1.5 - 2.0mg/dl due to CAD/CHF, chronic need for diuretic therapy, HTN, DM, vascular disease and age this might be a situation where we have to accept a higher creatinine in order to maintain her volume status (3) Acute on chronic heart failure with preserved ejection fraction: Code(s): I50.33 - Acute on chronic diastolic (congestive) heart failure Status: Acute Assessment and Plan: as noted on presentation fairly responsive to IV diuretic therapy since admission follow I/Os, daily weights, and fluid restriction on diuretic therapy Cardiology following (4) Acute and chronic respiratory failure, unspecified whether with hypoxia or hypercapnia: Code(s): J96.20 - Acute and chronic respiratory failure, unspecified whether with hypoxia or hypercapnia Status: Acute Assessment and Plan: likely secondary to CHF exacerbation however, complicated by known history of COPD, OSH/YONI, and obesity continue CPAP therapy on chronic supplemental oxygen follow respiratory status (5) Uncontrolled type 2 diabetes mellitus: Status: Acute Assessment and Plan: follow acc-cheks glycemic control per hospitallists Will continue to follow. Subjective Date/time seen: 08/29/23 13:33 Interval history: Follow-up for acute kidney injury/acute renal failure on chronic kidney disease. Renal function a tad worse today as noted by AM labs; otherwise, feels about the same; still with LE edema that appears unchanged; no apparent distress noted; no issues/events overnight or earlier this morning. Exam Narrative: General: elderly but large female in NAD Heart: normal S1 and S2; no rub Lungs: clear to auscultation anteriorly; decreased at bases Abdomen: soft, nontender, nondistended, positive bowel sounds Extremities: no cyanosis or clubbing; 2 - 3+ edema Skin: LE wraps noted Objective Data Vital Signs Vital Signs: Vital Signs Temp Pulse Resp BP Pulse Ox O2 Del Method O2 Flow Rate 08/29/23 13:00 97.9 F 75 18 142/50 H 100 08/29/23 08:00 95 Nasal Cannula 3 08/29/23 06:00 97.4 F L 66 12 104/42 L 96 08/28/23 20:00 94 Nasal Cannula 3 08/28/23 21:22 98.3 F 85 14 100/66 94 Intake/Output Intake/Output: Intake & Output 08/26/23 08/27/23 08/28/23 08/29/23 23:59 23:59 23:59 23:59 Intake Total 6604 404 9378 1012 Output Total 1050 850 950 Balance 976 65 8902 62 Meds/Results Medications: Active Medications Generic Name Dose Route Start Last Admin Trade Name Freq PRN Reason Stop Dose Admin Acetaminophen 1,000 mg 08/19/23 04:19 08/28/23 20:44 Acetaminophen 500 Mg Tablet BY MOUTH 1,000 mg HS PRN Administration Pain Albuterol 2 puff 08/19/23 01:07 Albuterol Sulfate (*Sp) Aerosol 1 Puff INHALATION Q4H PRN shortness of breath or wheezing Atorvastatin Calcium 40 mg 08/19/23 21:00 08/28/23 20:36 Atorvastatin 40 Mg Tablet PO 40 mg HS SINDY Administration Benzonatate 100 mg 08/19/23 01:07 08/28/23 20:44 Benzonatate 100 Mg Capsule PO 100 mg TID PRN Administration Cough Brimonidine Tartrate 2 drop 08/19/23 09:00 08/29/23 08:58 Brimonidine Tartrate 0.2% Op Soln 5 Ml Btl EACH EYE 2 drop Q12HR SINDY Administration Bumetanide 1 mg 08/27/23 09:00 08/28/23 17:09 Bumetanide 1 Mg Tabl
--- NOTE | 2023-08-29 13:33 | P.PNNP_ITS ---
Progress Note: A&P Assessment and Plan (1) LIZ (acute kidney injury): Code(s): N17.9 - Acute kidney failure, unspecified Status: Acute Assessment and Plan: * creatinine fluctuating * due to the necessity of IV diuresis in the context of CHF exacerbation * suspect renal function will always fluctuate due to necessity of diuretic therapy * follow trend of repeat labs and UOP (2) Chronic kidney disease, stage IV (severe): Code(s): N18.4 - Chronic kidney disease, stage 4 (severe) Status: Chronic Assessment and Plan: * baseline creatinine runs ~ 1.5 - 2.0mg/dl * due to CAD/CHF, chronic need for diuretic therapy, HTN, DM, vascular disease and age * this might be a situation where we have to accept a higher creatinine in order to maintain her volume status (3) Acute on chronic heart failure with preserved ejection fraction: Code(s): I50.33 - Acute on chronic diastolic (congestive) heart failure Status: Acute Assessment and Plan: * as noted on presentation * fairly responsive to IV diuretic therapy since admission * follow I/Os, daily weights, and fluid restriction * on diuretic therapy * Cardiology following (4) Acute and chronic respiratory failure, unspecified whether with hypoxia or hypercapnia: Code(s): J96.20 - Acute and chronic respiratory failure, unspecified whether with hypoxia or hypercapnia Status: Acute Assessment and Plan: * likely secondary to CHF exacerbation * however, complicated by known history of COPD, OSH/YONI, and obesity * continue CPAP therapy * on chronic supplemental oxygen * follow respiratory status (5) Uncontrolled type 2 diabetes mellitus: Status: Acute Assessment and Plan: * follow acc-cheks * glycemic control per hospitallists Will continue to follow. Subjective Date/time seen: 08/29/23 13:33 Interval history: Follow-up for acute kidney injury/acute renal failure on chronic kidney disease. Renal function a tad worse today as noted by AM labs; otherwise, feels about the same; still with LE edema that appears unchanged; no apparent distress noted; no issues/events overnight or earlier this morning. Exam Narrative: General: elderly but large female in NAD Heart: normal S1 and S2; no rub Lungs: clear to auscultation anteriorly; decreased at bases Abdomen: soft, nontender, nondistended, positive bowel sounds Extremities: no cyanosis or clubbing; 2 - 3+ edema Skin: LE wraps noted Objective Data Vital Signs Vital Signs: Vital Signs Temp Pulse Resp BP Pulse Ox O2 Del Method O2 Flow Rate 08/29/23 13:00 97.9 F 75 18 142/50 H 100 08/29/23 08:00 95 Nasal Cannula 3 08/29/23 06:00 97.4 F L 66 12 104/42 L 96 08/28/23 20:00 94 Nasal Cannula 3 08/28/23 21:22 98.3 F 85 14 100/66 94 Intake/Output Intake/Output: Intake & Output 08/26/23 08/27/23 08/28/23 08/29/23 23:59 23:59 23:59 23:59 Intake Total 6086 477 7836 1012 Output Total 1050 850 950 Balance 673 40 7514 62 Meds/Results Medications: Active Medications Generic Name Dose Route Start Last Admin Trade Name Freq PRN Reason Stop Dose Admin Acetaminophen 1,000 mg 08/19/23 04:1
--- NOTE | 2023-08-29 13:41 | PM.PNCARD ---
Progress Note: A&P Assessment and Plan (1) Acute on chronic heart failure with preserved ejection fraction: Code(s): I50.33 - Acute on chronic diastolic (congestive) heart failure Status: Acute Assessment and Plan: Patient presented once again with clinical evidence for acute on chronic heart failure with preserved ejection fraction. History of preserved LV systolic function by echo 03/2023. Etiology multifactorial given underlying renal insufficiency, chronic hypoxic respiratory failure, probable untreated YONI. Hold Bumex today SCr continues to increase Accurate input and output Daily weight Less than 2 g daily sodium intake. Holding Spironolactone and Lisinopril because of renal function. Should be resumed when renal function improves. Could consider shifting from Lisinopril to Entresto for HFpEF. Continue to maricel wrap her lower extremities. Elevate legs while seated. (2) Coronary artery disease: Qualifiers: Coronary Disease-Associated Artery/Lesion type: [place] artery [place] vs. transplanted heart: [place] heart Associated angina: without angina Qualified Code(s): I25.10 - Atherosclerotic heart disease of [place] coronary artery without angina pectoris Code(s): I25.10 - Atherosclerotic heart disease of [place] coronary artery without angina pectoris Status: Chronic Assessment and Plan: Stable, no acute issues at this time. Continue ASA 81 mg daily, Atorvastatin 40 mg at bedtime (3) Paroxysmal A-fib: Code(s): I48.0 - Paroxysmal atrial fibrillation Status: Acute Assessment and Plan: Maintaining sinus rhythm thus far. She is not currently on AV katerina blocking agents nor as an outpatient. Continue Xarelto reduced to 15 mg at bedtime due to renal failure. Monitor closely for bleeding. Follow H&H. (4) Acute and chronic respiratory failure, unspecified whether with hypoxia or hypercapnia: Code(s): J96.20 - Acute and chronic respiratory failure, unspecified whether with hypoxia or hypercapnia Status: Acute Assessment and Plan: History of COPD with significant underlying lung disease. Continue O2 supplementation 3 L nasal cannula. Bronchodilator. Defer management to hospitalist service. (5) UTI (urinary tract infection): Code(s): N39.0 - Urinary tract infection, site not specified Status: Resolved Assessment and Plan: Management per primary service. (6) CKD stage 3 secondary to diabetes: Code(s): E11.22 - Type 2 diabetes mellitus with diabetic chronic kidney disease; N18.30 - Chronic kidney disease, stage 3 unspecified Status: Acute Assessment and Plan: Nephrology consulted (7) Uncontrolled type 2 diabetes mellitus: Status: Acute Assessment and Plan: Continue to improve glucose control, defer to primary service in this regard. (8) Morbid (severe) obesity due to excess calories: Code(s): E66.01 - Morbid (severe) obesity due to excess calories Status: Acute Assessment and Plan: Lifestyle modification, weight loss. Subjective Date/time seen: 08/29/23 13:41 Interval history: Reason for visit: CHF HPI: Patient is a very pleasant 78-year-old female with a past medical history significant for paroxysmal atrial fibrillation on systemic anticoagulation, CAD with remote stenting, hypertension, type 2 diabetes mellitus, chronic kidney disease stage 3, morbid obesity, chronic heart failure with preserved ejection fraction, COPD and chronic hypoxic respiratory failure on 3 L nasal cannula with recent admission earlier this month worsening lower extremity edema, shortness of breath for which she was treated for decompensated heart failure, lower extremity cellulitis, and COPD.? She resides at [facility] and reports that she has been intermittently receiving Lasix given concern for her renal function.? She notes she will receive Lasix for couple days then or be hel
[2023-08-29 14:00] VITALS: BP 142/50; PULSE 75; RESP 18; TEMP 36.6; O2SAT 100
[2023-08-29] MEDS: RIVAROXABAN 15 MG TABLET PO (16:19)
--- NOTE | 2023-08-29 16:27 | PM.IMPN ---
Progress Note: A&P Assessment and Plan (1) Acute exacerbation of CHF (congestive heart failure): Code(s): I50.9 - Heart failure, unspecified Status: Acute (2) Acute and chronic respiratory failure, unspecified whether with hypoxia or hypercapnia: Code(s): J96.20 - Acute and chronic respiratory failure, unspecified whether with hypoxia or hypercapnia Status: Acute (3) COPD (chronic obstructive pulmonary disease): Qualifiers: COPD type: unspecified COPD Qualified Code(s): J44.9 - Chronic obstructive pulmonary disease, unspecified Code(s): J44.9 - Chronic obstructive pulmonary disease, unspecified Status: Acute (4) Morbid (severe) obesity due to excess calories: Code(s): E66.01 - Morbid (severe) obesity due to excess calories Status: Acute (5) CKD stage 3 secondary to diabetes: Code(s): E11.22 - Type 2 diabetes mellitus with diabetic chronic kidney disease; N18.30 - Chronic kidney disease, stage 3 unspecified Status: Acute (6) UTI (urinary tract infection): Code(s): N39.0 - Urinary tract infection, site not specified Status: Resolved (7) Acute on chronic heart failure with preserved ejection fraction: Code(s): I50.33 - Acute on chronic diastolic (congestive) heart failure Status: Acute (8) Paroxysmal A-fib: Code(s): I48.0 - Paroxysmal atrial fibrillation Status: Acute (9) Type 2 diabetes mellitus with hyperglycemia: Code(s): E11.65 - Type 2 diabetes mellitus with hyperglycemia Status: Acute (10) Obesity (BMI 30-39.9): Code(s): E66.9 - Obesity, unspecified Status: Chronic Plan August 29, 2023 assuming care. 78-year-old female with past medical history of paroxysmal atrial fibrillation on anticoagulation, CAD with remote stenting, hypertension, insulin-dependent type 2 diabetes mellitus, CKD stage 3, morbid obesity, chronic heart failure with preserved ejection fraction, COPD, YONI, chronic respiratory failure on 3 L nasal cannula at home presented with shortness of breath and worsening lower extremity edema. Patient was found to be in new onset acutely decompensated heart failure and has been diuresed. On August 27 and August 28 the serum creatinine is elevating above her baseline. Nephrology consulted. On 08/28 cardiology is holding her Bumex. Seen a prolonged spironolactone have been held as well. Patient does not appear overtly decompensated. The slight expiratory wheeze on lung exam and she does not complain of any symptomatology. She does have a history of COPD will start schedule nebulizers. Her lower extremity edema is 2+ still but that may be compounded by her sedentary lifestyle and obesity/chronic stasis. [place] therapies to alleviate that. Continue to appreciate Cardiology recommendations. As for her coronary artery disease, prior hospitalist M[facility]'s note reporting restarting her aspirin and Plavix and cardiology reporting continuing aspirin only. home med only reports Plavix and that is what has been restarted here. Will clarify with Cardiology. She is also on Xarelto for paroxysmal atrial fibrillation. Continue to adjust that dose for her fluctuating GFR. Her blood sugars have remained uncontrolled. It appears she is on Humulin U 500 KwikPen 90 units before breakfast 60 units before lunch and 50 units before dinner. Here we have her on 60 units of Lantus b.i.d. and 6 units of NovoLog before meals. Her lower sugars in the morning reflect an appropriate dosing of her home Humulin. Will switch her to that. Continue Accu-Cheks a.c. HS otherwise with sliding scale and hypoglycemia protocol. There has been some concern for UTI but the urine cultures were negative. Patient does not complain of symptomatology related to UTI. No antibiotics. Consistent diabetic diet. Patient reiterates to me she does want to be DNR. Xarelto. Protonix daily. She typically resides at [facility]
[2023-08-29 17:03] LABS: Glucose Point of Care 249 mg/dl (65-105)
[2023-08-29] MEDS: INSULIN HUMAN REGULAR (*BKC) 100 UNITS/ML 50 UNITS SUB-Q (18:42)
[2023-08-29 20:00] VITALS: O2SAT 99
[2023-08-29 20:25] VITALS: PULSE 79; RESP 16; O2SAT 93
[2023-08-29] MEDS: IPRATROPIUM 0.5 MG/ALBUTEROL SULFATE 2.5 MG AMPUL.NEB 3 ML INHALATION (20:25)
[2023-08-29 20:55] VITALS: BP 126/46; PULSE 74; RESP 20; TEMP 36.4; O2SAT 99
[2023-08-29 21:03] LABS: Glucose Point of Care 285 mg/dl (65-105)
[2023-08-29] MEDS: FLUTICASONE PROPIONATE 0.05% NA SPR 16 GM BTL (*BKC) 2 SPRAY NASAL (21:12)
[2023-08-29] MEDS: traZODone HCL 50 MG TABLET 100 MG PO (21:13)
[2023-08-29] MEDS: ACETAMINOPHEN 500 MG TABLET 1000 MG BY MOUTH (21:13)
[2023-08-29] MEDS: MELATONIN 5 MG TABLET PO (21:13)
[2023-08-29] MEDS: ATORVASTATIN 40 MG TABLET PO (21:13)
[2023-08-29] MEDS: BENZONATATE 100 MG CAPSULE PO (21:13)
[2023-08-30 04:43] VITALS: BP 113/38; PULSE 75; RESP 18; TEMP 36.6; O2SAT 92
[2023-08-30] MEDS: CYCLOBENZAPRINE HCL 10 MG TABLET PO (06:14)
[2023-08-30 06:24] LABS: Basophils Absolute Auto 0.1 K/mm3 (0.0-0.1); Basophils Percent Auto 0.5 % (0.2-1.2); Eosinophils Absolute Auto 0.4 K/mm3 (0-0.3); Eosinophils Percent Auto 3.6 % (0-4.4); Hematocrit 33.3 % (37.0-47.0); Hemoglobin 10.3 g/dL (12.0-15.0); Immature Granulocyte Absolute 0.05 K/mm3 (0.00-0.031); Immature Granulocyte Percent A 0.5 % (0-0.5); Lymphocytes Percent Auto 16.6 % (18.3-44.2); Mean Corpuscular HGB Conc 30.9 g/dl (32-36); Mean Corpuscular Hemoglobin 29.2 pg (26-34); Mean Corpuscular Volume 94.3 fl (80-100); Mean Platelet Volume 12.7 fl (7.4-10.4); Monocytes Absolute Auto 0.9 K/mm3 (0.1-0.6); Monocytes Percent Auto 8.4 % (2.6-8.5); Neutrophils Absolute Auto 7.2 K/mm3 (1.3-6.7); Neutrophils Percent Auto 70.4 % (45.5-73.1); Platelet Count Result 132 k/mm3 (150-375); Red Blood Count 3.53 M/mm3 (4.2-5.4); Red Cell Distribution Width 14.6 % (11.5-14.5); White Blood Count 10.3 K/mm3 (4.5-10.0)
[2023-08-30 06:40] LABS: Alanine Aminotransferase 17 U/L (6-35); Albumin Level 4.1 g/dL (3.5-5.1); Alkaline Phosphatase 115 U/L (38-126); Anion Gap 7 mmol/L (4-12); Aspartate Amino Transferase 25 U/L (14-36); Bilirubin,Total 0.5 mg/dL (0.2-1.3); Blood Urea Nitrogen 52 mg/dL (7-17); Calcium 10.1 mg/dL (8.4-10.2); Carbon Dioxide 29 mmol/L (22-30); Chloride 103 mmol/L (98-107); Estimated CRCL calculation 24 ml/min; Estimated Glomerular Filt Rate 24; Glucose 130 mg/dL (65-110); Potassium 4.4 mmol/L (3.4-5.0); Sodium 139 mmol/L (137-145)
[2023-08-30 07:59] LABS: Glucose Point of Care 164 mg/dl (65-105)
[2023-08-30 08:00] VITALS: O2SAT 95
[2023-08-30] MEDS: FLUTICASONE/UMECLIDIN/VILANTER 100-62.5-25 MCG ELLIPTA 1 PUFF INHALATION (09:12)
[2023-08-30] MEDS: IPRATROPIUM 0.5 MG/ALBUTEROL SULFATE 2.5 MG AMPUL.NEB 3 ML INHALATION ×2 (09:12→14:56)
[2023-08-30 09:13] VITALS: PULSE 78; RESP 20; O2SAT 95
[2023-08-30] MEDS: MONTELUKAST SODIUM 10 MG TABLET PO (09:36)
[2023-08-30] MEDS: buPROPion HCL XL (24 HR) 150 MG TABCR PO (09:36)
[2023-08-30] MEDS: CLOPIDOGREL BISULFATE 75 MG TABLET PO (09:36)
[2023-08-30] MEDS: busPIRone HCL 5 MG TABLET 15 MG PO ×2 (09:36→12:33)
[2023-08-30] MEDS: LORATADINE 10 MG TABLET PO (09:37)
[2023-08-30] MEDS: CHOLECALCIFEROL 1,000 UNITS TABLET 1000 UNITS PO (09:37)
[2023-08-30] MEDS: BRIMONIDINE TARTRATE 0.2% OP SOLN 5 ML BTL 2 DROP EACH EYE (09:38)
[2023-08-30] MEDS: MUPIROCIN 2% OINT 22 GM TUBE 1 APPLIC TOPICAL (09:39)
[2023-08-30] MEDS: TIMOLOL MALEATE 0.5% OP SOLN 5 ML BOTTLE 2 DROP EACH EYE (09:39)
[2023-08-30] MEDS: INSULIN HUMAN REGULAR (*BKC) 100 UNITS/ML 90 UNITS SUB-Q (09:44)
--- NOTE | 2023-08-30 10:18 | PM.PNNEP ---
Progress Note: A&P Assessment and Plan (1) LIZ (acute kidney injury): Code(s): N17.9 - Acute kidney failure, unspecified Status: Acute Assessment and Plan: creatinine better due to the necessity of IV diuresis in the context of CHF exacerbation suspect renal function will always fluctuate due to necessity of diuretic therapy follow trend of repeat labs and UOP (2) Chronic kidney disease, stage IV (severe): Code(s): N18.4 - Chronic kidney disease, stage 4 (severe) Status: Chronic Assessment and Plan: baseline creatinine runs ~ 1.5 - 2.0mg/dl due to CAD/CHF, chronic need for diuretic therapy, HTN, DM, vascular disease and age this might be a situation where we have to accept a higher creatinine in order to maintain her volume status (3) Acute on chronic heart failure with preserved ejection fraction: Code(s): I50.33 - Acute on chronic diastolic (congestive) heart failure Status: Acute Assessment and Plan: as noted on presentation fairly responsive to IV diuretic therapy since admission follow I/Os, daily weights, and fluid restriction on diuretic therapy Cardiology following (4) Acute and chronic respiratory failure, unspecified whether with hypoxia or hypercapnia: Code(s): J96.20 - Acute and chronic respiratory failure, unspecified whether with hypoxia or hypercapnia Status: Acute Assessment and Plan: likely secondary to CHF exacerbation however, complicated by known history of COPD, OSH/YONI, and obesity continue CPAP therapy on chronic supplemental oxygen follow respiratory status (5) Uncontrolled type 2 diabetes mellitus: Status: Acute Assessment and Plan: follow acc-cheks glycemic control per hospitallists Will continue to follow. Subjective Date/time seen: 08/30/23 10:18 Interval history: Follow-up for acute kidney injury/acute renal failure on chronic kidney disease. SLow improvement in renal function noted; LE edema persists but stable if not better; no apparent distress noted at the time of my visit; no other acute complaints voiced. Exam Narrative: General: elderly but large female in NAD Heart: normal S1 and S2; no rub Lungs: clear to auscultation anteriorly; decreased at bases Abdomen: soft, nontender, nondistended, positive bowel sounds Extremities: no cyanosis or clubbing; 2 - 3+ edema Skin: LE wraps in place Objective Data Vital Signs Vital Signs: Vital Signs Temp Pulse Resp BP Pulse Ox O2 Del Method O2 Flow Rate 05/03/24 09:13 78 20 95 Nasal Cannula 3 08/30/23 04:43 97.9 F 75 18 113/38 L 92 08/29/23 20:00 99 Nasal Cannula 2 08/29/23 20:55 97.6 F 74 20 126/46 L 99 08/29/23 20:25 79 16 08/29/23 20:25 93 Nasal Cannula 2 Intake/Output Intake/Output: Intake & Output 08/27/23 08/28/23 08/29/23 08/30/23 23:59 23:59 23:59 23:59 Intake Total 910 1596 1252 1170 Output Total 850 1800 650 Balance 60 1596 -414 520 Meds/Results Medications: Medications: Active Medications Generic Name Dose Route Start Last Admin ? Trade Name Freq? PRN Reason Stop Dose Admin Acetaminophen ?1,000 mg ?08/19/23 04:19 ?08/28/23 20:44 ? Acetaminophen 500 Mg Tablet ?BY MOUTH ? ?1,000 mg ? ?HS PRN ? ?Administration ? ?Pain ? ? Albuterol ?2 puff ?08/19/23 01:07 ? ? Albuterol Sulfate (*Sp) Aerosol 1 Puff ?INHALATION ?Q4H PRN ?shortness of breath or wheezing ? ? Atorvastatin Calcium ?40 mg ?08/19/23 21:00 ?08/28/23 20:36 ? Atorvastatin 40 Mg Tablet ?PO ? ?40 mg ? ?HS SINDY ? ?Administration Benzonatate ?100 mg ?08/19/23 01:07 ?08/28/23 20:44 ? Benzonatate 100 Mg Capsule ?PO ? ?100 mg ? ?TID PRN ? ?Administration ? ?Cough ? ? Brimonidine Tartrate ?2 drop ?08/19/23 09:00 ?08/29/23 08:58 ? Brimonidine Tartrate 0.2% Op Soln 5 Ml Btl ?EACH EYE ? ?2 drop ? ?Q12HR SINDY ? ?Administration Bumetanide ?1 mg ?08/27/23 09:00 ?08/28/23
--- NOTE | 2023-08-30 10:18 | P.PNNP_ITS ---
Progress Note: A&P Assessment and Plan (1) LIZ (acute kidney injury): Code(s): N17.9 - Acute kidney failure, unspecified Status: Acute Assessment and Plan: * creatinine better * due to the necessity of IV diuresis in the context of CHF exacerbation * suspect renal function will always fluctuate due to necessity of diuretic therapy * follow trend of repeat labs and UOP (2) Chronic kidney disease, stage IV (severe): Code(s): N18.4 - Chronic kidney disease, stage 4 (severe) Status: Chronic Assessment and Plan: * baseline creatinine runs ~ 1.5 - 2.0mg/dl * due to CAD/CHF, chronic need for diuretic therapy, HTN, DM, vascular disease and age * this might be a situation where we have to accept a higher creatinine in order to maintain her volume status (3) Acute on chronic heart failure with preserved ejection fraction: Code(s): I50.33 - Acute on chronic diastolic (congestive) heart failure Status: Acute Assessment and Plan: * as noted on presentation * fairly responsive to IV diuretic therapy since admission * follow I/Os, daily weights, and fluid restriction * on diuretic therapy * Cardiology following (4) Acute and chronic respiratory failure, unspecified whether with hypoxia or hypercapnia: Code(s): J96.20 - Acute and chronic respiratory failure, unspecified whether with hypoxia or hypercapnia Status: Acute Assessment and Plan: * likely secondary to CHF exacerbation * however, complicated by known history of COPD, OSH/YONI, and obesity * continue CPAP therapy * on chronic supplemental oxygen * follow respiratory status (5) Uncontrolled type 2 diabetes mellitus: Status: Acute Assessment and Plan: * follow acc-cheks * glycemic control per hospitallists Will continue to follow. Subjective Date/time seen: 08/30/23 10:18 Interval history: Follow-up for acute kidney injury/acute renal failure on chronic kidney disease. SLow improvement in renal function noted; LE edema persists but stable if not better; no apparent distress noted at the time of my visit; no other acute complaints voiced. Exam Narrative: General: elderly but large female in NAD Heart: normal S1 and S2; no rub Lungs: clear to auscultation anteriorly; decreased at bases Abdomen: soft, nontender, nondistended, positive bowel sounds Extremities: no cyanosis or clubbing; 2 - 3+ edema Skin: LE wraps in place Objective Data Vital Signs Vital Signs: Vital Signs Temp Pulse Resp BP Pulse Ox O2 Del Method O2 Flow Rate 08/30/23 09:13 78 20 95 Nasal Cannula 3 08/30/23 04:43 97.9 F 75 18 113/38 L 92 08/29/23 20:00 99 Nasal Cannula 2 08/29/23 20:55 97.6 F 74 20 126/46 L 99 08/29/23 20:25 79 16 08/29/23 20:25 93 Nasal Cannula 2 Intake/Output Intake/Output: Intake & Output 08/27/23 08/28/23 08/29/23 08/30/23 23:59 23:59 23:59 23:59 Intake Total 910 1596 1252 1170 Output Total 850 1800 650 Balance 60 1596 -548 520 Meds/Results Medications: Medications: Active Medications Generic Name Dose Route Start Last Admin ? Trade Name Freq? PRN Reason Stop Dose Admin Acetaminophen
--- NOTE | 2023-08-30 11:01 | PCPTNOTE ---
Patient declined PT at this time stating she will be discharged to [facility] today.
[2023-08-30 11:55] LABS: Glucose Point of Care 202 mg/dl (65-105)
--- NOTE | 2023-08-30 12:25 | P.DS_ITS ---
DS: Admitting Diagnosis Discharge Date 08/30/2023 Admitting Diagnosis Acute on chronic respiratory with hypoxia in secondary to Diastolic CHF exacerbation/Lymphedema DS: Discharge Diagnosis Discharge Diagnosis (1) Acute exacerbation of CHF (congestive heart failure): Code(s): I50.9 - Heart failure, unspecified Status: Acute (2) Acute and chronic respiratory failure, unspecified whether with hypoxia or hypercapnia: Code(s): J96.20 - Acute and chronic respiratory failure, unspecified whether with hypoxia or hypercapnia Status: Acute (3) COPD (chronic obstructive pulmonary disease): Qualifiers: COPD type: unspecified COPD Qualified Code(s): J44.9 - Chronic obstructive pulmonary disease, unspecified Code(s): J44.9 - Chronic obstructive pulmonary disease, unspecified Status: Acute (4) Morbid (severe) obesity due to excess calories: Code(s): E66.01 - Morbid (severe) obesity due to excess calories Status: Acute (5) CKD stage 3 secondary to diabetes: Code(s): E11.22 - Type 2 diabetes mellitus with diabetic chronic kidney disease; N18.30 - Chronic kidney disease, stage 3 unspecified Status: Acute (6) UTI (urinary tract infection): Code(s): N39.0 - Urinary tract infection, site not specified Status: Resolved (7) Acute on chronic heart failure with preserved ejection fraction: Code(s): I50.33 - Acute on chronic diastolic (congestive) heart failure Status: Acute (8) Paroxysmal A-fib: Code(s): I48.0 - Paroxysmal atrial fibrillation Status: Acute (9) Type 2 diabetes mellitus with hyperglycemia: Code(s): E11.65 - Type 2 diabetes mellitus with hyperglycemia Status: Acute (10) Obesity (BMI 30-39.9): Code(s): E66.9 - Obesity, unspecified Status: Chronic Plan Acute on chronic respiratory failure with hypoxia * Likely secondary to CHF exacerbation * HX of COPD/Obesity/YONI * encourage CPAP * back to baseline on 3L NC * CXR atelectasis with cardiomegaly Acute on chronic diastolic heart failure * BNP elevated * cardiology consulted * IV lasix switched to IV Bumex switch to PO 08/26 * monitor renal function during diuresis bumped to 2.3 nephrology consulted * previous echocardiogram: 04/20 LVEF 60-65 Grade II diastolic HF * EKG SR * chest x-ray atelectasis with cardiomegaly * F/U CXR 08/26 Mild interstitial edema. * Optimize Ifeanyi inhibitors, beta-blockers, ARNI * Daily weight. * Strict I&O's treadwell placed * fluid restriction * elevate/Ifeanyi wrap legs if needed * spironolactone 12.5 monitoring K+ 4.7 Acute on chronic renal failure * Stage 3 * CR has bumped to 2.30 from baseline on diuretics * serum osmos pending * nephrology consulted * Avoid nephrotoxic drugs. * Monitor antihypertensive drug therapy. * Avoid NSAIDs. * Routine CMP monitoring GFR. * Monitor electrolytes especially potassium. * Antibiotic doses depending on creatinine clearance. * Pharmacy does medications. Diabetes * Accu-Cheks a.c. HS * sliding scale insulin * hold oral diabetic medications * Increased patient's home long-acting * Hemoglobin A1c goal less than 7 pending * lipid panel pending * Diabetic diet * consult to dietitian * encourage lifestyle modifications and weight loss * Optimize Ifeanyi inhibitors and statins. * Watch for hypoglycemia/hypoglycemic protocol ordered Obesity * encourage increased on physical activity and lifestyle modifications * Stress monitoring and eati
--- NOTE | 2023-08-30 12:25 | PM.DS ---
DS: Admitting Diagnosis Discharge Date 08/30/2023 Admitting Diagnosis Acute on chronic respiratory with hypoxia in secondary to Diastolic CHF exacerbation/Lymphedema DS: Discharge Diagnosis Discharge Diagnosis (1) Acute exacerbation of CHF (congestive heart failure): Code(s): I50.9 - Heart failure, unspecified Status: Acute (2) Acute and chronic respiratory failure, unspecified whether with hypoxia or hypercapnia: Code(s): J96.20 - Acute and chronic respiratory failure, unspecified whether with hypoxia or hypercapnia Status: Acute (3) COPD (chronic obstructive pulmonary disease): Qualifiers: COPD type: unspecified COPD Qualified Code(s): J44.9 - Chronic obstructive pulmonary disease, unspecified Code(s): J44.9 - Chronic obstructive pulmonary disease, unspecified Status: Acute (4) Morbid (severe) obesity due to excess calories: Code(s): E66.01 - Morbid (severe) obesity due to excess calories Status: Acute (5) CKD stage 3 secondary to diabetes: Code(s): E11.22 - Type 2 diabetes mellitus with diabetic chronic kidney disease; N18.30 - Chronic kidney disease, stage 3 unspecified Status: Acute (6) UTI (urinary tract infection): Code(s): N39.0 - Urinary tract infection, site not specified Status: Resolved (7) Acute on chronic heart failure with preserved ejection fraction: Code(s): I50.33 - Acute on chronic diastolic (congestive) heart failure Status: Acute (8) Paroxysmal A-fib: Code(s): I48.0 - Paroxysmal atrial fibrillation Status: Acute (9) Type 2 diabetes mellitus with hyperglycemia: Code(s): E11.65 - Type 2 diabetes mellitus with hyperglycemia Status: Acute (10) Obesity (BMI 30-39.9): Code(s): E66.9 - Obesity, unspecified Status: Chronic Plan Acute on chronic respiratory failure with hypoxia Likely secondary to CHF exacerbation HX of COPD/Obesity/YONI encourage CPAP back to baseline on 3L NC CXR atelectasis with cardiomegaly Acute on chronic diastolic heart failure BNP elevated cardiology consulted IV lasix switched to IV Bumex switch to PO 4/30 monitor renal function during diuresis bumped to 2.3 nephrology consulted previous echocardiogram: 04/20 LVEF 60-65 Grade II diastolic HF EKG SR chest x-ray atelectasis with cardiomegaly F/U CXR 08/26 Mild interstitial edema. Optimize Ifeanyi inhibitors, beta-blockers, ARNI Daily weight. Strict I&O's treadwell placed fluid restriction elevate/Ifeanyi wrap legs if needed spironolactone 12.5 monitoring K+ 4.7 Acute on chronic renal failure Stage 3 CR has bumped to 2.30 from baseline on diuretics serum osmos pending nephrology consulted Avoid nephrotoxic drugs. Monitor antihypertensive drug therapy. Avoid NSAIDs. Routine CMP monitoring GFR. Monitor electrolytes especially potassium. Antibiotic doses depending on creatinine clearance. Pharmacy does medications. Diabetes Accu-Cheks a.c. HS sliding scale insulin hold oral diabetic medications Increased patient's home long-acting Hemoglobin A1c goal less than 7 pending lipid panel pending Diabetic diet consult to dietitian encourage lifestyle modifications and weight loss Optimize Ifeanyi inhibitors and statins. Watch for hypoglycemia/hypoglycemic protocol ordered Obesity encourage increased on physical activity and lifestyle modifications Stress monitoring and eating disorder evaluation. encourage outpatient weight loss clinic BMI . Diet exercise counseling done. consult to dietitian HX CAD: Resumed Atorvastatin, ASA, and Plavix HX HTN: Lisinipril D/C HX AFIB: Resumed Xarelto and BB HX COPD: Inhaler PRN resumed HX YONI: Supplemental Oxygen at home 3LNC/CPAP HX anxiety: Resumed home medications Disposition: Patient discharged to [facility] for continued Rehab will be transported by her son
[2023-08-30] MEDS: INSULIN ASPART (*BKC) 100 UNITS/ML SUB-Q (12:30)
[2023-08-30] MEDS: INSULIN HUMAN REGULAR (*BKC) 100 UNITS/ML 60 UNITS SUB-Q (12:32)
[2023-08-30 14:00] VITALS: BP 132/54; PULSE 75; RESP 16; TEMP 36.3; O2SAT 96
[2023-08-30 14:33] LABS: SARS-CoV-2 RNA PCR Negative (Negative)
[2023-08-30 14:57] VITALS: PULSE 70; RESP 18
[2023-08-30 15:06] VITALS: PULSE 75; RESP 18
--- NOTE | 2023-08-30 15:55 | PC.NURSE ---
iv out, report called to Rina TOBIN, dressings changed BLE. papers faxed to Rolla Sushma.
== END 2023-08-30 17:05 | DRG 291 ==
LOC: ANHED 23:01 → ANH3MEDSUR 23:32
PROVIDERS: Internal Medicine Nephrology; Nurse Practitioner; Nurse Practitioner Acute Care; Nurse Practitioner Family; Admitting Provider Internal Medicine; Emergency Provider Emergency Medicine; PCP Family Medicine; Visit Provider Internal Medicine
DX: I13.0 Hypertensive heart and chronic kidney disease with heart failure and stage 1 through stage 4 chronic kidney disease, or unspecified chronic kidney disease (principal); I50.33 Acute on chronic diastolic (congestive) heart failure; J96.21 Acute and chronic respiratory failure with hypoxia; N39.0 Urinary tract infection, site not specified; Z68.42 Body mass index [BMI] 45.0-49.9, adult; L97.929 Non-pressure chronic ulcer of unspecified part of left lower leg with unspecified severity; L97.919 Non-pressure chronic ulcer of unspecified part of right lower leg with unspecified severity; N17.9 Acute kidney failure, unspecified; N18.30 Chronic kidney disease, stage 3 unspecified; I48.0 Paroxysmal atrial fibrillation; I25.10 Atherosclerotic heart disease of native coronary artery without angina pectoris; I89.0 Lymphedema, not elsewhere classified; J44.9 Chronic obstructive pulmonary disease, unspecified; E78.2 Mixed hyperlipidemia; E11.22 Type 2 diabetes mellitus with diabetic chronic kidney disease; E11.622 Type 2 diabetes mellitus with other skin ulcer; E11.65 Type 2 diabetes mellitus with hyperglycemia; E87.5 Hyperkalemia; E66.01 Morbid (severe) obesity due to excess calories; K58.0 Irritable bowel syndrome with diarrhea; M79.605 Pain in left leg; M54.9 Dorsalgia, unspecified; F32.A Depression, unspecified; F41.9 Anxiety disorder, unspecified; Z20.822 Contact with and (suspected) exposure to COVID-19; Z87.891 Personal history of nicotine dependence; Z95.5 Presence of coronary angioplasty implant and graft; Z79.4 Long term (current) use of insulin; Z79.02 Long term (current) use of antithrombotics/antiplatelets; Z79.01 Long term (current) use of anticoagulants
CPT/HCPCS: 36415; 71045; 71046; 76775; 80053; 81001; 82550; 82570; 82948; 83036; 83605; 83735; 83880; 83935; 84145; 84156; 84300; 84484; 84540; 85025; 85055; 85610; 85730; 85999; 87040; 87086; 87088; 87635; 93005; 93970; 94640; 96365; 96375; 96376; 97110; 97116; 97161; 97165; 97530; 97535; 99285; A9270; G0378; J0696; J1815; J1939; J1940

== ENCOUNTER 2024-06-03 13:46 | Emergency (ER) | payer MEDICARE, SELFPAY ==
--- NOTE | ~2024-06-03 | XR_ITS ---
CHEST RADIOGRAPH, PA AND LATERAL CLINICAL HISTORY: increased shortness of breath . COMPARISON: 08/27/2023 TECHNIQUE: PA and lateral views of the chest. FINDINGS Prominent cardiac fat pad is identified. A loop recorder is identified to the left of midline. The remainder of the cardiomediastinal silhouette is otherwise unremarkable. The lungs are clear. Visualized osseous structures and soft tissues are unremarkable. IMPRESSION: No focal infiltrate or effusion. Reviewed, dictated and finalized at location A. COMMUNICATIONS PROFESSOR
[2024-06-03 14:12] VITALS: BP 137/78; PULSE 60; RESP 18; TEMP 36.4; O2SAT 98
--- OUTSIDE RECORDS SUMMARY | 2024-06-03 14:43 | XMS_ITS | Clinical Summary ---
Author Organization [facility] Address [facility] [place] [address] Care Team Providers Care Monotype Machinist Name Role Phone Aisha Redmond DO Primary Care Provider [phone]- [phone] Allergies Active Allergy Reactions Criticality Noted Date Comments Amoxicillin-Pot Clavulanate Shortness of breath High 11/18/2018 Ticagrelor Shortness of breath High 11/18/2018 Clindamycin Other (See comments) Low 07/14/2020 Heartburn Medications albuterol HFA (PROVENTIL HFA,VENTOLIN HFA) 90 mcg/actuation inhaler Inhale 2 puffs every 6 (six) hours as needed for wheezing Active brimonidine-vincent lol (COMBIGAN) 0.2-0.5 % ophthalmic solution Administer 1 drop into both eyes 2 (two) times a day Active budesonide-formo terol (SYMBICORT) 160-4.5 mcg/actuation inhaler Inhale 2 puffs 2 (two) times a day Rinse mouth with water after use to reduce aftertaste and incidence of candidiasis. Do not swallow. Active buPROPion XL (WELLBUTRIN XL) 150 mg 24 hr tablet Take 1 tablet (150 mg total) by mouth daily Active busPIRone (BUSPAR) 15 mg tabletIndication s:Generalized Anxiety Disorder Take 1 tablet (15 mg total) by mouth 3 (three) times a day Active cetirizine (ZyrTEC) 10 mg tablet Take 1 tablet (10 mg total) by mouth daily Active cholecalciferol (VITAMIN D-3) 10,000 unit tablet Take 1 tablet (10,000 Units total) by mouth daily Active clonazePAM (KlonoPIN) 0.5 mg tablet Take 1-2 tablets (0.5-1 mg total) by mouth daily Active dicyclomine (BENTYL) 20 mg tabletIndication s:Irritable Bowel Syndrome Take 1 tablet (20 mg total) by mouth every 6 (six) hours Active levomilnacipran ER (FETZIMA) 80 mg capsule,extended release 24 hrIndications:ma pablo depressive disorder Take 1 capsule (80 mg total) by mouth daily Active lisinopril (PRINIVIL,ZESTRI L) 10 mg tablet Take 4 tablets (40 mg total) by mouth daily Active metFORMIN (GLUCOPHAGE) 1,000 mg tablet Take 500 mg by mouth 2 (two) times a day with meals Active montelukast (SINGULAIR) 10 mg tablet Take 1 tablet (10 mg total) by mouth nightly Active b complex vitamins tablet Take 1 tablet by mouth daily Active VIIBRYD 10 mg tabletIndication s:major depressive disorder TK 1 T PO IN THE MORNING UTD 3 8 Active BD ULTRA-FINE YOAN PEN NEEDLE 32 gauge x 5/32 needle USE FOR INJECTION TID UTD 1 8 Active nitroglycerin (NITROSTAT) 0.[address] 1 tablet (0.4 mg total) under the tongue every 5 (five) minutes as needed for chest pain 75 tablet 1 0 Active fluticasone-umec lidin-vilanter (Trelegy Ellipta) 100-62.5-25 mcg inhaler Inhale 1 puff daily Active fluticasone propionate (FLONASE) 50 mcg/actuation nasal spray Administer 1 spray into each nostril daily Active insulin aspart U-100 (NovoLOG) 100 unit/mL injection Inject under the skin 3 (three) times a day before meals Active multivitamin capsule Take 1 capsule by mouth daily grummy Active Trulicity 0.75 mg/0.5 mL pen injector ADMINISTER 0.75 MG UNDER THE SKIN WEEKLY 1 Active Xarelto 20 mg tabletIndication s:PAF (paroxysmal atrial fibrillation) (CMS/HCC) (HCC) TAKE 1 TABLET(20 MG) BY MOUTH DAILY 90 tablet 3 2 Active Additional Information Patient taking differently: 10 mg oral Daily with dinner, Reported on 02/27/2024 atorvastatin (LIPITOR) 40 mg tablet TAKE 1 TABLET BY MOUTH DAILY 90 tablet 1 2 Active clopidogreL (PLAVIX) 75 mg tablet TAKE 1 TABLET(75 MG) BY MOUTH DAILY 90 tablet 1 2 Active metoprolol XL (TOPROL-XL) 25 mg extended release tablet Take 1 tablet (25 mg total) by mouth daily 90 tablet 3 Active Additional Information Patient not taking.Reported on 02/27/2024 HumuLIN R U-500 500 unit/mL (3 mL) CONCENTRATED pen for injection 4 Active furosemide (LASIX) 40 mg tablet Take 1 tablet (40 mg total) by mouth daily 30 tablet 1 4 Active Additional Information Patient not taking.Reported on 02/27/2024 acetaminophen ER (TYLENOL) 650 mg 8 hr tablet Take 1 tablet (650 mg total) by mouth every 8 (eight) hours as needed for pain Active suvorexant (BELSOMRA) 10 mg tablet Take by mouth Active benzonatate (TESSALON) 100 mg capsuleIndicatio ns:Cough Take 1 capsule (100 mg total) by mouth 3 (three) times a day as needed for cough Active budesonide/glyco pyr/formoterol (BREZTRI AEROSPHERE INHAL) Inhale Active clotrimazole 1 % cream Apply topically 2 (two) times a day Active cyclobenzaprine (FLEXERIL) 10 mg tablet Take 1 tablet (10 mg total) by mouth 3 (three) times a day as needed for muscle spasms Active bisacodyL (DULCOLAX) 10 mg suppositoryIndic ations:constipat ion Insert 1 suppository (10 mg total) into the rectum daily Active erythromycin (ILOTYCIN) ophthalmic ointment nightly Active HYDROcodone-acet aminophen (NORCO) 5-325 mg per tabletIndication s:Pain Take 1 tablet by mouth every 6 (six) hours as needed Active hydrALAZINE (APRESOLINE) 25 mg tabletIndication s:hypertension Take 1 tablet (25 mg total) by mouth 3 (three) times a day Active insulin glargine 100 unit/mL vial for injection Inject under the skin nightly Active polyethylene glycol (MIRALAX) 17 gram packetIndication s:constipation Take 1 packet (17 g total) by mouth daily Active mupirocin (BACTROBAN) 2 % ointment Apply topically 3 (three) times a day Active nystatin 100,000 unit/mL suspension Take by mouth 4 (four) times a day Active chlorpheniramine -dextromethorp 1-7.5 mg/5 mL liquid Take by mouth Active sertraline (ZOLOFT) 50 mg tablet Take 2 tablets (100 mg total) by mouth daily Active spironolactone (ALDACTONE) 25 mg tablet Take 0.5 tablets (12.5 mg total) by mouth daily Active torsemide (DEMADEX) 20 mg tablet Take 0.5 tablets (10 mg total) by mouth daily Active traMADoL (ULTRAM) 50 mg tablet Take 1 tablet (50 mg total) by mouth every 6 (six) hours as needed for pain Active triamcinolone (KENALOG) 0.1 % cream Apply topically 2 (two) times a day Active Active Problems Problem Noted Date Diagnosed Date Bilateral lower extremity edema 05/29/2023 Chronic heart failure with p reserved ejection fraction (CMS/HCC) 05/15/2023 History of coronary artery stent placement 03/18 Paroxysmal atrial fibrillation (CMS/HCC) 018 History of loop recorder 09/09/2017 Overview (05/22/2021): [facility] Confirm Loop Recorder. Dx; Palpitations. DOI 09/03/2017. [place] remote monitoring. End of Service since 10/2019-not having it explanted. 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 01/11/2017 Morbid obesity due to excess calories 01/11/2017 Resolved Problems Problem Noted Date Diagnosed Date Resolved Date Unstable angina pectoris (CMS/HCC) 01/11/2017 02/22/2017 Surgical History Surgery Date Site/Laterality Comments TONSILLECTOMY Medical History Medical History Date Comments Hypertension Diabetes (HCC) Hyperlipidemia Anxiety Depression Asthma HTN (hypertension), benign 01/11/2017 Type 2 diabetes mellitus wit h circulatory disorder (HCC) 01/11/2017 Morbid obesity due to excess calories (HCC) 01/11/2017 Acute non-recurrent frontal sinusitis 02/22/2017 Stroke ([facility]) 2014 transient v ision loss in right eye, October 2019 vision loss to left eye Family History Medical History Relation Name Comments Diabetes Father Cancer Mother Relation Name Status Comments Father (Age 68) Mother Social History Tobacco Use Types Packs/Day Years Used Date Smoking Tobacco: Former Cigarettes 2 25 Smokeless Tobacco: Never Tobacco Cessation:Counseling Given: Not Answered Alcohol Use Standard Drinks/Week Comments No 0 (1 standard drink = 0.6 oz pur e alcohol) Personal Safety Answer Date Recorded Getting School Help Needed Not on file 04/18 Comments Unknown Sex and Gender Information Value Date Recorded Sex Assigned at Not on file Legal Sex Female 9:21 AM CDT Gender Identity Not on file Sexual Orientation Not on file Obstetrics History Last Filed Vital Signs Vital Sign Reading Time Taken Comments Blood Pressure 112/66 02/27/2024 8:29 AM CDT Pulse 76 02/27/2024 8:29 AM CDT Temperature - - Respiratory Rate 18 08/30/2017 8:07 AM CDT Oxygen Saturation 97% 02/27/2024 8:29 AM CDT Inhaled Oxygen Concentration - - Weight 97.1 kg (214 lb) 02/27/2024 8:29 AM CDT Height 157.5 cm (5' 2 ) 02/27/2024 8:29 AM CDT Body Mass Index 39.14 02/27/2024 8:29 AM CDT Plan of Treatment Health Maintenance Due Date Last Done Comments Albumin Creatinine Ratio, Urine 1944 Depression Screening 1944 Fall Risk Assessment 1944 Hemoglobin A1C 1944 Osteoporosis Screening-Bone Density Scan 1944 Dilated Eye Exam 1944 Foot Exam 1944 Pneumococcal vaccine 65+ (1 of 2 - PCV) 02/08/1950 DTaP/Tdap/Td Vaccine (1 - Tdap) 02/08/1955 Hepatitis B Screening 02/08/1962 Well Visit 65+ 02/08/2009 eGFR 08/30/2018 08/30/2017 Influenza Vaccine (#1) 2023 8, 12/24/2016, 01/03/2015, Additional history exists Lipid Panel 05/15/2024 05/15/2023, 08/28, 01/17/2018, Additional history exists Zoster Vaccine Completed 05/05/2018, 02/13/2018 Procedures Procedure Name Priority Date/Time Associated Diagnosis Comments POCT LIPID PANEL Routine 05/15/2023 1:08 PM RETAIL SERVICE TECHNICIAN Lipid screening BASIC METABOLIC PANEL Routine 08/30/2017 12:17 PM CDT from Last 3 Months or Most Recently Relevant to Health Maintenance Results * POCT lipid panel (05/15/2023 1:08 PM RETAIL SERVICE TECHNICIAN) Cholesterol, POC 127 mg/dL HDL, POC 52 mg/dL Triglycerides, POC 229 mg/dL LDL Cholesterol POC 29 mg/dL Chol/HDL Ratio, POC 2.5 Non-HDL Cholesterol, POC 75 mg/dL Cholesterol Total, POC 127 mg/dL Capillary blood 05/15/2023 1 :08 PM RETAIL SERVICE TECHNICIAN us Zabrina Babin NP POINT OF CARE TEST ORDERABLE S Final Result * (ABNORMAL) Basic metabolic panel (08/30/2017 12:17 PM CDT) Glucose 196(H) 65 - 99 mg/dL [facility] - 01 BUN 17 8 - 27 mg/dL [facility] - 01 Creatinine, Serum 1.16(H) 0.57 - 1.00 mg/dL [facility] - 01 eGFR If NonAfricn Am 47(L) >59 mL/min/1.7 3 [facility] - 01 eGFR If Africn Am 54(L) >59 mL/min/1.7 3 [facility] - 01 BUN/creat ratio 15 12 - 28 [facility] - 01 Sodium 140 134 - 144 mmol/L [facility] - 01 Potassium, sr 5.0 3.5 - 5.2 mmol/L [facility] - 01 Chloride 102 96 - 106 mmol/L [facility] - 01 CO2 23 18 - 29 mmol/L [facility] - 01 Calcium 9.8 8.7 - 10.3 mg/dL [facility] - 01 08/30/2017 12:1 7 PM CDT 08/30/2017 Narrative [facility] - 08/31/2017 5:12 AM CDT Performed at: 01 - [facility] [address] [id number] Warehouse Puller: Joel Lino PhD, Phone: [phone] us Kimberli Whitehead MD LAB BLOOD ORDERABLES Final Resul t [facility] - 01 from Last 3 Months or Most Recently Relevant to Health Maintenance Insurance [facility] [place] [address] T MEDICARE Care Teams Monotype Machinist Relationship Specialty Start Date End Date Aisha Redmond DO PCP - General Family Medicine 07/07/19
--- OUTSIDE RECORDS SUMMARY | 2024-06-03 14:43 | XMS_ITS | Referral Summary ---
Author Organization [facility] Address [facility] [place] [address] Care Team Providers Care Sales Development Associate Name Role Phone Aisha Redmond DO Primary Care Provider [phone]- [phone] Allergies Active Allergy Reactions Criticality Noted Date [...] Confirm Loop Recorder. Dx; Palpitations. DOI 09/03/2017. [place] remote monitoring. End of Service since 10/2019-not having it explanted. 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 01/11/2017 Morbid obesity due to excess calories 01/11/2017 Resolved Problems Problem Noted Date Diagnosed Date Resolved Date Unstable angina pectoris (CMS/HCC) 01/11/2017 02/22/2017 Social History Tobacco Use Types Packs/Day Years [...] on file Sexual Orientation Not on file Last Filed Vital Signs Vital Sign Reading [...] 02/27/2024 8:29 AM CDT Plan of Treatment Not on file Procedures Procedure Name Priority Date/Time Associated Diagnosis Comments POCT LIPID PANEL Routine 05/15/2023 1:08 PM FISH HATCHERY SPECIALIST Lipid screening BASIC METABOLIC PANEL Routine 08/30/2017 12:17 PM CDT from Last 3 Months or Most Recently Relevant to Health Maintenance Results * POCT lipid panel (05/15/2023 1:08 PM FISH HATCHERY SPECIALIST) Cholesterol, POC 127 mg/dL HDL, POC 52 mg/dL Triglycerides, POC 229 mg/dL LDL Cholesterol POC 29 mg/dL Chol/HDL Ratio, POC 2.5 Non-HDL Cholesterol, POC 75 mg/dL Cholesterol Total, POC 127 mg/dL Capillary blood 05/15/2023 1 :08 PM FISH HATCHERY SPECIALIST us Zabrina Babin NP POINT OF CARE [...] - 08/31/2017 5:12 AM CDT Performed at: [facility] [address] [id number] Battery Plate Remover: Joel Lino PhD, Phone: [phone] us Kimberli Whitehead MD LAB BLOOD ORDERABLES Final Resul t [facility] - 01 from Last 3 Months or Most Recently Relevant to Health Maintenance Insurance [employer] MED[employer]ARE A[employer] MEDICARE Care Teams Sales Development Associate Relationship Specialty Start Date End Date Aisha Redmond DO PCP - General Family Medicine 07/07/19
[2024-06-03 15:05] LABS: Influenza A QL RT-PCR Negative (Negative); Influenza B QL RT-PCR Negative (Negative); RSV RNA, RT-PCR Negative (Negative); SARS-CoV-2 RNA PCR Negative (Negative)
--- NOTE | 2024-06-03 15:43 | PC.NURSE ---
Pt wheeled herself to the intake desk requesting for this RN to call [facility] to see how long the transport van is available for today. Pt states she does not think she needs to be evaluated and asked if I would call to talk to Trista, nurse at [facility]. This RN advised pt it is recommended she stay for evaluation and then called [facility]. [facility] stated both Trista and the transport van were gone for the day.
[2024-06-03 16:24] VITALS: BP 119/93; PULSE 59; RESP 18; TEMP 36.4; O2SAT 96
--- NOTE | 2024-06-03 16:32 | ECG_ITS ---
Test Date: 2024-06-03 22:51:38 Measurements Intervals [place] Rate: 71 P: 80 TN: 162 QRS: 4 QRSD: 81 T: 57 QT: 379 QTc: 413 Interpretive Statements SINUS RHYTHM LOW QRS VOLTAGE IN PRECORDIAL LEADS POSSIBLE ANTERIOR MYOCARDIAL INFARCTION , PROBABLY OLD BASELINE ARTIFACT- I, II, III, AVR, AVL, V1 ABNORMAL ECG No previous ECG available for comparison Electronically Signed On 06-04-2024 06:09:57 EQUIPMENT MAN by Darien Marte D.O.
--- NOTE | 2024-06-03 16:41 | ED_ITS ---
HPI - SOB/Dyspnea General Chief Complaint: Shortness of Breath/Dyspnea <Nicole Lambert APRN - Last Filed: 06/03/24 16:46> Stated Complaint: shortness of breath x a couple days <Nicole Lambert APRN - Last Filed: 06/03/24 16:46> Time Seen by Provider: 06/03/24 16:30 <Nicole Lambert APRN - Last Filed: 06/03/24 16:46> Focused HPI: Patient is an 79-year-old female who presents to the ER with increased shortness of breath over the past 2 days. She reports she has a history of COPD and is on 3 L normal cannula at baseline. Patient reports she has used her inhalers more recently. She reports she lives at a shelter facility and they advised her to come in for evaluation. Patient denies any recent fevers, chest pain, abdominal pain. She does endorse increased lower extremity edema and reports ?I wonder if I have fluid on my lungs again. GENERAL: Well-appearing, obese, and in mild respiratory distress. HEAD: Normocephalic, atraumatic. CHEST: Coarse to auscultation LL lobe. ?Mild respiratory distress. HEART: Regular rate and rhythm.? NEURO: ?Alert and oriented x3. Patient screened in triage and initial orders placed.? ?Additional care and disposition to be based upon?diagnostic testing and treatment. <Nicole Lambert APRN - Last Filed: 06/03/24 16:46> Source: patient and family (son) <Sloane Graham MD - Last Filed: 06/04/24 19:53> Mode of arrival: ambulatory <Sloane Graham MD - Last Filed: 06/04/24 19:53> Limitations: no limitations <Sloane Graham MD - Last Filed: 06/04/24 19:53> History of Present Illness HPI Narrative: Agree with the above with the following additions/corrections: History of COPD and CHF. She is on Lasix BID though doesn't know if her dose is either 40 or 80mg. Has been short of breath for a few days. No fevers but chills. She had chest pain 2 weeks ago, not more recently. Chronic bowel problems. States there was concern for cellulitis along bilateral lower extremities. She has had a coarse cough. On 3L O2 chronically. Has been able to hear herself wheeze. Took Tylenol. No history of DVT or PE but is on anticoagulation: Plavix, aspiring, and Xarelto (the latter for Afib). Her cough has been more productive than usual, now with green sputum. <Sloane Graham MD - Last Filed: 06/04/24 19:53> Related Data Home Medications: Home Medications ?Medication ?Instructions ?Recorded ?Confirmed ?Last Taken ?Type benzonatate 100 mg capsule 100 mg PO TID PRN Cough 07/26/23 04/01/24 Unknown History buspirone 15 mg tablet 15 mg PO TID 07/26/23 04/01/24 Unknown History fluticasone fur. 100 mcg-umeclid 1 inh inhalation DAILY 07/26/23 04/01/24 Unknown History 62.5 mcg-vilant 25 mcg inhalat.powder (Trelegy Ellipta) fluticasone propionate 50 2 spray intranasal HS 07/26/23 04/01/24 Unknown History mcg/actuation nasal spray,suspension vilazodone 10 mg tablet 10 mg PO DAILY PRN During monthly 07/26/23 04/01/24 Unknown History cycle of depression acetaminophen 650 mg 1,300 mg PO HS PRN Pain 08/19/23 04/01/24 Unknown History tablet,extended release (Tylenol Arthritis Pain) <Nicole Lambert APRN - Last Filed: 06/03/24 16:46> Allergies/Adverse Reactions: Allergies Allergy/AdvReac Type Severity Reaction Status Date / Time amoxicillin AdvReac Mild Nausea and Verified 08/18/23 18:14 Vomiting clavulanic acid (From AdvReac Mild Nausea and Verified 08/18/23 18:14 Augmentin) Vomiting <Nicole Lambert APRN - Last Filed: 06/03/24 16:46> [facility] Past Medical History Medical History: Medical History Chronic anticoagulation Atrial fibrillation Sinusitis, acute Hypokalemia Type 2 diabetes mellitus Chronic kidney disease Coronary artery disease History of stent to in December 2016. Mixed hyperlipidemia Irritable bowel syndrome with diarrhea Benign hypertension Vertigo Metabolic syndrome Obesity Hypertension Depression Back pain Asthma Anxiety <Nicole Lambert, SOCIAL MEDIA SR STRATEGY MANAGER - Last Filed: 06/03/24 16:46> Surgical History Surgical History: Surgical History History of cardiac catheterization History of tonsillectomy History of coronary artery stent placement <Nicole Lambert, SOCIAL MEDIA SR STRATEGY MANAGER - Last Filed: 06/03/24 16:46> Family History Family History: Family History Father Family history of mental disorder Depression Family history of arthritis Family history of diabetes mellitus in first degree relative Family history of congestive heart failure Family history of heart disease in male family member before age 55 Family history of hearing loss Diabetes mellitus Family history of cardiovascular disease Acute myocardial infarction Mother Family history of anemia Family history of arthritis Family history of malignant neoplasm of breast in first degree relative Sibling Family history of cardiovascular disease Other Family history of elevated blood lipids <Nicole Lambert, SOCIAL MEDIA SR STRATEGY MANAGER - Last Filed: 06/03/24 16:46> Social History Social History: Social History Social History: . Surrogate medical decision maker: Ben Finch, son. Code status: Full code. Smoking packs per day: 2 Smoking cigarettes per day: 40.0 Years smoked: 35 Smoking pack-years: 70.00 Smoking status: Former smoker Alcohol intake: never Substance use: former Other substance usage details: CBD/THC oil and gummies. Do You Feel Safe in your Home?: Yes Lack of Transportation: No Lack of Food: Never True Current Housing: I Have Housing Concerned About Future Housing: No Difficulty Paying Gas/Electric Bills: No Difficulty Paying for Meds: No Currently Unemployed: No Education: High School Diploma/GED Difficulty w/ Childcare or Family Care: No Living arrangements: senior care Additional living arrangements comments: [facility] Occupation/Education: retired Spiritual care concerns: No <Nicole Lambert, SOCIAL MEDIA SR STRATEGY MANAGER - Last Filed: 06/03/24 16:46> Exam 2 Narrative: GENERAL: Well-appearing, well-nourished, and in no acute distress. HEAD: Normocephalic, atraumatic. EYES: Non injected, non icteric ENT: Nares clear, no rhinorrhea or epistaxis. NECK: Supple. CHEST: Speaking in full sentences. No respiratory distress. Lungs clear to auscultation bilaterally without appreciable crackles or areas of consolidation. On home O2 baseline settings. Non labored. Can induce prominent wheezes upon forced cough however. HEART: Regular rate and rhythm. . ABDOMEN: Soft, nondistended. EXTREMITIES: 3+ bilateral lower extremity tibial edema, 2+ at the distal thighs SKIN: Warm. Edematous lower extremities with anterior erythema likely due to venous stasis but otherwise not warm to the touch. Areas of weeping. NEURO: No focal deficits. Alert and oriented x3. PSYCH: Normal mood and affect. <Sloane Graham MD - Last Filed: 06/04/24 19:53> Course Vital Signs Vital signs: Vital Signs Temperature 97.6 F 06/03/24 14:12 Pulse Rate 60 06/03/24 14:12 Respiratory Rate 18 06/03/24 14:12 Blood Pressure 137/78 06/03/24 14:12 Pulse Oximetry 98 06/03/24 14:12 Temperature 97.6 F 06/03/24 16:24 Pulse Rate 73 06/04/24 04:54 Respiratory Rate 17 06/04/24 04:54 Blood Pressure 128/72 06/04/24 04:54 Pulse Oximetry 97 06/04/24 04:54 Oxygen Delivery Nasal Cannula 06/03/24 21:38 Oxygen Flow Rate 4 06/03/24 21:38 <Nicole Lambert APRN - Last Filed: 06/03/24 16:46> Vital Signs Temperature 97.6 F 06/03/24 14:12 Pulse Rate 60 06/03/24 14:12 Respiratory Rate 18 06/03/24 14:12 Blood Pressure 137/78 06/03/24 14:12 Pulse Oximetry 98 06/03/24 14:12 Temperature 97.6 F 06/03/24 16:24 Pulse Rate 73 06/04/24 04:54 Respiratory Rate 17 06/04/24 04:54 Blood Pressure 128/72 06/04/24 04:54 Pulse Oximetry 97 06/04/24 04:54 Oxygen Delivery Nasal Cannula 06/03/24 21:38 Oxygen Flow Rate 4 06/03/24 21:38 <Sloane Graham MD - Last Filed: 06/04/24 19:53> MDM - SOB/Dyspnea MDM Narrative Medical decision making narrative: Patient presents with report of increased shortness of breath over the past few days with a cough more productive than usual. History of CHF (on diuretic), afib (on chronic anticoagulation), and COPD (on 3L baseline O2 via NC). In the emergency department they are afebrile with vital signs within normal limits. Will defer obtaining D-dimer given patient already anticoagulated on Xarelto and other etiologies more likely. Although patient is concern for cellulitis, this is unlikely given the bilateral nature and although they are erythematous, they have pitting edema and are weeping and are otherwise concerning for volume overload especially given her known history of heart failure. In addition they are not particularly warm to the touch. Lungs otherwise clear to asuculation although can induce wheeze with forced cough. COPD exacerbation with mild degree of heart failure exacerbation though particularly lower extremity edema. No change in O2 requirement, crackles on exam, or evidence of pulmonary vascular congestion on CXR. Hyperglycemia without anion gap acidosis. Creatinine actually improved from baseline/previous. alkaline phosphatase elevated. Leukocytosis. Evidence of urinary tract infection. previous urine culture from 05/02/2023 grew Enterococcus faecalis which was sensitive to no facility, nitrofurantoin, and vancomycin. Will give dose of Macrobid. Patient does have wheezes that are appreciable when she coughs. will treat for COPD exacerbation with the addition of azithromycin given she notes that cough is increased from baseline. Will also give a dose of IV Lasix given the degree of bilateral lower extremity edema although not particularly volume overloaded on pulmonary exam. Baseline creatinine tends to be 2 or greater in today is actually improved at 1.47 (GFR 34). Otherwise stable for discharge with treatment for UTI and COPD exacerbation in the outpatient setting as she is otherwise well appearing without new O2 requirements. There are risks to admission to the hospital at this point which were considered, especially given high rates of influenza for which patient currently asymptomatic/not experiencing/tests negative. Thus, conservative outpatient treatment reasonable. Stable for discharge. Discussed work up and findings with patient. Provided first doses of treatment in the ED with rest of course prescribed. <Sloane Graham MD - Last Filed: 06/04/24 19:53> Differential Diagnosis Differential diagnosis: Likely acute exacerbation of chronic obstructive airways disease, congestive heart failure, community acquired pneumonia, pulmonary embolism ((considered)) and other ( ACS, acute viral syndrome/ influenza/ COVID, bronchitis; considered cellulitis; venous stasis; edema secondary to heart failure) <Sloane Graham MD - Last Filed: 06/04/24 19:53> Lab Data Attestation: I reviewed the patient's lab results. <Sloane Graham MD - Last Filed: 06/04/24 19:53> Result diagrams: 06/03/24 21:36 06/03/24 21:36 <Nicole Lambert APRN - Last Filed: 06/03/24 16:46> Labs: Lab Results 06/03/24 06/03/24 06/03/24 Range/Units 14:12 20:44 21:36 WBC 14.6 H (4.5-10.0) K/mm3 RBC 4.52 (4.2-5.4) M/mm3 Hgb 11.5 L (12.0-15.0) g/dL Hct 37.7 (37.0-47.0) % MCV 83.4 (80-100) fl MCH 25.4 L (26-34) pg MCHC 30.5 L (32-36) g/dl RDW 16.6 H (11.5-14.5) % Plt Count 248 D (150-375) k/mm3 MPV 11.1 H (7.4-10.4) fl Immature Gran % (Auto) 0.7 H (0-0.5) % Neut % (Auto) 76.6 H (45.5-73.1) % Lymph % (Auto) 12.7 L (18.3-44.2) % [place] % (Auto) 8.1 (2.6-8.5) % Eos % (Auto) 1.7 (0-4.4) % Baso % (Auto) 0.2 (0.2-1.2) % Lymph # (Auto) 1.86 (0.9-3.2) K/mm3 [place] # (Auto) 1.2 H (0.1-0.6) K/mm3 Eos # (Auto) 0.3 (0-0.3) K/mm3 Baso # (Auto) 0.0 (0.0-0.1) K/mm3 Abs Immat Gran (auto) 0.10 H (0.00-0.031) K/mm3 Absolute Neuts (auto) 11.2 H (1.3-6.7) K/mm3 Absolute Nucleated RBC 0.000 (0.0-0.012) K/mm3 Nucleated RBC % 0.0 (0.0-0.2) % PT 16.5 H (11.1-14.7) Seconds INR 1.3 APTT 39.0 H (22.3-36.8) Seconds Sodium 139 (137-145) mmol/L Potassium 4.6 (3.4-5.0) mmol/L Chloride 102 (98-107) mmol/L Carbon Dioxide 26 (22-30) mmol/L Anion Gap 11 (4-12) mmol/L BUN 24 H D (7-17) mg/dL Creatinine 1.47 H (0.7-1.0) mg/dL Estim Creat Clear Calc 30 ml/min Estimated GFR 34 L (59 - ) Glucose 163 H (65-110) mg/dL POC Capillary Glucose 133 H (65-105) mg/dl Calcium 9.8 (8.4-10.2) mg/dL Magnesium 2.0 (1.6-2.3) mg/dL Total Bilirubin 0.5 (0.2-1.3) mg/dL AST 28 (14-36) U/L ALT 19 (6-35) U/L Alkaline Phosphatase 183 H (38-126) U/L Total Creatine Kinase 38 (30-135) U/L Troponin I < 0.012 (0.000-0.034) ng/mL NT-Pro-B Natriuret Pep 1130 H (19.9-100) pg/mL Total Protein 8.0 (6.3-8.2) g/dL Albumin 4.0 (3.5-5.1) g/dL Urine Color (Yellow) Urine Appearance (Clear) Urine pH (5.0-9.0) Ur Specific [place] (1.001-1.035) Urine Protein (Negative) mg/dL Urine Glucose (UA) (Negative) mg/dL Urine Ketones (Negative) mg/dL Ur Blood (Man) (Negative) Urine Nitrate (Negative) Urine Bilirubin (Negative) Urine Urobilinogen (<2.0) mg/dL Leukocyte Esterase Rfl (Negative) LALI/UL Urine RBC (0-2) /hpf Urine WBC (0-3) /hpf Ur Squamous Epith Cells (Few) /hpf Urine Bacteria /hpf Urine Casts Influenza A (RT-PCR) Negative (Negative) Influenza B (RT-PCR) Negative (Negative) RSV (RT-PCR) Negative (Negative) SARS-CoV-2 RNA (RT-PCR) Negative (Negative) 06/03/24 Range/Units 23:25 WBC (4.5-10.0) K/mm3 RBC (4.2-5.4) M/mm3 Hgb (12.0-15.0) g/dL Hct (37.0-47.0) % MCV (80-100) fl MCH (26-34) pg MCHC (32-36) g/dl RDW (11.5-14.5) % Plt Count (150-375) k/mm3 MPV (7.4-10.4) fl Immature Gran % (Auto) (0-0.5) % Neut % (Auto) (45.5-73.1) % Lymph % (Auto) (18.3-44.2) % [place] % (Auto) (2.6-8.5) % Eos % (Auto) (0-4.4) % Baso % (Auto) (0.2-1.2) % Lymph # (Auto) (0.9-3.2) K/mm3 [place] # (Auto) (0.1-0.6) K/mm3 Eos # (Auto) (0-0.3) K/mm3 Baso # (Auto) (0.0-0.1) K/mm3 Abs Immat Gran (auto) (0.00-0.031) K/mm3 Absolute Neuts (auto) (1.3-6.7) K/mm3 Absolute Nucleated RBC (0.0-0.012) K/mm3 Nucleated RBC % (0.0-0.2) % PT (11.1-14.7) Seconds INR APTT (22.3-36.8) Seconds Sodium (137-145) mmol/L Potassium (3.4-5.0) mmol/L Chloride (98-107) mmol/L Carbon Dioxide (22-30) mmol/L Anion Gap (4-12) mmol/L BUN (7-17) mg/dL Creatinine (0.7-1.0) mg/dL Estim Creat Clear Calc ml/min Estimated GFR (59 - ) Glucose (65-110) mg/dL POC Capillary Glucose (65-105) mg/dl Calcium (8.4-10.2) mg/dL Magnesium (1.6-2.3) mg/dL Total Bilirubin (0.2-1.3) mg/dL AST (14-36) U/L ALT (6-35) U/L Alkaline Phosphatase (38-126) U/L Total Creatine Kinase (30-135) U/L Troponin I (0.000-0.034) ng/mL NT-Pro-B Natriuret Pep (19.9-100) pg/mL Total Protein (6.3-8.2) g/dL Albumin (3.5-5.1) g/dL Urine Color Yellow (Yellow) Urine Appearance Turbid H (Clear) Urine pH 6.0 (5.0-9.0) Ur Specific [place] 1.012 (1.001-1.035) Urine Protein Trace (Negative) mg/dL Urine Glucose (UA) Negative (Negative) mg/dL Urine Ketones Negative (Negative) mg/dL Ur Blood (Man) 2+ H (Negative) Urine Nitrate Positive H (Negative) Urine Bilirubin Negative (Negative) Urine Urobilinogen 0.2 (<2.0) mg/dL Leukocyte Esterase Rfl 3+ H (Negative) LALI/UL Urine RBC 51-100 H (0-2) /hpf Urine WBC >100 H (0-3) /hpf Ur Squamous Epith Cells None seen (Few) /hpf Urine Bacteria 4+ H /hpf Urine Casts 3-5 Influenza A (RT-PCR) (Negative) Influenza B (RT-PCR) (Negative) RSV (RT-PCR) (Negative) SARS-CoV-2 RNA (RT-PCR) (Negative) <Nicole Lambert, SOCIAL MEDIA SR STRATEGY MANAGER - Last Filed: 06/03/24 16:46> Lab Results 0206/03/24 06/03/24 Range/Units 14:12 20:44 21:36 WBC 14.6 H (4.5-10.0) K/mm3 RBC 4.52 (4.2-5.4) M/mm3 Hgb 11.5 L (12.0-15.0) g/dL Hct 37.7 (37.0-47.0) % MCV 83.4 (80-100) fl MCH 25.4 L (26-34) pg MCHC 30.5 L (32-36) g/dl RDW 16.6 H (11.5-14.5) % Plt Count 248 D (150-375) k/mm3 MPV 11.1 H (7.4-10.4) fl Immature Gran % (Auto) 0.7 H (0-0.5) % Neut % (Auto) 76.6 H (45.5-73.1) % Lymph % (Auto) 12.7 L (18.3-44.2) % [place] % (Auto) 8.1 (2.6-8.5) % Eos % (Auto) 1.7 (0-4.4) % Baso % (Auto) 0.2 (0.2-1.2) % Lymph # (Auto) 1.86 (0.9-3.2) K/mm3 [place] # (Auto) 1.2 H (0.1-0.6) K/mm3 Eos # (Auto) 0.3 (0-0.3) K/mm3 Baso # (Auto) 0.0 (0.0-0.1) K/mm3 Abs Immat Gran (auto) 0.10 H (0.00-0.031) K/mm3 Absolute Neuts (auto) 11.2 H (1.3-6.7) K/mm3 Absolute Nucleated RBC 0.000 (0.0-0.012) K/mm3 Nucleated RBC % 0.0 (0.0-0.2) % PT 16.5 H (11.1-14.7) Seconds INR 1.3 APTT 39.0 H (22.3-36.8) Seconds Sodium 139 (137-145) mmol/L Potassium 4.6 (3.4-5.0) mmol/L Chloride 102 (98-107) mmol/L Carbon Dioxide 26 (22-30) mmol/L Anion Gap 11 (4-12) mmol/L BUN 24 H D (7-17) mg/dL Creatinine 1.47 H (0.7-1.0) mg/dL Estim Creat Clear Calc 30 ml/min Estimated GFR 34 L (59 - ) Glucose 163 H (65-110) mg/dL POC Capillary Glucose 133 H (65-105) mg/dl Calcium 9.8 (8.4-10.2) mg/dL Magnesium 2.0 (1.6-2.3) mg/dL Total Bilirubin 0.5 (0.2-1.3) mg/dL AST 28 (14-36) U/L ALT 19 (6-35) U/L Alkaline Phosphatase 183 H (38-126) U/L Total Creatine Kinase 38 (30-135) U/L Troponin I < 0.012 (0.000-0.034) ng/mL NT-Pro-B Natriuret Pep 1130 H (19.9-100) pg/mL Total Protein 8.0 (6.3-8.2) g/dL Albumin 4.0 (3.5-5.1) g/dL Urine Color (Yellow) Urine Appearance (Clear) Urine pH (5.0-9.0) Ur Specific [place] (1.001-1.035) Urine Protein (Negative) mg/dL Urine Glucose (UA) (Negative) mg/dL Urine Ketones (Negative) mg/dL Ur Blood (Man) (Negative) Urine Nitrate (Negative) Urine Bilirubin (Negative) Urine Urobilinogen (<2.0) mg/dL Leukocyte Esterase Rfl (Negative) LALI/UL Urine RBC (0-2) /hpf Urine WBC (0-3) /hpf Ur Squamous Epith Cells (Few) /hpf Urine Bacteria /hpf Urine Casts Influenza A (RT-PCR) Negative (Negative) Influenza B (RT-PCR) Negative (Negative) RSV (RT-PCR) Negative (Negative) SARS-CoV-2 RNA (RT-PCR) Negative (Negative) 06/03/24 Range/Units 23:25 WBC (4.5-10.0) K/mm3 RBC (4.2-5.4) M/mm3 Hgb (12.0-15.0) g/dL Hct (37.0-47.0) % MCV (80-100) fl MCH (26-34) pg MCHC (32-36) g/dl RDW (11.5-14.5) % Plt Count (150-375) k/mm3 MPV (7.4-10.4) fl Immature Gran % (Auto) (0-0.5) % Neut % (Auto) (45.5-73.1) % Lymph % (Auto) (18.3-44.2) % [place] % (Auto) (2.6-8.5) % Eos % (Auto) (0-4.4) % Baso % (Auto) (0.2-1.2) % Lymph # (Auto) (0.9-3.2) K/mm3 [place] # (Auto) (0.1-0.6) K/mm3 Eos # (Auto) (0-0.3) K/mm3 Baso # (Auto) (0.0-0.1) K/mm3 Abs Immat Gran (auto) (0.00-0.031) K/mm3 Absolute Neuts (auto) (1.3-6.7) K/mm3 Absolute Nucleated RBC (0.0-0.012) K/mm3 Nucleated RBC % (0.0-0.2) % PT (11.1-14.7) Seconds INR APTT (22.3-36.8) Seconds Sodium (137-145) mmol/L Potassium (3.4-5.0) mmol/L Chloride (98-107) mmol/L Carbon Dioxide (22-30) mmol/L Anion Gap (4-12) mmol/L BUN (7-17) mg/dL Creatinine (0.7-1.0) mg/dL Estim Creat Clear Calc ml/min Estimated GFR (59 - ) Glucose (65-110) mg/dL POC Capillary Glucose (65-105) mg/dl Calcium (8.4-10.2) mg/dL Magnesium (1.6-2.3) mg/dL Total Bilirubin (0.2-1.3) mg/dL AST (14-36) U/L ALT (6-35) U/L Alkaline Phosphatase (38-126) U/L Total Creatine Kinase (30-135) U/L Troponin I (0.000-0.034) ng/mL NT-Pro-B Natriuret Pep (19.9-100) pg/mL Total Protein (6.3-8.2) g/dL Albumin (3.5-5.1) g/dL Urine Color Yellow (Yellow) Urine Appearance Turbid H (Clear) Urine pH 6.0 (5.0-9.0) Ur Specific [place] 1.012 (1.001-1.035) Urine Protein Trace (Negative) mg/dL Urine Glucose (UA) Negative (Negative) mg/dL Urine Ketones Negative (Negative) mg/dL Ur Blood (Man) 2+ H (Negative) Urine Nitrate Positive H (Negative) Urine Bilirubin Negative (Negative) Urine Urobilinogen 0.2 (<2.0) mg/dL Leukocyte Esterase Rfl 3+ H (Negative) LALI/UL Urine RBC 51-100 H (0-2) /hpf Urine WBC >100 H (0-3) /hpf Ur Squamous Epith Cells None seen (Few) /hpf Urine Bacteria 4+ H /hpf Urine Casts 3-5 Influenza A (RT-PCR) (Negative) Influenza B (RT-PCR) (Negative) RSV (RT-PCR) (Negative) SARS-CoV-2 RNA (RT-PCR) (Negative) <Sloane Graham MD - Last Filed: 06/04/24 19:53> Imaging Data Radiologist's impression: IMPRESSION: No focal infiltrate or effusion. <Sloane Graham MD - Last Filed: 06/04/24 19:53> ECG Data EKG #1: Attestation: I personally reviewed and interpreted this ECG as follows: < Sloane Graham MD - Last Filed: 06/04/24 19:53> ECG completion date: 06/03/24 <Sloane Graham MD - Last Filed: 06/04/24 19:53> ECG completion time: 22:51 <Sloane Graham MD - Last Filed: 06/04/24 19:53> Interpretation: Normal sinus rhythm at a rate of 71 beats per minute. MD interval 162. QRS 81. QT/ QTC 379/401. No T-wave inversions <Sloane Graham MD - Last Filed: 06/04/24 19:53> Discharge Plan Discharge Clinical Impression: Hyperglycemia, Alkaline phosphatase raised, CKD (chronic kidney disease), Leukocytosis, UTI (urinary tract infection), COPD exacerbation, Edema of both lower legs <Nicole Lambert APRN - Last Filed: 06/03/24 16:46> Patient Disposition: NH Long Term/Asst Living <Nicole Lambert APRN - Last Filed: 06/03/24 16:46> Condition: Stable <Nicole Lambert APRN - Last Filed: 06/03/24 16:46> Instructions: Antibiotic Form, Heart Failure (DC), Chronic Kidney Disease (ED), Chronic Kidney Disease Diet (DC), COPD (Chronic Obstructive Pulmonary Disease) (DC), Edema (ED), Urinary Tract Infection in Older Adults (ED) <Nicole Lambert APRN - Last Filed: 06/03/24 16:46> Additional Instructions: As we discussed, you seem to be having a COPD exacerbation. you were given your 1st dose in the emergency department with the rest of the course prescribed and this includes using your albuterol inhaler, taking a short course of steroids, and antibiotic. You also have a UTI and received the 1st dose in the emergency department with rest the course prescribed you will be notified if based on the urine culture this antibiotic regimen needs to be changed. Discussed with your doctors about changing the dose of your Lasix and/or switching to an alternative diuretic for the swelling in your legs. return to the emergency department with any new or worsening symptoms. Your Baseline creatinine tends to be 2 or greater in today is actually improved at 1.47 (GFR 34). <Nicole Lambert APRN - Last Filed: 06/03/24 16:46> Patient Language: Azeri <Nicole Lambert APRN - Last Filed: 06/03/24 16:46> Prescriptions: New albuterol sulfate 90 mcg/actuation HFA aerosol inhaler 1 inh inhalation QID PRN (Reason: shortness of breath or wheezing) Qty: 6.7 0RF azithromycin 500 mg tablet 500 mg PO DAILY Qty: 4 0RF Rx Instructions: 500 mg orally; take daily starting 06/05/24 (already received dose 2/6 AM in ED) prednisone 20 mg tablet 40 mg PO DAILY 4 Days Qty: 8 0RF Rx Instructions: take starting 06/05/24 (already received dose 2/6 AM in ED). take before 9am when possible nitrofurantoin monohyd/m-cryst [Macrobid] 100 mg capsule 100 mg PO Q12H 3 Days Qty: 6 0RF Rx Instructions: must administer with a meal/food No Action mupirocin 2 % ointment 1 applic topical DAILY Qty: 15 1RF Rx Instructions: to affected area, bilateral groin clonazepam 0.5 mg tablet 0.5 mg PO HS Qty: 30 2RF tramadol 50 mg tablet 50 mg PO Q6H PRN (Reason: pain) Qty: 30 0RF Rx Instructions: For moderate to severe pain acetaminophen [Tylenol Arthritis Pain] 650 mg tablet extended release 1,300 mg PO HS PRN (Reason: Pain) melatonin 5 mg Tablet 5 mg PO HS Qty: 1 0RF benzonatate 100 mg capsule 100 mg PO TID PRN (Reason: Cough) Rx Instructions: TAKE ONE CAPSULE BY MOUTH THREE TIMES A DAY NEEDED FOR COUGH fluticasone propionate 50 mcg/actuation spray,suspension 2 spray intranasal HS Rx Instructions: USE 2 SPRAYS IN EACH NOSTRIL HS buspirone 15 mg tablet 15 mg PO TID Rx Instructions: TAKE ONE TABLET BY MOUTH THREE TIMES DAILY vilazodone 10 mg tablet 10 mg PO DAILY PRN (Reason: During monthly cycle of depression) Rx Instructions: TAKE ONE TABLET BY MOUTH EVERY DAY Trelegy Ellipta 100-62.5-25 mcg blister with device 1 inh inhalation DAILY Rx Instructions: INHALE ONE PUFF BY MOUTH DAILY polyethylene glycol 3350 [Miralax] 17 gram Powder In Packet 17 g PO QAM PRN (Reason: Constipation) Qty: 30 0RF albuterol sulfate 90 mcg/actuation HFA aerosol inhaler 2 inh INHALATION Q4H PRN (Reason: shortness of breath or wheezing) Qty: 8.5 4RF cetirizine [Zyrtec] 10 mg tablet 10 mg PO DAILY Qty: 90 0RF albuterol sulfate 1.25 mg/3 mL solution for nebulization 1.25 mg inhalation Q4-6H PRN (Reason: shortness of breath or wheezing) Qty: 75 3RF cholecalciferol (vitamin D3) 25 mcg (1,000 unit) tablet 25 mcg PO DAILY Qty: 90 1RF nitroglycerin 0.4 mg tablet, sublingual 0.4 mg sublingual Q5M PRN (Reason: chest pain) Qty: 90 1RF Rx Instructions: do not exceed 3 doses per episode - call 911, if your pain does not subside after the second dose. (DME) blood-glucose meter [OneTouch Verio Flex meter] Misc See Rx Instructions .Route Qty: 1 0RF Rx Instructions: use to test blood sugar twice daily (DME) OneTouch Verio test strips Strip See Rx Instructions .Route Qty: 100 2RF Rx Instructions: use to test blood sugar twice daily (DME) lancets [Easy Comfort Lancets] 30 gauge misc See Rx Instructions .Route Qty: 200 2RF Rx Instructions: use to test blood sugar twice daily (DME) Dexcom G7 Sensor Device See Rx Instructions .Route Qty: 6 2RF Rx Instructions: As directed (DME) pen needle, diabetic [BD Radha 2nd Gen Pen Needle] 32 gauge x 5/32 needle See Rx Instructions .Route Qty: 1200 1RF Rx Instructions: use to check blood sugar three times a day clotrimazole 1 % cream 1 applic topical Q12H PRN (Reason: fungal infx) 56 Days Qty: 45 6RF Rx Instructions: to affected area, perineal area bupropion HCl 150 mg tablet extended release 24 hr 150 mg PO QAM Qty: 90 1RF cyclobenzaprine 10 mg tablet 10 mg PO TID PRN (Reason: spasms) Qty: 30 0RF hydrocodone-acetaminophen 5-325 mg tablet 1 tablet PO Q6H PRN (Reason: Pain Rated 4-6) Qty: 120 0RF atorvastatin 40 mg tablet 40 mg PO HS Qty: 90 4RF Xarelto 10 mg tablet 10 mg PO DAILY Qty: 90 4RF spironolactone [Aldactone] 25 mg tablet 12.5 mg PO DAILY Qty: 45 4RF trazodone 50 mg tablet 100 mg PO .HS Qty: 180 4RF montelukast [Singulair] 10 mg tablet 10 mg PO QHS Qty: 90 4RF clopidogrel 75 mg tablet 75 mg PO DAILY Qty: 90 4RF Trulicity 4.5 mg/0.5 mL pen injector 4.5 mg subcut WEEKLY 90 Days Qty: 6 3RF Rx Instructions: sundays insulin glargine [Lantus Solostar U-100 Insulin] 100 unit/mL (3 mL) insulin pen 40 unit subcut BID 90 Days Qty: 72 3RF insulin lispro [Humalog Alin KwikPen U-100] 100 unit/mL insulin pen, half- unit 20 unit subcut TIDWMEAL 90 Days Qty: 54 4RF Breztri Aerosphere 160-9-4.8 mcg/actuation HFA aerosol inhaler 2 inh inhalation BID 90 Days Qty: 10.7 4RF dicyclomine 20 mg tablet 20 mg PO BID Qty: 180 1RF torsemide 20 mg tablet 20 mg PO QAM Qty: 90 1RF brimonidine-timolol [Combigan] 0.2-0.5 % drops 2 drp EACH EYE Q12H 90 Days Qty: 10 5RF <Nicole Lambert APRN - Last Filed: 06/03/24 16:46> Follow-up/Referrals: Aisha Redmond DO [Primary Care Provider] - <Nicole Lambert APRN - Last Filed: 06/03/24 16:46> Stand Alone Forms: Senior Living Discharge <Nicole Lambert APRN - Last Filed: 06/03/24 16:46> Time of Disposition: 01:24 <Nicole Lambert APRN - Last Filed: 06/03/24 16:46> 01:24 <Sloane Graham MD - Last Filed: 06/04/24 19:53>
[2024-06-03 20:46] LABS: Glucose Point of Care 133 mg/dl (65-105)
--- NOTE | 2024-06-03 21:15 | ED.SOB ---
HPI - SOB/Dyspnea General Chief Complaint: Shortness of Breath/Dyspnea Stated Complaint: shortness of breath x a couple days Time Seen by Provider: 06/03/24 16:30 Related Data Home Medications ?Medication ?Instructions ?Recorded ?Confirmed ?Last Taken ?Type benzonatate 100 mg capsule 100 mg PO TID PRN Cough 07/26/23 04/01/24 Unknown History buspirone 15 mg tablet 15 mg PO TID 07/26/23 04/01/24 Unknown History fluticasone fur. 100 mcg-umeclid 1 inh inhalation DAILY 07/26/23 04/01/24 Unknown History 62.5 mcg-vilant 25 mcg inhalat.powder (Trelegy Ellipta) fluticasone propionate 50 2 spray intranasal HS 07/26/23 04/01/24 Unknown History mcg/actuation nasal spray,suspension vilazodone 10 mg tablet 10 mg PO DAILY PRN During monthly 07/26/23 04/01/24 Unknown History cycle of depression acetaminophen 650 mg 1,300 mg PO HS PRN Pain 08/19/23 04/01/24 Unknown History tablet,extended release (Tylenol Arthritis Pain) Allergies Allergy/AdvReac Type Severity Reaction Status Date / Time amoxicillin AdvReac Mild Nausea and Verified 08/18/23 18:14 Vomiting clavulanic acid (From AdvReac Mild Nausea and Verified 08/18/23 18:14 Augmentin) Vomiting [facility] Past Medical History Medical History Anxiety Asthma Back pain Benign hypertension Chronic kidney disease Coronary artery disease History of stent to in December 2016. Depression Hypertension Hypokalemia Irritable bowel syndrome with diarrhea Metabolic syndrome Mixed hyperlipidemia Obesity Sinusitis, acute Type 2 diabetes mellitus Vertigo Surgical History Surgical History History of cardiac catheterization History of coronary artery stent placement History of tonsillectomy Family History Family History Father Family history of mental disorder Depression Family history of arthritis Family history of diabetes mellitus in first degree relative Family history of congestive heart failure Family history of heart disease in male family member before age 55 Family history of hearing loss Diabetes mellitus Family history of cardiovascular disease Acute myocardial infarction Mother Family history of anemia Family history of arthritis Family history of malignant neoplasm of breast in first degree relative Sibling Family history of cardiovascular disease Other Family history of elevated blood lipids Social History Social History Social History: Surrogate medical decision maker: Ben Finch, son. Code status: Full code. Smoking packs per day: 2 Smoking cigarettes per day: 40.0 Years smoked: 35 Smoking pack-years: 70.00 Smoking status: Former smoker Alcohol intake: never Substance use: former Other substance usage details: CBD/THC oil and gummies. Do You Feel Safe in your Home?: Yes Lack of Transportation: No Lack of Food: Never True Current Housing: I Have Housing Concerned About Future Housing: No Difficulty Paying Gas/Electric Bills: No Difficulty Paying for Meds: No Currently Unemployed: No Education: High School Diploma/GED Difficulty w/ Childcare or Family Care: No Additional living arrangements comments: . Lives in [place]. Occupation/Education: retired Spiritual care concerns: No Exam Narrative: GENERAL: Well-appearing, well-nourished, and in no acute distress. HEAD: Normocephalic, atraumatic. EYES: Non injected, non icteric ENT: Nares clear, no rhinorrhea or epistaxis. NECK: Supple. CHEST: Speaking in full sentences. No respiratory distress. HEART: Regular rate and rhythm. . ABDOMEN: Soft, nondistended. EXTREMITIES: Normal range of motion. No lower extremity edema. SKIN: Warm, dry, no rash. NEURO: No focal deficits. Alert and oriented x3. PSYCH: Normal mood and affect. Course Vital Signs Vital signs: Vital Signs Temperature 97.6 F 06/03/24 14:12 Pulse Rate 60 06/03/24 14:12 Respiratory Rate 18 06/03/24 14:12 Blood Pressure 137/78 06/03/24 14:12 Pulse Oximetry 98 06/03/24 14:12 Temperature 97.6 F 06/03/24 16:24 Pulse Rate 59 L 06/03/24 16:24 Respiratory Rate 18 06/03/24 16:24 Blood Pressure 119/93 H 06/03/24 16:24 Pulse Oximetry 96 06/03/24 16:24 MDM - SOB/Dyspnea MDM Narrative Medical decision making narrative: In the emergency department they are afebrile with vital signs within normal limits.. will defer obtaining D-dimer given patient already anticoagulated on Xarelto and other etiologies more likely. patient has bilateral legs are edematous and although she is concern for cellulitis this does not appear cellulitic. They are weeping and erythematous however not particularly warm and she is otherwise volume overloaded and this explains these features. Lab Data Labs: Lab Results 06/03/24 06/03/24 Range/Units 14:12 20:44 POC Capillary Glucose 133 H (65-105) mg/dl Influenza A (RT-PCR) Negative (Negative) Influenza B (RT-PCR) Negative (Negative) RSV (RT-PCR) Negative (Negative) SARS-CoV-2 RNA (RT-PCR) Negative (Negative) Discharge Plan Discharge Patient Language: Kazakh Prescriptions: No Action mupirocin 2 % ointment 1 applic topical DAILY Qty: 15 1RF Rx Instructions: to affected area, bilateral groin clonazepam 0.5 mg tablet 0.5 mg PO HS Qty: 30 2RF tramadol 50 mg tablet 50 mg PO Q6H PRN (Reason: pain) Qty: 30 0RF Rx Instructions: For moderate to severe pain acetaminophen [Tylenol Arthritis Pain] 650 mg tablet extended release 1,300 mg PO HS PRN (Reason: Pain) melatonin 5 mg Tablet 5 mg PO HS Qty: 1 0RF benzonatate 100 mg capsule 100 mg PO TID PRN (Reason: Cough) Rx Instructions: TAKE ONE CAPSULE BY MOUTH THREE TIMES A DAY NEEDED FOR COUGH fluticasone propionate 50 mcg/actuation spray,suspension 2 spray intranasal HS Rx Instructions: USE 2 SPRAYS IN EACH NOSTRIL HS buspirone 15 mg tablet 15 mg PO TID Rx Instructions: TAKE ONE TABLET BY MOUTH THREE TIMES DAILY vilazodone 10 mg tablet 10 mg PO DAILY PRN (Reason: During monthly cycle of depression) Rx Instructions: TAKE ONE TABLET BY MOUTH EVERY DAY Trelegy Ellipta 100-62.5-25 mcg blister with device 1 inh inhalation DAILY Rx Instructions: INHALE ONE PUFF BY MOUTH DAILY polyethylene glycol 3350 [Miralax] 17 gram Powder In Packet 17 g PO QAM PRN (Reason: Constipation) Qty: 30 0RF albuterol sulfate 90 mcg/actuation HFA aerosol inhaler 2 inh INHALATION Q4H PRN (Reason: shortness of breath or wheezing) Qty: 8.5 4RF cetirizine [Zyrtec] 10 mg tablet 10 mg PO DAILY Qty: 90 0RF albuterol sulfate 1.25 mg/3 mL solution for nebulization 1.25 mg inhalation Q4-6H PRN (Reason: shortness of breath or wheezing) Qty: 75 3RF cholecalciferol (vitamin D3) 25 mcg (1,000 unit) tablet 25 mcg PO DAILY Qty: 90 1RF nitroglycerin 0.4 mg tablet, sublingual 0.4 mg sublingual Q5M PRN (Reason: chest pain) Qty: 90 1RF Rx Instructions: do not exceed 3 doses per episode - call 911, if your pain does not subside after the second dose. (DME) blood-glucose meter [OneTouch Verio Flex meter] Misc See Rx Instructions .Route Qty: 1 0RF Rx Instructions: use to test blood sugar twice daily (DME) OneTouch Verio test strips Strip See Rx Instructions .Route Qty: 100 2RF Rx Instructions: use to test blood sugar twice daily (DME) lancets [Easy Comfort Lancets] 30 gauge misc See Rx Instructions .Route Qty: 200 2RF Rx Instructions: use to test blood sugar twice daily (DME) Dexcom G7 Sensor Device See Rx Instructions .Route Qty: 6 2RF Rx Instructions: As directed (DME) pen needle, diabetic [BD Radha 2nd Gen Pen Needle] 32 gauge x 5/32 needle See Rx Instructions .Route Qty: 1200 1RF Rx Instructions: use to check blood sugar three times a day clotrimazole 1 % cream 1 applic topical Q12H PRN (Reason: fungal infx) 56 Days Qty: 45 6RF Rx Instructions: to affected area, perineal area bupropion HCl 150 mg tablet extended release 24 hr 150 mg PO QAM Qty: 90 1RF cyclobenzaprine 10 mg tablet 10 mg PO TID PRN (Reason: spasms) Qty: 30 0RF hydrocodone-acetaminophen 5-325 mg tablet 1 tablet PO Q6H PRN (Reason: Pain Rated 4-6) Qty: 120 0RF atorvastatin 40 mg tablet 40 mg PO HS Qty: 90 4RF Xarelto 10 mg tablet 10 mg PO DAILY Qty: 90 4RF spironolactone [Aldactone] 25 mg tablet 12.5 mg PO DAILY Qty: 45 4RF trazodone 50 mg tablet 100 mg PO .HS Qty: 180 4RF montelukast [Singulair] 10 mg tablet 10 mg PO QHS Qty: 90 4RF clopidogrel 75 mg tablet 75 mg PO DAILY Qty: 90 4RF Trulicity 4.5 mg/0.5 mL pen injector 4.5 mg subcut WEEKLY 90 Days Qty: 6 3RF Rx Instructions: sundays insulin glargine [Lantus Solostar U-100 Insulin] 100 unit/mL (3 mL) insulin pen 40 unit subcut BID 90 Days Qty: 72 3RF insulin lispro [Humalog Alin KwikPen U-100] 100 unit/mL insulin pen, half-unit 20 unit subcut TIDWMEAL 90 Days Qty: 54 4RF Breztri Aerosphere 160-9-4.8 mcg/actuation HFA aerosol inhaler 2 inh inhalation BID 90 Days Qty: 10.7 4RF dicyclomine 20 mg tablet 20 mg PO BID Qty: 180 1RF torsemide 20 mg tablet 20 mg PO QAM Qty: 90 1RF brimonidine-timolol [Combigan] 0.2-0.5 % drops 2 drp EACH EYE Q12H 90 Days Qty: 10 5RF Follow-up/Referrals: Aisha Redmond DO [Primary Care Provider] -
[2024-06-03] MEDS: IPRATROPIUM 0.5 MG/ALBUTEROL SULFATE 2.5 MG AMPUL.NEB 3 ML INHALATION (21:33)
--- OUTSIDE RECORDS SUMMARY | 2024-06-03 21:33 | XMS_ITS | Clinical Summary ---
Author Organization [facility] Address [facility] [place] [address] Care Team Providers Care Erp Project Manager Name Role Phone Aisha Redmond DO Primary Care Provider +1- [phone] Allergies Active Allergy Reactions Criticality Noted Date [...] Confirm Loop Recorder. Dx; Palpitations. DOI 09/03/2017. [place] remote monitoring. End of Service since 10/2019-not having it explanted. Palpitations 08/30/2017 Acute non-recurrent frontal sinusitis 02/22/2017 History of percutaneous coronary intervention Coronary artery disease invo lving [place] coronary artery of [place] heart without angina pectoris 02/22/2017 Hypertension associated [...] POCT LIPID PANEL Routine 05/15/2023 1:08 PM ELECTRONIC PARTS SALESPERSON Lipid screening BASIC METABOLIC PANEL Routine 08/30/2017 12:17 PM CDT from Last 3 Months or Most Recently Relevant to Health Maintenance Results * POCT lipid panel (05/15/2023 1:08 PM ELECTRONIC PARTS SALESPERSON) Cholesterol, POC 127 mg/dL HDL, POC 52 mg/dL Triglycerides, POC 229 mg/dL LDL Cholesterol POC 29 mg/dL Chol/HDL Ratio, POC 2.5 Non-HDL Cholesterol, POC 75 mg/dL Cholesterol Total, POC 127 mg/dL Capillary blood 05/15/2023 1 :08 PM ELECTRONIC PARTS SALESPERSON us Zabrina Babin NP POINT OF CARE [...] AM CDT Performed at: 01 - [facility] [address] [id number] Tank Wagon Operator: Joel Lino PhD, Phone: [phone] us Kimberli Whitehead MD LAB BLOOD ORDERABLES Final Resul t [facility] - 01 from Last 3 Months or Most Recently Relevant to Health Maintenance Insurance [facility] [place] [address] T MEDICARE Care Teams Erp Project Manager Relationship Specialty Start Date End Date Aisha Redmond DO PCP - General Family Medicine 07/07/19
--- OUTSIDE RECORDS SUMMARY | 2024-06-03 21:33 | XMS_ITS | Referral Summary ---
Author Organization [facility] Address [facility] [place] [address] Care Team Providers Care Bladder Trimmer Name Role Phone Aisha Redmond DO Primary Care Provider [phone]- [phone] Allergies Active Allergy Reactions Criticality Noted Date [...] Confirm Loop Recorder. Dx; Palpitations. DOI 09/03/2017. [place] remote monitoring. End of Service since 10/2019-not having it explanted. Palpitations 08/30/2017 Acute non-recurrent frontal sinusitis 02/22/2017 History of percutaneous coronary intervention Coronary artery disease invo lving [place] coronary artery of [place] heart without angina pectoris 02/22/2017 Hypertension associated [...] POCT LIPID PANEL Routine 05/15/2023 1:08 PM PURCHASING AND CLAIMS SUPERVISOR Lipid screening BASIC METABOLIC PANEL Routine 08/30/2017 12:17 PM CDT from Last 3 Months or Most Recently Relevant to Health Maintenance Results * POCT lipid panel (05/15/2023 1:08 PM PURCHASING AND CLAIMS SUPERVISOR) Cholesterol, POC 127 mg/dL HDL, POC 52 mg/dL Triglycerides, POC 229 mg/dL LDL Cholesterol POC 29 mg/dL Chol/HDL Ratio, POC 2.5 Non-HDL Cholesterol, POC 75 mg/dL Cholesterol Total, POC 127 mg/dL Capillary blood 05/15/2023 1 :08 PM PURCHASING AND CLAIMS SUPERVISOR us Zabrina Babin NP POINT OF CARE [...] 08/31/2017 5:12 AM CDT Performed at: [facility] [address] [id number] [place] Nurse: Joel Lino PhD, Phone: [phone] us Kimberli Whitehead MD LAB BLOOD ORDERABLES Final Resul t [facility] - 01 from Last 3 Months or Most Recently Relevant to Health Maintenance Insurance [employer] MEDICARE AETNA MEDICARE Care Teams Bladder Trimmer Relationship Specialty Start Date End Date Aisha Redmond DO PCP - General Family Medicine 07/07/19
[2024-06-03 21:34] VITALS: PULSE 78; RESP 22
[2024-06-03 21:38] VITALS: BP 144/77; PULSE 75; RESP 22; O2SAT 100
[2024-06-03 21:42] LABS: Basophils Percent Auto 0.2 % (0.2-1.2); Eosinophils Absolute Auto 0.3 K/mm3 (0-0.3); Eosinophils Percent Auto 1.7 % (0-4.4); Hematocrit 37.7 % (37.0-47.0); Hemoglobin 11.5 g/dL (12.0-15.0); Immature Granulocyte Percent A 0.7 % (0-0.5); Lymphocytes Absolute Auto 1.86 K/mm3 (0.9-3.2); Lymphocytes Percent Auto 12.7 % (18.3-44.2); Mean Corpuscular HGB Conc 30.5 g/dl (32-36); Mean Corpuscular Hemoglobin 25.4 pg (26-34); Mean Corpuscular Volume 83.4 fl (80-100); Mean Platelet Volume 11.1 fl (7.4-10.4); Monocytes Absolute Auto 1.2 K/mm3 (0.1-0.6); Monocytes Percent Auto 8.1 % (2.6-8.5); Neutrophils Absolute Auto 11.2 K/mm3 (1.3-6.7); Neutrophils Percent Auto 76.6 % (45.5-73.1); Platelet Count Result 248 k/mm3 (150-375); Red Blood Count 4.52 M/mm3 (4.2-5.4); Red Cell Distribution Width 16.6 % (11.5-14.5); White Blood Count 14.6 K/mm3 (4.5-10.0)
[2024-06-03 21:50] VITALS: PULSE 75; RESP 21
[2024-06-03 21:53] LABS: Alanine Aminotransferase 19 U/L (6-35); Alkaline Phosphatase 183 U/L (38-126); Anion Gap 11 mmol/L (4-12); Aspartate Amino Transferase 28 U/L (14-36); Bilirubin,Total 0.5 mg/dL (0.2-1.3); Blood Urea Nitrogen 24 mg/dL (7-17); Calcium 9.8 mg/dL (8.4-10.2); Carbon Dioxide 26 mmol/L (22-30); Chloride 102 mmol/L (98-107); Estimated CRCL calculation 30 ml/min; Estimated Glomerular Filt Rate 34; Glucose 163 mg/dL (65-110); Potassium 4.6 mmol/L (3.4-5.0); Sodium 139 mmol/L (137-145)
[2024-06-03 21:56] LABS: INR 1.3; Prothrombin Time 16.5 Seconds (11.1-14.7)
[2024-06-03 22:05] LABS: NT Pro B Type Natriuretic Pept 1130 pg/mL (19.9-100); Troponin I < 0.012 ng/mL (0.000-0.034)
[2024-06-03 22:22] LABS: Creatine Kinase 38 U/L (30-135)
[2024-06-03 23:34] LABS: Add Urine Microscopic? YES; Appearance Urine Turbid (Clear); Bacteria Urine 4+ /hpf; Bilirubin Urine Negative (Negative); Blood Urine 2+ (Negative); Color Urine Yellow (Yellow); Glucose Urine UA Negative (Negative); Ketones Urine Negative (Negative); Leukocyte Esterase Ur 3+ LEU/UL (Negative); Nitrate Urine Positive (Negative); Protein Urine Trace mg/dL (Negative); RBC Urine 51-100 /hpf (0-2); Specific Grav Ur 1.012 (1.001-1.035); Squamous Epithelial Cell Urine None Seen /hpf (Few); Urobilinogen Urine 0.2 mg/dL (<2.0); WBC Urine >100 /hpf (0-3)
[2024-06-04 01:14] VITALS: BP 113/75; PULSE 66; RESP 18; O2SAT 97
[2024-06-04] MEDS: AZITHROMYCIN 250 MG TABLET 500 MG PO (01:21)
[2024-06-04] MEDS: methylPREDNISolone SOD SUCC 125 MG VIAL IV PUSH (01:21)
[2024-06-04] MEDS: FUROSEMIDE INJ 40 MG/4 ML VIAL IV PUSH (01:21)
[2024-06-04 01:22] VITALS: PULSE 68; RESP 14
[2024-06-04] MEDS: NITROFURANTOIN MONOHYD MACROCR 100 MG CAP PO (01:23)
[2024-06-04] MEDS: ALBUTEROL SULFATE NEB 2.5 MG/3 ML INH INHALATION (01:24)
[2024-06-04 01:28] VITALS: PULSE 77; RESP 21
[2024-06-04 03:03] VITALS: BP 119/61; PULSE 71; RESP 20; O2SAT 98
[2024-06-04 04:54] VITALS: BP 128/72; PULSE 73; RESP 17; O2SAT 97
== END 2024-06-04 06:44 ==
PROVIDERS: Registered Nurse; Emergency Provider Student in an Organized Health Care Education/Training Program; PCP Family Medicine
DX: J44.1 Chronic obstructive pulmonary disease with (acute) exacerbation (principal); E11.65 Type 2 diabetes mellitus with hyperglycemia; D72.829 Elevated white blood cell count, unspecified; N39.0 Urinary tract infection, site not specified; R60.0 Localized edema; Z99.81 Dependence on supplemental oxygen; Z79.01 Long term (current) use of anticoagulants; I48.91 Unspecified atrial fibrillation; I25.10 Atherosclerotic heart disease of native coronary artery without angina pectoris; E78.2 Mixed hyperlipidemia; J45.909 Unspecified asthma, uncomplicated; Z87.891 Personal history of nicotine dependence; R74.8 Abnormal levels of other serum enzymes; N18.9 Chronic kidney disease, unspecified; I12.9 Hypertensive chronic kidney disease with stage 1 through stage 4 chronic kidney disease, or unspecified chronic kidney disease; E11.22 Type 2 diabetes mellitus with diabetic chronic kidney disease; Z20.822 Contact with and (suspected) exposure to COVID-19
CPT/HCPCS: 36415; 71046; 80053; 81001; 82550; 82948; 83735; 83880; 84484; 85025; 85610; 85730; 87077; 87086; 87186; 87637; 93005; 94640; 96374; 96375; 99284; A9270; J1940; J2919

== ENCOUNTER 2024-08-03 19:01 | Inpatient (IN) | payer MEDICARE, SELFPAY ==
--- NOTE | ~2024-08-03 | XR_ITS ---
CHEST RADIOGRAPH CLINICAL HISTORY: Altered mental status . COMPARISON: 06/03/2024 TECHNIQUE: Single portable view of the chest. FINDINGS The cardiomediastinal silhouette is enlarged, unchanged. A loop recorder is identified projecting to the left of midline. Increased interstitial markings are identified bilaterally, findings suggesting mild pulmonary vascul ar congestion. The lungs are otherwise clear. IMPRESSION: Mild pulmonary vascular congestion, without focal infiltrate or effusion. Reviewed, dictated and finalized at location A.
--- NOTE | ~2024-08-03 | CT_ITS ---
History: Fall, altered mental status PROCEDURE: CT head without contrast. COMPARISON: 09/11/2022 TECHNIQUE: Axial imaging of the head performed from the skull base to the vertex without IV contrast. Sagittal a nd coronal reformations obtained. DLP: 681 mGy-cm FINDINGS: The ventricles are enlarged. The dilatation of the ventricles is proportional to the degree of sulcal prominence, not uncommon in the senescent brain. Decreased attenuation is identified within the periventricular white matter, likely secondary to micr ovascular ischemic disease, in a patient of this age. There is no mass, mass effect or midline shift. There is no abnormal extra-axial fluid collection or intracranial hemorrhage. Mucoperiosteal thickening within the bilateral maxillary sinuses. Remaining paranasal sinuses are unremarkable. The mastoid air cells are well aerated. No acute displaced fractures within the overlying cranium. Impression: No acute intracranial hemorrhage or suspicious mass effect. Inflammatory sinus disease Reviewed, dictated and finalized at location A. Impression: No acute intracranial hemorrhage or suspicious mass effect. Inflammatory sinus disease
--- NOTE | ~2024-08-03 | CT_ITS ---
History: Fall PROCEDURE: CT cervical spine without intravenous contrast. COMPARISON: None TECHNIQUE: Multiple contiguous axial images of the cervical spine were performed without the administration of i ntravenous contrast. DLP: 420 mGy-cm FINDINGS: Preservation of the normal curvature of the cervical spine is identified. Degenerative disease is identified with osteophyte formation, disc space narrowing and endplate redding es. Facet arthropathy is also noted. No acute fractures are present. The bilateral lung apices are unremarkable. No soft tissue abnormality is present. The airway is patent. Impression: Degenerative disease, without acute fracture. Reviewed, dictated and finalized at location A. Impression: Degenerative disease, without acute fracture.
--- NOTE | ~2024-08-03 | CT_ITS ---
Non-contrast CT scan of the Abdomen and Pelvis Clinical indication: Abdominal pain Technique: 2.5 mm axial scans were obtained through the abdomen and pelvis without intravenous or or al contrast. Dose reduction technique was used on this scan by utilizing automated exposure control a nd iterative reconstruction technique. The dose-length product (DLP) was 1046.23 mGy-cm. Findings: Images through the lung bases reveal no abnormalities. There is moderate right hydronephrosis with abrupt tapering at the UPJ region. No ureteral stone evid ent. There is a 1.9 x 1.2 cm ovoid nonobstructing right stone. No left renal stone or left hydronephr osis seen. No left ureteral stone. The liver, spleen, pancreas, and adrenals appear normal. Cholecystectomy clips are present. There are atherosclerotic calcifications of the aorta. . There is no evidence of bowel obstruction. Very small fat-containing umbilical hernia noted. Images through the pelvis were performed. There is no evidence of ascites or lymphadenopathy. Urinary bladder unremarkable. No pelvic mass seen. 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 Large nonobstructing right stone, as above. Reviewed, dictated and finalized at location . 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 Large nonobstructing right stone, as above.
--- OUTSIDE RECORDS SUMMARY | 2024-08-03 19:04 | XMS_ITS | Referral Summary ---
Author Organization [facility] Address [facility] [place] [address] Care Team Providers Care Refractory Manager Name Role Phone Aisha Redmond DO Primary Care Provider [phone]- [phone] Allergies Active Allergy Reactions Criticality Noted Date [...] 20 mg tabletIndication s:PAF (paroxysmal atrial fibrillation) (HCC) TAKE 1 TABLET(20 MG) BY MOUTH [...] extremity edema 05/29/2023 Chronic heart failure with preserved ejection fr action 05/15/2023 History of coronary artery stent placement 03/18 Paroxysmal atrial fibrillation 03/18/2018 History of loop recorder 09/09/2017 Overview (05/22/2021): [facility] [place] Confirm Loop Recorder. Dx; Palpitations. DOI 09/03/2017. [place] remote monitoring. End of Service since 10/2019-not having it explanted. Palpitations 08/30/2017 Acute non-recurrent frontal sinusitis 02/22/2017 History of percutaneous coronary intervention Coronary artery disease invo lving [place] coronary artery of [place] heart without angina pectoris 02/22/2017 Hypertension associated with diabetes 01/11/2017 Type 2 diabetes mellitus with circulatory disord er 01/11/2017 Morbid obesity due to excess calories 01/11/2017 Resolved Problems Problem Noted Date Diagnosed Date Resolved Date Unstable angina pectoris 01/11/2017 Social History Tobacco Use Types Packs/Day Years [...] POCT LIPID PANEL Routine 05/15/2023 1:08 PM FIELD AGRONOMIST Lipid screening BASIC METABOLIC PANEL Routine 08/30/2017 12:17 PM CDT from Last 3 Months or Most Recently Relevant to Health Maintenance Results * POCT lipid panel (05/15/2023 1:08 PM FIELD AGRONOMIST) Cholesterol, POC 127 mg/dL HDL, POC 52 mg/dL Triglycerides, POC 229 mg/dL LDL Cholesterol POC 29 mg/dL Chol/HDL Ratio, POC 2.5 Non-HDL Cholesterol, POC 75 mg/dL Cholesterol Total, POC 127 mg/dL Capillary blood 05/15/2023 1 :08 PM FIELD AGRONOMIST us Zabrina Babin NP POINT OF CARE [...] - 08/31/2017 5:12 AM CDT Performed at: [facility] [id number] Circuit Recorder: Joel Lino PhD, Phone: [phone] us Kimberli Whitehead MD LAB BLOOD ORDERABLES [facility] - 01 from Last 3 Months or Most Recently Relevant to Health Maintenance Insurance T MEDICARE AETNA MEDICARE Care Teams Refractory Manager Relationship Specialty Start Date End Date Aisha Redmond DO PCP - General Family Medicine 07/07/19
--- OUTSIDE RECORDS SUMMARY | 2024-08-03 19:04 | XMS_ITS | Clinical Summary ---
Author Organization [facility] Address [facility] [place] [address] Care Team Providers Care Forensic Psychologist Name Role Phone Aisha Redmond DO Primary Care Provider [phone]- [phone] Allergies Active Allergy Reactions Criticality Noted Date [...] Confirm Loop Recorder. Dx; Palpitations. DOI 09/03/2017. [place] remote monitoring. End of Service since 10/2019-not having it explanted. 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 01/11/2017 Morbid obesity due to excess calories 01/11/2017 Resolved Problems Problem Noted Date Diagnosed Date Resolved Date Unstable angina pectoris 01/11/2017 Surgical History Surgery Date Site/Laterality Comments TONSILLECTOMY Medical History Medical History Date Comments Hypertension Diabetes (HCC) Hyperlipidemia Anxiety Depression Asthma HTN (hypertension), benign 01/11/2017 Type 2 diabetes mellitus wit h circulatory disorder (HCC) 01/11/2017 Morbid obesity due to excess calories (HCC) 01/11/2017 Acute non-recurrent frontal sinusitis 02/22/2017 Stroke (HCC) 2015 transient v ision loss in right eye, [...] Dilated Eye Exam 1944 Foot Exam 1945 DTaP/Tdap/Td Vaccine (1 - Tdap) 02/08/1955 Hepatitis B Screening 02/08/1962 Pneumococcal vaccine 65+ (1 of 2 - PCV) 02/08/1963 Well Visit 65+ 02/08/2009 eGFR 08/30/2018 08/30/2017 Influenza Vaccine (#1) 2023 8, 12/24/2016, 01/03/2015, Additional history exists Lipid Panel 05/15/2024 05/15/2023, 0504/2018, 01/17/2018, Additional history exists Zoster Vaccine Completed 05/05/2018, 02/13/2018 Procedures Procedure Name Priority Date/Time Associated Diagnosis Comments POCT LIPID PANEL Routine 05/15/2023 1:08 PM FISH RECEIVER Lipid screening BASIC METABOLIC PANEL Routine 08/30/2017 12:17 PM CDT from Last 3 Months or Most Recently Relevant to Health Maintenance Results * POCT lipid panel (05/15/2023 1:08 PM FISH RECEIVER) Cholesterol, POC 127 mg/dL HDL, POC 52 mg/dL Triglycerides, POC 229 mg/dL LDL Cholesterol POC 29 mg/dL Chol/HDL Ratio, POC 2.5 Non-HDL Cholesterol, POC 75 mg/dL Cholesterol Total, POC 127 mg/dL Capillary blood 05/15/2023 1 :08 PM FISH RECEIVER Zabrina Babin NP POINT OF CARE TEST [...] 08/31/2017 5:12 AM CDT Performed at: [facility] [address] [id number] Lens Matcher: Joel Lino PhD, Phone: [phone] us Kimberli Whitehead MD LAB BLOOD ORDERABLES Final Resul t [facility] - 01 from Last 3 Months or Most Recently Relevant to Health Maintenance Insurance [facility] MEDICARE [facility] Address: [facility] [id number] [place] [phone] [place] [address] [facility] MEDICARE [facility] MEDIC[facility] Address: [facility] [id number] [place] [phone] Care Teams Forensic Psychologist Relationship Specialty Start Date End Date Aisha Redmond DO PCP - General Family Medicine 07/07/19
[2024-08-03 19:06] VITALS: BP 125/59; PULSE 89; RESP 18; TEMP 36.6; O2SAT 97
--- NOTE | 2024-08-03 19:30 | ECG_ITS ---
Test Date: 2024-08-03 19:15:06 Measurements Intervals [place] Rate: 78 P: 81 IA: 177 QRS: 23 QRSD: 82 T: 66 QT: 351 QTc: 401 Interpretive Statements SINUS RHYTHM BORDERLINE ST-T WAVE ABNORMALITY- HIGH LATERAL LEADS BASELINE ARTIFACT- I, II, III, AVR, AVL, AVF, V1, V3-V6 BORDERLINE ECG Compared to ECG 06/03/2024 22:51:38 NO SIGNIFICANT CHANGE Electronically Signed On 08-03-2024 19:33:11 CDT by Darien Marte D.O.
[2024-08-03 19:38] LABS: Basophils Percent Auto 0.2 % (0.2-1.2); Eosinophils Absolute Auto 0.2 K/mm3 (0-0.3); Eosinophils Percent Auto 0.9 % (0-4.4); Hematocrit 35.5 % (37.0-47.0); Hemoglobin 10.6 g/dL (12.0-15.0); Immature Granulocyte Absolute 0.15 K/mm3 (0.00-0.031); Immature Granulocyte Percent A 0.9 % (0-0.5); Lymphocytes Absolute Auto 1.31 K/mm3 (0.9-3.2); Lymphocytes Percent Auto 7.6 % (18.3-44.2); Mean Corpuscular HGB Conc 29.9 g/dl (32-36); Mean Corpuscular Hemoglobin 24.9 pg (26-34); Mean Corpuscular Volume 83.5 fl (80-100); Mean Platelet Volume 11.5 fl (7.4-10.4); Monocytes Absolute Auto 1.4 K/mm3 (0.1-0.6); Monocytes Percent Auto 7.8 % (2.6-8.5); Neutrophils Absolute Auto 14.3 K/mm3 (1.3-6.7); Neutrophils Percent Auto 82.6 % (45.5-73.1); Platelet Count Result 250 k/mm3 (150-375); Red Blood Count 4.25 M/mm3 (4.2-5.4); Red Cell Distribution Width 17.7 % (11.5-14.5); White Blood Count 17.3 K/mm3 (4.5-10.0)
[2024-08-03 19:54] LABS: Alanine Aminotransferase 21 U/L (6-35); Albumin Level 4.1 g/dL (3.5-5.1); Alkaline Phosphatase 184 U/L (38-126); Anion Gap 13 mmol/L (4-12); Aspartate Amino Transferase 26 U/L (14-36); Bilirubin,Total 0.4 mg/dL (0.2-1.3); Blood Urea Nitrogen 45 mg/dL (7-17); Calcium 10.1 mg/dL (8.4-10.2); Carbon Dioxide 21 mmol/L (22-30); Chloride 101 mmol/L (98-107); Estimated CRCL calculation 21 ml/min; Estimated Glomerular Filt Rate 22; Glucose 241 mg/dL (65-110); Potassium 5.6 mmol/L (3.4-5.0); Sodium 135 mmol/L (137-145)
[2024-08-03 20:12] LABS: Platelet Estimate Adequate (Adequate); Schistocytes None Seen
[2024-08-03 20:13] LABS: Anisocytosis 2+; Band Neutrophils Percent 0 % (0-6); Hypochromasia 1+
--- OUTSIDE RECORDS SUMMARY | 2024-08-03 21:09 | XMS_ITS | Clinical Summary ---
Author Organization [facility] Address [facility] [place] [address] Care Team Providers Care Maintenance Truck Driver Name Role Phone Aisha Redmond DO Primary Care Provider +1- [phone] Allergies Active Allergy Reactions Criticality Noted Date [...] coronary intervention Coronary artery disease invo lving [place] coronary artery of [place] heart without angina pectoris 02/22/2017 Hypertension associated [...] Well Visit 65+ 02/08/2009 eGFR 08/30/2018 08/30/2017 Lipid Panel 05/15/2024 05/15/2023, 05/04/2018, 01/17/2018, Additional history exists Influenza Vaccine (Season Ended) 2024 02/13/2018, 12/24/2016, 01/03/2015, Additional history exists Zoster Vaccine Completed 05/05/2018, 02/13/2018 Procedures Procedure Name Priority Date/Time Associated Diagnosis Comments POCT LIPID PANEL Routine 05/15/2023 1:08 PM AUTOMOTIVE STARTER REPAIRER Lipid screening BASIC METABOLIC PANEL Routine 08/30/2017 12:17 PM CDT from Last 3 Months or Most Recently Relevant to Health Maintenance Results * POCT lipid panel (05/15/2023 1:08 PM AUTOMOTIVE STARTER REPAIRER) Cholesterol, POC 127 mg/dL HDL, POC 52 mg/dL Triglycerides, POC 229 mg/dL LDL Cholesterol POC 29 mg/dL Chol/HDL Ratio, POC 2.5 Non-HDL Cholesterol, POC 75 mg/dL Cholesterol Total, POC 127 mg/dL Capillary blood 05/15/2023 1 :08 PM AUTOMOTIVE STARTER REPAIRER Zabrina Babin NP POINT OF CARE TEST [...] - 08/31/2017 5:12 AM CDT Performed at: [facility] [id number] Arm Rest Builder: Joel Lino PhD, Phone: [phone] us Kimberli Whitehead MD LAB BLOOD ORDERABLES Final Resul t [facility] - 01 from Last 3 Months or Most Recently Relevant to Health Maintenance Insurance [facility] [place] [address] [facility] Address: [facility] [id number] [place] [phone] Care Teams Maintenance Truck Driver Relationship Specialty Start Date End Date Vernace, Aisha Laila, DO PCP - General Family Medicine 07/07/19
--- OUTSIDE RECORDS SUMMARY | 2024-08-03 21:09 | XMS_ITS | Referral Summary ---
Author Organization [facility] Address [facility] [place] [address] Care Team Providers Care Micro Computer Data Processor Name Role Phone Aisha Redmond DO Primary Care Provider [phone] Allergies Active Allergy Reactions Criticality Noted Date [...] Confirm Loop Recorder. Dx; Palpitations. DOI 09/03/2017. [place] remote monitoring. End of Service since 10/2019-not having it explanted. Palpitations 08/30/2017 Acute non-recurrent frontal sinusitis 02/22/2017 History of percutaneous coronary intervention Coronary artery disease invo lving ute coronary artery of ute heart without angina pectoris 02/22/2017 Hypertension associated [...] POCT LIPID PANEL Routine 05/15/2023 1:08 PM RESTRICTIVE PREPARATION OPERATOR Lipid screening BASIC METABOLIC PANEL Routine 08/30/2017 12:17 PM CDT from Last 3 Months or Most Recently Relevant to Health Maintenance Results * POCT lipid panel (05/15/2023 1:08 PM RESTRICTIVE PREPARATION OPERATOR) Cholesterol, POC 127 mg/dL HDL, POC 52 mg/dL Triglycerides, POC 229 mg/dL LDL Cholesterol POC 29 mg/dL Chol/HDL Ratio, POC 2.5 Non-HDL Cholesterol, POC 75 mg/dL Cholesterol Total, POC 127 mg/dL Capillary blood 05/15/2023 1 :08 PM RESTRICTIVE PREPARATION OPERATOR us Zabrina Babin NP POINT OF CARE [...] - 08/31/2017 5:12 AM CDT Performed at: [facility] [id number] Bottle Selector: Joel Lino PhD, Phone: [phone] us Kimberli Whitehead MD LAB BLOOD ORDERABLES Final Resul t [facility] - 01 from Last 3 Months or Most Recently Relevant to Health Maintenance Insurance T MEDICARE AETNA MEDICARE Care Teams Micro Computer Data Processor Relationship Specialty Start Date End Date Aisha Redmond DO PCP - General Family Medicine 07/07/19
[2024-08-03 21:22] VITALS: O2SAT 93
[2024-08-03 21:23] VITALS: BP 138/72; PULSE 72; PULSE 78; RESP 19; O2SAT 93
[2024-08-03 21:27] VITALS: O2SAT 93
[2024-08-03 21:35] LABS: Add Urine Microscopic? YES; Appearance Urine Cloudy (Clear); Bacteria Urine 4+ /hpf; Bilirubin Urine Negative (Negative); Blood Urine Trace (Negative); Color Urine Yellow (Yellow); Glucose Urine UA Negative (Negative); Ketones Urine Negative (Negative); Leukocyte Esterase Ur 3+ LEU/UL (Negative); Nitrate Urine Positive (Negative); Non Pathogenic Casts 0-2; Protein Urine Trace mg/dL (Negative); RBC Urine 0-2 /hpf (0-2); Specific Grav Ur 1.017 (1.001-1.035); Squamous Epithelial Cell Urine None Seen /hpf (Few); Urobilinogen Urine 0.2 mg/dL (<2.0); WBC Urine >100 /hpf (0-3)
[2024-08-03 21:41] LABS: INR 1.5; Prothrombin Time 18.4 Seconds (11.1-14.7)
[2024-08-03 22:11] LABS: NT Pro B Type Natriuretic Pept 248 pg/mL (19.9-100)
[2024-08-03] MEDS: CEFEPIME 2 GM/NS 50 ML 2 GM/50 ML BAG IVPB (22:34)
[2024-08-03 23:21] LABS: Amphetamine Screen Urine Negative (Negative); Barbiturate Screen Urine Negative (Negative); Benzodiazepines Screen Urine Negative (Negative); Cannabinoid Screen Urine Negative (Negative); Cocaine Screen Urine Negative (Negative); Methadone Screen Urine Negative (Negative); Opiate Screen Urine Positive (Negative); Phencyclidine Screen Urine Negative (Negative)
[2024-08-03 23:22] VITALS: BP 119/65; PULSE 100; RESP 16; TEMP 36.8; O2SAT 100
--- NOTE | 2024-08-03 23:22 | PC.NURSE ---
Patient states she needs something for pain or she needs to get out of here. Notified EDP Dr. Galindo.
--- NOTE | 2024-08-03 23:27 | ED_ITS ---
HPI - Altered Mental Status General Chief Complaint: Altered Mental Status Stated Complaint: AMS -GLF yesterday Time Seen by Provider: 08/03/24 20:59 Source: patient and EMS Mode of arrival: EMS Limitations: no limitations History of Present Illness HPI narrative: Year old female, with history hyperlipidemia, diabetes and AFib on Xarelto, brought in by EMS from her long term for altered mental status and a ground level fall last night. 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 She states she struck her head but did not lose consciousness. She has no other complaints today. However, staff at her long term have noticed that she has become increasingly more confused. She is typically A&O x4 but today has been A&O 2-3. The patient has no other complaints at this time. Related Data Home Medications ?Medication ?Instructions ?Recorded ?Confirmed ?Last Taken ?Type benzonatate 100 mg capsule 100 mg PO TID PRN Cough 07/26/23 08/04/24 Unknown History fluticasone fur. 100 mcg-umeclid 1 inh inhalation DAILY 07/26/23 08/04/24 Unknown History 62.5 mcg-vilant 25 mcg inhalat.powder (Trelegy Ellipta) fluticasone propionate 50 2 spray intranasal HS 07/26/23 08/04/24 Unknown History mcg/actuation nasal spray,suspension acetaminophen 650 mg 1,300 mg PO HS PRN Pain 08/19/23 08/04/24 Unknown History tablet,extended release (Tylenol Arthritis Pain) famotidine 20 mg tablet (Acid 20 mg PO BID 08/04/24 08/04/24 Unknown History Psychometrician (famotidine)) insulin glargine 100 unit/mL (3 45 unit subcut BID 08/04/24 08/04/24 Unknown History mL) subcutaneous pen (Lantus Solostar U-100 Insulin) insulin lispro 100 unit/mL 10 unit subcut TIDWMEAL 08/04/24 08/04/24 Unknown History subcutaneous half-unit pen (Humalog Alin KwikPen (U-100)) nystatin 100,000 unit/gram topical 1 applic topical DAILY 08/04/24 08/04/24 Unknown History cream sertraline 100 mg tablet 100 mg PO Q24H 08/04/24 08/04/24 Unknown History spironolactone 25 mg tablet 25 mg PO BID 08/04/24 08/04/24 Unknown History (Aldactone) suvorexant 10 mg tablet (Belsomra) 10 mg PO HS 08/04/24 08/04/24 Unknown History triamcinolone acetonide 0.1 % 1 applic topical DAILY 08/04/24 08/04/24 Unknown History topical cream Allergies Allergy/AdvReac Type Severity Reaction Status Date / Time amoxicillin AdvReac Mild Nausea and Verified 08/03/24 19:03 Vomiting clavulanic acid (From AdvReac Mild Nausea and Verified 08/03/24 19:03 Augmentin) Vomiting Review of Systems 2 Review of Systems: All systems reviewed & are unremarkable except as noted in HPI and below PMFSH Past Medical History Medical History Chronic anticoagulation Atrial fibrillation Sinusitis, acute Hypokalemia Type 2 diabetes mellitus Chronic kidney disease Coronary artery disease History of stent to in December 2016. Mixed hyperlipidemia Irritable bowel syndrome with diarrhea Benign hypertension Vertigo Metabolic syndrome Obesity Hypertension Depression Back pain Asthma Anxiety Surgical History Surgical History History of cardiac catheterization History of tonsillectomy History of coronary artery stent placement Family History Family History Father Family history of mental disorder Depression Family history of arthritis Family history of diabetes mellitus in first degree relative Family history of congestive heart failure Family history of heart disease in male family member before age 55 Family history of hearing loss Diabetes mellitus Family history of cardiovascular disease Acute myocardial infarction Mother Family history of anemia Family history of arthritis Family history of malignant neoplasm of breast in first degree relative Sibling Family history of cardiovascular disease Other Family history of elevated blood lipids Social History Social History Social History: . Surrogate medical decision maker: Ben Finch, son. Code status: Full code. Smoking packs per day: 2 Smoking cigarettes per day: 40.0 Years smoked: 35 Smoking pack-years: 70.00 Smoking status: Former smoker Alcohol intake: unknown Substance use: unknown Other substance usage details: CBD/THC oil and gummies. Do You Feel Safe in your Home?: Yes Lack of Transportation: No Lack of Food: Never True Current Housing: I Have Housing Concerned About Future Housing: No Difficulty Paying Gas/Electric Bills: No Difficulty Paying for Meds: No Currently Unemployed: No Education: High School Diploma/GED Difficulty w/ Childcare or Family Care: No Living arrangements: long term Additional living arrangements comments: [facility] Occupation/Education: retired Spiritual care concerns: No Exam 2 Narrative: GENERAL: Well-developed, well-nourished, and in no acute distress. HEAD: Normocephalic, atraumatic. EYES: PERRLA and EOMI. ENT: Nares clear, no rhinorrhea or epistaxis. Mucous membranes moist. Oropharynx without tonsillar hypertrophy exudate or other lesions. CHEST: Clear to auscultation. No respiratory distress. No wheezes rales or rhonchi HEART: Regular rate and rhythm. No murmur heard. Normal peripheral pulses. ABDOMEN: Soft, minimal diffuse tenderness to palpation without rebound or guarding, nondistended, normal active bowel sounds. EXTREMITIES: Normal range of motion. 3+ bilateral lower extremity edema with weeping extending to the knees. SKIN: There are multiple pinpoint lesions on the anterior right foreleg that appears consistent folliculitis, with some mild surrounding erythema. Skin otherwise Warm, dry, no rash. NEURO: Alert and oriented x3. No focal deficit. Moving all 4 limbs spontaneously PSYCH: Normal mood and affect. Course Course Emergency Course: 23:30 - CT head negative for intracranial hemorrhage or mass. CT cervical spine negative for fracture or dislocation. CBC demonstrates elevated white blood cell count of 15.8 with hemoglobin of 9.5 (this appears to be the patient's baseline). Chemistries demonstrate hyperkalemia with potassium of 5.6. EKG not concerning for acute changes. Creatinine elevated at 2.14 with a baseline of 2. BNP slightly elevated at 248 but is otherwise unremarkable. Urinalysis shows changes consistent with urinary tract infection. Urine drug screen positive for opiates but is otherwise unremarkable. The patient has tramadol in her medication list. EKG not concerning for ischemia. Considering the patient's altered mental status recent fall in urinary tract infection, I discussed the patient with hospitalist, Dr. Dey who accepts admission. Vital Signs Vital signs: Vital Signs Temperature 97.9 F 08/03/24 19:06 Pulse Rate 89 08/03/24 19:06 Respiratory Rate 18 08/03/24 19:06 Blood Pressure 125/59 L 08/03/24 19:06 Pulse Oximetry 97 08/03/24 19:06 Oxygen Delivery Nasal Cannula 08/03/24 19:06 Oxygen Flow Rate 3 08/03/24 19:06 Temperature 97.7 F 08/04/24 04:00 Pulse Rate 92 08/04/24 04:00 Respiratory Rate 20 08/04/24 04:00 Blood Pressure 123/49 L 08/04/24 04:00 Pulse Oximetry 98 08/04/24 04:00 Oxygen Delivery Nasal Cannula 08/04/24 00:40 Oxygen Flow Rate 3 08/04/24 00:40 MDM - Altered Mental Status MDM Narrative Medical decision making narrative: Plan: Labs, imaging, reassess Differential Diagnosis Differential diagnosis: Likely alcoholic intoxication, altered mental status, hypoglycemia, hyponatremia and other (Intracranial hemorrhage, skull fracture, cervical spine fracture, pneumonia, UTI, metabolic abnormality, other) Lab Data 08/04/24 05:06 08/04/24 05:06 Labs: Lab Results 08/03/24 08/03/24 Range/Units 19:32 21:18 WBC 17.3 H (4.5-10.0) K/mm3 RBC 4.25 (4.2-5.4) M/mm3 Hgb 10.6 L (12.0-15.0) g/dL Hct 35.5 L (37.0-47.0) % MCV 83.5 (80-100) fl MCH 24.9 L (26-34) pg MCHC 29.9 L (32-36) g/dl RDW 17.7 H (11.5-14.5) % Plt Count 250 (150-375) k/mm3 MPV 11.5 H (7.4-10.4) fl Immature Gran % (Auto) 0.9 H (0-0.5) % Neut % (Auto) 82.6 H (45.5-73.1) % Lymph % (Auto) 7.6 L (18.3-44.2) % Dent % (Auto) 7.8 (2.6-8.5) % Eos % (Auto) 0.9 (0-4.4) % Baso % (Auto) 0.2 (0.2-1.2) % Lymph # (Auto) 1.31 (0.9-3.2) K/mm3 Dent # (Auto) 1.4 H (0.1-0.6) K/mm3 Eos # (Auto) 0.2 (0-0.3) K/mm3 Baso # (Auto) 0.0 (0.0-0.1) K/mm3 Abs Immat Gran (auto) 0.15 H (0.00-0.031) K/mm3 Absolute Neuts (auto) 14.3 H (1.3-6.7) K/mm3 Absolute Nucleated RBC 0.000 (0.0-0.012) K/mm3 Band Neutrophils % 0 (0-6) % Nucleated RBC % 0.0 (0.0-0.2) % Platelet Estimate Adequate (Adequate) Hypochromasia 1+ Anisocytosis 2+ Schistocytes None seen PT 18.4 H (11.1-14.7) Seconds INR 1.5 APTT 43.0 H (22.3-36.8) Seconds Sodium 135 L (137-145) mmol/L Potassium 5.6 H (3.4-5.0) mmol/L Chloride 101 (98-107) mmol/L Carbon Dioxide 21 L (22-30) mmol/L Anion Gap 13 H (4-12) mmol/L BUN 45 H D (7-17) mg/dL Creatinine 2.14 H (0.7-1.0) mg/dL Estim Creat Clear Calc 21 ml/min Estimated GFR 22 L (59 - ) Glucose 241 H (65-110) mg/dL Calcium 10.1 (8.4-10.2) mg/dL Total Bilirubin 0.4 (0.2-1.3) mg/dL AST 26 (14-36) U/L ALT 21 (6-35) U/L Alkaline Phosphatase 184 H (38-126) U/L NT-Pro-B Natriuret Pep 248 H (19.9-100) pg/mL Total Protein 8.0 (6.3-8.2) g/dL Albumin 4.1 (3.5-5.1) g/dL Urine Color Yellow (Yellow) Urine Appearance Cloudy H (Clear) Urine pH 5.0 (5.0-9.0) Ur Specific [place] 1.017 (1.001-1.035) Urine Protein Trace (Negative) mg/dL Urine Glucose (UA) Negative (Negative) mg/dL Urine Ketones Negative (Negative) mg/dL Ur Blood (Man) Trace (Negative) Urine Nitrate Positive H (Negative) Urine Bilirubin Negative (Negative) Urine Urobilinogen 0.2 (<2.0) mg/dL Leukocyte Esterase Rfl 3+ H (Negative) LALI/UL Urine RBC 0-2 (0-2) /hpf Urine WBC >100 H (0-3) /hpf Ur Squamous Epith Cells None seen (Few) /hpf Urine Bacteria 4+ H /hpf Urine Casts 0-2 Urine Opiates Screen Positive A (Negative) Urine Methadone Screen Negative (Negative) Ur Barbiturates Screen Negative (Negative) Ur Phencyclidine Scrn Negative (Negative) Ur Amphetamine Screen Negative (Negative) U Benzodiazepines Scrn Negative (Negative) Urine Cocaine Screen Negative (Negative) U Cannabinoids Screen Negative (Negative) ECG Data EKG #1: Attestation: I personally reviewed and interpreted this ECG as follows: ECG completion date: 08/03/24 ECG completion time: 19:15 Interpretation: Sinus rhythm, rate 78, normal axis, no ST segment elevations or T-wave inversions concerning for ischemia, normal intervals with QTC of 401. Compared to EKG done in May 2024, there are no significant changes. Discharge Plan Discharge Clinical Impression: Acute UTI, LIZ (acute kidney injury), Acute hyperkalemia Patient Disposition: Still a Patient Condition: Serious Time of Disposition: 23:30
[2024-08-03] MEDS: traMADol HCL (*CRX) 50 MG TABLET PO (23:37)
[2024-08-03] MEDS: ACETAMINOPHEN 500 MG TABLET 1000 MG PO (23:37)
[2024-08-03] MEDS: SODIUM CHLORIDE 0.9% IV 1,000 ML 999 ML IV CONT (23:38)
[2024-08-03] MEDS: INSULIN GLARGINE (*BKC) 100 UNITS/ML 30 UNITS SUB-Q (23:50)
[2024-08-03 23:55] LABS: Glucose Point of Care 189 mg/dl (65-105)
[2024-08-04] VITALS (8 sets, daily range): BP systolic 110–138; BP diastolic 49–90; PULSE 75–98; RESP 19–20; TEMP 36.4–36.7; O2SAT 92–100; BMI 38.6
[2024-08-04 00:09] LABS: Lactic Acid Reflex 1.4 mmol/L (0.7-2.0)
--- NOTE | 2024-08-04 00:33 | ADMGEN ---
This patient, Mihaela Finch, was admitted to Medical Room 252-01. Patient/family oriented to hospital policies and general routines including ID bracelet, bed and alarms, visiting hours, pain management, procedures, bathroom and other care routines, personal items, smoking policy, room service/diet, and visiting hours. Information on how to activate the Rapid Response Team has been discussed. Patient/Family are encouraged to report perceived risks to care and to ask questions if they do not understand what they are told or what they should do.
[2024-08-04 00:35] LABS: Influenza A QL RT-PCR Negative (Negative); Influenza B QL RT-PCR Negative (Negative); RSV RNA, RT-PCR Negative (Negative); SARS-CoV-2 RNA PCR Negative (Negative)
--- NOTE | 2024-08-04 02:15 | P.HP_ITS ---
H&P: HPI History of Present Illness Date/Time: 08/04/24 02:15 Chief Complaint: 1. Altered mental status Narrative: Mihaela Finch is an 79 yo F with a mHx significant for dyslipidemia, CAD, depression w/Anxiety, GERD, IDDM2, A-fib, COPD She was brought in from the [facility] due to a change in her previously known mental baseline; with no know modifying factors, symptoms were associated with a fall and restriction of her ADLs. Per fall, she denies loss of consciousness, bleeding, head trauma, or open wounds sustained. There were no associated symptoms of vomiting, flank pain, headaches, vi sual/speech impairment, focal weakness, falls, fevers, or change in her bladder/bowel habits She does not smoke or chew tobacco, drink alcohol or consume recreational/illicit drugs. Work-up findings: Na 135; K 5.6; Cl 101; Co2 21; AG 13 BUN 45; Cr 2.14; GFR 21 AST 26; ALT 21; ALP 184 LA 1.4; UA: +ve Nitrite; 3+ LE; >100 WBC; 4+ bacteria CT Head: No acute intracranial hemorrhage or suspicious mass effect. Inflammatory sinus disease Cervical spine: Degenerative disease, without acute fracture. Mihaela Finch will be admitted, evaluated and managed for altered mental s tatus, UTI Review of Systems Review of Systems: ROS unobtainable: Yes unobtainable due to medical condition and unobtainable due to mental status PMFSH Past Medical History Medical History Chronic anticoagulation Atrial fibrillation Sinusitis, acute Hypokalemia Type 2 diabetes mellitus Chronic kidney disease Coronary artery disease History of stent to OM in December 2016. Mixed hyperlipidemia Irritable bowel syndrome with diarrhea Benign hypertension Vertigo Metabolic syndrome Obesity Hypertension Depression Back pain Asthma Anxiety Surgical History Surgical History History of cardiac catheterization History of tonsillectomy History of coronary artery stent placement Family History Family History Father Family history of mental disorder Depression Family history of arthritis Family history of diabetes mellitus in first degree relative Family history of congestive heart failure Family history of heart disease in male family member before age 55 Family history of hearing loss Diabetes mellitus Family history of cardiovascular disease Acute myocardial infarction Mother Family history of anemia Family history of arthritis Family history of malignant neoplasm of breast in first degree relative Sibling Family history of cardiovascular disease Other Family history of elevated blood lipids Social History Social History Social History: . Surrogate medical decision maker: Ben Finch, son. Code status: Full code. Smoking packs per day: 2 Smoking cigarettes per day: 40.0 Years smoked: 35 Smoking pack-years: 70.00 Smoking status: Former smoker Alcohol intake: unknown Substance use: unknown Other substance usage details: CBD/THC oil and gummies. Do You Feel Safe in your Home?: Yes Lack of Transportation: No Lack of Food: Never True Current Housing: I Have Housing Concerned About Future Housing: No Difficulty Paying Gas/Electric Bills: No Difficulty Paying for Meds: No Currently Unemployed: No Education: High School Diploma/GED Difficulty w/ Childcare or Family Care: No Living arrangements: care home Additional living arrangements comments: [facility] Occupation/Education: retired Spiritual care concerns: No Meds Home Medications and Allergies Home Medications ?Medication ?Instructions ?Recorded ?Confirmed ?Type albuterol sulfate 90 mcg/actuation 2 inh inhalation Q4H PRN shortness 04/12/22 08/04/24 Rx aerosol inhaler of breath or wheezing #8.5 grams cetirizine 10 mg tablet (Zyrtec) 10 mg PO DAILY #90 tabs 11/09/22 08/04/24 Rx albuterol sulfate 1.25 mg/3 mL 1.25 mg (3 mL) inhalation Q4-6H 12/03/22 08/04/24 Rx solution for nebulization PRN shortness of breath or wheezing #75 mL cholecalciferol (vitamin D3) 25 25 mcg PO DAILY #90 tabs 01/28/23 08/04/24 Rx mcg (1,000 unit) tablet mupirocin 2 % topical ointment 1 applic topical DAILY #15 grams 02/13/23 08/04/24 Rx blood sugar diagnostic (OneTouch #100 ea 02/21/23 08/04/24 Rx Verio test strips) blood-glucose meter (OneTouch #1 ea 02/21/23 08/04/24 Rx Verio Flex Meter) lancets 30 gauge (Easy Comfort #200 ea 02/21/23 08/04/24 Rx Lancets) nitroglycerin 0.4 mg sublingual 0.4 mg sublingual Q5M PRN chest 02/21/23 08/04/24 Rx tablet pain #90 tabs blood-glucose sensor (Dexcom G7 #6 ea 03/04/23 08/04/24 Rx Sensor device) pen needle, diabetic 32 gauge x #1,200 ea 03/26/23 08/04/24 Rx 5/32 (BD Radha 2nd Gen Pen Needle) bupropion HCl 150 mg 24 hr tablet, 150 mg PO QAM #90 tabs 06/18/23 08/04/24 Rx extended release cyclobenzaprine 10 mg tablet 10 mg PO TID PRN spasms #30 tabs 06/25/23 08/04/24 Rx benzonatate 100 mg capsule 100 mg PO TID PRN Cough 07/26/23 08/04/24 History fluticasone fur. 100 mcg-umeclid 1 inh inhalation DAILY 07/26/23 08/04/24 History 62.5 mcg-vilant 25 mcg inhalat.powder (Trelegy Ellipta) fluticasone propionate 50 2 spray intranasal HS 07/26/23 08/04/24 History mcg/actuation nasal spray,suspension polyethylene glycol 3350 17 gram 17 g PO QAM PRN Constipation #30 ea 07/29/23 08/04/24 Rx oral powder packet (Miralax) acetaminophen 650 mg 1,300 mg PO HS PRN Pain 08/19/23 08/04/24 History tablet,extended release (Tylenol Arthritis Pain) hydrocodone 5 mg-acetaminophen 325 1 tablet PO Q6H PRN Pain Rated 4-6 08/30/23 08/04/24 Rx mg tablet #120 tabs atorvastatin 40 mg tablet 40 mg PO HS #90 tabs 12/18/23 08/04/24 Rx budesonide 160 mcg-glycopyr 9 2 inh inhalation BID 3 months 12/18/23 08/04/24 Rx mcg-formot 4.8 mcg/actuation HFA #10.7 grams inhaler (Breztri Aerosphere) clopidogrel 75 mg tablet 75 mg PO DAILY #90 tabs 12/18/23 08/04/24 Rx montelukast 10 mg tablet 10 mg PO QHS #90 tabs 12/18/23 08/04/24 Rx (Singulair) rivaroxaban 10 mg tablet (Xarelto) 10 mg PO DAILY #90 tabs 12/18/23 08/04/24 Rx dicyclomine 20 mg tablet 20 mg PO BID Cramps #180 tabs 02/04/24 08/04/24 Rx torsemide 20 mg tablet 20 mg PO QAM #90 tabs 03/02/24 08/04/24 Rx Combigan 0.2 %-0.5 % eye drops 2 drp ophthalmic (eye) Q12H 3 03/13/24 08/04/24 Rx (brimonidine-timolol) months #10 mL famotidine 20 mg tablet (Acid 20 mg PO BID 08/04/24 08/04/24 History Hospitality Coordinator (famotidine)) insulin glargine 100 unit/mL (3 45 unit subcut BID 08/04/24 08/04/24 History mL) subcutaneous pen (Lantus Solostar U-100 Insulin) insulin lispro 100 unit/mL 10 unit subcut TIDWMEAL 08/04/24 08/04/24 History subcutaneous half-unit pen (Humalog Alin KwikPen (U-100)) nystatin 100,000 unit/gram topical 1 applic topical DAILY 08/04/24 08/04/24 History cream sertraline 100 mg tablet 100 mg PO Q24H 08/04/24 08/04/24 History spironolactone 25 mg tablet 25 mg PO BID 08/04/24 08/04/24 History (Aldactone) suvorexant 10 mg tablet (Belsomra) 10 mg PO HS 08/04/24 08/04/24 History triamcinolone acetonide 0.1 % 1 applic topical DAILY 08/04/24 08/04/24 History topical cream Allergies Allergy/AdvReac Type Severity Reaction Status Date / Time amoxicillin AdvReac Mild Nausea and Verified 08/03/24 19:03 Vomiting clavulanic acid (From AdvReac Mild Nausea and Verified 08/03/24 19:03 Augmentin) Vomiting Vital Signs Vital Signs - 24 hr 08/03/24 19:06 08/03/24 21:22 08/03/24 21:23 Temperature 97.9 F Pulse Rate 89 78 Respiratory Rate 18 Blood Pressure 125/59 L Pulse Oximetry 97 93 Oxygen Delivery Nasal Cannula Nasal Cannula Oxygen Flow Rate 3 3 08/03/24 21:23 08/03/24 21:27 08/03/24 23:22 Temperature 98.3 F Pulse Rate 72 100 Respiratory Rate 19 16 Blood Pressure 138/72 119/65 Pulse Oximetry 93 93 100 Oxygen Delivery Nasal Cannula Oxygen Flow Rate 3 08/04/24 00:40 08/04/24 00:45 08/04/24 00:45 Temperature 97.8 F Pulse Rate 94 95 Respiratory Rate 20 Blood Pressure 110/63 Pulse Oximetry 92 100 Oxygen Delivery Nasal Cannula Oxygen Flow Rate 3 Exam Const: General: in distress HENMT: Face/Nose/Sinus: Normal nares present Mouth: Yes dry mucous membranes Eyes: General: appearance normal, both eyes and all related structures Sclera: sclerae normal Pupils: Equal, round and reactive pupils present Neck: Neck: supple Resp: Effort & Inspection: normal respiratory effort Auscultation: no wheezes and diminished lung sounds Cardio: Rate: regular rate GI: GI Palp: No Tenderness to palpation present (GI) and No Guarding due to palpation present (GI) Auscultation: normal bowel sounds Skin: Wounds: wounds noted (Bilateral shins) Neuro: General: No gait normal Motor exam (neuro): 5/5 motor strength present throughout, Normal motor muscle tone present throughout and strength normal Extrem: General: normal to inspection Psych: Mental Status: mental status grossly abnormal H&P: Results Labs Labs: Short CBC 08/03/24 Range/Units 19:32 WBC 17.3 H (4.5-10.0) K/mm3 Hgb 10.6 L (12.0-15.0) g/dL Hct 35.5 L (37.0-47.0) % Plt Count 250 (150-375) k/mm3 BMP 08/03/24 19:32 Sodium 135 L Potassium 5.6 H Chloride 101 Carbon Dioxide 21 L BUN 45 H D Creatinine 2.14 H Glucose 241 H Calcium 10.1 Liver Function 08/03/24 Range/Units 19:32 Total Bilirubin 0.4 (0.2-1.3) mg/dL AST 26 (14-36) U/L ALT 21 (6-35) U/L Alkaline Phosphatase 184 H (38-126) U/L Albumin 4.1 (3.5-5.1) g/dL Urine 08/03/24 Range/Units 21:18 Urine Color Yellow (Yellow) Urine Appearance Cloudy H (Clear) Urine pH 5.0 (5.0-9.0) Ur Specific [place] 1.017 (1.001-1.035) Urine Protein Trace (Negative) mg/dL Urine Glucose (UA) Negative (Negative) mg/dL Assessment and Plan Assessment and plan (1) Acute encephalopathy: Code(s): G93.40 - Encephalopathy, unspecified Status: Acute (2) Major depressive disorder, recurrent, unspecified: Code(s): F33.9 - Major depressive disorder, recurrent, unspecified Status: Chronic (3) Anxiety: Code(s): F41.9 - Anxiety disorder, unspecified Status: Acute (4) Diastolic CHF: Code(s): I50.30 - Unspecified diastolic (congestive) heart failure Status: Acute Plan Acute and principal conditions 1. Acute metabolic encephalopathy 2. UTI 3. Acute renal insufficiency. 4. HAGMA. Rx: A. IVFs; B. Monitor metabolic profile C. Ceftriaxone; Urine cultures Chronic and stable conditions 1. Obesity. BMI 38 2. Insomnia. 3. Recurrent depression w/Anxiety. On Sertraline, 4. COPD. 5. IDDM2. 6. Glaucoma. 7. Dyslipidemia. 8. Hx of A-fib. On Rivaroxaban; Miscellaneous care 1. Code status. Full 2. Nutrition. Carb-controlled 3. VTE prophylaxis. SCDs; [facility] Quality VTE Prophylaxis VTE prophylaxis: mechanical ordered and pharmacologic ordered Hospitalist MIPS Advance Care Plan I have confirmed that the patient's Advanced Care Plan is present, code status is documented, or surrogate decision maker is listed in patient medical record.: Yes Medication Reconciliation I have utilized all available resources to obtain, update and review the patients current medications (includes all prescriptions, OTC, herbals, cannabis, and nutritional supplements).: Yes The patient is not eligible for med reconciliation; the patient is in a emergent medical situation where delaying treatment would jeopardize the patients heal th.: Yes
[2024-08-04 05:20] LABS: Basophils Percent Auto 0.2 % (0.2-1.2); Eosinophils Absolute Auto 0.1 K/mm3 (0-0.3); Eosinophils Percent Auto 0.9 % (0-4.4); Hemoglobin 9.5 g/dL (12.0-15.0); Immature Granulocyte Absolute 0.16 K/mm3 (0.00-0.031); Immature Platelet Fraction Pct 1.6 % (0.9-11.2); Lymphocytes Absolute Auto 1.48 K/mm3 (0.9-3.2); Lymphocytes Percent Auto 9.4 % (18.3-44.2); Mean Corpuscular HGB Conc 29.7 g/dl (32-36); Mean Corpuscular Hemoglobin 24.9 pg (26-34); Mean Corpuscular Volume 83.8 fl (80-100); Monocytes Absolute Auto 1.4 K/mm3 (0.1-0.6); Monocytes Percent Auto 8.7 % (2.6-8.5); Neutrophils Absolute Auto 12.6 K/mm3 (1.3-6.7); Neutrophils Percent Auto 79.8 % (45.5-73.1); Platelet Count Result 337 k/mm3 (150-375); Red Blood Count 3.82 M/mm3 (4.2-5.4); Red Cell Distribution Width 17.7 % (11.5-14.5); White Blood Count 15.8 K/mm3 (4.5-10.0)
[2024-08-04 05:30] LABS: Anion Gap 10 mmol/L (4-12); Blood Urea Nitrogen 41 mg/dL (7-17); Calcium 9.8 mg/dL (8.4-10.2); Carbon Dioxide 23 mmol/L (22-30); Chloride 104 mmol/L (98-107); Estimated CRCL calculation 22 ml/min; Estimated Glomerular Filt Rate 23; Glucose 189 mg/dL (65-110); Potassium 5.6 mmol/L (3.4-5.0); Sodium 137 mmol/L (137-145)
[2024-08-04 05:46] LABS: Anisocytosis 1+; Hypochromasia 1+; Ovalocytes 1+; Platelet Estimate Adequate (Adequate); Schistocytes None Seen
--- NOTE | 2024-08-04 07:05 | P.PNIM_ITS ---
Progress Note: A&P Assessment and Plan (1) Fall: Code(s): W19.XXXA - Unspecified fall, initial encounter Status: Acute Assessment and Plan: Per family patient is able to stand and pivot to chairs at baseline. - Head CT: No acute intracranial hemorrhage or suspicious mass effect - C spine CT: Degenerative disease, without acute fracture - Chest XR: Mild pulmonary vascular congestion without focal infiltration or effusion - PT/OT (2) Acute encephalopathy: Code(s): G93.40 - Encephalopathy, unspecified Status: Acute Assessment and Plan: Likely secondary to ongoing infection Has returned to baseline AOx3 - Head CT: No acute intracranial hemorrhage or suspicious mass effect - Blood cultures pending - Urine culture pending - See UTI #3 plan below (3) UTI (urinary tract infection): Code(s): N39.0 - Urinary tract infection, site not specified Status: Resolved Assessment and Plan: - UA: cloudy appearance, positive nitrates, 3+ leukocytes, > 100 WBC, 4+ bacteria. No squamous cells seen. - UC obtained on 08/03: pending - previous micro reviewed 06/03/24: Klebsiella pneumoniae pansensitive Recurrent Ecoli - started on cefepime started 08/03 (4) Serum potassium elevated: Code(s): E87.5 - Hyperkalemia Status: Acute Assessment and Plan: K 5.6 on admission K remains elevated at 5.6 likely from supplementation and slight LIZ on CKD. Lokelma x1 given Supplementation remains on hold. 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 Telemetry (5) Acute kidney injury superimposed on CKD: Code(s): N17.9 - Acute kidney failure, unspecified; N18.9 - Chronic kidney disease, unspecified Status: Acute Assessment and Plan: BUN/Cr 45/2.14 on admission. 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, chronic need for diuretic therapy, HTN, DM, vascular disease and age - BUN/Cr 41/2.05 on am labs - Avoid nephrotoxic medications - holding spironolactone and torsemide for ongoing LIZ, resume as appropriate - Renally dose medications - Monitor I/O (6) Type 2 diabetes mellitus: Qualifiers: Diabetes mellitus complication status: with neurologic complications Diabetes mellitus care home insulin use: with care home use Code(s): E11.9 - Type 2 diabetes mellitus without complications Status: Chronic Assessment and Plan: - hypoglycemia protocol - POC blood glucose ACHS - home medication - lantus 45 units BID, lispro 10 units TIDWM - correct regimen ordered - continue home medications - A1C 8.3 Glucose levels remain stable. Continue to monitor. (7) Chronic diastolic (congestive) heart failure: Code(s): I50.32 - Chronic diastolic (congestive) heart failure Status: Acute Assessment and Plan: Appears euvolemic Continue home medications: holding spironolactone and torsemide for ongoing LIZ Monitor (8) Paroxysmal A-fib: Code(s): I48.0 - Paroxysmal atrial fibrillation Status: Acute Assessment and Plan: HR stable, not on beta macey Anticoagulation with xarelto Monitor (9) Chronic respiratory failure with hypoxia: Code(s): J96.11 - Chronic respiratory failure with hypoxia Status: Acute Assessment and Plan: Chronic, remains on baseline 3L NC Time Spent With Patient Time with patient: 25 - 35 minutes Subjective Date/time seen: 08/04/24 07:05 Interval history: 79 year old female with past medical history of hypertension, CKD, CAD, hyperlipidemia, and DM presents to the hospital for change in mental status and fall. Patient is pleasant lying in bed with family at bedside. Patient endorsing worsening abdominal pain more so to the right lower quadrant. Does not radiate. Per sister patient had a small episode of vomiting this morning. CT abdomen/pelvis ordered. She denies any nausea/vomiting at this time. Bilateral lower extremity edema and weeping has much improved per sister and son. Wound care following. Patient denies any chest pain, shortness of breath different from baseline, and palpitations. Review of Systems Review of Systems: All systems reviewed & are unremarkable except as noted in HPI and below Exam Narrative: AF HR 90 RR 19 SpO2 99 BP 120/62 General: female in no acute respiratory distress who is nontoxic appearing, sitting up in bed. HEENT: Normocephalic. Atraumatic. Extraocular movement intact. Sclera clear and anicteric. No facial asymmetry. Chest: Lungs are diminished to auscultation bilaterally. No wheezes or crackles. CV: Heart was regular rate and rhythm. S1-S2. No murmurs, gallops, or rubs. Abd: Abdomen was soft. Tender to palpation worse in RLQ, no rebound tenderness. Nondistended. Positive bowel sounds. Ext: No clubbing, cyanosis. Edema. Weeping worse to the RLE. Neuro: Patient is alert and oriented x3, however noted confusion throughout exam. Speech is clear. Objective Data Vital Signs Vital Signs: Vital Signs - 24 hr 08/03/24 19:06 08/03/24 21:22 08/03/24 21:23 Temperature 97.9 F Pulse Rate 89 78 Respiratory Rate 18 Blood Pressure 125/59 L Pulse Oximetry 97 93 Oxygen Delivery Nasal Cannula Nasal Cannula Oxygen Flow Rate 3 3 08/03/24 21:23 08/03/24 21:27 08/03/24 23:22 Temperature 98.3 F Pulse Rate 72 100 Respiratory Rate 19 16 Blood Pressure 138/72 119/65 Pulse Oximetry 93 93 100 Oxygen Delivery Nasal Cannula Oxygen Flow Rate 3 08/04/24 00:40 08/04/24 00:45 08/04/24 00:45 Temperature 97.8 F Pulse Rate 94 95 Respiratory Rate 20 Blood Pressure 110/63 Pulse Oximetry 92 100 Oxygen Delivery Nasal Cannula Oxygen Flow Rate 3 08/04/24 04:00 08/04/24 04:00 Temperature 97.7 F Pulse Rate 98 92 Respiratory Rate 20 Blood Pressure 123/49 L Pulse Oximetry 98 Oxygen Delivery Oxygen Flow Rate Intake/Output Intake/Output: Intake & Output 08/01/24 08/02/24 08/03/24 08/04/24 23:59 23:59 23:59 23:59 Intake Total 50 0 Output Total 150 Balance -100 0 Meds/Results Medications: Active Medications Generic Name Dose Route Start Last Admin Trade Name Freq PRN Reason Stop Dose Admin Acetaminophen 650 mg 08/04/24 02:12 Acetaminophen 325 Mg Tablet PO Q4H PRN Mild Pain (1-3) or Fever Albuterol 1.25 mg 08/04/24 06:55 Albuterol Sulfate Neb 2.5 Mg/3 Ml Inh INHALATION Q4-6H PRN shortness of breath or wheezing Atorvastatin Calcium 40 mg 08/04/24 21:00 Atorvastatin 40 Mg Tablet PO HS SINDY Brimonidine Tartrate 2 drop 08/04/24 09:00 Brimonidine Tartrate 0.2% Op Soln 5 Ml Btl EACH EYE Q12HR SINDY Bupropion HCl 150 mg 08/04/24 09:00 Bupropion Hcl Xl (24 Hr) 150 Mg Tabcr PO QAM [facility] Clopidogrel Bisulfate 75 mg 08/04/24 09:00 Clopidogrel Bisulfate 75 Mg Tablet PO DAILY [facility] Dicyclomine HCl 20 mg 08/04/24 09:00 Dicyclomine Hcl 10 Mg Capsule PO BID [facility] Famotidine 20 mg 08/04/24 09:00 Famotidine 20 Mg Tablet PO Q12HR [facility] Fluticasone/Umeclidinium/Vilanterol 1 puff 08/04/24 08:00 Fluticasone/Umeclidin/Vilanter 100-62.5-25 Mcg Ellipta INHALATION DAILYRT [facility] Cefepime HCl 1 gm in 50 mls @ 100 mls/hr 08/04/24 22:00 Maxipime 1 Gm/Ns 50 Ml IVPB Q24H [facility] Insulin Aspart 10 units 08/04/24 08:00 Insulin Aspart (*Bkc) 100 Units/Ml SUB-Q TIDWM [facility] Insulin Glargine 45 units 08/04/24 09:00 Insulin Glargine (*Bkc) 100 Units/Ml SUB-Q Q12HR [facility] Loratadine 10 mg 08/04/24 09:00 Loratadine 10 Mg Tablet PO QAM [facility] Nitroglycerin 0.4 mg 08/04/24 02:56 Nitroglycerin Sl 0.4 Mg Tablet SUBLINGUAL Q5M PRN chest pain Non-Formulary Medication 2 inhalation 08/04/24 09:00 [id number] [Breztri Aerosphere] INHALATION 09/03/24 08:59 BID [facility] Rivaroxaban 10 mg 08/04/24 09:00 Rivaroxaban 10 Mg Tablet PO DAILY [facility] Sertraline HCl 100 mg 08/04/24 09:00 Sertraline Hcl 50 Mg Tablet PO QAM [facility] Timolol Maleate 2 drop 08/04/24 09:00 Timolol Maleate 0.5% Op Soln 5 Ml Bottle EACH EYE Q12HR [facility] Radiology Results: ITS Impressions Head CT 08/03/24 20:24 Impression: No acute intracranial hemorrhage or suspicious mass effect. Inflammatory sinus disease Cervical Spine CT 08/03/24 20:28 Impression: Degenerative disease, without acute fracture. Chest X-Ray 08/03/24 22:54 IMPRESSION: Mild pulmonary vascular congestion, without focal infiltrate or effusion. Labs Labs: Laboratory Results - last 24 hr 08/03/24 08/03/24 08/03/24 19:32 21:18 23:52 WBC 17.3 H RBC 4.25 Hgb 10.6 L Hct 35.5 L MCV 83.5 MCH 24.9 L MCHC 29.9 L RDW 17.7 H Plt Count 250 MPV 11.5 H Immature Gran % (Auto) 0.9 H Neut % (Auto) 82.6 H Lymph % (Auto) 7.6 L [place] % (Auto) 7.8 Eos % (Auto) 0.9 Baso % (Auto) 0.2 Lymph # (Auto) 1.31 [place] # (Auto) 1.4 H Eos # (Auto) 0.2 Baso # (Auto) 0.0 Abs Immat Gran (auto) 0.15 H Absolute Neuts (auto) 14.3 H Absolute Nucleated RBC 0.000 Band Neutrophils % 0 Nucleated RBC % 0.0 Platelet Estimate Adequate % Immature Plt Fraction Hypochromasia 1+ Anisocytosis 2+ Ovalocytes Schistocytes None seen PT 18.4 H INR 1.5 APTT 43.0 H Sodium 135 L Potassium 5.6 H Chloride 101 Carbon Dioxide 21 L Anion Gap 13 H BUN 45 H D Creatinine 2.14 H Estim Creat Clear Calc 21 Estimated GFR 22 L Glucose 241 H POC Capillary Glucose 189 H Lactic Acid Calcium 10.1 Total Bilirubin 0.4 AST 26 ALT 21 Alkaline Phosphatase 184 H NT-Pro-B Natriuret Pep 248 H Total Protein 8.0 Albumin 4.1 Urine Color Yellow Urine Appearance Cloudy H Urine pH 5.0 Ur Specific [place] 1.017 Urine Protein Trace Urine Glucose (UA) Negative Urine Ketones Negative Ur Blood (Man) Trace Urine Nitrate Positive H Urine Bilirubin Negative Urine Urobilinogen 0.2 Leukocyte Esterase Rfl 3+ H Urine RBC 0-2 Urine WBC >100 H Ur Squamous Epith Cells None seen Urine Bacteria 4+ H Urine Casts 0-2 Urine Opiates Screen Positive A Urine Methadone Screen Negative Ur Barbiturates Screen Negative Ur Phencyclidine Scrn Negative Ur Amphetamine Screen Negative U Benzodiazepines Scrn Negative Urine Cocaine Screen Negative U Cannabinoids Screen Negative Influenza A (RT-PCR) Influenza B (RT-PCR) RSV (RT-PCR) SARS-CoV-2 RNA (RT-PCR) 08/03/24 08/04/24 23:55 05:06 WBC 15.8 H RBC 3.82 L Hgb 9.5 L Hct 32.0 L MCV 83.8 MCH 24.9 L MCHC 29.7 L RDW 17.7 H Plt Count 337 MPV TNP Immature Gran % (Auto) 1.0 H Neut % (Auto) 79.8 H Lymph % (Auto) 9.4 L [place] % (Auto) 8.7 H Eos % (Auto) 0.9 Baso % (Auto) 0.2 Lymph # (Auto) 1.48 [place] # (Auto) 1.4 H Eos # (Auto) 0.1 Baso # (Auto) 0.0 Abs Immat Gran (auto) 0.16 H Absolute Neuts (auto) 12.6 H Absolute Nucleated RBC 0.000 Band Neutrophils % Not Reportable Nucleated RBC % 0.0 Platelet Estimate Adequate % Immature Plt Fraction 1.6 Hypochromasia 1+ Anisocytosis 1+ Ovalocytes 1+ Schistocytes None seen PT INR APTT Sodium 137 Potassium 5.6 H Chloride 104 Carbon Dioxide 23 Anion Gap 10 BUN 41 H Creatinine 2.05 H Estim Creat Clear Calc 22 Estimated GFR 23 L Glucose 189 H POC Capillary Glucose Lactic Acid 1.4 Calcium 9.8 Total Bilirubin AST ALT Alkaline Phosphatase NT-Pro-B Natriuret Pep Total Protein Albumin Urine Color Urine Appearance Urine pH Ur Specific [place] Urine Protein Urine Glucose (UA) Urine Ketones Ur Blood (Man) Urine Nitrate Urine Bilirubin Urine Urobilinogen Leukocyte Esterase Rfl Urine RBC Urine WBC Ur Squamous Epith Cells Urine Bacteria Urine Casts Urine Opiates Screen Urine Methadone Screen Ur Barbiturates Screen Ur Phencyclidine Scrn Ur Amphetamine Screen U Benzodiazepines Scrn Urine Cocaine Screen U Cannabinoids Screen Influenza A (RT-PCR) Negative Influenza B (RT-PCR) Negative RSV (RT-PCR) Negative SARS-CoV-2 RNA (RT-PCR) Negative Quality VTE Prophylaxis VTE prophylaxis: pharmacologic ordered
[2024-08-04 08:24] LABS: Glucose Point of Care 167 mg/dl (65-105)
[2024-08-04] MEDS: ACETAMINOPHEN 325 MG TABLET 650 MG PO ×2 (08:52→15:39)
[2024-08-04] MEDS: SODIUM ZIRCONIUM CYCLOSILICATE 5 GM POWD.PACK PO (08:52)
[2024-08-04] MEDS: BRIMONIDINE TARTRATE 0.2% OP SOLN 5 ML BTL 2 DROP EACH EYE ×2 (08:53→21:37)
[2024-08-04] MEDS: FAMOTIDINE 20 MG TABLET PO ×2 (08:54→21:38)
[2024-08-04] MEDS: CLOPIDOGREL BISULFATE 75 MG TABLET PO (08:54)
[2024-08-04] MEDS: TIMOLOL MALEATE 0.5% OP SOLN 5 ML BOTTLE 2 DROP EACH EYE ×2 (08:54→21:37)
[2024-08-04] MEDS: buPROPion HCL XL (24 HR) 150 MG TABCR PO (08:54)
[2024-08-04] MEDS: DICYCLOMINE HCL 10 MG CAPSULE 20 MG PO ×2 (08:54→17:27)
[2024-08-04] MEDS: LORATADINE 10 MG TABLET PO (08:54)
[2024-08-04] MEDS: RIVAROXABAN 10 MG TABLET PO (08:54)
[2024-08-04] MEDS: INSULIN ASPART (*BKC) 100 UNITS/ML 10 UNITS SUB-Q ×3 (08:54→17:27)
[2024-08-04] MEDS: SERTRALINE HCL 50 MG TABLET 100 MG PO (08:54)
[2024-08-04] MEDS: INSULIN GLARGINE (*BKC) 100 UNITS/ML 45 UNITS SUB-Q (08:55)
[2024-08-04] MEDS: FLUTICASONE/UMECLIDIN/VILANTER 100-62.5-25 MCG ELLIPTA 1 PUFF INHALATION (09:46)
[2024-08-04 10:13] LABS: Hemoglobin A1C 8.3 % (<5.7)
[2024-08-04 12:28] LABS: Glucose Point of Care 128 mg/dl (65-105)
[2024-08-04] MEDS: BETAMETHASONE/CLOTRIMAZOLE CREAM 45 GM TUBE 1 APPLIC TOPICAL (15:38)
[2024-08-04 17:04] LABS: Glucose Point of Care 70 mg/dl (65-105)
[2024-08-04 20:49] LABS: Glucose Point of Care 78 mg/dl (65-105)
[2024-08-04] MEDS: ATORVASTATIN 40 MG TABLET PO (21:38)
[2024-08-04] MEDS: CEFEPIME 1 GM/NS 50 ML 1 GM/50 ML BAG IVPB (21:39)
[2024-08-05] VITALS (8 sets, daily range): BP systolic 119–138; BP diastolic 45–70; PULSE 64–94; RESP 16–20; TEMP 36.6–37; O2SAT 93–100
[2024-08-05] MEDS: ACETAMINOPHEN 325 MG TABLET 650 MG PO ×3 (04:30→19:53)
[2024-08-05 05:13] LABS: Hematocrit 30.5 % (37.0-47.0); Hemoglobin 9.1 g/dL (12.0-15.0); Immature Platelet Fraction Pct 1.6 % (0.9-11.2); Mean Corpuscular HGB Conc 29.8 g/dl (32-36); Mean Corpuscular Volume 83.8 fl (80-100); Platelet Count Result 311 k/mm3 (150-375); Red Blood Count 3.64 M/mm3 (4.2-5.4); Red Cell Distribution Width 17.7 % (11.5-14.5); White Blood Count 13.8 K/mm3 (4.5-10.0)
[2024-08-05 05:24] LABS: Alanine Aminotransferase 15 U/L (6-35); Albumin Level 3.3 g/dL (3.5-5.1); Alkaline Phosphatase 141 U/L (38-126); Anion Gap 10 mmol/L (4-12); Aspartate Amino Transferase 21 U/L (14-36); Bilirubin,Total 0.4 mg/dL (0.2-1.3); Blood Urea Nitrogen 33 mg/dL (7-17); Calcium 9.7 mg/dL (8.4-10.2); Carbon Dioxide 20 mmol/L (22-30); Chloride 107 mmol/L (98-107); Estimated CRCL calculation 26 ml/min; Estimated Glomerular Filt Rate 29; Glucose 97 mg/dL (65-110); Potassium 4.8 mmol/L (3.4-5.0); Sodium 137 mmol/L (137-145)
[2024-08-05 08:10] LABS: Glucose Point of Care 127 mg/dl (65-105)
--- NOTE | 2024-08-05 08:42 | P.PNIM_ITS ---
Progress Note: A&P Assessment and Plan (1) Fall: Code(s): W19.XXXA - Unspecified fall, initial encounter Status: Acute Assessment and Plan: Per family patient is able to stand and pivot to chairs at baseline. - Head CT: No acute intracranial hemorrhage or suspicious mass effect - C spine CT: Degenerative disease, without acute fracture - Chest XR: Mild pulmonary vascular congestion without focal infiltration or effusion - PT/OT (2) Acute encephalopathy: Code(s): G93.40 - Encephalopathy, unspecified Status: Acute Assessment and Plan: Likely secondary to ongoing infection Has returned to baseline AOx3 - Head CT: No acute intracranial hemorrhage or suspicious mass effect - Blood cultures pending - Urine culture pending - See UTI #3 plan below (3) UTI (urinary tract infection): Code(s): N39.0 - Urinary tract infection, site not specified Status: Resolved Assessment and Plan: - UA: cloudy appearance, positive nitrates, 3+ leukocytes, > 100 WBC, 4+ bacteria. No squamous cells seen. - UC obtained on 08/03: pending - previous micro reviewed 06/03/24: Klebsiella pneumoniae pansensitive Recurrent Ecoli - started on cefepime started 08/03- will downgrade to PO antibiotics today. (4) Serum potassium elevated: Code(s): E87.5 - Hyperkalemia Status: Acute Assessment and Plan: K 5.6 on admission K remains elevated at 5.6 likely from supplementation and slight LIZ on CKD. Lokelma x1 given Supplementation remains on hold. Possible that patient does not require supplementation end finder twisting department given that she typically runs on the higher end of normal. Telemetry (5) Acute kidney injury superimposed on CKD: Code(s): N17.9 - Acute kidney failure, unspecified; N18.9 - Chronic kidney disease, un specified Status: Acute Assessment and Plan: BUN/Cr 45/2.14 on admission. 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, chronic need for diuretic therapy, HTN, DM, vascular disease and age - BUN/Cr 41/2.05 on am labs - Avoid nephrotoxic medications - holding spironolactone and torsemide for ongoing LIZ, resume as appropriate - Renally dose medications - Monitor I/O -cr/bun- 1.72/33 today (6) Type 2 diabetes mellitus: Qualifiers: Diabetes mellitus complication status: with neurologic complications Diabetes mellitus skilled nursing insulin use: with end finder twisting department use Code(s): E11.9 - Type 2 diabetes mellitus without complications Status: Chronic Assessment and Plan: - hypoglycemia protocol - POC blood glucose ACHS - home medication - lantus 45 units BID, lispro 10 units TIDWM - correct regimen ordered - continue home medications - A1C 8.3 Glucose levels remain stable. Continue to monitor. (7) Chronic diastolic (congestive) heart failure: Code(s): I50.32 - Chronic diastolic (congestive) heart failure Status: Acute Assessment and Plan: Appears euvolemic Continue home medications: holding spironolactone and torsemide for ongoing LIZ Monitor (8) Paroxysmal A-fib: Code(s): I48.0 - Paroxysmal atrial fibrillation Status: Acute Assessment and Plan: HR stable, not on beta macey Anticoagulation with xarelto Monitor (9) Chronic respiratory failure with hypoxia: Code(s): J96.11 - Chronic respiratory failure with hypoxia Status: Acute Assessment and Plan: Chronic, remains on baseline 3L NC Time Spent With Patient Time with patient: 25 - 35 minutes Subjective Date/time seen: 08/05/24 08:42 Interval history: 79 year old female with past medical history of hypertension, CKD, CAD, hyperlipidemia, and DM presents to the hospital for change in mental status and fall. Patient is pleasant, up in a chair. NO acute complains today. Wound care following. Patient denies any chest pain, shortness of breath different from baseline, and palpitations. Review of Systems Review of Systems: All systems reviewed & are unremarkable except as noted in HPI and below Exam Narrative: General: female in no acute respiratory distress who is nontoxic appearing, sitting up in bed. HEENT: Normocephalic. Atraumatic. Extraocular movement intact. Sclera clear and anicteric. No facial asymmetry. Chest: Lungs are diminished to auscultation bilaterally. No wheezes or crackles. CV: Heart was regular rate and rhythm. S1-S2. No murmurs, gallops, or rubs. Abd: Abdomen was soft. Tender to palpation worse in RLQ, no rebound tenderness. Nondistended. Positive bowel sounds. Ext: No clubbing, cyanosis. Edema. Weeping worse to the RLE. Neuro: Patient is alert and oriented x3, however noted confusion throughout exam. Speech is clear. Const: General: in distress HENMT: Face/Nose/Sinus: Normal nares present Mouth: Yes dry mucous membranes Eyes: General: appearance normal, both eyes and all related structures Sclera: sclerae normal Pupils: Equal, round and reactive pupils present Neck: Neck: supple Resp: Effort & Inspection: normal respiratory effort Auscultation: no wheezes and diminished lung sounds Cardio: Rate: regular rate GI: Auscultation: normal bowel sounds Skin: General skin exam: wounds noted (Bilateral shins) Wounds: wounds noted (Bilateral shins) Neuro: General: No gait normal Cranial nerves: Yes Equal, round and [place] ctive pupils present Motor exam (neuro): 5/5 motor strength present throughout, Normal motor muscle tone present throughout and strength normal Extrem: General: normal to inspection Psych: Mental Status: mental status grossly abnormal Objective Data Vital Signs Vital Signs: Vital Signs - 24 hr 08/04/24 08:55 08/04/24 12:00 08/04/24 12:00 Temperature 97.6 F Pulse Rate 77 88 Respiratory Rate 20 Blood Pressure 122/72 Pulse Oximetry 99 99 Oxygen Delivery Nasal Cannula Oxygen Flow Rate 3 08/04/24 13:35 08/04/24 15:37 08/04/24 16:00 Temperature 97.6 F Pulse Rate 91 Respiratory Rate 20 Blood Pressure 124/64 Pulse Oximetry 99 Oxygen Delivery Nasal Cannula Nasal Cannula Oxygen Flow Rate 3 3 08/04/24 16:00 08/04/24 20:00 08/04/24 20:00 Temperature 98.1 F Pulse Rate 81 75 Respiratory Rate 20 Blood Pressure 138/90 Pulse Oximetry 97 93 Oxygen Delivery Nasal Cannula Oxygen Flow Rate 3 08/04/24 20:00 08/05/24 00:00 08/05/24 00:00 Temperature 98.2 F Pulse Rate 79 85 88 Respiratory Rate 20 Blood Pressure 119/48 L Pulse Oximetry 96 Oxygen Delivery Oxygen Flow Rate 08/05/24 04:00 08/05/24 04:00 Temperature 98.0 F Pulse Rate 85 84 Respiratory Rate 20 Blood Pressure 123/52 L Pulse Oximetry 94 Oxygen Delivery Oxygen Flow Rate Intake/Output Intake/Output: Intake & Output 08/02/24 08/03/24 08/04/24 08/05/24 23:59 23:59 23:59 23:59 Intake Total 50 864 240 Output Total 150 500 300 Balance -100 364 -60 Meds/Results Medications: Active Medications Generic Name Dose Route Start Last Admin Trade Name Freq PRN Reason Stop Dose Admin Acetaminophen 650 mg 08/04/24 02:12 08/05/24 04:30 Acetaminophen 325 Mg Tablet PO 650 mg Q4H PRN Administration Mild Pain (1-3) or Fever Albuterol 1.25 mg 08/04/24 06:55 Albuterol Sulfate Neb 2.5 Mg/3 Ml Inh INHALATION Q4-6H PRN shortness of breath or wheezing Atorvastatin Calcium 40 mg 08/04/24 21:00 08/04/24 21:38 Atorvastatin 40 Mg Tablet PO 40 mg HS SINDY Administration Brimonidine Tartrate 2 drop 08/04/24 09:00 08/04/24 21:37 Brimonidine Tartrate 0.2% Op Soln 5 Ml Btl EACH EYE 2 drop Q12HR SINDY Administration Bupropion HCl 150 mg 08/04/24 09:00 08/04/24 08:54 Bupropion Hcl Xl (24 Hr) 150 Mg Tabcr PO 150 mg QAM SINDY Administration Clopidogrel Bisulfate 75 mg 08/04/24 09:00 08/04/24 08:54 Clopidogrel Bisulfate 75 Mg Tablet PO 75 mg DAILY SINDY Administration Clotrimazole 1 applic 08/04/24 09:00 08/04/24 15:38 Betamethasone/Clotrimazole Cream 45 Gm Tube TOPICAL 1 applic DAILY SINDY Administration Dextrose 12.5 gm 08/04/24 07:16 Dextrose 50% 25 Gm/50 Ml Syringe IV PUSH PRN PRN Hypoglycemia Protocol Dicyclomine HCl 20 mg 08/04/24 09:00 08/04/24 17:27 Dicyclomine Hcl 10 Mg Capsule PO 20 mg BID SINDY Administration Famotidine 20 mg 08/04/24 09:00 08/04/24 21:38 Famotidine 20 Mg Tablet PO 20 mg Q12HR SINDY Administration Fluticasone/Umeclidinium/Vilanterol 1 puff 08/04/24 08:00 08/04/24 09:46 Fluticasone/Umeclidin/Vilanter 100-62.5-25 Mcg Ellipta INHALATION 1 puff DAILYRT SINDY Administration Glucose 15 gm 08/04/24 07:16 Glucose Oral Gel 15 Gm Of Glucse In 37.5 Gm Tube PO PRN PRN Hypoglycemia Protocol Cefepime HCl 1 gm in 50 mls @ 100 mls/hr 08/04/24 22:00 08/04/24 22:09 Maxipime 1 Gm/Ns 50 Ml IVPB Infused Q24H SINDY Infusion Dextrose 1,000 mls @ 100 mls/hr 08/04/24 07:16 Dextrose 5% 1,000 Ml IVPB PRN PRN Hypoglycemia Protocol Insulin Aspart 10 units 08/04/24 08:00 08/04/24 17:27 Insulin Aspart (*Bkc) 100 Units/Ml SUB-Q 10 units TIDWM SINDY Administration Insulin Glargine 45 units 08/04/24 09:00 08/04/24 21:15 Insulin Glargine (*Bkc) 100 Units/Ml SUB-Q Not Given Q12HR SINDY Loratadine 10 mg 08/04/24 09:00 08/04/24 08:54 Loratadine 10 Mg Tablet PO 10 mg QAM SINDY Administration Nitroglycerin 0.4 mg 08/04/24 02:56 Nitroglycerin Sl 0.4 Mg Tablet SUBLINGUAL Q5M PRN chest pain Rivaroxaban 10 mg 08/04/24 09:00 08/04/24 08:54 Rivaroxaban 10 Mg Tablet PO 10 mg DAILY SINDY Administration Sertraline HCl 100 mg 08/04/24 09:00 08/04/24 08:54 Sertraline Hcl 50 Mg Tablet PO 100 mg QAM SINDY Administration Timolol Maleate 2 drop 08/04/24 09:00 08/04/24 21:37 Timolol Maleate 0.5% Op Soln 5 Ml Bottle EACH EYE 2 drop Q12HR SINDY Administration Radiology Results: ITS Impressions Head CT 08/03/24 20:24 Impression: No acute intracranial hemorrhage or suspicious mass effect. Inflammatory sinus disease Cervical Spine CT 08/03/24 20:28 Impression: Degenerative disease, without acute fracture. Chest X-Ray 08/03/24 22:54 IMPRESSION: Mild pulmonary vascular congestion, without focal infiltrate or effusion. 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 Large nonobstructing right stone, as above. Labs Labs: Laboratory Results - last 24 hr 08/04/24 08/04/24 08/04/24 04:59 12:05 16:55 WBC RBC Hgb Hct MCV MCH MCHC RDW Plt Count MPV % Immature Plt Fraction Sodium Potassium Chloride Carbon Dioxide Anion Gap BUN Creatinine Estim Creat Clear Calc Estimated GFR Glucose POC Capillary Glucose 128 H 70 Hemoglobin A1c 8.3 H Calcium Total Bilirubin AST ALT Alkaline Phosphatase Total Protein Albumin 08/04/24 08/05/24 08/05/24 20:43 04:38 07:58 WBC 13.8 H RBC 3.64 L Hgb 9.1 L Hct 30.5 L MCV 83.8 MCH 25.0 L MCHC 29.8 L RDW 17.7 H Plt Count 311 MPV TNP % Immature Plt Fraction 1.6 Sodium 137 Potassium 4.8 Chloride 107 Carbon Dioxide 20 L Anion Gap 10 BUN 33 H Creatinine 1.72 H Estim Creat Clear Calc 26 Estimated GFR 29 L Glucose 97 POC Capillary Glucose 78 127 H Hemoglobin A1c Calcium 9.7 Total Bilirubin 0.4 AST 21 ALT 15 Alkaline Phosphatase 141 H Total Protein 7.0 Albumin 3.3 L Quality VTE Prophylaxis VTE prophylaxis: pharmacologic ordered
[2024-08-05] MEDS: DICYCLOMINE HCL 10 MG CAPSULE 20 MG PO ×2 (08:54→17:22)
[2024-08-05] MEDS: SERTRALINE HCL 50 MG TABLET 100 MG PO (08:54)
[2024-08-05] MEDS: FAMOTIDINE 20 MG TABLET PO ×2 (08:55→19:52)
[2024-08-05] MEDS: LORATADINE 10 MG TABLET PO (08:55)
[2024-08-05] MEDS: BRIMONIDINE TARTRATE 0.2% OP SOLN 5 ML BTL 2 DROP EACH EYE ×2 (08:55→19:54)
[2024-08-05] MEDS: TIMOLOL MALEATE 0.5% OP SOLN 5 ML BOTTLE 2 DROP EACH EYE ×2 (08:55→19:53)
[2024-08-05] MEDS: CLOPIDOGREL BISULFATE 75 MG TABLET PO (08:55)
[2024-08-05] MEDS: RIVAROXABAN 10 MG TABLET PO (08:55)
[2024-08-05] MEDS: buPROPion HCL XL (24 HR) 150 MG TABCR PO (08:55)
[2024-08-05] MEDS: INSULIN ASPART (*BKC) 100 UNITS/ML 10 UNITS SUB-Q ×3 (08:56→17:22)
[2024-08-05] MEDS: INSULIN GLARGINE (*BKC) 100 UNITS/ML 45 UNITS SUB-Q ×2 (08:56→19:53)
[2024-08-05] MEDS: BETAMETHASONE/CLOTRIMAZOLE CREAM 45 GM TUBE 1 APPLIC TOPICAL (09:01)
[2024-08-05] MEDS: FLUTICASONE/UMECLIDIN/VILANTER 100-62.5-25 MCG ELLIPTA 1 PUFF INHALATION (10:27)
[2024-08-05 12:18] LABS: Glucose Point of Care 166 mg/dl (65-105)
[2024-08-05] MEDS: ATORVASTATIN 40 MG TABLET PO (19:52)
[2024-08-05] MEDS: CEPHALEXIN 500 MG CAPSULE PO (19:52)
[2024-08-05 21:02] LABS: Glucose Point of Care 181 mg/dl (65-105)
[2024-08-06] VITALS: PULSE 65
[2024-08-06 04:00] VITALS: PULSE 71
[2024-08-06 04:22] VITALS: BP 117/55; PULSE 75; RESP 16; TEMP 36.8; O2SAT 97
[2024-08-06 05:35] LABS: Hematocrit 31.1 % (37.0-47.0); Hemoglobin 9.3 g/dL (12.0-15.0); Immature Platelet Fraction Pct 1.8 % (0.9-11.2); Mean Corpuscular HGB Conc 29.9 g/dl (32-36); Mean Corpuscular Hemoglobin 25.3 pg (26-34); Mean Corpuscular Volume 84.5 fl (80-100); Platelet Count Result 305 k/mm3 (150-375); Red Blood Count 3.68 M/mm3 (4.2-5.4); Red Cell Distribution Width 17.8 % (11.5-14.5); White Blood Count 11.8 K/mm3 (4.5-10.0)
[2024-08-06 05:49] LABS: Alanine Aminotransferase 14 U/L (6-35); Albumin Level 3.3 g/dL (3.5-5.1); Alkaline Phosphatase 141 U/L (38-126); Anion Gap 8 mmol/L (4-12); Aspartate Amino Transferase 20 U/L (14-36); Bilirubin,Total 0.3 mg/dL (0.2-1.3); Blood Urea Nitrogen 31 mg/dL (7-17); Calcium 9.8 mg/dL (8.4-10.2); Carbon Dioxide 22 mmol/L (22-30); Chloride 109 mmol/L (98-107); Estimated CRCL calculation 26 ml/min; Estimated Glomerular Filt Rate 29; Glucose 82 mg/dL (65-110); Potassium 4.7 mmol/L (3.4-5.0); Sodium 139 mmol/L (137-145)
[2024-08-06 08:00] VITALS: BP 108/46; PULSE 77; RESP 20; TEMP 36.8; O2SAT 97
[2024-08-06] MEDS: FLUTICASONE/UMECLIDIN/VILANTER 100-62.5-25 MCG ELLIPTA 1 PUFF INHALATION (08:07)
[2024-08-06 08:20] LABS: Glucose Point of Care 111 mg/dl (65-105)
[2024-08-06] MEDS: SERTRALINE HCL 50 MG TABLET 100 MG PO (09:15)
[2024-08-06] MEDS: RIVAROXABAN 10 MG TABLET PO (09:15)
[2024-08-06] MEDS: CLOPIDOGREL BISULFATE 75 MG TABLET PO (09:15)
[2024-08-06] MEDS: LORATADINE 10 MG TABLET PO (09:15)
[2024-08-06] MEDS: ACETAMINOPHEN 325 MG TABLET 650 MG PO (09:15)
[2024-08-06] MEDS: buPROPion HCL XL (24 HR) 150 MG TABCR PO (09:15)
[2024-08-06] MEDS: DICYCLOMINE HCL 10 MG CAPSULE 20 MG PO (09:15)
[2024-08-06] MEDS: CEPHALEXIN 500 MG CAPSULE PO (09:15)
[2024-08-06] MEDS: BRIMONIDINE TARTRATE 0.2% OP SOLN 5 ML BTL 2 DROP EACH EYE (09:16)
[2024-08-06] MEDS: TIMOLOL MALEATE 0.5% OP SOLN 5 ML BOTTLE 2 DROP EACH EYE (09:16)
[2024-08-06] MEDS: FAMOTIDINE 20 MG TABLET PO (09:16)
[2024-08-06] MEDS: BETAMETHASONE/CLOTRIMAZOLE CREAM 45 GM TUBE 1 APPLIC TOPICAL (09:16)
[2024-08-06] MEDS: INSULIN ASPART (*BKC) 100 UNITS/ML 10 UNITS SUB-Q ×2 (09:17→12:31)
[2024-08-06] MEDS: INSULIN GLARGINE (*BKC) 100 UNITS/ML 45 UNITS SUB-Q (09:17)
[2024-08-06] MEDS: CYCLOBENZAPRINE HCL 10 MG TABLET PO (09:33)
--- NOTE | 2024-08-06 11:20 | PM.DS ---
DS: Admitting Diagnosis Discharge Date 08/06 Admitting Diagnosis fall, ams DS: Discharge Diagnosis Discharge Diagnosis (1) Fall: Code(s): W19.XXXA - Unspecified fall, initial encounter Status: Acute (2) Acute encephalopathy: Code(s): G93.40 - Encephalopathy, unspecified Status: Acute (3) UTI (urinary tract infection): Code(s): N39.0 - Urinary tract infection, site not specified Status: Resolved (4) Serum potassium elevated: Code(s): E87.5 - Hyperkalemia Status: Acute (5) Acute kidney injury superimposed on CKD: Code(s): N17.9 - Acute kidney failure, unspecified; N18.9 - Chronic kidney disease, unspecified Status: Acute (6) Type 2 diabetes mellitus: Qualifiers: 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 mellitus 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 insulin use: with long-term use Diabetes mellitus complication status: with neurologic complications Code(s): E11.9 - Type 2 diabetes mellitus without complications Status: Chronic (7) Chronic diastolic (congestive) heart failure: Code(s): I50.32 - Chronic diastolic (congestive) heart failure Status: Acute (8) Paroxysmal A-fib: Code(s): I48.0 - Paroxysmal atrial fibrillation Status: Acute (9) Chronic respiratory failure with hypoxia: Code(s): J96.11 - Chronic respiratory failure with hypoxia Status: Acute DS: Summary Hospital Course Hospital Course: 79 year old female with past medical history of hypertension, CKD, CAD, hyperlipidemia, and DM presents to the hospital for change in mental status and fall. Several issues were addressed: #fall - Head CT: No acute intracranial hemorrhage or suspicious mass effect - C spine CT: Degenerative disease, without acute fracture - Chest XR: Mild pulmonary vascular congestion without focal infiltration or effusion - PT/OT worked with pt-doing well contineu lidocaine patch, muscle relaxant and pain meds that pt was previously on. # Acute encephalopathy # UTI Likely secondary to ongoing infection-UTI Has returned to baseline AOx3 - Head CT: No acute intracranial hemorrhage or suspicious mass effect - Blood cultures prelim- negative - Urine culture -kleb pneumo- started on cefepime started 08/03- downgraded to PO keflex 500 mg bid- needs 8 more doses- Last date 08/10 0900am - improving had treadwell for retention- treadwell was d/ethan in am-08/06- monitor closely- may need to be reinserted and she can be discharged with treadwell to d/c while at her facility WBC trending down will need labs rechecked in 1-2 weeks-cbc, cmp #Hyperkalemia K 5.6 on admission K remains elevated at 5.6 likely from supplementation and slight LIZ on CKD. Lokelma x1 given Supplementation remains on hold. 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 Telemetry was on. pt K level returned to normal, 4.7 #Type 2 diabetes mellitus: - hypoglycemia protocol - POC blood glucose ACHS - home medication - lantus 45 units BID, lispro 10 units TIDWM - correct regimen ordered - continue home medications - A1C 8.3 no changes in meds # Paroxysmal A-fib: HR stable, not on beta macey Anticoagulation with xarelto - continue Status at Discharge Functional status at discharge: wheelchair bound Overall status at discharge: patient is progressing back to baseline Time Spent with Patient Time attestation: Total time spent providing and/or coordinating discharge services: Time spent: Greater than 30 minutes Exam Narrative: General: female in no acute respiratory distress who is nontoxic appearing, sitting up in bed. HEENT: Normocephalic. Atraumatic. Extraocular movement intact. Sclera clear and anicteric. No facial asymmetry. Chest: Lungs are diminished to auscultation bilaterally. No wheezes or crackles. CV: Heart was regular rate and rhythm. S1-S2. No murmurs, gallops, or rubs. Abd: Abdomen was soft. Tender to palpation worse in RLQ, no rebound tenderness. Nondistended. Positive bowel sounds. Ext: No clubbing, cyanosis. Edema. Weeping worse to the RLE. Neuro: Patient is alert and oriented x3, however noted confusion throughout exam. Speech is clear. Const: General: in distress HENMT: Face/Nose/Sinus: Normal nares present Mouth: Yes dry mucous membranes Eyes: General: appearance normal, both eyes and all related structures Sclera: sclerae normal Pupils: Equal, round and reactive pupils present Neck: Neck: supple Resp: Effort & Inspection: normal respiratory effort Auscultation: no wheezes and diminished lung sounds Cardio: Rate: regular rate GI: Auscultation: normal bowel sounds Skin: General skin exam: wounds noted (Bilateral shins) Wounds: wounds noted (Bilateral shins) Neuro: General: No gait normal Cranial nerves: Yes Equal, round and reactive pupils present Motor exam (neuro): 5/5 motor strength present throughout, Normal motor muscle tone present throughout and strength normal Extrem: General: normal to inspection Psych: Mental Status: mental status grossly abnormal DS: Data Data Completed and Pending Labs on day of discharge: Labs from last 24 hours 08/06/24 08/06/24 08/05/24 08:15 04:56 19:43 WBC 11.8 H RBC 3.68 L Hgb 9.3 L Hct 31.1 L MCV 84.5 MCH 25.3 L MCHC 29.9 L RDW 17.8 H Plt Count 305 MPV TNP % Immature Plt Fraction 1.8 Sodium 139 Potassium 4.7 Chloride 109 H Carbon Dioxide 22 Anion Gap 8 BUN 31 H Creatinine 1.68 H Estim Creat Clear Calc 26 Estimated GFR 29 L Glucose 82 POC Capillary Glucose 111 H 181 H Calcium 9.8 Total Bilirubin 0.3 AST 20 ALT 14 Alkaline Phosphatase 141 H Total Protein 7.0 Albumin 3.3 L 08/05/24 12:03 WBC RBC Hgb Hct MCV MCH MCHC RDW Plt Count MPV % Immature Plt Fraction Sodium Potassium Chloride Carbon Dioxide Anion Gap BUN Creatinine Estim Creat Clear Calc Estimated GFR Glucose POC Capillary Glucose 166 H Calcium Total Bilirubin AST ALT Alkaline Phosphatase Total Protein Albumin Preliminary micro results at discharge 08/03/24 22:01 Blood Culture - Preliminary Blood 08/03/24 21:46 Blood Culture - Preliminary Blood Discharge Plan Discharge Attending physician on discharge: Jose Henriquez Discharging Clinician: Yani Gauthier Patient Disposition: NH Half-Way/Asst Living Activity: august shower Diet: diabetic Patient Instructions: Antibiotic Form, Rivaroxaban (By mouth), Heart Failure (DC), Treadwell Catheter Placement and Care (GEN) Patient Language: Croatian Stand Alone Forms: General Discharge Information Follow-up/Referrals: Laura,Mark Catalan DO [Primary Care Provider] - 2 Weeks Discharge Medications: New cephalexin 500 mg Capsule 500 mg PO Q12HR Qty: 8 0RF Continued mupirocin 2 % ointment 1 applic topical DAILY Qty: 15 1RF Rx Instructions: to affected area, bilateral groin acetaminophen [Tylenol Arthritis Pain] 650 mg tablet extended release 1,300 mg PO HS PRN (Reason: Pain) benzonatate 100 mg capsule 100 mg PO TID PRN (Reason: Cough) Rx Instructions: TAKE ONE CAPSULE BY MOUTH THREE TIMES A DAY NEEDED FOR COUGH fluticasone propionate 50 mcg/actuation spray,suspension 2 spray intranasal HS Rx Instructions: USE 2 SPRAYS IN EACH NOSTRIL HS Trelegy Ellipta 100-62.5-25 mcg blister with device 1 inh inhalation DAILY Rx Instructions: INHALE ONE PUFF BY MOUTH DAILY polyethylene glycol 3350 [Miralax] 17 gram Powder In Packet 17 g PO QAM PRN (Reason: Constipation) Qty: 30 0RF Belsomra 10 mg tablet 10 mg PO HS famotidine [Acid Financial Associate (famotidine)] 20 mg tablet 20 mg PO BID nystatin 100,000 unit/gram cream 1 applic TOPICAL DAILY Rx Instructions: ABD FOLDS AND PERINEUM sertraline 100 mg tablet 100 mg PO Q24H triamcinolone acetonide 0.1 % cream 1 applic TOPICAL DAILY Rx Instructions: ABD FOLDS AND PERINEUM spironolactone [Aldactone] 25 mg tablet 25 mg PO BID insulin glargine [Lantus Solostar U-100 Insulin] 100 unit/mL (3 mL) insulin pen 45 unit subcut BID insulin lispro [Humalog Alin KwikPen U-100] 100 unit/mL insulin pen, half-unit 10 unit subcut TIDWMEAL cyclobenzaprine 10 mg tablet 10 mg PO TID PRN (Reason: spasms) Qty: 30 0RF hydrocodone-acetaminophen 5-325 mg tablet 1 tablet PO Q6H PRN (Reason: Pain Rated 4-6) Qty: 24 0RF albuterol sulfate 90 mcg/actuation HFA aerosol inhaler 2 inh INHALATION Q4H PRN (Reason: shortness of breath or wheezing) Qty: 8.5 4RF cetirizine [Zyrtec] 10 mg tablet 10 mg PO DAILY Qty: 90 0RF albuterol sulfate 1.25 mg/3 mL solution for nebulization 1.25 mg inhalation Q4-6H PRN (Reason: shortness of breath or wheezing) Qty: 75 3RF cholecalciferol (vitamin D3) 25 mcg (1,000 unit) tablet 25 mcg PO DAILY Qty: 90 1RF nitroglycerin 0.4 mg tablet, sublingual 0.4 mg sublingual Q5M PRN (Reason: chest pain) Qty: 90 1RF Rx Instructions: do not exceed 3 doses per episode - call 911, if your pain does not subside after the second dose. (DME) blood-glucose meter [OneTouch Verio Flex meter] Misc See Rx Instructions .Route Qty: 1 0RF Rx Instructions: use to test blood sugar twice daily (DME) OneTouch Verio test strips Strip See Rx Instructions .Route Qty: 100 2RF Rx Instructions: use to test blood sugar twice daily (DME) lancets [Easy Comfort Lancets] 30 gauge misc See Rx Instructions .Route Qty: 200 2RF Rx Instructions: use to test blood sugar twice daily (DME) Dexcom G7 Sensor Device See Rx Instructions .Route Qty: 6 2RF Rx Instructions: As directed (DME) pen needle, diabetic [BD Radha 2nd Gen Pen Needle] 32 gauge x 5/32 needle See Rx Instructions .Route Qty: 1200 1RF Rx Instructions: use to check blood sugar three times a day bupropion HCl 150 mg tablet extended release 24 hr 150 mg PO QAM Qty: 90 1RF atorvastatin 40 mg tablet 40 mg PO HS Qty: 90 4RF Xarelto 10 mg tablet 10 mg PO DAILY Qty: 90 4RF montelukast [Singulair] 10 mg tablet 10 mg PO QHS Qty: 90 4RF clopidogrel 75 mg tablet 75 mg PO DAILY Qty: 90 4RF Breztri Aerosphere 160-9-4.8 mcg/actuation HFA aerosol inhaler 2 inh inhalation BID 90 Days Qty: 10.7 4RF dicyclomine 20 mg tablet 20 mg PO BID Qty: 180 1RF torsemide 20 mg tablet 20 mg PO QAM Qty: 90 1RF brimonidine-timolol [Combigan] 0.2-0.5 % drops 2 drp EACH EYE Q12H 90 Days Qty: 10 5RF Other Ambulatory Orders: Complete Blood Count no Diff (Routine) Timeframe: 1 Week Location: Determined by Patient Ordered By: Yani Gauthier Comprehensive Metabolic Panel (Routine) Timeframe: 1 Week Location: Determined by Patient Ordered By: Yani Gauthier Date of admission: 08/04/24 10:27 Primary Care Provider: Laura,Mark Catalan Admitting Provider: Arjun Dey Attending physician on admission: Rani Martinez Condition: Stable Quality VTE Prophylaxis VTE prophylaxis: pharmacologic ordered Hospitalist MIPS Heart Failure (Exclusion) Patient has history of Heart Transplant or Left Ventricular Assistive Device?: No IF YES, STOP HERE Heart Failure (Qualifier) Patient has current or prior documentation of LVEF less than or equal to 40%, or mod/servere depressed LVSF?: No IF NO, STOP HERE
[2024-08-06 11:50] LABS: Glucose Point of Care 151 mg/dl (65-105)
[2024-08-06 12:00] VITALS: BP 104/39; PULSE 72; RESP 20; TEMP 37.2; O2SAT 98
--- NOTE | 2024-08-11 08:06 | PC.NURSE ---
Blood cx are negative.
== END 2024-08-06 16:15 | DRG 689 ==
LOC: ANHED 21:07 → ANH2MED 23:57
PROVIDERS: Student in an Organized Health Care Education/Training Program; Admitting Provider Internal Medicine; Emergency Provider Preventive Medicine Aerospace Medicine; PCP Internal Medicine; Visit Provider Nurse Practitioner
DX: N39.0 Urinary tract infection, site not specified (principal); G93.41 Metabolic encephalopathy; N17.9 Acute kidney failure, unspecified; I50.32 Chronic diastolic (congestive) heart failure; J96.11 Chronic respiratory failure with hypoxia; I13.0 Hypertensive heart and chronic kidney disease with heart failure and stage 1 through stage 4 chronic kidney disease, or unspecified chronic kidney disease; F33.9 Major depressive disorder, recurrent, unspecified; B96.1 Klebsiella pneumoniae [K. pneumoniae] as the cause of diseases classified elsewhere; I48.0 Paroxysmal atrial fibrillation; E11.22 Type 2 diabetes mellitus with diabetic chronic kidney disease; N18.9 Chronic kidney disease, unspecified; E87.5 Hyperkalemia; W19.XXXA Unspecified fall, initial encounter; I25.10 Atherosclerotic heart disease of native coronary artery without angina pectoris; E78.5 Hyperlipidemia, unspecified; J44.9 Chronic obstructive pulmonary disease, unspecified; K58.0 Irritable bowel syndrome with diarrhea; E88.810 Metabolic syndrome; K21.9 Gastro-esophageal reflux disease without esophagitis; F41.9 Anxiety disorder, unspecified; H40.9 Unspecified glaucoma; E66.9 Obesity, unspecified; Z68.38 Body mass index [BMI] 38.0-38.9, adult; Z87.891 Personal history of nicotine dependence; Z79.01 Long term (current) use of anticoagulants; Z95.5 Presence of coronary angioplasty implant and graft
CPT/HCPCS: 36415; 70450; 71045; 72125; 74176; 80048; 80053; 80307; 81001; 82948; 83036; 83605; 83880; 85025; 85027; 85055; 85610; 85730; 87040; 87086; 87186; 87637; 93005; 94640; 96361; 96365; 97161; 97166; 99285; A9270; G0378; J0692; J1815; J7030